=== PATIENT | female | born 1990 | race Caucasian/White ===

== ENCOUNTER 2020-01-29 18:36 | Emergency (ER) | payer MEDICAID, SELFPAY ==
[2020-01-29 18:37] VITALS: BP 149/101; PULSE 93; RESP 18; TEMP 36.8; O2SAT 96; BMI 40.5
--- NOTE | 2020-01-29 20:08 | ED.RN ---
PT NOW C/O CHEST PAIN
--- NOTE | 2020-01-29 20:09 | EKG12_ITS ---
Test Reason : CP Blood Pressure : / mmHG Vent. Rate : 081 BPM Atrial Rate : 081 BPM P-R Int : 140 ms QRS Dur : 082 ms QT Int : 364 ms P-R-T Axes : 056 069 039 degrees QTc Int : 422 ms Normal sinus rhythm Normal ECG Confirmed by WILI RAZO, CHRISTIE ([id number]), food expeditor GRAYSON THORPE ([id number]) on 01/31/2020 1:01:04 PM Referred By: NAVEED Confirmed By:NICOLE RASHEED MD
--- NOTE | 2020-01-29 20:12 | RAD_ITS ---
STUDY: X-RAY CHEST REASON FOR EXAM: Female, 29 years old. SORE THROAT, EAR PAIN, SOB, COUGH AND FEVER TECHNIQUE: Frontal view of the chest COMPARISON: May 09, 2016 FINDINGS: The lungs are clear and expanded. There is no demonstrated pleural abnormality. Normal size heart. Normal mediastinum and brittany. Normal visualized pulmonary arteries. Normal visualized aortic arch and descending thoracic aorta. Normal visualized thoracic spine. Normal visualized ribs, clavicles, and shoulders. There is no demonstrated abnormality of the visualized soft tissue structures of the upper abdomen. RAD/Chest 1 View (Portable) IMPRESSION: Normal x-ray examination of the chest. Electronically Signed: Paola Rucker, at 20:31 EDT Tel , Service support ,
[2020-01-29 20:31] VITALS: PULSE 86; RESP 16; O2SAT 97; O2SAT 99
[2020-01-29] MEDS: Ketorolac 30 MG/ML Syringe IV (20:49)
[2020-01-29] MEDS: 0.9% Normal Saline 1,000 ML 150 ML IV (20:50)
[2020-01-29 21:17] LABS: Absolute Lymphocyte Count 3.59 X10^3/uL (0.83-4.51); Absolute Neutrophil Count 5.8 X10^3/uL (2.0-7.7); Basophil# 0.06 X10^3/uL; Basophil% 0.6 % (0-1); Eosinophil# 0.39 X10^3/uL; Eosinophils% 3.7 % (0-5); Hematocrit 44.2 % (37-47); Hemoglobin 14.3 g/dL (12.0-15.0); Lymphocyte # 3.59 X10^3/ul (4.0); Lymphocyte % 34.4 % (19-41); Mean Corp Hgb Conc 32.4 g/dL (32-36); Mean Corpuscular Hgb 29.3 pg (27.0-32.0); Mean Corpuscular Volume 90.6 fL (81-99); Mean Platelet Vol. 10.2 fl (6.2-12.0); Monocyte# 0.54 X10^3/uL; Monocyte% 5.2 % (0-10); NRBC Flagged by Analyzer 0 % (0-5); Neutrophil # 5.83 X10^3/uL (2.7-7.7); Neutrophil % 55.8 % (47-70); Platelet Count 256 K/mm3 (150-450); RBC Distribution Width CV 12.1 % (11.6-14.6); RBC Distribution Width SD 39.9 fl (35.1-43.9); Red Blood Count 4.88 M/mm3 (4.2-5.4); White Blood Count 10.4 K/mm3 (4.4-11.0)
[2020-01-29 21:26] LABS: Prothrombin Time (Protime)PT. 13.5 SECONDS (11.7-14.9)
[2020-01-29 21:29] LABS: D-Dimer Quantitative (DVT/PE) 0.38 FEU/ug/m (0.27-0.49)
[2020-01-29 21:53] LABS: Anion Gap 6 (5-15); BUN 13 mg/dL (7-18); BUN/Creat Ratio 17.3 RATIO (10-20); Calcium,Total 8.8 mg/dL (8.5-10.1); Chloride 106 mmol/L (98-107); Creatinine, Serum 0.75 mg/dL (0.55-1.02); EST Glomerular Filtration Rate 96 mL/min (>60); Est Glom Filt Rate - Afr Amer 116 mL/min (>60); Estimated Creatinine Clearance 82.76 ml/min; Glucose 90 mg/dL (74-106); Potassium 3.8 mmol/L (3.5-5.1); Sodium Level 138 mmol/L (136-145)
--- NOTE | 2020-01-29 22:31 | ED.VIS.GEN ---
History of Present Illness Chief Complaint: Cold Sx Informant: Patient Narrative: Patient presents with a two-week history of intermittent chest heaviness. The past 6 or 7 days she is also had sore throat and fever. She denies having fever today. She has not had significant cough. She denies ill contacts. - Past Medical History (1) GERD (gastroesophageal reflux disease) Status: Chronic (2) Back pain Status: Chronic Past Medical History - Allergies and Home Meds Allergies/Adverse Reactions: Allergies Penicillins Allergy (Verified 01/29/20 18:38) Unknown tramadol HCl [From Ultram] Allergy (Verified 01/29/20 18:38) Rash Primary Care Physician: Care Physician,No Primary [Primary Care Provider] - Prior records reviewed: Yes Surgical History: - - Laparoscopic surgery for endometriosis Lives: With Family Smoking Status: Current some day smoker Review of Systems General: Reports: Fever Eyes: Denies: Visual changes - bilaterally ENT: Reports: Sore throat Cardiovascular: Reports: Chest pain. Denies: Palpitations Respiratory: Reports: Dyspnea, Cough. Denies: Sputum Gastrointestinal: Denies: Abdominal pain, Nausea, Vomiting, Diarrhea Genitourinary: Denies: Dysuria Skin: Denies: Rash Neurological: Denies: Headache Allergy: Denies: Uticaria Physical Exam Vital Signs/Narrative: Vital Signs Temp Pulse Resp BP Pulse Ox 01/29/20 20:31 86 16 99 01/29/20 18:37 98.3 F 93 18 149/101 H 96 Inital Vital Signs reviewed: Yes General: Well nourished, Well developed Head: Normocephalic Eyes: Perrl, EOMI ENT: Moist mucous membranes, TM's clear, - - Mild posterior pharyngeal erythema. Uvula midline. Neck: Supple, - - Mild bilateral cervical lymphadenopathy. Cardiovascular: Regular rate, Regular rhythm Respiratory: No distress, CTA bilaterally Abdomen: Soft, Nontender Extremities: Nontender Skin: Normal color Neurological: Alert, Oriented x3 Psychological: Normal affect Diagnostic/Tx/Re-eval Impressions Chest X-Ray 01/29/20 20:12 IMPRESSION: Normal x-ray examination of the chest. Electronically Signed: Paola Rucker, at 20:31 EDT Tel , Service support , 01/29/20 20:12 Chest 1 View (Portable) [RAD] Stat 01/29/20 20:52 Mucosa - Throat Group A Streptococcus Rapid Screen - Preliminary Laboratory Results 01/29/20 01/29/20 01/29/20 21:01 21:01 21:01 WBC 10.4 RBC 4.88 Hgb 14.3 Hct 44.2 MCV 90.6 MCH 29.3 MCHC 32.4 RDW Std Deviation 39.9 RDW Coeff of Tiarra 12.1 Plt Count 256 MPV 10.2 Immature Gran % (Auto) 0.300 Neut % (Auto) 55.8 Lymph % (Auto) 34.4 [place] % (Auto) 5.2 Eos % (Auto) 3.7 Baso % (Auto) 0.6 Absolute Neuts (auto) 5.8 Absolute Lymphs (auto) 3.59 Nucleated RBC % 0 PT 13.5 INR 1.0 D-Dimer Quant (PE/DVT) 0.38 Sodium 138 Potassium 3.8 Chloride 106 Carbon Dioxide 26.0 Anion Gap 6 BUN 13 Creatinine 0.75 Estim Creat Clear Calc 82.76 Est GFR (MDRD) Af Amer 116 Est GFR (MDRD) Non-Af 96 BUN/Creatinine Ratio 17.3 Glucose 90 Calcium 8.8 Troponin I < 0.015 - EKG Initial EKG Interpretation: Sinus Rhythm - Sinus at 81 with no acute ischemia. - Medical Decision Making Test results are discussed with the patient. Blood work including troponin and d-dimer are negative. Rapid strep is negative. She is reassured with these findings. ED Disposition - Plan for ED Patient: Disposition: Home or Assisted Living Diagnosis: Atypical chest pain, Viral URI Instructions: URI, Viral, No Abx (Adult), CHEST PAIN, NonCardiac Referrals: Jaye Foreman MD [STAFF PHYSICIAN] - As Needed
[2020-01-29 22:51] VITALS: BP 138/101; PULSE 85; RESP 16; O2SAT 99
== END 2020-01-29 22:52 | disposition home or self-care (01) ==
PROVIDERS: Emergency Provider Emergency Medicine
DX: R07.89 Other chest pain (principal); J06.9 Acute upper respiratory infection, unspecified; K21.9 Gastro-esophageal reflux disease without esophagitis; F17.200 Nicotine dependence, unspecified, uncomplicated
CPT/HCPCS: 71045; 80048; 84484; 85025; 85379; 85610; 87880; 93005; 96361; 96374; 99284; J7030; A4216

== ENCOUNTER 2020-03-26 22:14 | Observation (INO) | payer MEDICAID, SELFPAY ==
--- NOTE | 2020-03-26 11:58 | CT_ITS ---
STUDY: CT BRAIN WITHOUT CONTRAST REASON FOR EXAM: Female, 29 years old. Unresponsive episode, chest pain, shortness of breath, seizures, increased BP RADIATION DOSAGE (If Supplied By Facility): CTDIvol = ( 44.99 ) mGy, DLP = ( 745.49 ) mGycm TECHNIQUE: Transaxial CT imaging of the brain was performed without administration of intravenous contrast material. Individualized dose optimization techniques were used for this CT. COMPARISON: No relevant priors. FINDINGS: Normal soft tissue structures. Normal calvarium. Normal size ventricles and extra-axial spaces for the patient''s age. Normal white matter tracts of the cerebral hemispheres. Normal basal ganglia and thalami. Normal brainstem. Normal cerebellum. There is no intracranial hemorrhage. There are no findings of an acute ischemic infarction. Normal visualized paranasal sinuses. CT/Brain/Head without Contrast IMPRESSION: Normal unenhanced CT scan of the brain. Electronically Signed: Vincent Gotti, at 0:40 EDT Tel , Service support ,
--- NOTE | 2020-03-26 11:58 | CT_ITS ---
STUDY: CTA CHEST REASON FOR EXAM: Female, 29 years old. Unresponsive episode, chest pain, shortness of breath, seizures, increased BP RADIATION DOSAGE (If Supplied By Facility): CTDIvol = ( 15.03 ) mGy, DLP = ( 505.51 ) mGycm TECHNIQUE: The examination was performed with the intravenous administration of IV 100mL Isovue-370. Post-processing of the angiographic images was performed, with multiplanar reformation and 3D reconstruction. Individualized dose optimization techniques were used for this CT. COMPARISON: None. FINDINGS: Normal enhancement of the main pulmonary artery and right and left pulmonary arteries. Normal enhancement of the bilateral peripheral pulmonary arteries. There is no demonstrated pulmonary embolism. No aortic aneurysm identified. Evaluation of the aortic root and ascending thoracic aorta is limited by motion artifact. Otherwise no aortic dissection identified. Normal heart and pericardium. Nonspecific mediastinal and hilar lymph nodes measuring up to 1.1 cm in short axis. Normal visualized trachea and bronchi. The lungs are well expanded. Atelectasis/scarring within the lungs. Motion within the lung rodriguez. No focal consolidation. Normal pleura. Normal chest wall structures. There are mild degenerative changes of thoracic spine. Status post cholecystectomy. Small hiatal hernia. CT/CTA Chest W/WO Contrast IMPRESSION: No pulmonary embolus identified. Nonspecific mediastinal and hilar lymph nodes measuring up to 1.1 cm in short axis. Other findings as discussed above. Electronically Signed: Vincent Gotti, at 0:49 EDT Tel , Service support ,
[2020-03-26 22:15] VITALS: BP 150/99; PULSE 104; RESP 18; TEMP 36.8; O2SAT 99; BMI 36.9
[2020-03-26 22:18] VITALS: BP 150/99; PULSE 104; RESP 18; TEMP 36.8; O2SAT 99
--- NOTE | 2020-03-26 22:25 | NURSING ---
ATTEMPT TO CALL RT FOR EKG FOR INTERMITTENT CP, NO ANSWER.
--- NOTE | 2020-03-26 22:53 | EKG12_ITS ---
Test Reason : SOB Blood Pressure : / mmHG Vent. Rate : 084 BPM Atrial Rate : 084 BPM P-R Int : 128 ms QRS Dur : 080 ms QT Int : 358 ms P-R-T Axes : 071 080 046 degrees QTc Int : 423 ms Normal sinus rhythm Normal ECG Confirmed by MALIHA RAOZ, CHRISSY ([id number]), acquisition editor SHALOM ZABALA ([id number]) on 03/30/2020 2:59:19 PM Referred By: Ahmet Galdamez Confirmed By:CHRISSY JETT MD
[2020-03-26 23:18] VITALS: BP 175/85; PULSE 89; RESP 17; TEMP 36.9; O2SAT 98
[2020-03-26] MEDS: 0.9% Normal Saline 1,000 ML 1000 ML IV (23:18)
[2020-03-26 23:20] LABS: Absolute Lymphocyte Count 3.73 X10^3/uL (0.83-4.51); Basophil# 0.11 X10^3/uL; Eosinophil# 0.44 X10^3/uL; Hematocrit 44.5 % (37-47); Hemoglobin 14.8 g/dL (12.0-15.0); Lymphocyte # 3.73 X10^3/ul (4.0); Lymphocyte % 34.2 % (19-41); Mean Corp Hgb Conc 33.3 g/dL (32-36); Mean Corpuscular Hgb 30.6 pg (27.0-32.0); Mean Corpuscular Volume 92.1 fL (81-99); Mean Platelet Vol. 10.3 fl (6.2-12.0); Monocyte# 0.62 X10^3/uL; Monocyte% 5.7 % (0-10); NRBC Flagged by Analyzer 0 % (0-5); Neutrophil # 5.97 X10^3/uL (2.7-7.7); Neutrophil % 54.6 % (47-70); Platelet Count 275 K/mm3 (150-450); RBC Distribution Width CV 11.9 % (11.6-14.6); Red Blood Count 4.83 M/mm3 (4.2-5.4); White Blood Count 10.9 K/mm3 (4.4-11.0)
[2020-03-26 23:22] VITALS: O2SAT 99
[2020-03-26] MEDS: Ondansetron 4 MG/2 ML Vial IV (23:39)
[2020-03-26] MEDS: Morphine 4 MG/ML Syringe IV (23:40)
[2020-03-26 23:42] LABS: Lactic Acid 0.6 mmol/L (0.4-1.9)
[2020-03-27] VITALS (11 sets, daily range): BP systolic 129–180; BP diastolic 56–99; PULSE 78–93; RESP 16–20; TEMP 36.4–36.9; O2SAT 93–98; BMI 40.8
[2020-03-27 00:03] LABS: ALB/GLOB Ratio 1.1 RATIO (0.9-2.4); AST(SGOT) 5 U/L (15-37); Alanine Aminotransfer ALT/SGPT 25 U/L (13-56); Albumin, Serum 3.6 g/dL (3.2-5.0); Alkaline Phosphatase 117 U/L (45-117); Anion Gap 7 (5-15); BUN 13 mg/dL (7-18); BUN/Creat Ratio 15.5 RATIO (10-20); Chloride 105 mmol/L (98-107); Creatinine, Serum 0.84 mg/dL (0.55-1.02); EST Glomerular Filtration Rate 85 mL/min (>60); Est Glom Filt Rate - Afr Amer 102 mL/min (>60); Estimated Creatinine Clearance 77.45 ml/min; Globulin 3.4 g/dL (2.2-4.2); Glucose 102 mg/dL (74-106); Magnesium 1.9 mg/dL (1.6-2.6); Sodium Level 140 mmol/L (136-145); Thyroid Stim Hormone (TSH) 2.39 uIU/mL (0.358-3.74); Total Bilirubin < 0.10 mg/dL (0.20-1.00)
--- NOTE | 2020-03-27 00:23 | ED.DCSUM_ITS ---
History of Present Illness Chief Complaint: Shortness of Breath Informant: Patient Onset: Today Narrative: Patient presents the emergency room following a syncopal episode. Patient states that last week while caring for her children while her is at work she had a couple of episodes where she found herself passed out. She states that each episode started very similar where she would start to feel her heart racing and then she would get clammy and sweaty and passed out. She did not hurt herself in any those incidents. Today she went for a walk with her family and while in the car almost at home her symptoms began again. When she went to get out of the car she had a syncopal episode. She states that her told her she was out for about 45 seconds. States she was a little confused when she came to. She is not had these types of problems before. What was different about tonight was that she had a pain in between her shoulder blades. She denies any symptoms below the diaphragm. Arms and legs feel fine. She states that in between each episode she generally is fine. No new medications. No muscle cramps. Past Medical History - Allergies and Home Meds Allergies/Adverse Reactions: Allergies Penicillins Allergy (Verified 03/26/20 22:19) Unknown tramadol HCl [From Ultram] Allergy (Verified 03/26/20 22:19) Rash Primary Care Physician: Care Physician,No Primary [Primary Care Provider] - Surgical History: - - Laparoscopic surgery for endometriosis Smoking Status: Current every day smoker Review of Systems General: Denies: Chills, Fever, Sweats Eyes: Denies: Visual changes - bilaterally, Diplopia ENT: Denies: Rhinorrhea, Sore throat Cardiovascular: Reports: Palpitations, Heart racing - syncope, -. Denies: Chest pain Respiratory: Denies: Dyspnea, Cough, Dyspnea on exertion Gastrointestinal: Reports: Nausea. Denies: Abdominal pain, Vomiting, Diarrhea, Melena, Hematochezia Genitourinary: Denies: Dysuria, Hematuria, Frequency Musculoskeletal: Reports: Back pain. Denies: Extremity Pain Skin: Denies: Rash, Wounds Neurological: Denies: Headache, Weakness, Numbness Physical Exam Vital Signs/Narrative: Vital Signs Temp Pulse Resp BP Pulse Ox 03/26/20 23:18 98.5 F 89 17 180/97 H 98 03/26/20 22:18 98.3 F 104 H 18 150/99 H 99 03/26/20 22:15 98.3 F 104 H 18 150/99 H 99 Inital Vital Signs reviewed: Yes General: Well nourished, Well developed, No Acute Distress Head: Normocephalic, Atraumatic Eyes: Perrl, EOMI ENT: Moist mucous membranes, No rhinorrhea Neck: Supple, Nontender Cardiovascular: Regular rate, Regular rhythm, No murmurs Respiratory: No distress, CTA bilaterally, Chest nontender Abdomen: Soft, Nontender, Nondistended, Normal bowel sounds Back: Nontender, Normal Inspection Extremities: Nontender, No edema Skin: Normal color, No rash Neurological: Alert, Oriented x3, Cranial nerves II-XII grossly intact, Normal Strength, Normal Sensation Psychological: Normal affect, Normal Mood Diagnostic/Tx/Re-eval - EKG Initial EKG Interpretation: Sinus Rhythm - Initial EKG shows a normal sinus rhythm at a rate of 84. No concerning features of ACS, prolonged QT. This is compared to 29 January 2020. Grossly unchanged. - Medical Decision Making Basic labs are normal. CTA of the chest demonstrates no pulmonary embolism or dissection. She is been observed on the monitor is been a normal sinus rhythm. She has not felt her symptoms again. I think the patient would benefit from an echocardiogram and a Holter monitor. I believe the patient has a high l ikelihood that she is going into SVT or other dysrhythmia resulting in syncope. Unfortunately she has no primary care physician. I cannot ensure early follow- up especially in light of the pandemic. Patient would prefer to have an observational stay and see if we can get these set up for her. Hospitalist will be contacted. ED Disposition - Plan for ED Patient: Disposition: Acute Care Hospital [facility] Diagnosis: Syncope and collapse, Heart palpitations Referrals: Care Physician,No Primary [Primary Care Provider] -
[2020-03-27] MEDS: 0.9% Normal Saline 1,000 ML 150 ML IV (00:27)
[2020-03-27] MEDS: Acetaminophen 500 MG Tablet 1000 MG PO (02:45)
--- NOTE | 2020-03-27 02:59 | ECHOD_ITS ---
Reason For Study: SYNCOPE/NEAR SYNCOPE Procedure This was a 2D Doppler, Color Flow transthoracic echocardiogram. Exam performed portable in patient room. Left Ventricle Normal LV size. Left ventricular systolic function is normal. The estimated ejection fraction is 60 %. Normal diastology for age. No regional wall motion abnormalities noted. Right Ventricle Normal RV size. Normal systolic function. Atria Normal left atrium. Normal right atrium. Mitral Valve Normal mitral valve. Tricuspid Valve Normal tricuspid valve. Aortic Valve Normal aortic valve. Trisinus/trileaflet aortic valve. Pulmonic Valve Normal pulmonic valve. Great Vessels Normal aortic root. The pulmonary artery is normal size. Normal inferior vena cava. Pericardium/Pleural No pericardial effusion. MMode/2D Measurements & Calculations LVIDd: 4.1 cm IVSd: 0.86 cm Ao root diam: 2.6 cm LVIDs: 2.5 cm LVPWd: 0.98 cm RVDd: 2.9 cm FS: 37.6 % LAV(MOD-bp): 64.1 ml LA A4 area: 20.8 cm2 LA dimension(2D): 3.2 cm LAV(MOD-bp) Indexed: 33.4 ml/m2 LAV(MOD-sp2): 60.3 ml LAV(MOD-sp4): 65.5 ml RA A4 area: 11.3 cm2 Time Measurements MV dec time: 0.22 sec Doppler Measurements & Calculations MV E max esteban: 98.6 cm/sec Lat Peak E' Esteban: 13.3 cm/sec Med Peak E' Esteban: 10.2 cm/sec MV A max esteban: 69.0 cm/sec E/E' lat: 7.4 E/E' med: 9.7 MV E/A: 1.4 Ao V2 max: 141.9 cm/sec LV V1 max: 106.8 cm/sec PA V2 max: 99.9 cm/sec Ao max P.1 mmHg LV V1 max P.6 mmHg Interpretation Summary Normal LV size. Left ventricular systolic function is normal. The estimated ejection fraction is 60 %. Structurally normal valves. Ordering Physician: Ahmet Galdamez Referring Physician: NICHOLE PCP Performed By: Meri Simmons RDCS, RVT
--- NOTE | 2020-03-27 03:57 | PCM.HP.STD ---
Problem List (1) Syncope and collapse Status: Acute History of Present Illness Date of Admission: 03/27/20 Chief Complaint: Syncope and collapse The patient is a 29 year old F seen in the emergency room at [facility] with complaints of several syncopal episodes-patient states she passed out twice last week, once when she was standing in her home, her daughter saw the event happened but she states her daughter does not know how long the patient was unconscious. Patient did not suffer any injuries when she passed out. The second episode last week was when she was getting out of bed and going into her bathroom, she states that she slumped on the edge of her sink and passed out in front of her for about 30 seconds. Patient states that today she was returning from walking and she was getting out of her car when she became cold, sweaty, and passed out for which she states was 1-1/2 minutes. Patient states her was present during the time that she passed out. Patient states that she has complaints of some vague chest discomfort and pain in her mid back area, she states that she also feels as though she is smothering when these episodes happen. She also experiences what she describes as her heart racing before she passes out. Patient does not have a family physician. Patient's labs obtained in the emergency room are unremarkable, chest CTA was performed which showed no evidence of pulmonary embolus, CT scan of the brain was obtained which was unremarkable. Patient will be admitted for syncope-etiology unclear, she will undergo an echocardiogram, she may need to undergo a cardiac stress test. Past Medical History Past Medical History (Chronic Problems): Chronic Problems GERD (gastroesophageal reflux disease) (Chronic) Back pain (Chronic) Endometriosis determined by laparoscopy (Chronic) Allergies Penicillins Allergy (Verified 03/27/20 03:04) Shortness of breath tramadol HCl [From Ultram] Allergy (Verified 03/26/20 22:19) Rash Home Medications: Ambulatory Orders Medication Instructions Recorded Multivitamin [Daily Multiple 1 each PO DAILY 02/11/16 Vitamin] Surgical History: - - Laparoscopic surgery for endometriosis Psychiatric History: No pertinent psych hx ADMINISTRATIVE INTERN History: No pertinent ADMINISTRATIVE INTERN history Lives: Spouse/ Significant Other Smoking Status: Current every day smoker Tobacco Use: Cigarettes Alcohol: None Drugs: None - *Family History Maternal History Items: Asthma, Stroke, - - MS Paternal History Items: Asthma Review of Systems Constitutional: Denies: Anorexia, Chills, Fever, Night Sweats, Malaise, Weakness, Weight Change, Fatigue Eyes: Denies: Cataracts, Conjunctivae Inflammation, Double vision, Drainage HEENT: Denies: Dysphasia, Ear Pain, Eye Pain, Hearing Changes, Nasal bleeding, Nasal Congestion, Post Nasal Drip Cardiovascular: Reports: Chest Pain, Palpitations. Denies: Claudication, Chest Pressure, Chest Tightness, Edema, Heaviness Respiratory: Denies: Cough, Hemoptysis, Pleuritic Pain, Shortness of Breath, Shortness of breath at rest, Shortness of breath upon exertion Gastrointestinal: Denies: Abdominal Pain, Constipation, Diarrhea, Hematemesis, Hematochezia, Nausea, Melena, Vomiting Genitourinary: Denies: Dysuria, Frequency, Hematuria, Hesitancy, Nocturia, Retention, Urgency Musculoskeletal: Reports: Back Pain - Patient complains of pain in the mid thoracic spine area between her shoulder blades since she passed out today. Denies: Joint Pain, Joint stiffness, Joint swelling, Joint Tenderness Skin: Denies: Dryness, Pruritis, Rash Neurological: Reports: - - Syncope as described in chief complaint. Denies: Balance problems, Blurred vision, Double vision, Slurred speech, Confusion, Difficulty swallowing, Focal weakness, Headaches, Numbness, Tingling, Tremor, Seizures Psychiatric: Denies: Anxiety, Depression, Homicidal Ideations, Suicidal Ideations Endocrine: Denies: Change in Body Habitus, Heat/ Cold Intolerance, Polydipsia, Polyuria Hematologic/ Lymphatic: Denies: Adenopathy, Anemia, Easy Bruising, Easy Bleeding, Petechiae, Purpura VTE Information - Inpt Only VTE Present on Admission: No VTE Mechan Device Prophylaxis: None VTE Pharm Prophylaxis ordered?: No Reason prophylaxis not ordered:: Treatment Not Indicated Patient Problems: Active and Suspected Problems Syncope and collapse (Acute) Heart palpitations (Acute) - Physical Exam Vitals/I&O's: Vital Signs Temp Pulse Resp BP Pulse Ox 97.9 F 80 18 142/96 H 96 03/27/20 02:46 03/27/20 03:17 03/27/20 02:46 03/27/20 02:46 03/27/20 02:46 Oxygen Delivery Method Room Air Weight: 101.3 kg Body Mass Index (BMI) 40.8 Intake and Output for Last 24 Hours 05/06/20 05/07/20 05/08/20 23:59 23:59 23:59 Intake Total 1427.5 / 1427.5 Balance 1427.5 / 1427.5 General: Alert, Oriented x3, Cooperative, No apparent distress, Well developed, Well nourished HEENT: Atraumatic, PERRLA, EOMI, Normocephalic Oral: Moist Mucosa Neck: Supple, No JVD, Negative Carotid Bruits, No Nuchal Rigidity, Trachea Midline, Thyroid Normal Size and Texture Lungs: Clear to auscultation, Normal air movement, No rhonchi, No wheeze, No rales Cardiovascular: Regular rate, Regular Rhythm, Normal S1, Normal S2, No murmurs, PMI Normal, No rub noted, No Gallop Abdomen: Bowel Sounds Present, Soft, Non Tender, Non-Distended, Obese Extremities: No clubbing, No cyanosis, No edema, Capillary Refill Less than 3 Seconds Skin: No rashes, No breakdown Musculoskeletal: No Tenderness to Palpation of Joints or Extremities, No Muscle Wasting Neurological: Cranial nerves II-XII grossly intact, Neuro grossly intact, Sensory exam intact to light touch and pain Psych/Mental Status: Normal Affect, Appropriate, Alert and oriented to time, place, person, mood and affect Laboratory Results 03/26/20 23:15: WBC 10.9, RBC 4.83, Hgb 14.8, Hct 44.5, MCV 92.1, MCH 30.6, MCHC 33.3, RDW Std Deviation 40.0, RDW Coeff of Tiarra 11.9, Plt Count 275, MPV 10.3, Immature Gran % (Auto) 0.500, Neut % (Auto) 54.6, Lymph % (Auto) 34.2, [place] % (Auto) 5.7, Eos % (Auto) 4.0, Baso % (Auto) 1.0, Absolute Neuts (auto) 6.0, Absolute Lymphs (auto) 3.73, Nucleated RBC % 0 03/26/20 23:15: Sodium 140, Potassium 4.0, Chloride 105, Carbon Dioxide 28.0, Anion Gap 7, BUN 13, Creatinine 0.84, Estim Creat Clear Calc 77.45, Est GFR (MDRD) Af Amer 102, Est GFR (MDRD) Non-Af 85, BUN/Creatinine Ratio 15.5, Glucose 102, Calcium 9.0, Magnesium 1.9, Total Bilirubin < 0.10 L, AST 5 L, ALT 25, Alkaline Phosphatase 117, Troponin I < 0.015, Total Protein 7.0, Albumin 3.6, Globulin 3.4, Albumin/Globulin Ratio 1.1, TSH 2.39 03/26/20 23:15: Lactic Acid 0.6 Current Medications Sodium Chloride () 250 mls @ 15 mls/hr IV .[id number] PRN PRN Reason: Saline Flush Sodium Chloride () 250 mls @ 15 mls/hr IV .[id number] PRN PRN Reason: Additional IVPB Infusion Ondansetron HCl (Zofran) 4 mg IV Q8H PRN PRN PRN Reason: NAUSEA/VOMITING Sodium Chloride () 10 - 40 ml IV UD PRN PRN Reason: SALINE FLUSH Assessment/Plan All Active Problems Syncope and collapse (Acute) Heart palpitations (Acute) #1 syncope and collapse-etiology unclear, patient will be placed in observation status on PCU, she will be monitored, she will have an echocardiogram performed today, she may need a cardiac stress test performed. #2 class III obesity #3 midthoracic back pain-possibly secondary to back strain from passing out OBSV E&M: [id number] Initial observation care L3
[2020-03-27 07:40] LABS: Cholesterol 192 mg/dL (200); High Density Lipoprotein 26 mg/dL; Triglycerides 498 mg/dL
[2020-03-27] MEDS: Ibuprofen 400 MG Tablet 800 MG PO (08:52)
--- NOTE | 2020-03-27 13:57 | PN_ITS ---
<Heather Wing - Last Filed: 03/27/20 14:02> Patient Problems: Active and Suspected Problems Syncope and collapse (Acute) Heart palpitations (Acute) Subjective: Patient seen and examined. Denies further syncope. Denies dizziness, lightheadedness. - Physical Exam Vitals/I&O's: Vital Signs Temp Pulse Resp BP Pulse Ox 97.5 F L 79 16 132/76 H 95 03/27/20 09:06 03/27/20 09:06 03/27/20 09:06 03/27/20 09:06 03/27/20 09:06 Oxygen Delivery Method Room Air Weight: 223 lb 5.252 oz Body Mass Index (BMI) 40.8 Orthostatic Vital Signs Start: 03/27/20 09:05 Freq: q24h Status: Active Protocol: Activity Type Activity Date Activity User E-Sign Co-Sign Detail Recorded Client Recorded Date Recorded By Document 03/27/20 09:05 EY [id number] 03/27/20 09:06 EY 03/27/20 09:05 Orthostatic Vitals Standing -Blood Pressure (90/60-120/80) 136/91 H -Extremity Use Left Arm -Pulse Rate (60-100) 79 Sitting -Blood Pressure (90/60-120/80) 135/80 H -Extremity Use Left Arm -Pulse Rate (60-100) 83 Lying -Blood Pressure (90/60-120/80) 132/76 H -Extremity Use Left Arm -Pulse Rate (60-100) 82 Intake and Output for Last 24 Hours 03/25/20 03/26/20 03/27/20 23:59 23:59 23:59 Intake Total 1427.5 / 1427.5 Balance 1427.5 / 1427.5 General: Alert, Oriented x3, Cooperative HEENT: Atraumatic, PERRLA, EOMI, Normocephalic Neck: Supple, No JVD, Negative Carotid Bruits Lungs: Clear to auscultation, Normal air movement Cardiovascular: Regular rate, Regular Rhythm, Normal S1, Normal S2, No murmurs Abdomen: Bowel Sounds Present, Soft, Non Tender, Non-Distended, Obese Extremities: No clubbing, No cyanosis, No edema, Capillary Refill Less than 3 Seconds Skin: No rashes, No breakdown Musculoskeletal: No Tenderness to Palpation of Joints or Extremities Neurological: Cranial nerves II-XII grossly intact, Neuro grossly intact Psych/Mental Status: Normal Affect, Appropriate Laboratory Results 03/26/20 23:15: WBC 10.9, RBC 4.83, Hgb 14.8, Hct 44.5, MCV 92.1, MCH 30.6, MCHC 33.3, RDW Std Deviation 40.0, RDW Coeff of Tiarra 11.9, Plt Count 275, MPV 10.3, Immature Gran % (Auto) 0.500, Neut % (Auto) 54.6, Lymph % (Auto) 34.2, Erie % (Auto) 5.7, Eos % (Auto) 4.0, Baso % (Auto) 1.0, Absolute Neuts (auto) 6.0, Absolute Lymphs (auto) 3.73, Nucleated RBC % 0 03/26/20 23:15: Sodium 140, Potassium 4.0, Chloride 105, Carbon Dioxide 28.0, Anion Gap 7, BUN 13, Creatinine 0.84, Estim Creat Clear Calc 77.45, Est GFR (MDRD) Af Amer 102, Est GFR (MDRD) Non-Af 85, BUN/Creatinine Ratio 15.5, Glucose 102, Calcium 9.0, Magnesium 1.9, Total Bilirubin < 0.10 L, AST 5 L, ALT 25, Alkaline Phosphatase 117, Troponin I < 0.015, Total Protein 7.0, Albumin 3.6, Globulin 3.4, Albumin/Globulin Ratio 1.1, TSH 2.39 03/26/20 23:15: Lactic Acid 0.6 03/27/20 07:00: Troponin I < 0.015, Triglycerides 498 H, Cholesterol 192, LDL Cholesterol TNP, VLDL Cholesterol TNP, HDL Cholesterol 26 L Current Medications Fenofibrate (Tricor) 48 mg PO DAILY VIRGIL Sodium Chloride () 250 mls @ 15 mls/hr IV .[id number] PRN PRN Reason: Saline Flush Sodium Chloride () 250 mls @ 15 mls/hr IV .[id number] PRN PRN Reason: Additional IVPB Infusion Ibuprofen (Motrin) 800 mg PO Q8H PRN PRN PRN Reason: Pain Score 1-10/10 Last Admin: 03/27/20 08:52 Dose: 800 mg Documented by: Ondansetron HCl (Zofran) 4 mg IV Q8H PRN PRN PRN Reason: NAUSEA/VOMITING Sodium Chloride () 10 - 40 ml IV UD PRN PRN Reason: SALINE FLUSH Medical Necessity - Tobacco Use Smoking Status: Current every day smoker Tobacco Use: Cigarettes Assessment/Plan All Active Problems Syncope and collapse (Acute) Heart palpitations (Acute) 1. Recurrent syncope-unclear etiology. Troponin negative. Echocardiogram demonstrates an EF of 60%, structurally normal valves. Orthostatic vitals negative. No arrhythmias on telemetry. CT of chest unremarkable. Brain CT normal. EEG pending. Further disposition pending EEG. Repeat orthostatic vitals in a.m. 2. Obesity-encouraged diet and lifestyle modifications. 3. Hypertriglyceridemia-initiated on fenofibrate. Outpatient follow-up. DVT prophylaxis-low risk, not indicated This patient was seen by KELSIE Gunter under the supervision of Dr. Pearson. <Tricia Pearson - Last Filed: 03/27/20 14:15> - Physical Exam Vitals/I&O's: Vital Signs Temp Pulse Resp BP Pulse Ox 97.5 F L 79 16 132/76 H 95 03/27/20 09:06 03/27/20 09:06 03/27/20 09:06 03/27/20 09:06 03/27/20 09:06 Oxygen Delivery Method Room Air Weight: 223 lb 5.252 oz Body Mass Index (BMI) 40.8 Orthostatic Vital Signs Start: 03/27/20 09:05 Freq: q24h Status: Active Protocol: Activity Type Activity Date Activity User E-Sign Co-Sign Detail Recorded Client Recorded Date Recorded By Document 03/27/20 09:05 GAEL [id number] 03/27/20 09:06 GAEL 03/27/20 09:05 Orthostatic Vitals Standing -Blood Pressure (90/60-120/80) 136/91 H -Extremity Use Left Arm -Pulse Rate (60-100) 79 Sitting -Blood Pressure (90/60-120/80) 135/80 H -Extremity Use Left Arm -Pulse Rate (60-100) 83 Lying -Blood Pressure (90/60-120/80) 132/76 H -Extremity Use Left Arm -Pulse Rate (60-100) 82 Intake and Output for Last 24 Hours 03/25/20 03/26/2020 23:59 23:59 23:59 Intake Total 1427.5 / 1427.5 Balance 1427.5 / 1427.5 Laboratory Results 03/26/20 23:15: WBC 10.9, RBC 4.83, Hgb 14.8, Hct 44.5, MCV 92.1, MCH 30.6, MCHC 33.3, RDW Std Deviation 40.0, RDW Coeff of Tiarra 11.9, Plt Count 275, MPV 10.3, Immature Gran % (Auto) 0.500, Neut % (Auto) 54.6, Lymph % (Auto) 34.2, Erie % (Auto) 5.7, Eos % (Auto) 4.0, Baso % (Auto) 1.0, Absolute Neuts (auto) 6.0, Absolute Lymphs (auto) 3.73, Nucleated RBC % 0 03/26/20 23:15: Sodium 140, Potassium 4.0, Chloride 105, Carbon Dioxide 28.0, Anion Gap 7, BUN 13, Creatinine 0.84, Estim Creat Clear Calc 77.45, Est GFR (MDRD) Af Amer 102, Est GFR (MDRD) Non-Af 85, BUN/Creatinine Ratio 15.5, Glucose 102, Calcium 9.0, Magnesium 1.9, Total Bilirubin < 0.10 L, AST 5 L, ALT 25, Alkaline Phosphatase 117, Troponin I < 0.015, Total Protein 7.0, Albumin 3.6, Globulin 3.4, Albumin/Globulin Ratio 1.1, TSH 2.39 03/26/20 23:15: Lactic Acid 0.6 03/27/20 07:00: Troponin I < 0.015, Triglycerides 498 H, Cholesterol 192, LDL Cholesterol TNP, VLDL Cholesterol TNP, HDL Cholesterol 26 L 03/27/20 07:00: Hemoglobin A1c Pending Current Medications Fenofibrate (Tricor) 48 mg PO DAILY VIRGIL Sodium Chloride () 250 mls @ 15 mls/hr IV .[id number] PRN PRN Reason: Saline Flush Sodium Chloride () 250 mls @ 15 mls/hr IV .[id number] PRN PRN Reason: Additional IVPB Infusion Ibuprofen (Motrin) 800 mg PO Q8H PRN PRN PRN Reason: Pain Score 1-10/10 Last Admin: 03/27/20 08:52 Dose: 800 mg Documented by: Ondansetron HCl (Zofran) 4 mg IV Q8H PRN PRN PRN Reason: NAUSEA/VOMITING Sodium Chloride () 10 - 40 ml IV UD PRN PRN Reason: SALINE FLUSH Assessment/Plan Patient seen by Sam Lott PA-C under my supervision Patient seen and examined. She was admitted with a complaint of syncope. Patient has had 3 episodes of syncope over the past week. Patient states that the first 2 occasions happen when she was standing on her feet for bed. The last episode which happened on the day of admission. When she was sitting in a car for about 3 minutes and states she is got up and felt dizzy and passed out. Of note, she states her told her that she had jerky motions of her lower extremities and possibly her upper extremities during the syncopal episodes. She denied any urinary or fecal incontinence and any post syncope drowsiness. Patient states she has not had much of an appetite lately though she has been keeping well hydrated. Prior to last week she had not had such symptoms before. She denies any history of seizures or family history of seizures. Review of systems otherwise negative. She has no complaints this morning. She denies any dizziness, nausea vomiting. Of note she does state that before the symptoms started, she feels like she is having palpitations. O/e: Vital Signs Temp Pulse Resp BP Pulse Ox 97.5 F L 79 16 132/76 H 95 03/27/20 09:06 03/27/20 09:06 03/27/20 09:06 03/27/20 09:06 03/27/20 09:06 General: Alert, Oriented x3, Cooperative HEENT: Atraumatic, PERRLA, EOMI, Normocephalic Neck: Supple, No JVD, Negative Carotid Bruits Lungs: Clear to auscultation, Normal air movement Cardiovascular: Regular rate, Regular Rhythm, Normal S1, Normal S2, No murmurs Abdomen: Bowel Sounds Present, Soft, Non Tender, Non-Distended, Obese Extremities: No clubbing, No cyanosis, No edema, Capillary Refill Less than 3 Seconds Skin: No rashes, No breakdown Musculoskeletal: No Tenderness to Palpation of Joints or Extremities Neurological: Cranial nerves II-XII grossly intact, Neuro grossly intact Psych/Mental Status: Normal Affect, Appropriate She had 2D echo today which showed normal EF with EF of 60% and normal diastolic for age and no regional wall motion abnormalities noted. Orthostatics were negative. I do think this may be a vasovagal syncope. However in light of her persistent jerking movements I cannot rule out a seizure. We will therefore order EEG and get neurology consult. Fall precautions. Rest as per Heather Wing [employer]-C's note, which I have reviewed and endorsed. OBSV E&M: [id number] Subsequent observation care L2
[2020-03-27 14:31] LABS: Hemoglobin A1c 5.6 % (4.2-6.3)
[2020-03-27] MEDS: Fenofibrate 48 MG Tablet PO (14:54)
[2020-03-27] MEDS: levETIRAcetam IV 1,000 MG/100 ML BAG 400 MG IV (16:47)
--- NOTE | 2020-03-27 17:02 | PCM.DC ---
- Discharge Diagnoses Current Active Problems: Current Active and Chronic Problems Syncope and collapse (Acute) Heart palpitations (Acute) You will use the following diet at home:: Calorie/Carbohydrate Controlled (specify 1200, 1400, etc) Discharge Activity: Return to Normal Activity Call your doctor if you observe: Shortness of breath, Dizziness, Fainting spells, Chest pain Instructions: Triglycerides Allergies/Adverse Reactions: Allergies Penicillins Allergy (Verified 03/27/20 03:04) Shortness of breath tramadol HCl [From Ultram] Allergy (Verified 03/26/20 22:19) Rash Medications to take at Discharge Multivitamin [Daily Multiple Vitamin] 1 each PO DAILY 02/11/16 Fenofibrate [Tricor] 48 mg PO DAILY #30 tab 03/27/20 levETIRAcetam tablet [Keppra tablet] 500 mg PO BID #60 tab 03/27/20 The following prescriptions were given: levETIRAcetam tablet [Keppra tablet] 500 mg PO BID #60 tab Transmission Status: P[facility] to [id number] Fenofibrate [Tricor] 48 mg PO DAILY #30 tab [facility]: [id number] Orders to be completed after discharge: Cardiac Holter Monitor, Set-Up [[facility]] Location: None Selected Primary Care Physician: Care Physician,No Primary [Primary Care Provider] - Please follow up with your Primary Care Physician in: 1 Week Test Results: Test results from this visit will be discussed in further detail at your follow-up appointment, if applicable. Please Follow Up With: Winston Kee MD - Neurology When: Call for appt in 1-2 Weeks Please Follow Up With: [facility] When: Call to establish for follow-up following completion of Holter monitor Proposed Discharge Date: 03/27/20
--- NOTE | 2020-03-27 17:08 | DS.PCM_ITS ---
<Heather Wing - Last Filed: 03/27/20 17:14> Discharge Date and Diagnosis Date of Admission: 03/27/20 Date of Discharge: 03/27/20 - Primary Discharge Diagnosis Active and Suspected Problems 1. Recurrent syncope, possible new onset seizure 2. Obesity 3. Hypertriglyceridemia 4. Palpitations - Secondary Discharge Diagnosis Chronic Problems GERD (gastroesophageal reflux disease) (Chronic) Back pain (Chronic) Endometriosis determined by laparoscopy (Chronic) Hospital Course and Treatment Imaging Results: Diagnostic Data Brain CT 03/26/20 11:58 IMPRESSION: Normal unenhanced CT scan of the brain. Electronically Signed: Vincent Gotti, at 0:40 EDT Tel , Service support , Chest CTA 03/26/20 11:58 IMPRESSION: No pulmonary embolus identified. Nonspecific mediastinal and hilar lymph nodes measuring up to 1.1 cm in short axis. Other findings as discussed above. Electronically Signed: Vincent Gotti, at 0:49 EDT Tel , Service support , tele-neurology Operations: None Procedures: 2-D Echocardiogram Summary of Care Provided: The patient is a 29 year old F who presents emergency room due to recurrent syncopal events. 1. Recurrent syncope, possible new onset seizure activity- troponin negative. Echocardiogram demonstrates an EF of 60%, structurally normal valves. Orthostatic vitals negative. No arrhythmias on telemetry. CT of chest unremarkable. Brain CT normal. Tele-neurology consult obtained. EEG completed which suggested focal cortical dysfunction in the left temporal region. Conc erning for for epilepsy. Initiated on IV Keppra x1. Then Keppra 500 mg p.o. twice daily. Follow-up with Dr. Kee, neurology as outpatient. 48-hour Holter monitor at discharge. Follow-up with cardiology in 1 to 2 weeks given recurrent syncope and palpitations per neurology recommendations. 2. Obesity-encouraged diet and lifestyle modifications. 3. Hypertriglyceridemia-initiated on fenofibrate. Outpatient follow-up. 4. [id number] Holter monitor at discharge, follow-up with cardiology. General: Alert, Oriented x3, Cooperative HEENT: Atraumatic, PERRLA, EOMI, Normocephalic Neck: Supple, No JVD, Negative Carotid Bruits Lungs: Clear to auscultation, Normal air movement Cardiovascular: Regular rate, Regular Rhythm, Normal S1, Normal S2, No murmurs Abdomen: Bowel Sounds Present, Soft, Non Tender, Non-Distended, Obese Extremities: No clubbing, No cyanosis, No edema, Capillary Refill Less than 3 Seconds Skin: No rashes, No breakdown Musculoskeletal: No Tenderness to Palpation of Joints or Extremities Neurological: Cranial nerves II-XII grossly intact, Neuro grossly intact Psych/Mental Status: Normal Affect, Appropriate Patient seen and examined prior to discharge. Physical assessment as noted above. Patient is stable for discharge with follow up recommendations as noted above. This patient was seen by KELSIE Gunter under the supervision of Dr. Pearson. - Physical Exam Vitals/I&O's: Vital Signs Temp Pulse Resp BP Pulse Ox 98.2 F 83 18 129/99 H 94 03/27/20 16:36 03/27/20 16:36 03/27/20 16:36 03/27/20 16:36 03/27/20 16:36 Oxygen Delivery Method Room Air Weight: 223 lb 5.252 oz Body Mass Index (BMI) 40.8 Orthostatic Vital Signs Start: 03/27/20 09:05 Freq: q24h Status: Active Protocol: Activity Type Activity Date Activity User E-Sign Co-Sign Detail Recorded Client Recorded Date Recorded By Document 03/27/20 09:05 EY [id number] 03/27/20 09:06 EY 03/27/20 09:05 Orthostatic Vitals Standing -Blood Pressure (90/60-120/80) 136/91 H -Extremity Use Left Arm -Pulse Rate (60-100) 79 Sitting -Blood Pressure (90/60-120/80) 135/80 H -Extremity Use Left Arm -Pulse Rate (60-100) 83 Lying -Blood Pressure (90/60-120/80) 132/76 H -Extremity Use Left Arm -Pulse Rate (60-100) 82 Intake and Output for Last 24 Hours 03/25/20 03/26/20 03/27/20 23:59 23:59 23:59 Intake Total 1907.5 / 1907.5 Balance 1907.5 / 1907.5 Laboratory Results 03/26/20 23:15: WBC 10.9, RBC 4.83, Hgb 14.8, Hct 44.5, MCV 92.1, MCH 30.6, MCHC 33.3, RDW Std Deviation 40.0, RDW Coeff of Tiarra 11.9, Plt Count 275, MPV 10.3, Immature Gran % (Auto) 0.500, Neut % (Auto) 54.6, Lymph % (Auto) 34.2, [place] % (Auto) 5.7, Eos % (Auto) 4.0, Baso % (Auto) 1.0, Absolute Neuts (auto) 6.0, Absolute Lymphs (auto) 3.73, Nucleated RBC % 0 03/26/20 23:15: Sodium 140, Potassium 4.0, Chloride 105, Carbon Dioxide 28.0, Anion Gap 7, BUN 13, Creatinine 0.84, Estim Creat Clear Calc 77.45, Est GFR (MDRD) Af Amer 102, Est GFR (MDRD) Non-Af 85, BUN/Creatinine Ratio 15.5, Glucose 102, Calcium 9.0, Magnesium 1.9, Total Bilirubin < 0.10 L, AST 5 L, ALT 25, Alkaline Phosphatase 117, Troponin I < 0.015, Total Protein 7.0, Albumin 3.6, Globulin 3.4, Albumin/Globulin Ratio 1.1, TSH 2.39 03/26/20 23:15: Lactic Acid 0.6 03/27/20 07:00: Troponin I < 0.015, Triglycerides 498 H, Cholesterol 192, LDL Cholesterol TNP, VLDL Cholesterol TNP, HDL Cholesterol 26 L 03/27/20 07:00: Hemoglobin A1c 5.6 Current Medications Fenofibrate (Tricor) 48 mg PO DAILY [facility] Last Admin: 03/27/20 14:54 Dose: 48 mg Documented by: Sodium Chloride () 250 mls @ 15 mls/hr IV .[id number] PRN PRN Reason: Saline Flush Sodium Chloride () 250 mls @ 15 mls/hr IV .[id number] PRN PRN Reason: Additional IVPB Infusion Ibuprofen (Motrin) 800 mg PO Q8H PRN PRN PRN Reason: Pain Score 1-10/10 Last Admin: 03/27/20 08:52 Dose: 800 mg Documented by: Levetiracetam (Keppra Tablet) 500 mg PO BID VIRGIL Ondansetron HCl (Zofran) 4 mg IV Q8H PRN PRN PRN Reason: NAUSEA/VOMITING Sodium Chloride () 10 - 40 ml IV UD PRN PRN Reason: SALINE FLUSH Discharge Diet: Low fat/ Low Cholesterol Discharge Activity: Return to Normal Activity Call your doctor if you observe: Shortness of breath, Dizziness, Fainting spells, Chest pain Home Medications: Medications to take at Discharge Multivitamin [Daily Multiple Vitamin] 1 each PO DAILY 02/11/16 Fenofibrate [Tricor] 48 mg PO DAILY #30 tab 03/27/20 levETIRAcetam tablet [Keppra tablet] 500 mg PO BID #60 tab 03/27/20 Following Prescrptions Were Given to Patient: levETIRAcetam tablet [Keppra tablet] 500 mg PO BID #60 tab Transmission Status: Received by [facility] [id number] Fenofibrate [Tricor] 48 mg PO DAILY #30 tab Transmission Status: Received by [facility] [id number] Other Amb Orders: Cardiac Holter Monitor, Set-Up [[facility]] Location: None Selected Primary Care Physician: Care Physician,No Primary [Primary Care Provider] - Please follow up with your Primary Care Physician in: 1 Week Please Follow Up With: Winston Kee MD - Neurology When: Call for appt in 1-2 Weeks Please Follow Up With: [facility] When: Call to establish for follow-up following completion of Holter monitor Patient Instructions: Triglycerides Disposition: Home Minutes spent on discharge:: 35 Patient Condition:: Stable Medical Necessity - Tobacco Use Smoking Status: Current every day smoker Tobacco Use: Cigarettes Meaningful Use Info Meaningful Use Diagnoses (Choose all that apply): None applicable <Tricia Pearson - Last Filed: 03/27/20 18:12> Discharge Date and Diagnosis - Secondary Discharge Diagnosis Chronic Problems GERD (gastroesophageal reflux disease) (Chronic) Back pain (Chronic) Endometriosis determined by laparoscopy (Chronic) Hospital Course and Treatment Summary of Care Provided: Patient seen by Heather IGLESIAS under my supervision The patient is a 29 year old F who was admitted with a complaint of syncope. Patient has had 3 episodes of syncope over the past week. Patient states that the first 2 occasions happen when she was standing on her feet for bed. The last episode which happened on the day of admission. When she was sitting in a car for about 3 minutes and states she is got up and felt dizzy and passed out. Of note, she stated her told her that she had jerky motions of her lower extremities and possibly her upper extremities during the syncopal episodes. She denied any urinary or fecal incontinence and any post syncope drowsiness. Patient states she has not had much of an appetite lately though she has been keeping well hydrated. Prior to last week she had not had such symptoms before. She denies any history of seizures or family history of seizures. Review of systems otherwise negative. She had no complaints on morning of admission. She denied any dizziness, nausea or vomiting. Of note she does stated that prior to the syncope, she felt like she was having palpitations. She was admitted and managed for syncope. Orthostatics were negative. 2D echo done showed EF of 60% and normal diastolic for age and no regional wall motion abnormalities noted. EEG was done and showed focal cortical dysfunction in the left temporal lobe. Neurology was consulted and reviewed her in. Per review, his symptoms were concerning for epileptic disorder. Patient was started on IV Keppra with a you ding dose of thousand milligrams and put on p.o. Keppra 500 mg twice daily. Neurologist counseled patient that she is not allowed to drive until she is cleared by a neurologist. Neurology also recommended follow-up with cardiology on outpatient basis to rule out arrhythmias that could be the cause of her loss of consciousness and recommended attaching a Holter for monitoring for any arrhythmia. She was also started on folic acid 1 mg daily and is to be referred to a neurologist on outpatient basis. Neurology also recommended placing a Holter monitor for 14-30 days, and to follow up with cardiology to check for any arrhythmia. Since the 30 day Holter couldn't be placed before discharge, she was fitted with a 48 hour one, to come for the 30 day Holter fitting on Monday03/30/2020. Patient seen and examined prior to discharge. She had no complaints. REview of systems was otherwise negative. Labs and vitals reviewed, home meds reviewed and reconciled. o/e: Vital Signs Temp Pulse Resp BP Pulse Ox 98.2 F 83 18 129/99 H 94 03/27/20 16:36 03/27/20 16:36 03/27/20 16:36 03/27/20 16:36 03/27/20 16:36 [] General: Alert, Oriented x3, Cooperative HEENT: Atraumatic, PERRLA, EOMI, Normocephalic Neck: Supple, No JVD, Negative Carotid Bruits Lungs: Clear to auscultation, Normal air movement Cardiovascular: Regular rate, Regular Rhythm, Normal S1, Normal S2, No murmurs Abdomen: Bowel Sounds Present, Soft, Non Tender, Non-Distended, Obese Extremities: No clubbing, No cyanosis, No edema, Capillary Refill Less than 3 Seconds Skin: No rashes, No breakdown Musculoskeletal: No Tenderness to Palpation of Joints or Extremities Neurological: Cranial nerves II-XII grossly intact, Neuro grossly intact Psych/Mental Status: Normal Affect, Appropriate Plan as above. Rest as per Heather Wing REFRIGERATION ENGINE OPERATOR-C's note, which I have reviewed and endorsed. - Physical Exam Vitals/I&O's: Vital Signs Temp Pulse Resp BP Pulse Ox 98.2 F 83 18 129/99 H 94 03/27/20 16:36 03/27/20 16:36 03/27/20 16:36 03/27/20 16:36 03/27/20 16:36 Oxygen Delivery Method Room Air Weight: 223 lb 5.252 oz Body Mass Index (BMI) 40.8 Orthostatic Vital Signs Start: 03/27/20 09:05 Freq: q24h Status: Active Protocol: Activity Type Activity Date Activity User E-Sign Co-Sign Detail Recorded Client Recorded Date Recorded By Document 03/27/20 09:05 GAEL [id number] 03/27/20 09:06 EY 03/27/20 09:05 Orthostatic Vitals Standing -Blood Pressure (90/60-120/80) 136/91 H -Extremity Use Left Arm -Pulse Rate (60-100) 79 Sitting -Blood Pressure (90/60-120/80) 135/80 H -Extremity Use Left Arm -Pulse Rate (60-100) 83 Lying -Blood Pressure (90/60-120/80) 132/76 H -Extremity Use Left Arm -Pulse Rate (60-100) 82 Intake and Output for Last 24 Hours 03/25/20 03/26/20 03/27/20 23:59 23:59 23:59 Intake Total Balance Laboratory Results 03/26/20 23:15: WBC 10.9, RBC 4.83, Hgb 14.8, Hct 44.5, MCV 92.1, MCH 30.6, MCHC 33.3, RDW Std Deviation 40.0, RDW Coeff of Tiarra 11.9, Plt Count 275, MPV 10.3, Immature Gran % (Auto) 0.500, Neut % (Auto) 54.6, Lymph % (Auto) 34.2, [place] % (Auto) 5.7, Eos % (Auto) 4.0, Baso % (Auto) 1.0, Absolute Neuts (auto) 6.0, Absolute Lymphs (auto) 3.73, Nucleated RBC % 0 03/26/20 23:15: Sodium 140, Potassium 4.0, Chloride 105, Carbon Dioxide 28.0, Anion Gap 7, BUN 13, Creatinine 0.84, Estim Creat Clear Calc 77.45, Est GFR (MDRD) Af Amer 102, Est GFR (MDRD) Non-Af 85, BUN/Creatinine Ratio 15.5, Glucose 102, Calcium 9.0, Magnesium 1.9, Total Bilirubin < 0.10 L, AST 5 L, ALT 25, Alkaline Phosphatase 117, Troponin I < 0.015, Total Protein 7.0, Albumin 3.6, Globulin 3.4, Albumin/Globulin Ratio 1.1, TSH 2.39 03/26/20 23:15: Lactic Acid 0.6 03/27/20 07:00: Troponin I < 0.015, Triglycerides 498 H, Cholesterol 192, LDL Cholesterol TNP, VLDL Cholesterol TNP, HDL Cholesterol 26 L 03/27/20 07:00: Hemoglobin A1c 5.6 Current Medications Fenofibrate (Tricor) 48 mg PO DAILY VIRGIL Last Admin: 03/27/20 14:54 Dose: 48 mg Documented by: Sodium Chloride () 250 mls @ 15 mls/hr IV .[id number] PRN PRN Reason: Saline Flush Sodium Chloride () 250 mls @ 15 mls/hr IV .[id number] PRN PRN Reason: Additional IVPB Infusion Ibuprofen (Motrin) 800 mg PO Q8H PRN PRN PRN Reason: Pain Score 1-10/10 Last Admin: 03/27/20 08:52 Dose: 800 mg Documented by: Levetiracetam (Keppra Tablet) 500 mg PO BID VIRGIL Ondansetron HCl (Zofran) 4 mg IV Q8H PRN PRN PRN Reason: NAUSEA/VOMITING Sodium Chloride () 10 - 40 ml IV UD PRN PRN Reason: SALINE FLUSH OBSV E&M: 41610 Subsequent observation care L2
== END 2020-03-27 17:03 | disposition home or self-care (01) ==
LOC: ED 03-27 01:45 → PCU 03-27 04:41
PROVIDERS: Nurse Practitioner Family; Admitting Provider Internal Medicine; Emergency Provider Emergency Medicine; Referring Provider Internal Medicine; Visit Provider Student in an Organized Health Care Education/Training Program
DX: R55 Syncope and collapse (principal); E78.1 Pure hyperglyceridemia; R00.2 Palpitations; K21.9 Gastro-esophageal reflux disease without esophagitis; E66.9 Obesity, unspecified; Z68.41 Body mass index [BMI] 40.0-44.9, adult; Z71.3 Dietary counseling and surveillance; R06.02 Shortness of breath; F17.210 Nicotine dependence, cigarettes, uncomplicated; M54.9 Dorsalgia, unspecified
CPT/HCPCS: 36415; 70450; 71275; 80053; 80061; 83036; 83605; 83735; 84443; 84484; 85025; 93005; 93225; 93226; 93306; 95819; 96361; 96365; 96375; 97802; 99218; 99285; J7030; Q9957; A4216; G0378; J2405

== ENCOUNTER → 2020-03-27 17:39 | Outpatient (CLI) | payer MEDICAID, SELFPAY ==
[2020-03-27 03:00] VITALS: BMI 40.8
== END ==
PROVIDERS: Referring Provider Nurse Practitioner Family; Visit Provider Nurse Practitioner Family
DX: R55 Syncope and collapse (principal)
CPT/HCPCS: 93225; 93226

== ENCOUNTER 2020-07-06 22:13 | Emergency (ER) | payer MEDICAID, SELFPAY ==
[2020-03-27 03:00] VITALS: BMI 40.8
[2020-07-06 22:14] VITALS: BP 156/97; PULSE 105; RESP 17; TEMP 37.1; O2SAT 98; BMI 41.4
--- NOTE | 2020-07-06 22:41 | EKG12_ITS ---
Test Reason : CP Blood Pressure : / mmHG Vent. Rate : 105 BPM Atrial Rate : 105 BPM P-R Int : 124 ms QRS Dur : 078 ms QT Int : 318 ms P-R-T Axes : 067 086 040 degrees QTc Int : 420 ms Sinus tachycardia Otherwise normal ECG Confirmed by MALIHA RAZO, CHRISSY ([id number]), writer editor GRAYSON THORPE ([id number]) on 07/07/2020 9:29:37 AM Referred By: PC Confirmed By:CHRISSY JETT MD
--- NOTE | 2020-07-06 22:41 | RAD_ITS ---
STUDY: X-RAY CHEST REASON FOR EXAM: Female, 29 years old. Syncope, chest pain, palpitations, diaphoresis, nausea x1 day. TECHNIQUE: Frontal and lateral views of the chest. COMPARISON: 01/29/2020. FINDINGS: Low lung volumes. Minimal basilar atelectasis. No focal consolidation. EKG leads artifacts. There is no demonstrated pleural abnormality. Similar appearance to the small calcified nodularity within the right lung base. Normal size heart. Normal mediastinum and brittany. Normal visualized pulmonary arteries. Normal visualized aortic arch and descending thoracic aorta. Normal visualized thoracic spine. Normal visualized ribs, clavicles, and shoulders. There is no demonstrated abnormality of the visualized soft tissue structures of the upper abdomen. RAD/Chest PA and Lateral IMPRESSION: Minimal bilateral basilar atelectasis. No focal consolidation. Electronically Signed: Vincent Gotti, at 23:06 EDT Tel , Service support ,
--- NOTE | 2020-07-06 22:42 | ED.VIS.GEN ---
History of Present Illness Chief Complaint: Chest Pain Informant: Patient Narrative: Presents with syncope. She stated she has had 3 episodes of syncope today. She has not had any for several months until yesterday when she had one episode yesterday. She recently started having syncope in March. She had a full admission with negative work-up. She saw neurology and they thought that she might be having epilepsy. She is on Topamax. She is scheduled to have some outpatient studies as well for possible seizures. She stated she was working in the garden today outside and felt palpitations. She then felt lightheaded and had a syncopal episode. There was no postictal state. She had a and third episode this evening as well. After the third episode she developed some chest discomfort. She describes a substernal chest tightness. It is been continuous. No home treatment. Current severity is mild. She has not followed up with cardiology. She had a negative CT Norma of her chest for similar symptoms per patient back in March. She also had a normal echocardiogram. She denies any cardiac or pulmonary embolism risk factors. No History of dissection risk factors - Past Medical History (1) Heart palpitations Status: Acute (2) Syncope and collapse Status: Acute (3) Back pain Status: Chronic (4) Endometriosis determined by laparoscopy Status: Chronic (5) GERD (gastroesophageal reflux disease) Status: Chronic Past Medical History - Allergies and Home Meds Allergies/Adverse Reactions: Allergies Penicillins Allergy (Verified 07/06/20 22:21) Shortness of breath tramadol HCl [From Ultram] Allergy (Verified 07/06/20 22:21) Rash Primary Care Physician: Doctor,Your [STAFF PHYSICIAN] - Prior records reviewed: Yes Past Medical History: - - See problem list Surgical History: - - Laparoscopic surgery for endometriosis Lives: With Family Smoking Status: Current some day smoker Alcohol: None Drugs: None - Family History Maternal Family History: Reports: Asthma, Stroke, - - MS Paternal Family History: Reports: Asthma Review of Systems General: Denies: Chills, Fever, Sweats Eyes: Denies: Visual changes - bilaterally, Diplopia ENT: Denies: Rhinorrhea, Sore throat Cardiovascular: Reports: Chest pain. Denies: Palpitations Respiratory: Denies: Dyspnea, Cough, Dyspnea on exertion Gastrointestinal: Denies: Abdominal pain, Nausea, Vomiting, Diarrhea, Melena, Hematochezia Genitourinary: Denies: Dysuria, Hematuria, Frequency Musculoskeletal: Denies: Back pain, Extremity Pain Skin: Denies: Rash, Wounds Neurological: Denies: Headache, Weakness, Numbness Physical Exam Vital Signs/Narrative: Vital Signs Temp Pulse Resp BP Pulse Ox 07/06/20 22:14 98.8 F 105 H 17 156/97 H 98 General: Well nourished, Well developed, No Acute Distress Head: Normocephalic, Atraumatic Eyes: Perrl, EOMI ENT: Moist mucous membranes, No rhinorrhea Neck: Supple, Nontender Cardiovascular: Regular rate, Regular rhythm, No murmurs Respiratory: No distress, CTA bilaterally, Chest nontender Abdomen: Soft, Nontender, Nondistended, Normal bowel sounds Back: Nontender, Normal Inspection Extremities: Nontender, No edema Skin: Normal color, No rash Neurological: Alert, Oriented x3, Cranial nerves II-XII grossly intact, Normal Strength, Normal Sensation Psychological: Normal affect, Normal Mood Diagnostic/Tx/Re-eval - Medical Decision Making EKG shows sinus tachycardia at a rate of 105. No acute ischemic findings. Patient given IV fluids. Lab work and chest x-ray obtained. Patient given Toradol. Patient with persistent discomfort and given morphine. Repeat x-ray shows sinus rhythm at a rate of 95 with no acute ischemia or arrhythmia. CT Angio of the chest shows nothing acute. 4 mm left upper lobe lung nodule noted. This was discussed with the patient. She will follow-up as an outpatient with her family doctor for continued monitoring of this. This time the patient may have had recurrent syncope. I feel she can be discharged home. 2 troponin levels are both negative. I suspect her chest discomfort is noncardiac. She has no risk factors for acute coronary syndrome. Heart score is low. We will follow-up as an outpatient ED Disposition - Plan for ED Patient: Disposition: Home or Assisted Living Diagnosis: Chest pain, Syncope Instructions: ED Chest Pain NonCardiac, ED Fainting Uncertain Cause Referrals: Doctor,Your [STAFF PHYSICIAN] -
[2020-07-06] MEDS: Ketorolac 15 MG/ML Vial IV (22:49)
[2020-07-06] MEDS: 0.9% Normal Saline 1,000 ML 1000 ML IV (22:50)
[2020-07-06 22:52] LABS: Absolute Lymphocyte Count 3.79 X10^3/uL (0.83-4.51); Absolute Neutrophil Count 7.7 X10^3/uL (2.0-7.7); Basophil# 0.08 X10^3/uL; Basophil% 0.6 % (0-1); Eosinophil# 0.48 X10^3/uL; Eosinophils% 3.7 % (0-5); Hematocrit 44.1 % (37-47); Hemoglobin 14.7 g/dL (12.0-15.0); Lymphocyte # 3.79 X10^3/ul (4.0); Lymphocyte % 29.6 % (19-41); Mean Corp Hgb Conc 33.3 g/dL (32-36); Mean Corpuscular Hgb 30.2 pg (27.0-32.0); Mean Corpuscular Volume 90.7 fL (81-99); Mean Platelet Vol. 10.7 fl (6.2-12.0); Monocyte# 0.75 X10^3/uL; Monocyte% 5.9 % (0-10); NRBC Flagged by Analyzer 0 % (0-5); Neutrophil # 7.65 X10^3/uL (2.7-7.7); Neutrophil % 59.7 % (47-70); Platelet Count 246 K/mm3 (150-450); RBC Distribution Width SD 39.4 fl (35.1-43.9); Red Blood Count 4.86 M/mm3 (4.2-5.4); White Blood Count 12.8 K/mm3 (4.4-11.0)
[2020-07-06 23:06] LABS: Anion Gap 5 (5-15); BUN 14 mg/dL (7-18); Calcium,Total 8.4 mg/dL (8.5-10.1); Chloride 109 mmol/L (98-107); Creatinine, Serum 0.88 mg/dL (0.55-1.02); EST Glomerular Filtration Rate 80 mL/min (>60); Est Glom Filt Rate - Afr Amer 97 mL/min (>60); Estimated Creatinine Clearance 73.93 ml/min; Glucose 116 mg/dL (74-106); Potassium 3.6 mmol/L (3.5-5.1); Sodium Level 140 mmol/L (136-145)
--- NOTE | 2020-07-06 23:35 | EKG12_ITS ---
Test Reason : REPEAT Blood Pressure : / mmHG Vent. Rate : 095 BPM Atrial Rate : 095 BPM P-R Int : 130 ms QRS Dur : 076 ms QT Int : 346 ms P-R-T Axes : 054 073 033 degrees QTc Int : 434 ms Normal sinus rhythm Normal ECG Confirmed by CHRISSY JETT MD ([id number]), editorial writer GRAYSON THORPE ([id number]) on 07/07/2020 9:29:48 AM Referred By: TANGELA Confirmed By:CHRISSY JETT MD
[2020-07-06] MEDS: Morphine 4 MG/ML Syringe IV (23:37)
[2020-07-06 23:51] VITALS: BP 123/82; PULSE 89; RESP 16; O2SAT 98
[2020-07-07] MEDS: 0.9% Normal Saline 1,000 ML 1000 ML IV (00:35)
[2020-07-07 01:05] VITALS: BP 107/83; PULSE 88; RESP 17; O2SAT 98
[2020-07-07 01:53] VITALS: BP 126/71; PULSE 89; RESP 16; O2SAT 98
--- NOTE | 2020-07-07 23:50 | CT_ITS ---
STUDY: CTA CHEST REASON FOR EXAM: Female, 29 years old. SYNCOPE X 3 TODAY RADIATION DOSAGE (If Supplied By Facility): CTDIvol = ( 17.26 ) mGy, DLP = ( 479.30 ) mGycm TECHNIQUE: The examination was performed with the intravenous administration of IV 100mL Isovue-370. Post-processing of the angiographic images was performed, with multiplanar reformation and 3D reconstruction. Individualized dose optimization techniques were used for this CT. COMPARISON: 03/27/2020. FINDINGS: Normal enhancement of the main pulmonary artery and right and left pulmonary arteries. Normal enhancement of the bilateral peripheral pulmonary arteries. There is no demonstrated pulmonary embolism. Normal thoracic aorta and visualized great vessels. There is no demonstrated aortic dissection. Normal heart and pericardium. Nonspecific subcentimeter short axis mediastinal and hilar lymph nodes. Normal visualized trachea and bronchi. The lungs are well expanded. 4 mm pulmonary nodule superior aspect of the left lower lobe more conspicuous on this exam. Mild emphysematous changes. Atelectasis/scarring within the lungs. Normal pleura. Normal chest wall structures. There are degenerative changes of thoracic spine. Small hiatal hernia. Status post cholecystectomy. CT/CTA Chest W/WO Contrast IMPRESSION: Similar appearance to the nonspecific mediastinal and hilar lymph nodes. No pulmonary embolism identified. Slightly more conspicuous left upper lobe pulmonary nodule. There is some atelectasis within this region on prior study. Recommend follow-up [address] scan for stability. Other findings as discussed above. Electronically Signed: Vincent Gotti, at 0:39 EDT Tel , Service support ,
== END 2020-07-07 01:54 | disposition home or self-care (01) ==
PROVIDERS: Emergency Provider Emergency Medicine
DX: R07.89 Other chest pain (principal); R55 Syncope and collapse; R91.1 Solitary pulmonary nodule; R00.2 Palpitations; N80.9 Endometriosis, unspecified; Z79.899 Other long term (current) drug therapy; F17.200 Nicotine dependence, unspecified, uncomplicated
CPT/HCPCS: 71046; 71275; 80048; 84484; 85025; 93005; 96361; 96374; 96375; 99284; J7030; Q9967; A4216

== ENCOUNTER 2021-05-14 17:05 | Observation (INO) | payer MEDICAID, SELFPAY ==
[2021-05-14 17:07] VITALS: BP 150/99; PULSE 101; RESP 16; TEMP 35.8; O2SAT 96; BMI 38.0
--- NOTE | 2021-05-14 17:13 | RAD_ITS ---
STUDY: X-RAY CHEST REASON FOR EXAM: Female, 30 years old. Chest pain. TECHNIQUE: PA and lateral views of the chest. COMPARISON: None. FINDINGS: The lungs are clear and expanded. There is no demonstrated pleural abnormality. Normal size heart. Normal mediastinum and brittany. Normal visualized pulmonary arteries. Normal visualized aortic arch and descending thoracic aorta. Normal visualized thoracic spine. Normal visualized ribs, clavicles, and shoulders. There is no demonstrated abnormality of the visualized soft tissue structures of the upper abdomen. RAD/Chest PA and Lateral IMPRESSION: Normal x-ray examination of the chest. Electronically Signed: Dakota Suh DO at 17:33 EDT Tel [phone], Service support ,
--- NOTE | 2021-05-14 17:45 | EKG12_ITS ---
Test Reason : DIZZINESS Blood Pressure : / mmHG Vent. Rate : 089 BPM Atrial Rate : 089 BPM P-R Int : 130 ms QRS Dur : 082 ms QT Int : 364 ms P-R-T Axes : 060 091 055 degrees QTc Int : 442 ms Normal sinus rhythm Rightward axis Borderline ECG Confirmed by JOHN RAZO, ADELA ([id number]), staff editor ENRIQUE HUNTER ([id number]) on 05/18/2021 8:37:47 AM Referred By: BIANCA Confirmed By:ADELA LOPEZ MD
--- NOTE | 2021-05-14 17:46 | EDS_ITS ---
HPI History of Present Illness Chief Complaint: Syncope Detail of Chief Complaint: Patient with syncopal episode yesterday and today Informant: patient Narrative Narrative: Patient states that she had a syncopal episode yesterday while in her backyard and her states that he noticed some twitching for about 10 to 12 seconds. Patient has no recollection of the events and just remembers waking up on a couch. Patient states today while in the kitchen she felt her heart was racing and then passed out and fell backwards onto her back. Patient denies any significant injury although she does complain of chest pain now as well as right shoulder pain. Patient states that she has a history of syncope about a year and a half ago and was admitted to the hospital and was seen by a neurologist. Initially they thought maybe she had seizure disorder but then the neurologist has been telling her that they do not believe that she has a seizure disorder. Patient's neurologist told her that she may need to have a cardiac work-up. P atient denies recent travel or surgery. No history of PE or DVT. Prior similar symptoms: Yes PFSH PFSH Home Medications topiramate 100 mg PO BID 07/06/20 [History Last Taken Unknown] Allergy/AdvReac Type Severity Reaction Status Date / Time Penicillins Allergy Shortness Verified 05/14/21 17:06 of breath tramadol HCl [From [facility]] Allergy Rash Verified 05/14/21 17:06 Surgical History (Updated 05/14/21 @ 17:46 by Jeana Casey) History of cholecystectomy History of hysterectomy Social History Smoking Status: Current some day smoker tobacco type: cigarettes ROS ROS ED Constitutional Constitutional ED: Reports systems reviewed and no addt'l complaints, except as documented; Denies body ache(s), change in weight or chills Eyes Eyes: Denies acute decrease in peripheral vision, change in vision, double vision or loss of vision ENT ENT ED: Reports none; Denies ear pain, lip swelling, loss taste/smell, neck pain, otalgia or sore throat Cardiovascular Cardiovascular: Reports none, chest pain and racing heartbeat; Denies abdominal pain, chest pain with activity, leg edema, lightheadedness, palpitations, rapid heart rate or syncope Respiratory/Chest Respiratory/Chest: Reports none; Denies change in mental status, dry cough, dyspnea, hemoptysis, shortness of breath at rest or shortness of breath with exertion Gastrointestinal Gastrointestinal: Reports none; Denies abdominal pain, change in stool character, diarrhea, hematemesis, hematochezia, melena, rectal bleeding or vomiting Genitourinary Genitourinary ED: Reports none; Denies abdominal discomfort, anuria, dysuria, genital pain or polyuria Musculoskeletal Musculoskeletal: Reports none; Denies arthralgias, back pain, difficulty walking, extremity pain, muscle weakness or myalgias Integumentary Reports none; Denies abscess or rash Neurologic Neurologic: Reports none; Denies abnormal gait, confusion, focal weakness, frequent falls, headache(s), loss of vision, numbness, paresthesias, radicular pain, vertigo or weakness Psychiatric Psychiatric: Reports systems reviewed and no addt'l complaints, except as documented and none; Denies behavioral changes, confusion, difficulty concentrating, hallucinations, suicidal ideation, tactile hallucinations or visual hallucinations Endocrine Endocrinology: Denies none, cold intolerance, excessive sweating, fatigue or heat intolerance Hematologic/Lymphatic Hematologic/Lymphatic: Reports none; Denies anemia, easy bleeding or easy bruising Allergic/Immunologic Allergic/Immunologic ED: Denies as per HPI, none, lip swelling, mouth swelling, throat swelling, tongue swelling or hives EXAM Physical Exam Const Vital Signs: 05/14/21 17:07 05/14/21 17:45 05/14/21 19:07 Temperature 96.5 F L Temperature Source Temporal Pulse Rate 101 H 73 Pulse Rate [Lying] 73 Pulse Rate [Sitting] 69 Pulse Rate [Standing] 79 Respiratory Rate 16 15 Respiratory Effort Normal Non-Labored Respiratory Pattern Normal Blood Pressure 150/99 H 138/88 H Blood Pressure [Lying] 138/88 H Blood Pressure [Sitting] 138/90 H Blood Pressure [Standing] 135/93 H Blood Pressure Mean 116 104 Blood Pressure Mean [Lying] 104 Blood Pressure Mean [Sitting] 106 Blood Pressure Mean [Standing] 107 Pulse Ox 96 97 Oxygen Delivery Method Room Air Room Air 05/14/21 20:51 Temperature 97.7 F L Temperature Source Temporal Pulse Rate 86 Pulse Rate [Lying] Pulse Rate [Sitting] Pulse Rate [Standing] Respiratory Rate 15 Respiratory Effort Respiratory Pattern Blood Pressure 156/107 H Blood Pressure [Lying] Blood Pressure [Sitting] Blood Pressure [Standing] Blood Pressure Mean 123 Blood Pressure Mean [Lying] Blood Pressure Mean [Sitting] Blood Pressure Mean [Standing] Pulse Ox 98 Oxygen Delivery Method Room Air Positive well nourished and well developed General Appearance ED: well developed and NAD HEENT Reports TM's clear and moist mucous membranes normocephalic and atraumatic; Negative for trauma or tenderness Tympanic Membrane ED: Yes TM's clear Eyes PERRL and EOMs intact bilaterally General Eye ED: Negative for pale conjunctiva or scleral icterus Neck no lymphadenopathy, supple and no JVD General: Negative for tenderness Chest Wall inspection of chest normal and palpation of chest normal Chest: Negative for tenderness Resp normal respiratory effort and clear to auscultation bilaterally Effort and Inspection: Negative for respiratory distress or pain with movement Auscultation: Negative for rhonchi, wheezes or diminished lung sounds Cardio regular rate, regular rhythm, S1 normal heart sound, S2 normal heart sound and no murmurs Peripheral Pulses: pulses 2+ throughout GI normal to inspection, nondistended, normoactive bowel sounds, soft to palpation, non-tender, non-distended and no masses Back/Spine no CVA tenderness and no thoracic nor lumbar tenderness Extremity normal to inspection General Extremety ED: Negative for edema General Extremity: Negative for edema Neuro oriented x3, CN's II-XII intact bilaterally, no sensory deficits noted and gait normal Sensorium / Orientation: awake, alert, oriented to person, oriented to place and oriented to time Motor Exam: strength 5/5 throughout and strength abnormal Psych mental status grossly normal Skin no rashes or lesions noted and no wounds MDM MDM MDM Narrative Medical decision making narrative: Etiology of patient's syncope unclear. Case will be discussed with hospitalist to evaluate for admission. At this point it is unclear if her syncope is related to seizure versus cardiac etiology. Lab Data Attestation: I reviewed the patient's lab results. Labs: Laboratory Results - last 24 hr 05/14/21 05/14/21 05/14/21 18:01 18:01 18:01 WBC 9.0 RBC 5.00 Hgb 15.0 Hct 45.1 MCV 90.2 MCH 30.0 MCHC 33.3 RDW Std Deviation 38.9 RDW Coeff of Tiarra 11.9 Plt Count 265 MPV 11.0 Immature Gran % (Auto) 0.300 Neut % (Auto) 59.1 Lymph % (Auto) 29.6 [place] % (Auto) 6.2 Eos % (Auto) 3.8 Baso % (Auto) 1.0 Absolute Neuts (auto) 5.3 Absolute Lymphs (auto) 2.66 Nucleated RBC % 0 D-Dimer Quant (PE/DVT) 0.58 H* Sodium 138 Potassium 4.0 Chloride 105 Carbon Dioxide 24.0 Anion Gap 9 BUN 13 Creatinine 0.95 Estim Creat Clear Calc 67.86 Est GFR (MDRD) Af Amer 88 Est GFR (MDRD) Non-Af 73 BUN/Creatinine Ratio 13.7 Glucose 104 Calcium 8.7 Troponin I High Sens < 3.0 L Urine Color Urine Clarity Urine pH Ur Specific [place] Urine Protein Urine Glucose (UA) Urine Ketones Urine Occult Blood Urine Nitrite Urine Bilirubin Urine Urobilinogen Ur Leukocyte Esterase Urine RBC Urine WBC Ur Squamous Epith Cells Amorphous Sediment Urine Bacteria Urine Mucus 05/14/21 18:01 WBC RBC Hgb Hct MCV MCH MCHC RDW Std Deviation RDW Coeff of Tiarra Plt Count MPV Immature Gran % (Auto) Neut % (Auto) Lymph % (Auto) [place] % (Auto) Eos % (Auto) Baso % (Auto) Absolute Neuts (auto) Absolute Lymphs (auto) Nucleated RBC % D-Dimer Quant (PE/DVT) Sodium Potassium Chloride Carbon Dioxide Anion Gap BUN Creatinine Estim Creat Clear Calc Est GFR (MDRD) Af Amer Est GFR (MDRD) Non-Af BUN/Creatinine Ratio Glucose Calcium Troponin I High Sens Urine Color Yellow Urine Clarity Sl. Cloudy Urine pH 8.0 Ur Specific [place] 1.015 Urine Protein 15 H Urine Glucose (UA) Normal Urine Ketones Negative Urine Occult Blood Negative Urine Nitrite Negative Urine Bilirubin Negative Urine Urobilinogen Normal Ur Leukocyte Esterase Negative Urine RBC 0 SEEN Urine WBC 0 SEEN Ur Squamous Epith Cells 10-25 SEEN Amorphous Sediment 1+ PHOS Urine Bacteria 0 SEEN Urine Mucus 0 SEEN Radiography Diagnostic Testing: Radiology Impression Chest X-Ray 05/14/21 17:13 IMPRESSION: Normal x-ray examination of the chest. Electronically Signed: Dakota Suh DO at 17:33 EDT Tel [phone], Service support , Brain CT 05/14/21 18:10 IMPRESSION: Normal unenhanced CT scan of the brain. No interval change. Electronically Signed: Dakota Suh DO at 18:53 EDT Tel [phone], Service support , Chest CTA 05/14/21 19:24 IMPRESSION: Normal CTA chest examination, without a demonstrated pulmonary embolism or arterial dissection. Electronically Signed: Dakota SuhDO at 20:27 EDT Tel [phone], Service support , EKG Initial EKG: Attestation: I personally reviewed and interpreted this EKG as follows: Comments: Sinus rhythm with a ventricular rate of 89 bpm with no acute ST segment changes noted Prior EKG tracings: not available for review Discharge Plan Triage Chief Complaint: Syncope ED Provider: Tammie Flores Dx/Rx/DC Orders Clinical Impression: Syncope, Chest pain Prescriptions: No Action topiramate 100 MG tablet 100 mg PO BID RF: 0 Primary Care Provider: Care Physician,No Primary Referrals: Care Physician,No Primary [Primary Care Provider] - Disposition Disposition: Acute Care Hospital [facility]
[2021-05-14] MEDS: 0.9% Normal Saline 1,000 ML 150 ML IV (18:03)
--- NOTE | 2021-05-14 18:10 | CT_ITS ---
STUDY: CT BRAIN WITHOUT CONTRAST REASON FOR EXAM: Female, 30 years old. Syncope. RADIATION DOSAGE (If Supplied By Facility): CTDIvol = ( 44.99 ) mGy, DLP = ( 745.49 ) mGycm TECHNIQUE: Transaxial CT imaging of the brain was performed without administration of intravenous contrast material. Individualized dose optimization techniques were used for this CT. COMPARISON: 03/26/2020. FINDINGS: Normal soft tissue structures. Normal calvarium. Normal size ventricles and extra-axial spaces for the patient''s age. Normal white matter tracts of the cerebral hemispheres. Normal basal ganglia and thalami. Normal brainstem. Normal cerebellum. There is no intracranial hemorrhage. There are no findings of an acute ischemic infarction. Normal visualized paranasal sinuses. CT/Brain/Head without Contrast IMPRESSION: Normal unenhanced CT scan of the brain. No interval change. Electronically Signed: Dakota Suh DO at 18:53 EDT Tel [phone], Service support ,
[2021-05-14 18:15] LABS: Bacteria 0 SEEN /hpf (None Seen); Mucous, Urine 0 SEEN /hpf (<or=2+); Red Blood Cells-Urine 0 SEEN /hpf (0-5); White Blood Cells 0 SEEN /hpf (0-5)
[2021-05-14 18:26] LABS: Color, Urine Yellow (Yellow); Glucose, Dipstick Normal (Normal); Ketone-Dipstick Negative (Negative); Leukocyte Esterase-Dipstick Negative /ul (Negative); Nitrite-Dipstick Negative (Negative); Occult Blood-Urine Negative /ul (Negative); Protein-Dipstick 15 mg/dl (Negative); Specific Gravity, Urine 1.015 (1.002-1.030); Urine Bilirubin Dipstick Negative (Negative); Urine Clarity Sl. Cloudy (Clear); Urine Urobilinogen Normal (Normal)
[2021-05-14 18:32] LABS: Amorphous Sediment 1+ PHOS; Squamous Epithelial Cells - UA 10-25 SEEN /hpf (5-10)
[2021-05-14 18:37] LABS: Anion Gap 9 (5-15); BUN 13 mg/dL (7-18); BUN/Creat Ratio 13.7 RATIO (10-20); Calcium,Total 8.7 mg/dL (8.5-10.1); Chloride 105 mmol/L (98-107); Creatinine, Serum 0.95 mg/dL (0.55-1.02); EST Glomerular Filtration Rate 73 mL/min (>60); Est Glom Filt Rate - Afr Amer 88 mL/min (>60); Estimated Creatinine Clearance 67.86 ml/min; Glucose 104 mg/dL (74-106); Sodium Level 138 mmol/L (136-145); Troponin-I HS < 3.0 pg/mL (3.0-53.7)
[2021-05-14 18:44] LABS: Absolute Lymphocyte Count 2.66 X10^3/uL (0.83-4.51); Absolute Neutrophil Count 5.3 X10^3/uL (2.0-7.7); Basophil# 0.09 X10^3/uL; Eosinophil# 0.34 X10^3/uL; Eosinophils% 3.8 % (0-5); Hematocrit 45.1 % (37-47); Lymphocyte # 2.66 X10^3/ul (0.83-4.51); Lymphocyte % 29.6 % (19-41); Mean Corp Hgb Conc 33.3 g/dL (32-36); Mean Corpuscular Volume 90.2 fL (81-99); Monocyte# 0.56 X10^3/uL; Monocyte% 6.2 % (0-10); NRBC Flagged by Analyzer 0 % (0-5); Neutrophil # 5.31 X10^3/uL (2.7-7.7); Neutrophil % 59.1 % (47-70); Platelet Count 265 K/mm3 (150-450); RBC Distribution Width CV 11.9 % (11.6-14.6); RBC Distribution Width SD 38.9 fl (35.1-43.9)
[2021-05-14] MEDS: Ibuprofen 600 MG Tablet PO (19:01)
[2021-05-14 19:07] VITALS: BP 135/93; BP 138/88; BP 138/90; PULSE 69; PULSE 73; PULSE 79; RESP 15; O2SAT 97
[2021-05-14 19:22] LABS: D-Dimer Quantitative (DVT/PE) 0.58 FEU/ug/m (0.27-0.49)
--- NOTE | 2021-05-14 19:24 | CT_ITS ---
STUDY: CTA CHEST REASON FOR EXAM: Female, 30 years old. Chest pain. Syncope. RADIATION DOSAGE (If Supplied By Facility): CTDIvol = ( 11.46 ) mGy, DLP = ( 517.04 ) mGycm TECHNIQUE: The examination was performed with the intravenous administration of IV 100mL Isovue-370. Post-processing of the angiographic images was performed, with multiplanar reformation and 3D reconstruction. Individualized dose optimization techniques were used for this CT. COMPARISON: Chest, 05/14/2021. CTA of the chest, 07/07/2020. FINDINGS: Normal enhancement of the main pulmonary artery and right and left pulmonary arteries. Normal enhancement of the bilateral peripheral pulmonary arteries. There is no demonstrated pulmonary embolism. Normal thoracic aorta and visualized great vessels. There is no demonstrated aortic dissection. Normal heart and pericardium. Normal mediastinum. Normal hilar regions. Normal visualized trachea and bronchi. The lungs are well expanded. Normal pulmonary parenchyma. Normal pleura. Normal chest wall structures. Normal osseous structures. Normal visualized upper abdomen. CT/CTA Chest W/WO Contrast IMPRESSION: Normal CTA chest examination, without a demonstrated pulmonary embolism or arterial dissection. Electronically Signed: Dakota Suh DO at 20:27 EDT Tel [phone], Service support ,
[2021-05-14 20:51] VITALS: BP 156/107; PULSE 86; RESP 15; TEMP 36.5; O2SAT 98
--- NOTE | 2021-05-14 21:29 | PCM.HP.STD ---
HPI - General General Date of Admission: 05/14/21 Date of Service: 05/14/21 Chief Complaint: unresponsiveness HPI Narrative SAMMIE MOON, is a 30 F who presents with 2 episodes of unresponsiveness. First episode was yesterday or patient went out and was noted to be shaking. And then again today patient was in her kitchen was not feeling well, was having chest pain and feeling her heart racing in her chest and then went. Patient has no recollection of either these events. She denies any urinary incontinence. No family who was there is available to tell me what they saw. Patient did land on her right shoulder which she has some pain there. Patient is unsure if she went completely out and limp. This is similar to the episodes that she had back in March. Patient has been without any of these episodes since then. She has been seeing a neurologist, Dr. Brown, who is concerned that this is more cardiac in nature but continues to have the patient on topiramate. Patient had been on levetiracetam but had developed a rash with that. Patient does state that she normally sleeps roughly 8 hours per night. However, patient has slept very little to none over the past 2 nights. She denies any drugs or alcohol. Denies any new medications. She denies any contact with anyone COVID-19. Patient's daughter was ill about a week ago but was negative for COVID-19. Patient has not felt sick during this time. In the emergency room, patient underwent a head CT that was unremarkable as well as CTA of her chest that was also unremarkable. [facility] Medical History Endometriosis determined by laparoscopy GERD (gastroesophageal reflux disease) Seizure Home Medications topiramate 100 mg PO BID 07/06/20 [History Last Taken Unknown] Allergy/AdvReac Type Severity Reaction Status Date / Time Penicillins Allergy Shortness Verified 05/14/21 17:06 of breath tramadol HCl [From [facility]] Allergy Rash Verified 05/14/21 17:06 Family History (Updated 05/14/21 @ 21:[address] Antonio Segovia DO) Other CAD (coronary artery disease) CVA (cerebral vascular accident) Surgical History History of cholecystectomy History of hysterectomy Social History Smoking Status: Current some day smoker tobacco type: cigarettes ROS ROS Narrative Patient did have palpitations earlier and still with chest pain. All review of systems were negative except as mentioned above in the history of present illness and the other review of systems. Vital Signs Vital Signs Vital Signs: 05/14/21 17:07 05/14/21 17:45 05/14/21 19:07 Temperature 35.8 C L Temperature Source Temporal Pulse Rate 101 H 73 Pulse Rate [Lying] 73 Pulse Rate [Sitting] 69 Pulse Rate [Standing] 79 Respiratory Rate 16 15 Respiratory Effort Normal Non-Labored Respiratory Pattern Normal Blood Pressure 150/99 H 138/88 H Blood Pressure [Lying] 138/88 H Blood Pressure [Sitting] 138/90 H Blood Pressure [Standing] 135/93 H Blood Pressure Mean 116 104 Blood Pressure Mean [Lying] 104 Blood Pressure Mean [Sitting] 106 Blood Pressure Mean [Standing] 107 Pulse Ox 96 97 Oxygen Delivery Method Room Air Room Air 05/14/21 20:51 Temperature 36.5 C L Temperature Source Temporal Pulse Rate 86 Pulse Rate [Lying] Pulse Rate [Sitting] Pulse Rate [Standing] Respiratory Rate 15 Respiratory Effort Respiratory Pattern Blood Pressure 156/107 H Blood Pressure [Lying] Blood Pressure [Sitting] Blood Pressure [Standing] Blood Pressure Mean 123 Blood Pressure Mean [Lying] Blood Pressure Mean [Sitting] Blood Pressure Mean [Standing] Pulse Ox 98 Oxygen Delivery Method Room Air Weight Weight: 94.347 kg Body Mass Index (BMI) 38.0 Physical Exam Const alert, oriented x3, no apparent distress and healthy appearing General Appearance: cooperative HEENT normocephalic, head/scalp atraumatic, hearing grossly normal bilaterally, moist oral mucous membranes and oropharynx normal Eyes PERRL and EOMs intact bilaterally Neck no lymphadenopathy Resp normal respiratory effort, no retractions, no use of accessory muscles and clear to auscultation bilaterally Cardio regular rate, regular rhythm, S1 normal heart sound and S2 normal heart sound GI normal to inspection, nondistended, normoactive bowel sounds, soft to palpation, non-tender and non-distended Extremity normal to inspection Skin no rashes or lesions noted and no wounds Neuro oriented x3, CN's II-XII intact bilaterally and moves all extremities Sensorium / Orientation: awake and alert Speech: speech normal Results Lab / Micro Data Attestation: I reviewed the patient's lab results. Lab results narrative: Chest CT and head CT were negative Result Diagrams: 05/14/21 18:01 05/14/21 18:01 Labs: Laboratory Results - last 24 hr 05/14/21 05/14/21 05/14/21 18:01 18:01 18:01 WBC 9.0 RBC 5.00 Hgb 15.0 Hct 45.1 MCV 90.2 MCH 30.0 MCHC 33.3 RDW Std Deviation 38.9 RDW Coeff of Tiarra 11.9 Plt Count 265 MPV 11.0 Immature Gran % (Auto) 0.300 Neut % (Auto) 59.1 Lymph % (Auto) 29.6 [place] % (Auto) 6.2 Eos % (Auto) 3.8 Baso % (Auto) 1.0 Absolute Neuts (auto) 5.3 Absolute Lymphs (auto) 2.66 Nucleated RBC % 0 D-Dimer Quant (PE/DVT) 0.58 H* Sodium 138 Potassium 4.0 Chloride 105 Carbon Dioxide 24.0 Anion Gap 9 BUN 13 Creatinine 0.95 Estim Creat Clear Calc 67.86 Est GFR (MDRD) Af Amer 88 Est GFR (MDRD) Non-Af 73 BUN/Creatinine Ratio 13.7 Glucose 104 Calcium 8.7 Troponin I High Sens < 3.0 L Urine Color Urine Clarity Urine pH Ur Specific [place] Urine Protein Urine Glucose (UA) Urine Ketones Urine Occult Blood Urine Nitrite Urine Bilirubin Urine Urobilinogen Ur Leukocyte Esterase Urine RBC Urine WBC Ur Squamous Epith Cells Amorphous Sediment Urine Bacteria Urine Mucus 05/14/21 18:01 WBC RBC Hgb Hct MCV MCH MCHC RDW Std Deviation RDW Coeff of Tiarra Plt Count MPV Immature Gran % (Auto) Neut % (Auto) Lymph % (Auto) [place] % (Auto) Eos % (Auto) Baso % (Auto) Absolute Neuts (auto) Absolute Lymphs (auto) Nucleated RBC % D-Dimer Quant (PE/DVT) Sodium Potassium Chloride Carbon Dioxide Anion Gap BUN Creatinine Estim Creat Clear Calc Est GFR (MDRD) Af Amer Est GFR (MDRD) Non-Af BUN/Creatinine Ratio Glucose Calcium Troponin I High Sens Urine Color Yellow Urine Clarity Sl. Cloudy Urine pH 8.0 Ur Specific [place] 1.015 Urine Protein 15 H Urine Glucose (UA) Normal Urine Ketones Negative Urine Occult Blood Negative Urine Nitrite Negative Urine Bilirubin Negative Urine Urobilinogen Normal Ur Leukocyte Esterase Negative Urine RBC 0 SEEN Urine WBC 0 SEEN Ur Squamous Epith Cells 10-25 SEEN Amorphous Sediment 1+ PHOS Urine Bacteria 0 SEEN Urine Mucus 0 SEEN EKG Initial EKG: Attestation: I personally reviewed and interpreted this EKG as follows: Prior EKG tracings: available for review EKG Rhythm Intrepretation: Sinus Rhythm Radiology Impression Chest X-Ray 05/14/21 17:13 IMPRESSION: Normal x-ray examination of the chest. Electronically Signed: Dakota Suh DO at 17:33 EDT Tel [phone], Service support , Brain CT 05/14/21 18:10 IMPRESSION: Normal unenhanced CT scan of the brain. No interval change. Electronically Signed: Dakota Suh DO at 18:53 EDT Tel [phone], Service support , Chest CTA 05/14/21 19:24 IMPRESSION: Normal CTA chest examination, without a demonstrated pulmonary embolism or arterial dissection. Electronically Signed: Dakota Suh DO at 20:27 EDT Tel [phone], Service support , Assessment & Plan Assessment/Plan (1) Syncope and collapse: PLAN: 1. Syncope Etiology is unclear. Patient was diagnosed with a seizure last time back in March but has since seen a neurologist who is concern for this actually being cardiac in nature. I am still concerned that this could be a seizure and I have ordered an MRI of her brain without contrast and EEG. After those tests are completed then I recommend consulting teleneurology for further recommendations. If that work-up is negative for inconclusive then I would recommend an event monitor for her. Patient previously did have a Holter monitor that did not reveal any arrhythmia. Of note, patient did have some palpitations before the second episode happened. But the concerning part of these episodes is patient lost complete consciousness though she did not have any bladder incontinence. So we will continue with topiramate. Continue to monitor on telemetry. 2. Chest pain Atypical TORRI score of 1 We will cycle enzymes and if become abnormal then consider consulting cardiology or perform a stress test 3. VTE prophylaxis: Low risk given observation status. Charges/Coding Visit Charges OBSV E&M: 52926 Initial observation care L3
[2021-05-14 21:35] VITALS: BP 156/107; PULSE 81; RESP 20; TEMP 36.6; O2SAT 98
[2021-05-14] MEDS: Morphine 4 MG/ML Syringe IV (21:38)
[2021-05-14] MEDS: Ondansetron 4 MG/2 ML Vial IV (21:38)
[2021-05-14 21:50] VITALS: BP 147/90; PULSE 75; PULSE 81; RESP 16; TEMP 36.1; O2SAT 97; BMI 40.6
[2021-05-14] MEDS: Topiramate 100 MG Tablet PO (22:56)
[2021-05-14 22:59] LABS: Troponin-I HS < 3.0 pg/mL (3.0-53.7)
[2021-05-14] MEDS: Acetaminophen 325 MG Tablet 650 MG PO (23:39)
[2021-05-15] VITALS (9 sets, daily range): BP systolic 109–131; BP diastolic 59–81; PULSE 64–90; RESP 14–18; TEMP 36.4–36.9; O2SAT 95–100
[2021-05-15 00:33] LABS: Troponin-I HS 3.2 pg/mL (3.0-53.7)
[2021-05-15] MEDS: Ketorolac 15 MG/ML Vial IV ×3 (00:57→14:17)
[2021-05-15 04:13] LABS: Thyroid Stim Hormone (TSH) 2.45 uIU/mL (0.358-3.74); Troponin-I HS 4.1 pg/mL (3.0-53.7)
[2021-05-15] MEDS: 0.9% Saline Lock 10 ML Syringe IV ×2 (07:53→14:20)
[2021-05-15] MEDS: Topiramate 100 MG Tablet PO (08:50)
--- NOTE | 2021-05-15 09:00 | MRI_ITS ---
STUDY: MRI BRAIN WITHOUT CONTRAST REASON FOR EXAM: Female, 30 years old. seizure TECHNIQUE: Standardized multiplanar fat and water weighted pulse sequences were obtained. COMPARISON: 05/14/2021 CT of the head FINDINGS: Normal size of the ventricles and extra-axial spaces for the patient''s age. Normal white matter tracts of the supratentorial brain. Normal bilateral basal ganglia. Normal thalami. There is no extra-axial fluid accumulation. Comparison Normal sella turcica, pituitary gland, infundibular stalk, optic chiasm and hypothalamus. Normal tectal plate and pineal gland. Normal midbrain, niru and medulla. Normal cerebellum. Normal basal cisterns. MRI/Brain without Contrast IMPRESSION: Unremarkable unenhanced MRI of the brain. Electronically Signed: Yogi Nunn MD at 16:07 EDT Tel , Service support ,
--- NOTE | 2021-05-15 11:49 | PCM.PN.HOSP ---
Subjective Subjective No issues overnight, no lightheadedness or dizziness. She does continue to have the chest pain however it is extremely reproducible on palpation. Objective Data Objective Data Vital Signs: Vital Signs Temp Pulse Resp BP Pulse Ox 97.7 F L 78 14 109/59 L 96 05/15/21 08:39 05/15/21 10:55 05/15/21 08:39 05/15/21 08:39 05/15/21 08:39 Oxygen Delivery Method Room Air Weight: 222 lb 7.143 oz Body Mass Index (BMI) 40.6 Intake & Output: Intake and Output for Last 24 Hours 05/14/21 05/15/21 05/16/21 03:59 03:59 03:59 Intake Total 807.5 / 807.5 120 / 120 Balance 807.5 / 807.5 120 / 120 Lab / Micro Data Result Diagrams: 05/14/21 18:01 05/14/21 18:01 Labs: Laboratory Results - last 24 hr 05/14/21 05/14/21 05/14/21 18:01 18:01 18:01 WBC 9.0 RBC 5.00 Hgb 15.0 Hct 45.1 MCV 90.2 MCH 30.0 MCHC 33.3 RDW Std Deviation 38.9 RDW Coeff of Tiarra 11.9 Plt Count 265 MPV 11.0 Immature Gran % (Auto) 0.300 Neut % (Auto) 59.1 Lymph % (Auto) 29.6 [place] % (Auto) 6.2 Eos % (Auto) 3.8 Baso % (Auto) 1.0 Absolute Neuts (auto) 5.3 Absolute Lymphs (auto) 2.66 Nucleated RBC % 0 D-Dimer Quant (PE/DVT) 0.58 H* Sodium 138 Potassium 4.0 Chloride 105 Carbon Dioxide 24.0 Anion Gap 9 BUN 13 Creatinine 0.95 Estim Creat Clear Calc 67.86 Est GFR (MDRD) Af Amer 88 Est GFR (MDRD) Non-Af 73 BUN/Creatinine Ratio 13.7 Glucose 104 Calcium 8.7 Troponin I High Sens < 3.0 L TSH Urine Color Urine Clarity Urine pH Ur Specific [place] Urine Protein Urine Glucose (UA) Urine Ketones Urine Occult Blood Urine Nitrite Urine Bilirubin Urine Urobilinogen Ur Leukocyte Esterase Urine RBC Urine WBC Ur Squamous Epith Cells Amorphous Sediment Urine Bacteria Urine Mucus 06/05/14/21 05/14/21 18:01 22:21 23:59 WBC RBC Hgb Hct MCV MCH MCHC RDW Std Deviation RDW Coeff of Tiarra Plt Count MPV Immature Gran % (Auto) Neut % (Auto) Lymph % (Auto) [place] % (Auto) Eos % (Auto) Baso % (Auto) Absolute Neuts (auto) Absolute Lymphs (auto) Nucleated RBC % D-Dimer Quant (PE/DVT) Sodium Potassium Chloride Carbon Dioxide Anion Gap BUN Creatinine Estim Creat Clear Calc Est GFR (MDRD) Af Amer Est GFR (MDRD) Non-Af BUN/Creatinine Ratio Glucose Calcium Troponin I High Sens < 3.0 L 3.2 TSH Urine Color Yellow Urine Clarity Sl. Cloudy Urine pH 8.0 Ur Specific [place] 1.015 Urine Protein 15 H Urine Glucose (UA) Normal Urine Ketones Negative Urine Occult Blood Negative Urine Nitrite Negative Urine Bilirubin Negative Urine Urobilinogen Normal Ur Leukocyte Esterase Negative Urine RBC 0 SEEN Urine WBC 0 SEEN Ur Squamous Epith Cells 10-25 SEEN Amorphous Sediment 1+ PHOS Urine Bacteria 0 SEEN Urine Mucus 0 SEEN 05/15/21 03:40 WBC RBC Hgb Hct MCV MCH MCHC RDW Std Deviation RDW Coeff of Tiarra Plt Count MPV Immature Gran % (Auto) Neut % (Auto) Lymph % (Auto) [place] % (Auto) Eos % (Auto) Baso % (Auto) Absolute Neuts (auto) Absolute Lymphs (auto) Nucleated RBC % D-Dimer Quant (PE/DVT) Sodium Potassium Chloride Carbon Dioxide Anion Gap BUN Creatinine Estim Creat Clear Calc Est GFR (MDRD) Af Amer Est GFR (MDRD) Non-Af BUN/Creatinine Ratio Glucose Calcium Troponin I High Sens 4.1 TSH 2.45 Urine Color Urine Clarity Urine pH Ur Specific [place] Urine Protein Urine Glucose (UA) Urine Ketones Urine Occult Blood Urine Nitrite Urine Bilirubin Urine Urobilinogen Ur Leukocyte Esterase Urine RBC Urine WBC Ur Squamous Epith Cells Amorphous Sediment Urine Bacteria Urine Mucus Radiography Diagnostic Testing: Radiology Impression Chest X-Ray 05/14/21 17:13 IMPRESSION: Normal x-ray examination of the chest. Electronically Signed: Dakota Suh DO at 17:33 EDT Tel [phone], Service support , Brain CT 05/14/21 18:10 IMPRESSION: Normal unenhanced CT scan of the brain. No interval change. Electronically Signed: Dakota Suh DO at 18:53 EDT Tel [phone], Service support , Chest CTA 05/14/21 19:24 IMPRESSION: Normal CTA chest examination, without a demonstrated pulmonary embolism or arterial dissection. Electronically Signed: Dakota Suh DO at 20:27 EDT Tel [phone], Service support , Physical Exam Const alert, oriented x3 and no apparent distress General Appearance: cooperative HEENT moist oral mucous membranes Head and Scalp: normocephalic Eyes PERRL, EOMs intact bilaterally and conjunctivae normal Neck supple and no JVD Chest Chest: tenderness pectoral muscle right diffusely Resp normal respiratory effort, no retractions, no use of accessory muscles and clear to auscultation bilaterally Auscultation: Negative for crackles, rales, rhonchi or wheezes Cardio regular rate, regular rhythm, S1 normal heart sound, S2 normal heart sound and no murmurs GI soft to palpation, non-tender and non-distended; Negative for hepatosplenomegaly Extremity no clubbing, cyanosis or edema Skin no rashes or lesions noted Neuro no focal motor deficits and no sensory deficits noted Psych Appearance: appropriate Mood & Affect: flat affect Assessment & Plan Assessment/Plan (1) Syncope and collapse: PLAN: 1. Syncope/chest pain -It does appear that this may have been preceded by palpitations and she states that she had remembered having some chest pain prior to this -High-sensitivity troponins are negative x2 with a negative predictive value of about 100% -She had a similar episode last March and was found to have seizures at that time and was started on Keppra however developed a rash and was therefore transition to Topamax -MRI and EEG are pending, will consult teleneurology when those studies are back -Her chest pain currently is reproducible 100% on palpation -May need a 30-day event monitor on discharge however telemetry so far is negative for arrhythmia DVT: ambulation Charges/Coding Visit Charges OBSV E&M: 61538 Subsequent observation care L2
[2021-05-15] MEDS: Acetaminophen 325 MG Tablet 650 MG PO (12:39)
--- NOTE | 2021-05-15 15:18 | TELEMED_ITS ---
[facility] has confirmed receipt of a request for visit. This document confirms receipt of the order initiating the consult. To find the results of the consultation, please view the patient's reports for the scanned Telemed Consult.
--- NOTE | 2021-05-15 16:04 | EKG12_ITS ---
Test Reason : CP Blood Pressure : / mmHG Vent. Rate : 064 BPM Atrial Rate : 064 BPM P-R Int : 140 ms QRS Dur : 084 ms QT Int : 398 ms P-R-T Axes : 066 083 067 degrees QTc Int : 410 ms Normal sinus rhythm with sinus arrhythmia Normal ECG When compared with ECG of 14-MAY-2021 18:02, MANUAL COMPARISON REQUIRED, DATA IS UNCONFIRMED Confirmed by MALIHA RAZO, CHRISSY ([id number]), newspaper photo editor ENRIQUE HUNTER ([id number]) on 05/18/2021 9:16:01 AM Referred By: NICOLLE Confirmed By:CHRISSY JETT MD
--- NOTE | 2021-05-15 20:20 | NURSING ---
Pt leaving hospital AMA d/t family and personal reasons. DIRECTOR FOOD AND BEVERAGE at bedside, AMA form signed. This RN took pt vitals, took off heart monitor and IV out. Pt denies further needs. COMB MACHINE OPERATOR assisted pt downstairs to ride. CLAUDIO Whelan.
== END 2021-05-15 20:20 | disposition left against medical advice (07) ==
LOC: ED 21:10 → PCU 05-15 03:21
PROVIDERS: Emergency Provider Emergency Medicine; Visit Provider Family Medicine
DX: R55 Syncope and collapse (principal); G40.909 Epilepsy, unspecified, not intractable, without status epilepticus; F17.210 Nicotine dependence, cigarettes, uncomplicated; K21.9 Gastro-esophageal reflux disease without esophagitis; Z79.899 Other long term (current) drug therapy; R07.89 Other chest pain
CPT/HCPCS: 36415; 70450; 70551; 71046; 71275; 80048; 81001; 84443; 84484; 85025; 85379; 93005; 95819; 96361; 96374; 96375; 96376; 97802; 99218; 99285; J7030; Q9967; A4216; G0378; J2405

== ENCOUNTER → 2022-02-01 17:45 | Outpatient (CLI) | payer MEDICAID, SELFPAY ==
--- NOTE | 2022-02-01 18:10 | MRI_ITS ---
EXAM: MR HEAD WITHOUT AND WITH INTRAVENOUS CONTRAST CLINICAL INDICATION: SZ TECHNIQUE: Multiplanar and multisequence MR images of the brain were obtained without and with intravenous contrast. This report was created using [employer] report generation technology. CONTRAST: IV 18Ml Dotarem COMPARISON: None. FINDINGS: BRAIN AND EXTRA-AXIAL SPACES: Unremarkable. No intra- or extra-axial hemorrhage. No evidence of acute infarct. No intracranial mass or mass effect. There is preservation of the meza/white matter interface. Posterior fossa structures are unremarkable. Ventricles are appropriate for age. No hydrocephalus. Basal cisterns are patent. SELLA: Unremarkable. Normal sella turcica, pituitary gland, infundibular stalk, optic chiasm and hypothalamus. AUDITORY SYSTEM: Unremarkable. The internal auditory canals are patent. BONES/JOINTS: Unremarkable. No discrete lytic or blastic abnormalities. SINUSES: Unremarkable as visualized. Clear. MASTOID AIR CELLS: Unremarkable as visualized. Clear. ORBITS: Unremarkable as visualized. Both globes, extraocular muscles, optic nerves and retrobulbar fat appear unremarkable. VASCULATURE: Unremarkable as visualized. Normal flow voids in the major intracranial circulation. MRI/Brain W/WO Contrast IMPRESSION: Negative MRI brain without and with intravenous contrast. Electronically Signed: Christiano Rogers MD at 21:56 EDT ,
== END ==
DX: R56.9 Unspecified convulsions (principal)
CPT/HCPCS: 70553; A9575

== ENCOUNTER 2022-09-29 10:39 | Emergency (ER) | payer MEDICAID, SELFPAY ==
[2022-09-29 10:39] VITALS: BP 140/105; PULSE 111; RESP 18; TEMP 36.6; O2SAT 100; BMI 34.9
--- NOTE | 2022-09-29 10:49 | ED.VIS.GI ---
HPI HPI - GI History of Present Illness Chief Complaint: Abd Pain Informant: patient Abdominal Pain/Flank Pain Onset: Today and Hours Context: Sudden Onset Timing: Continuous Quality: Stabbing Location: Epigastric Worsened by: Food Relieved by: Nothing Nausea/Vomiting/Emesis GI Symptom: Positive for Nausea; Negative for Vomiting Diarrhea/Melena/Hematochezia GI Symptom: Negative for Diarrhea, Melena or Hematochezia Associated Symptoms Associated Symptoms: Negative for Dysuria, Frequency or Hematuria Narrative Narrative: Patient presents with epigastric pain that began today. Patient states it began suddenly. Patient states it has been constant. Patient describes her pain as stabbing. Patient states the pain is over the epigastric area and radiates into her back. Patient states she did eat something which made her pain worse. Patient states nothing makes it better. Patient admits to nausea but denies any vomiting. Patient denies any diarrhea, melena, or hematochezia. Patient denies any dysuria, hematuria, or frequency. Patient had a hysterectomy. PFSH PFSH Medical History Endometriosis determined by laparoscopy GERD (gastroesophageal reflux disease) Seizure Smoker Home Medications topiramate 100 mg tablet 100 mg PO BID 07/06/20 [History Last Taken Unknown] omeprazole 20 mg capsule,delayed release 20 mg PO DAILY #30 CAPSULES 09/29/22 [Rx Last Taken Unknown] Allergy/AdvReac Type Severity Reaction Status Date / Time levetiracetam Allergy Rash Verified 05/14/21 21:38 Penicillins Allergy Shortness Verified 05/14/21 17:06 of breath tramadol HCl [From Ultram] Allergy Rash Verified 05/14/21 17:06 Family History (Updated 05/14/21 @ 21:[address] Antonio Segovia DO) Other CAD (coronary artery disease) CVA (cerebral vascular accident) Surgical History History of cholecystectomy History of hysterectomy Social History Smoking Status: Current some day smoker tobacco type: cigarettes ROS ROS ED Constitutional Constitutional ED: Denies chills or fever(s) Eyes Eyes: Denies blurry vision or change in vision ENT ENT ED: Denies rhinorrhea or sore throat Cardiovascular Cardiovascular: Denies chest pain or palpitations Respiratory/Chest Respiratory/Chest: Denies cough or dyspnea Gastrointestinal Gastrointestinal: Reports abdominal pain and nausea; Denies vomiting Genitourinary Genitourinary ED: Denies dysuria or hematuria Musculoskeletal Musculoskeletal: Reports back pain; Denies neck pain Integumentary Denies abscess or rash Neurologic Neurologic: Denies headache(s) or weakness Allergic/Immunologic Allergic/Immunologic ED: Denies mouth swelling or urticaria EXAM Physical Exam Const Vital Signs: 09/29/22 10:39 Temperature 97.8 F Temperature Source Temporal Pulse Rate 111 H Respiratory Rate 18 Blood Pressure 140/105 H Blood Pressure Mean 116 Pulse Ox 100 Oxygen Delivery Method Room Air Positive well nourished and well developed General Appearance ED: well developed HEENT Reports moist mucous membranes Neck supple and no JVD Resp normal respiratory effort and clear to auscultation bilaterally Cardio regular rate, regular rhythm and no murmurs GI normal to inspection, nondistended, normoactive bowel sounds Palpation: soft and tender epigastric Extremity normal to inspection General Extremety ED: Negative for edema or tenderness General Extremity: Negative for edema Neuro oriented x3, CN's II-XII intact bilaterally and no sensory deficits noted Sensorium / Orientation: alert Motor Exam: strength 5/5 throughout Psych mental status grossly normal Skin no rashes or lesions noted MDM MDM MDM Narrative Medical decision making narrative: Patient was given IV fluids, morphine, and Zofran. EKG was obtained. On my interpretation, it showed a normal sinus rhythm with a rate of 99. [place] interval, QRS interval, and QTc intervals were all normal. [place] was normal. There are no acute ST or T wave changes. CBC was within normal limits. Comprehensive metabolic profile was within normal limits. Lipase was normal. Urinalysis does not show any evidence of urinary tract infection or hematuria. CT scan of the abdomen and pelvis was obtained. There is a small umbilical hernia containing fat. There is no acute abnormality. This was interpreted by the radiologist and reviewed by myself. Patient was advised of her findings. Patient was feeling better on reevaluation. Patient was given a prescription for Prilosec. Patient was instructed to follow-up with her primary care physician in 5 to 7 days. Patient understood and was agreeable with the plan. All questions were answered. Lab Data Attestation: I reviewed the patient's lab results. Labs: Laboratory Results - last 24 hr 09/29/22 09/29/22 09/29/22 11:00 11:00 11:30 WBC 8.8 RBC 5.17 Hgb 15.3 H Hct 46.2 MCV 89.4 MCH 29.6 MCHC 33.1 RDW Std Deviation 39.3 RDW Coeff of Tiarra 12.0 Plt Count 208 MPV 10.9 Immature Gran % (Auto) 0.300 Neut % (Auto) 51.9 Lymph % (Auto) 38.0 [place] % (Auto) 5.1 Eos % (Auto) 3.8 Baso % (Auto) 0.9 Absolute Neuts (auto) 4.6 Absolute Lymphs (auto) 3.36 Nucleated RBC % 0 Sodium 141 Potassium 3.7 Chloride 109 H Carbon Dioxide 26.0 Anion Gap 6 BUN 13 Creatinine 0.78 Estim Creat Clear Calc 81.89 Est GFR (MDRD) Af Amer 109 Est GFR (MDRD) Non-Af 90 BUN/Creatinine Ratio 16.6 Glucose 112 H Calcium 8.6 Total Bilirubin 0.20 AST 8 L ALT 26 Alkaline Phosphatase 106 Total Protein 6.6 Albumin 3.4 Globulin 3.2 Albumin/Globulin Ratio 1.1 Lipase 192 Urine Color Yellow Urine Clarity Clear Urine pH 7.0 Ur Specific [place] 1.010 Urine Protein Negative Urine Glucose (UA) Normal Urine Ketones Negative Urine Occult Blood Negative Urine Nitrite Negative Urine Bilirubin Negative Urine Urobilinogen Normal Ur Leukocyte Esterase Negative Urine RBC 0 SEEN Urine WBC 0 SEEN Ur Squamous Epith Cells 0-5 SEEN Urine Bacteria RARE Urine Mucus 0 SEEN Radiography Diagnostic Testing: Clinical Impression(s) from Imaging Studies Abdomen/Pelvis CT 09/29/22 11:53 IMPRESSION: Small fat-containing umbilical hernia. Status post cholecystectomy. Electronically Signed: Lawrence Hercules MD at 14:13 EST , EKG Initial EKG: Attestation: I personally reviewed and interpreted this EKG as follows: Interpretation: Sinus Rhythm (99) and No Acute Injury Pattern Prior EKG tracings: available for review Prior: Unchanged (05/15/2021) Discharge Plan Triage Chief Complaint: Abd Pain ED Provider: Antonio Prabhakar Dx/Rx/DC Orders Clinical Impression: Epigastric abdominal pain, Obesity (BMI 30-39.9) Instructions: ED Abdominal Pain Unkn Cause Fem Prescriptions: New omeprazole [omeprazole] 20 MG capsule 20 mg PO DAILY Qty: 30 0RF No Action topiramate 100 MG tablet 100 mg PO BID Primary Care Provider: Care Physician,No Primary Referrals: Warren Gonzalez MD [Non-Staff] - 5-7 Days Care Physician,No Primary [Primary Care Provider] - Disposition Disposition: Home, Self Care
--- NOTE | 2022-09-29 10:52 | EKG12_ITS ---
Test Reason : ABD PAIN Blood Pressure : / mmHG Vent. Rate : 099 BPM Atrial Rate : 099 BPM P-R Int : 130 ms QRS Dur : 078 ms QT Int : 344 ms P-R-T Axes : 071 077 060 degrees QTc Int : 441 ms Normal sinus rhythm Possible Left atrial enlargement Borderline ECG Confirmed by WILI RAZO, CHRISTIE ([id number]), deputy editor in chief ENRIQUE HUNTER ([id number]) on 10/04/2022 9:13:10 A M Referred By: Confirmed By:NICOLE RASHEED MD
[2022-09-29] MEDS: Ondansetron 4 MG/2 ML Vial IV (11:02)
[2022-09-29] MEDS: Morphine 4 MG/ML Syringe IV ×2 (11:02→11:57)
[2022-09-29] MEDS: 0.9% Normal Saline 1,000 ML 1000 ML IV (11:02)
[2022-09-29 11:07] LABS: Absolute Lymphocyte Count 3.36 X10^3/uL (0.83-4.51); Absolute Neutrophil Count 4.6 X10^3/uL (2.0-7.7); Basophil# 0.08 X10^3/uL; Basophil% 0.9 % (0-1); Eosinophil# 0.34 X10^3/uL; Eosinophils% 3.8 % (0-5); Hematocrit 46.2 % (37-47); Hemoglobin 15.3 g/dL (12.0-15.0); Lymphocyte # 3.36 X10^3/ul (0.83-4.51); Mean Corp Hgb Conc 33.1 g/dL (32-36); Mean Corpuscular Hgb 29.6 pg (27.0-32.0); Mean Corpuscular Volume 89.4 fL (81-99); Mean Platelet Vol. 10.9 fl (6.2-12.0); Monocyte# 0.45 X10^3/uL; Monocyte% 5.1 % (0-10); NRBC Flagged by Analyzer 0 % (0-5); Neutrophil # 4.58 X10^3/uL (2.7-7.7); Neutrophil % 51.9 % (47-70); Platelet Count 208 K/mm3 (150-450); RBC Distribution Width SD 39.3 fl (35.1-43.9); Red Blood Count 5.17 M/mm3 (4.2-5.4); White Blood Count 8.8 K/mm3 (4.4-11.0)
[2022-09-29 11:24] LABS: ALB/GLOB Ratio 1.1 RATIO (0.9-2.4); AST(SGOT) 8 U/L (15-37); Alanine Aminotransfer ALT/SGPT 26 U/L (13-56); Albumin, Serum 3.4 g/dL (3.2-5.0); Alkaline Phosphatase 106 U/L (45-117); Anion Gap 6 (5-15); BUN 13 mg/dL (7-18); BUN/Creat Ratio 16.6 RATIO (10-20); Calcium,Total 8.6 mg/dL (8.5-10.1); Chloride 109 mmol/L (98-107); Creatinine, Serum 0.78 mg/dL (0.55-1.02); EST Glomerular Filtration Rate 90 mL/min (>60); Est Glom Filt Rate - Afr Amer 109 mL/min (>60); Estimated Creatinine Clearance 81.89 ml/min; Globulin 3.2 g/dL (2.2-4.2); Glucose 112 mg/dL (74-106); Lipase 192 U/L (73-393); Potassium 3.7 mmol/L (3.5-5.1); Protein, Total 6.6 g/dL (6.4-8.2); Sodium Level 141 mmol/L (136-145)
--- NOTE | 2022-09-29 11:25 | CM.ED ---
SW Note Referral Source: Case Find Referral Reason: No Primary Care Physician (PCP) SW reviewed chart and noted that patient has no PCP. SW provided patient with list of [facility] and [facility] Physician List for reference. SW also provided patient with handout ?Where to go When?. No other issues or concerns voiced at this time. SW remains available for any additional needs. Plan: Provided patient with PCP information Sapna SEAMAN
[2022-09-29 11:35] LABS: Mucous, Urine 0 SEEN /hpf (<or=2+); Red Blood Cells-Urine 0 SEEN /hpf (0-5); White Blood Cells 0 SEEN /hpf (0-5)
[2022-09-29 11:37] LABS: Color, Urine Yellow (Yellow); Glucose, Dipstick Normal (Normal); Ketone-Dipstick Negative (Negative); Leukocyte Esterase-Dipstick Negative /ul (Negative); Nitrite-Dipstick Negative (Negative); Occult Blood-Urine Negative /ul (Negative); Protein-Dipstick Negative (Negative); Urine Bilirubin Dipstick Negative (Negative); Urine Clarity Clear (Clear); Urine Urobilinogen Normal (Normal)
[2022-09-29 11:49] LABS: Bacteria RARE /hpf (None Seen); Squamous Epithelial Cells - UA 0-5 SEEN /hpf (5-10)
--- NOTE | 2022-09-29 11:53 | CT_ITS ---
STUDY: CT ABDOMEN AND PELVIS WITH CONTRAST REASON FOR EXAM: Female, 31 years old. Upper abdominal and epigastric pain -- IV PO Contrast RADIATION DOSAGE (If Supplied By Facility): CTDIvol = ( 17.96 ) mGy, DLP = ( 1241.63 ) mGycm TECHNIQUE: Transaxial images were obtained from the dome of the diaphragm to the symphysis pubis with oral contrast. Oral and amp; IV Gastrografin and amp; 100mL Isovue-370 was administered. Sagittal and coronal images were reconstructed. Individualized dose optimization techniques were used for this CT. COMPARISON: Comparison is made with prior study dated 12/09/2017. FINDINGS: The visualized lung bases are unremarkable. The visualized portions of the heart are within normal limits. A subcentimeters cyst is seen along the medial aspect of the right lobe of the liver inferiorly. There are surgical clips in the gallbladder fossa consistent with a prior cholecystectomy. Normal spleen. Normal pancreas. Normal bilateral adrenal glands. Normal right kidney. Normal left kidney. Normal visualized stomach. Normal small intestine. Normal colon. There is non-visualization of the appendix. Normal abdominal aorta. Normal inferior vena cava. Normal retroperitoneum. Normal urinary bladder. There is a small umbilical hernia containing fat. Normal osseous structures. CT/Abdomen/Pelvis WITH Contrast IMPRESSION: Small fat-containing umbilical hernia. Status post cholecystectomy. Electronically Signed: Lawrence Hercules MD at 14:[address] [facility] ,
[2022-09-29 14:58] VITALS: BP 127/92; PULSE 76; RESP 16; O2SAT 94
== END 2022-09-29 15:06 | disposition home or self-care (01) ==
PROVIDERS: Emergency Provider Emergency Medicine; Visit Provider Emergency Medicine
DX: R10.13 Epigastric pain (principal); G40.909 Epilepsy, unspecified, not intractable, without status epilepticus; R11.0 Nausea; K42.9 Umbilical hernia without obstruction or gangrene; F17.210 Nicotine dependence, cigarettes, uncomplicated; E66.9 Obesity, unspecified; K21.9 Gastro-esophageal reflux disease without esophagitis; Z79.899 Other long term (current) drug therapy
CPT/HCPCS: 74177; 80053; 81001; 83690; 85025; 93005; 96361; 96374; 96375; 96376; 99283; J7030; Q9967; A4216; J2405

== ENCOUNTER 2023-09-20 20:55 | Emergency (ER) | payer MEDICAID, SELFPAY ==
[2023-09-20 20:55] VITALS: BP 144/94; PULSE 99; RESP 18; TEMP 36.8; O2SAT 98; BMI 37.5
--- NOTE | 2023-09-20 21:00 | EKG12_ITS ---
Test Reason : CP Blood Pressure : / mmHG Vent. Rate : 094 BPM Atrial Rate : 094 BPM P-R Int : 130 ms QRS Dur : 076 ms QT Int : 352 ms P-R-T Axes : 057 080 047 degrees QTc Int : 440 ms Normal sinus rhythm Normal ECG Confirmed by WILI RAZO, CHRISTIE ([id number]), fan mail editor RENEA MARTINEZ ([id number]) on 10/02/2023 8:01:19 AM Referred By: ELEONORA Confirmed By:NICOLE RASHEED MD
--- NOTE | 2023-09-20 21:09 | RAD_ITS ---
INDICATION: chest pain EXAMINATION/TECHNIQUE: X-RAY - XR Chest 1 View COMPARISON: 05/14/2021. FINDINGS: LINES/DEVICES: None. LUNGS: No consolidation, edema or effusion. No pneumothorax. MEDIASTINUM AND CARDIOVASCULAR STRUCTURES: Cardiac silhouette not enlarged. Central airways and mediastinal contour are unremarkable. BONES AND SOFT TISSUES: Unremarkable. RAD/Chest 1 View (Portable) IMPRESSION: No radiographic evidence of acute cardiopulmonary disease. Electronically Signed: Felicity Rodriguez MD at 21:54 EDT Reading Location ID and State: [id number] / Tel , Service support ,
[2023-09-20 21:38] LABS: Absolute Lymphocyte Count 3.11 X10^3/uL (0.83-4.51); Absolute Neutrophil Count 5.2 X10^3/uL (2.0-7.7); Basophil# 0.08 X10^3/uL; Basophil% 0.8 % (0-1); Eosinophil# 0.51 X10^3/uL; Eosinophils% 5.3 % (0-5); Hematocrit 44.5 % (37-47); Lymphocyte # 3.11 X10^3/ul (0.83-4.51); Lymphocyte % 32.6 % (19-41); Mean Corp Hgb Conc 33.7 g/dL (32-36); Mean Corpuscular Hgb 30.3 pg (27.0-32.0); Mean Corpuscular Volume 89.9 fL (81-99); Mean Platelet Vol. 10.3 fl (6.2-12.0); Monocyte# 0.58 X10^3/uL; Monocyte% 6.1 % (0-10); NRBC Flagged by Analyzer 0 % (0-5); Neutrophil # 5.23 X10^3/uL (2.7-7.7); Neutrophil % 54.8 % (47-70); Platelet Count 256 K/mm3 (150-450); RBC Distribution Width SD 39.5 fl (35.1-43.9); Red Blood Count 4.95 M/mm3 (4.2-5.4); White Blood Count 9.6 K/mm3 (4.4-11.0)
--- NOTE | 2023-09-20 21:42 | EDS_ITS ---
HPI History of Present Illness Chief Complaint: Chest Pain Narrative Narrative: 32-year-old female presenting for chest pain. Apparently started having chest pain earlier this morning. She describes a sternal/retrosternal and radiates to the back. Patient states she has a history of syncope. Her last admission was [address] [place] [address] where they were going to send her to a different facility for further work-up but patient decided to leave because her daughter had a transplant the next day. Patient states she was feeling unwell yesterday but attributed it to her mother being on hospice recently and she is felt rundown. 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 She had chest pain all day. She states she has a long driveway and walked down to the bus to get her daughter and her daughter states that she fainted in the driveway. There was apparently no loss of bladder or bowel control. There is no seizure activity. She does not have a headache. He does not recall this event. [facility] Medical History Endometriosis determined by laparoscopy GERD (gastroesophageal reflux disease) Seizure Smoker Home Medications topiramate 100 mg tablet 100 mg PO BID 07/06/20 [History Last Taken Unknown] omeprazole 20 mg capsule,delayed release 20 mg PO DAILY #30 CAPSULES 09/29/22 [Rx Last Taken Unknown] Allergy/AdvReac Type Severity Reaction Status Date / Time levetiracetam Allergy Rash Verified 09/20/23 20:57 Penicillins Allergy Shortness Verified 09/20/23 20:57 of breath tramadol HCl [From Ultram] Allergy Rash Verified 09/20/23 20:57 Family History (Updated 05/14/21 @ 21:[address] Antonio Segovia DO) Other CAD (coronary artery disease) CVA (cerebral vascular accident) Surgical History History of cholecystectomy History of hysterectomy Social History Smoking Status: Current some day smoker tobacco type: cigarettes ROS ROS ED Constitutional Constitutional ED: Denies chills, fever(s) or sweats Eyes Eyes: Denies blurry vision or change in vision ENT ENT ED: Denies ear pain, rhinorrhea or sore throat Cardiovascular Cardiovascular: Reports chest pain; Denies palpitations or racing heartbeat Respiratory/Chest Respiratory/Chest: Reports dyspnea; Denies cough or sputum Gastrointestinal Gastrointestinal: Denies abdominal pain, constipation, diarrhea or vomiting Genitourinary Genitourinary ED: Denies dysuria, hematuria or urinary frequency Musculoskeletal Musculoskeletal: Denies arthralgias, myalgias or neck pain Integumentary Denies abscess, Abrasions or rash Neurologic Neurologic: Denies paresthesias or weakness Psychiatric Psychiatric: Reports depression; Denies anxiety, suicidal ideation or suicidal thoughts Endocrine Endocrinology: Denies polydipsia or polyuria EXAM Physical Exam Const Vital Signs: 09/20/23 20:55 09/20/23 20:55 09/20/23 21:26 Temperature 98.3 F Temperature Source Temporal Pulse Rate 99 Pulse Rate [Lying] Pulse Rate [Sitting (for 1 minute prior to obtaining)] Pulse Rate [Standing (for 1 minute prior to obtaining)] Respiratory Rate 18 Respiratory Effort Normal Non-Labored Blood Pressure 144/94 H Blood Pressure [Lying] Blood Pressure [Sitting (for 1 minute prior to obtaining)] Blood Pressure [Standing (for 1 minute prior to obtaining)] Blood Pressure Mean 110 Blood Pressure Mean [Lying] Blood Pressure Mean [Sitting (for 1 minute prior to obtaining)] Blood Pressure Mean [Standing (for 1 minute prior to obtaining)] Pulse Ox 98 Oxygen Delivery Method Room Air Room Air 09/20/23 22:01 09/20/23 22:47 Temperature Temperature Source Pulse Rate 91 Pulse Rate [Lying] 72 Pulse Rate [Sitting (for 1 minute prior to obtaining)] 89 Pulse Rate [Standing (for 1 minute prior to obtaining)] 80 Respiratory Rate 16 Respiratory Effort Blood Pressure Blood Pressure [Lying] 129/80 H Blood Pressure [Sitting (for 1 minute prior to obtaining)] 131/90 H Blood Pressure [Standing (for 1 minute prior to obtaining)] 129/91 H Blood Pressure Mean Blood Pressure Mean [Lying] 96 Blood Pressure Mean [Sitting (for 1 minute prior to obtaining)] 103 Blood Pressure Mean [Standing (for 1 minute prior to obtaining)] 103 Pulse Ox Oxygen Delivery Method Positive well nourished General Appearance ED: NAD HEENT Reports TM's clear and moist mucous membranes normocephalic and atraumatic Tympanic Membrane ED: Yes TM's clear Eyes PERRL Chest Wall inspection of chest normal Resp normal respiratory effort and clear to auscultation bilaterally Auscultation: Negative for rales, rhonchi or wheezes Cardio regular rate and regular rhythm GI normal to inspection, nondistended, normoactive bowel sounds Neuro oriented x3 and CN's II-XII intact bilaterally Sensorium / Orientation: awake and alert Psych mental status grossly normal Skin no rashes or lesions noted Heart Score History: Slightly/Non-Suspicious ECG: Normal Age: </= 45 years Risk Factors: No Risk Factors Troponin: </= Normal Limit Score: 0 MDM MDM MDM Narrative Medical decision making narrative: Patient presented with syncopal episode which happened today. She denies chest pain all day. Differential includes acute coronary syndrome, CHF, pneumonia, pneumothorax, dehydration, electrolyte abnormalities, depression, anemia. HEART score of 0. EKG shows a normal sinus rhythm with a ventricular rate of 94 bpm without sign of ischemic change or ectopy. Chest x-ray my interpretation shows no acute process. CBC, BMP, high-sensitivity troponin are all normal. Troponin is 3 after pain all day and only she is a delta. Orthostatic vital signs were negative. CT brain was negative. At this point I feel the patient is stable. Counseled patient on all findings. All questions were answered. She discharged home in stable condition. Impression: 1. Chest pain 2. Syncope Lab Data Attestation: I reviewed the patient's lab results. Labs: Laboratory Results - last 24 hr 09/20/23 21:30 WBC 9.6 RBC 4.95 Hgb 15.0 Hct 44.5 MCV 89.9 MCH 30.3 MCHC 33.7 RDW Std Deviation 39.5 RDW Coeff of Tiarra 12.0 Plt Count 256 MPV 10.3 Immature Gran % (Auto) 0.400 Neut % (Auto) 54.8 Lymph % (Auto) 32.6 [place] % (Auto) 6.1 Eos % (Auto) 5.3 H Baso % (Auto) 0.8 Absolute Neuts (auto) 5.2 Absolute Lymphs (auto) 3.11 Nucleated RBC % 0 Sodium 143 Potassium 4.0 Chloride 109 H Carbon Dioxide 28.0 Anion Gap 6 BUN 12 Creatinine 1.00 Estim Creat Clear Calc 66.19 Est GFR (MDRD) Af Amer 82 Est GFR (MDRD) Non-Af 68 BUN/Creatinine Ratio 12.0 Glucose 104 Calcium 8.4 L Troponin I High Sens 3 Radiography Diagnostic Testing: Clinical Impression(s) from Imaging Studies Chest X-Ray 09/20/23 21:09 IMPRESSION: No radiographic evidence of acute cardiopulmonary disease. Electronically Signed: Felicity Rodriguez MD at 21:54 EDT Reading Location ID and State: [id number] / Tel , Service support , Brain CT 09/20/23 21:43 IMPRESSION: No acute findings. Chronic sinusitis. Electronically Signed: Felicity Rodriguez MD at 23:03 EDT Reading Location ID and State: [id number] / Tel , Service support , Discharge Plan Triage Chief Complaint: Chest Pain ED Provider: Troy Banda Dx/Rx/DC Orders Clinical Impression: Syncope, Chest pain Instructions: ED Chest Pain, Noncardiac, ED Dizziness or Syncope ... Prescriptions: No Action topiramate 100 MG tablet 100 mg PO BID omeprazole [omeprazole] 20 MG capsule 20 mg PO DAILY Qty: 30 0RF Primary Care Provider: Heather Adames Referrals: Heather Adames, [employer] [Primary Care Provider] - Disposition Disposition: Home, Self Care Discharge Date/Time: 09/20/23 23:10
--- NOTE | 2023-09-20 21:43 | CT_ITS ---
STUDY: CT BRAIN WITHOUT CONTRAST REASON FOR EXAM: Female, 32 years old. head injury RADIATION DOSAGE (If Supplied By Facility): CTDIvol = ( 44.99 ) mGy, DLP = ( 798.92 ) mGycm TECHNIQUE: Transaxial CT imaging of the brain was performed without administration of intravenous contrast material. Individualized dose optimization techniques were used for this CT. COMPARISON: MRI brain 02/01/2022. FINDINGS: Normal soft tissue structures. Normal calvarium. Normal size ventricles and extra-axial spaces for the patient''s age. Normal white matter tracts of the cerebral hemispheres. Normal basal ganglia and thalami. Normal brainstem. Normal cerebellum. There is no intracranial hemorrhage. There are no findings of an acute ischemic infarction. Moderate mucosal thickening in the ethmoid sinuses bilaterally. Mild mucosal thickening in the right maxillary sinus. CT/Brain/Head without Contrast IMPRESSION: No acute findings. Chronic sinusitis. Electronically Signed: Felicity Rodriguez MD at 23:03 EDT Reading Location ID and State: [id number] / Tel , Service support ,
[2023-09-20] MEDS: Ketorolac 15 MG/ML Vial IV (21:58)
[2023-09-20 22:01] VITALS: PULSE 91; RESP 16
[2023-09-20 22:04] LABS: Anion Gap 6 (5-15); BUN 12 mg/dL (7-18); Calcium,Total 8.4 mg/dL (8.5-10.1); Chloride 109 mmol/L (98-107); EST Glomerular Filtration Rate 68 mL/min (>60); Est Glom Filt Rate - Afr Amer 82 mL/min (>60); Estimated Creatinine Clearance 66.19 ml/min; Glucose 104 mg/dL (74-106); Sodium Level 143 mmol/L (136-145); Troponin-I HS (w/2H Reflex) 3 pg/mL (3.0-54.0)
[2023-09-20 22:47] VITALS: BP 129/80; BP 129/91; BP 131/90; PULSE 72; PULSE 80; PULSE 89
[2023-09-20 23:34] LABS: Reflex Troponin-HS? (from REC) Y
== END 2023-09-20 23:10 | disposition home or self-care (01) ==
PROVIDERS: Emergency Provider Student in an Organized Health Care Education/Training Program; PCP Nurse Practitioner Family; Visit Provider Student in an Organized Health Care Education/Training Program
DX: R07.9 Chest pain, unspecified (principal); G40.909 Epilepsy, unspecified, not intractable, without status epilepticus; R55 Syncope and collapse; F17.210 Nicotine dependence, cigarettes, uncomplicated; K21.9 Gastro-esophageal reflux disease without esophagitis; Z79.899 Other long term (current) drug therapy; Z90.49 Acquired absence of other specified parts of digestive tract; Z90.710 Acquired absence of both cervix and uterus
CPT/HCPCS: 70450; 71045; 80048; 84484; 85025; 93005; 96374; 99285; A4216

== ENCOUNTER 2024-11-16 19:58 | Emergency (ER) | payer MEDICAID, SELFPAY ==
[2024-11-16 19:59] VITALS: BP 147/100; PULSE 99; RESP 18; TEMP 35.5; O2SAT 100; BMI 29.2
[2024-11-16 21:26] LABS: Absolute Neutrophil Count 4.5 X10^3/uL (2.0-7.7); Basophil# 0.09 X10^3/uL; Eosinophil# 0.43 X10^3/uL; Eosinophils% 4.9 % (0-5); Hematocrit 48.6 % (37-47); Hemoglobin 16.2 g/dL (12.0-15.0); Lymphocyte % 38.5 % (19-41); Mean Corp Hgb Conc 33.3 g/dL (32-36); Mean Corpuscular Hgb 30.7 pg (27.0-32.0); Mean Corpuscular Volume 92.2 fL (81-99); Mean Platelet Vol. 11.2 fl (6.2-12.0); Monocyte# 0.44 X10^3/uL; NRBC Flagged by Analyzer 0 % (0-5); Neutrophil # 4.45 X10^3/uL (2.7-7.7); Neutrophil % 50.4 % (47-70); Platelet Count 272 K/mm3 (150-450); RBC Distribution Width CV 12.3 % (11.6-14.6); RBC Distribution Width SD 41.4 fl (35.1-43.9); Red Blood Count 5.27 M/mm3 (4.2-5.4); White Blood Count 8.8 K/mm3 (4.4-11.0)
[2024-11-16 21:40] LABS: Alcohol, Blood (Medical)-Serum < 3.0 mg/dL
[2024-11-16 21:41] LABS: Anion Gap 7 (5-15); BUN 15 mg/dL (7-18); BUN/Creat Ratio 16.8 RATIO (10-20); Calcium,Total 9.1 mg/dL (8.5-10.1); Chloride 108 mmol/L (98-107); Creatinine, Serum 0.89 mg/dL (0.55-1.02); EST Glomerular Filtration Rate 77 mL/min (>60); Est Glom Filt Rate - Afr Amer 93 mL/min (>60); Estimated Creatinine Clearance 83.08 ml/min; Glucose 69 mg/dL (74-106); Potassium 3.1 mmol/L (3.5-5.1); Sodium Level 142 mmol/L (136-145)
[2024-11-16 21:48] LABS: Internal QC Validated? YES +Cl - CLEAR BKGD; Pregnancy, Serum, hCG Quali. NEGATIVE Negative
[2024-11-16 23:51] VITALS: BP 153/100; PULSE 97; RESP 16; TEMP 36.7; O2SAT 100
[2024-11-16 23:57] VITALS: BP 151/99; PULSE 98; RESP 16; TEMP 36.6; O2SAT 100
[2024-11-17 00:26] LABS: Amphetamine Urine VISTA NEGATIVE (<1000 ng/mL); Barbiturate Urine VISTA NEGATIVE (< 200 ng/mL); Benzodiazepine Urine VISTA POSITIVE (< 200 ng/mL); Cocaine Urine VISTA NEGATIVE (< 300 ng/mL); Ecstacy Urine VISTA NEGATIVE (< 500 ng/mL); Methadone Urine VISTA NEGATIVE (< 300 ng/mL); PCP Urine VISTA NEGATIVE (< 25 ng/mL); THC Urine VISTA POSITIVE (< 50 ng/mL); Vista UDS pH Range 5
[2024-11-17 01:00] VITALS: RESP 16
[2024-11-17 02:00] VITALS: PULSE 16
--- NOTE | 2024-11-17 04:15 | NURSING ---
PT WALKING OUT OF ED WITH MOM. STATING SHE NEEDED TO SMOKE. PT INFORMED SHE CAN NOT LEAVE UNIT. SHE IS PINK SLIPPED. PT BECAME VERBALLY ABUSIVE YELLING AT STAFF. I DONT' UNDERSTAND HOW YOU CAN KEEP ME HERE! FXXX YOU ALL! SECURITY CALLED. PT WALKED BACK TO ROOM EDUCATED ON PLAN OF CARE AND PINK SLIP. PT AGREED TO TAKE MEDS. MEDS GIVEN.
[2024-11-17] MEDS: Ziprasidone IM 20 MG/ML VIAL IM (04:29)
[2024-11-17] MEDS: Pregabalin 50 MG Capsule 200 MG PO (04:54)
[2024-11-17] MEDS: Topiramate 100 MG Tablet PO (04:55)
--- NOTE | 2024-11-17 04:57 | NURSING ---
Pt requested that her step mom takes her phone and purse and personal belongs home. All sent with step mom.
--- NOTE | 2024-11-17 05:02 | NURSING ---
pt ate 100% of snack given
--- NOTE | 2024-11-17 07:24 | EDS_ITS ---
HPI History of Present Illness Chief Complaint: Mental Health Informant: patient and family Narrative Narrative: Patient is a 43-year-old female with past medical history of epilepsy. She has been having worsening auditory hallucinations where she states she hears noises or voices that no one else can hear. Reportedly she has been causing damage around the house looking for the source of the noises or voices. She reported that it got to the point where the hallucinations were causing her such stress and also the fact that no one else could hear them that she got a piece of rope and a chair and went to the garage. She reports she was drinking a rope up thing on the chair and contemplating hanging herself when she saw a card from her daughter and decided not to proceed with the suicide attempt. This happened roughly 1 week ago but she informed her family of it this evening and with them now learning of the auditory elucidation's and potential suicidal gesture/attempt she was brought in for evaluation [facility] Medical History Smoker Seizure GERD (gastroesophageal reflux disease) Endometriosis determined by laparoscopy Home Medications ?Medication ?Instructions ?Recorded ?Last Taken ?Type topiramate 100 mg tablet 100 mg PO BID 07/06/20 Unknown History omeprazole 20 mg capsule,delayed 20 mg PO DAILY #30 CAPSULES 09/29/22 Unknown Rx release alprazolam 0.5 mg tablet 0.5 mg PO DAILY PRN anxiety 11/16/24 Unknown History buspirone 15 mg tablet 15 mg PO BID 11/16/24 Unknown History phentermine 30 mg capsule 30 mg PO 11/16/24 Unknown History pregabalin 200 mg capsule 200 mg PO TID 11/16/24 Unknown History Allergy/AdvReac Type Severity Reaction Status Date / Time levetiracetam Allergy Rash Verified 11/16/24 19:58 Penicillins Allergy Shortness Verified 11/16/24 19:58 of breath tramadol HCl (From Ultram) Allergy Rash Verified 11/16/24 19:58 Family History (Updated 05/14/21 @ 21:[address] Antonio Segovia DO) Other CAD (coronary artery disease) CVA (cerebral vascular accident) Surgical History History of cholecystectomy History of hysterectomy Social History Smoking Status: Current some day smoker tobacco type: cigarettes ROS ROS ED Constitutional Constitutional ED: Denies chills or fever(s) Eyes Eyes: Denies blurry vision or change in vision ENT ENT ED: Denies sore throat Cardiovascular Cardiovascular: Denies chest pain Respiratory/Chest Respiratory/Chest: Denies cough or dyspnea Gastrointestinal Gastrointestinal: Denies abdominal pain, diarrhea, nausea or vomiting Genitourinary Genitourinary ED: Denies dysuria Musculoskeletal Musculoskeletal: Denies myalgias Integumentary Denies rash Neurologic Neurologic: Denies headache(s) Psychiatric Psychiatric: Reports depression, suicidal thoughts and other Details: Positive auditory hallucination Hematologic/Lymphatic Hematologic/Lymphatic: Denies easy bleeding or easy bruising EXAM Physical Exam Const Vital Signs: 11/16/24 19:59 11/16/24 23:51 11/16/24 23:57 Temperature 96 F L 98.1 F 98 F Temperature Source Temporal Oral Oral Pulse Rate 99 97 98 Respiratory Rate 18 16 16 Blood Pressure 147/100 H 153/100 H 151/99 H Blood Pressure Mean 115 117 116 Pulse Ox 100 100 100 Oxygen Delivery Method Room Air Room Air Room Air Fraction of Inspired Oxygen (FIO2) 98 11/17/24 01:00 11/17/24 02:00 Temperature Temperature Source Pulse Rate 16 L Respiratory Rate 16 Blood Pressure Blood Pressure Mean Pulse Ox Oxygen Delivery Method Fraction of Inspired Oxygen (FIO2) Positive well nourished and well developed General Appearance ED: well developed HEENT HEENT Narrative: Normocephalic atraumatic Eyes PERRL and EOMs intact bilaterally General Eye ED: Negative for scleral icterus Neck supple Neck Narrative: No nuchal rigidity or meningeal sign Resp normal respiratory effort and clear to auscultation bilaterally Cardio regular rate and regular rhythm Extremity normal to inspection Extremity Narrative: No asymmetric edema no pitting edema negative Homans' sign bilaterally Neuro oriented x3, CN's II-XII intact bilaterally and no sensory deficits noted Sensorium / Orientation: alert Motor Exam: strength 5/5 throughout Psych mental status grossly normal Skin Skin Narrative: Patient has a depressed yet agitated affect MDM MDM MDM Narrative Medical decision making narrative: Patient arrived to the ER hypertensive otherwise with stable vitals. She reported auditory hallucinations and a near suicide attempt. With the other [place] I did consider ordering a head CT but the patient has a past medical history of epilepsy and has had previous MRIs and CTs have not revealed any type of tumor or mass and therefore I felt it was not necessary. A medical screening exam was performed and revealed no clinically significant finding. Crisis center evaluated the patient and they agree that with her persistent auditory hallucinations and suicidal gesture that her safest option is admission at this time. The patient is hemodynamically stable and medically cleared from an emergency room standpoint and is safe for transfer/placement to a psychiatric center History & Record Review Discussion w/independent historian: Patient and Family Lab Data Attestation: I reviewed the patient's lab results. Labs: Laboratory Results - last 24 hr 11/16/24 11/16/24 21:03 23:20 WBC 8.8 RBC 5.27 Hgb 16.2 H Hct 48.6 H MCV 92.2 MCH 30.7 MCHC 33.3 RDW Std Deviation 41.4 RDW Coeff of Tiarra 12.3 Plt Count 272 MPV 11.2 Immature Gran % (Auto) 0.200 Neut % (Auto) 50.4 Lymph % (Auto) 38.5 [place] % (Auto) 5.0 Eos % (Auto) 4.9 Baso % (Auto) 1.0 Absolute Neuts (auto) 4.5 Absolute Lymphs (auto) 3.40 Nucleated RBC % 0 Sodium 142 Potassium 3.1 L Chloride 108 H Carbon Dioxide 28.0 Anion Gap 7 BUN 15 Creatinine 0.89 Estim Creat Clear Calc 83.08 Est GFR (MDRD) Af Amer 93 Est GFR (MDRD) Non-Af 77 BUN/Creatinine Ratio 16.8 Glucose 69 L Calcium 9.1 Serum , Qual NEGATIVE Urine Opiates Screen NEGATIVE Urine Methadone Screen NEGATIVE Ur Barbiturates Screen NEGATIVE Ur Phencyclidine Scrn NEGATIVE Ur Amphetamines Screen NEGATIVE MDMA (Ecstasy) Screen NEGATIVE U Benzodiazepines Scrn POSITIVE H Urine Cocaine Screen NEGATIVE U Cannabinoids Screen POSITIVE H Ur Drug Screen Comment Ethyl Alcohol < 3.0 Management Discussion w/another healthcare provider: Behavioral health Discharge Plan Triage Chief Complaint: Mental Health ED Provider: Christiano Ponce Dx/Rx/DC Orders Clinical Impression: Auditory hallucination, Suicidal ideation, Epilepsy Prescriptions: No Action topiramate 100 MG tablet 100 mg PO BID omeprazole [omeprazole] 20 MG capsule 20 mg PO DAILY Qty: 30 0RF phentermine 30 mg capsule 30 mg PO alprazolam 0.5 mg tablet 0.5 mg PO DAILY PRN (Reason: anxiety) buspirone 15 mg tablet 15 mg PO BID pregabalin 200 mg capsule 200 mg PO TID Primary Care Provider: Heather Adames Referrals: Haether Adames, COSMETIC CHEMIST-C [Primary Care Provider] - Print Language: Slovak Disposition Disposition: Psychiatric Hospital or Unit Discharge Location: [facility]
[2024-11-17 08:27] VITALS: BP 105/60; PULSE 78; RESP 16; O2SAT 98
[2024-11-17 12:19] VITALS: BP 105/60; PULSE 78; RESP 16; TEMP 36.6; O2SAT 99
== END 2024-11-17 12:33 ==
PROVIDERS: Emergency Provider Emergency Medicine; PCP Nurse Practitioner Family; Visit Provider Emergency Medicine
DX: R44.3 Hallucinations, unspecified (principal); G40.909 Epilepsy, unspecified, not intractable, without status epilepticus; R45.851 Suicidal ideations; K21.9 Gastro-esophageal reflux disease without esophagitis; Z79.899 Other long term (current) drug therapy; Z90.49 Acquired absence of other specified parts of digestive tract; Z90.710 Acquired absence of both cervix and uterus; F17.210 Nicotine dependence, cigarettes, uncomplicated
CPT/HCPCS: 80048; 80307; 82077; 84703; 85025; 96372; 99285; J3486

== ENCOUNTER 2024-12-23 01:57 | Emergency (ER) | payer MEDICAID, SELFPAY ==
[2024-12-23 01:59] VITALS: BP 145/82; PULSE 99; RESP 16; TEMP 36.9; O2SAT 100; BMI 26.6
--- NOTE | 2024-12-23 02:20 | RAD_ITS ---
PROCEDURE: CHEST PA AND LATERAL REASON FOR EXAM: Chest pain and shortness of breath. TECHNIQUE: PA and lateral views of the chest. COMPARISON: 09/20/2023 FINDINGS: The lungs are well aerated. No focal airspace consolidation, pneumothorax or pleural effusion is seen. Remaining lung markings otherwise appears clear. Heart size and great vessels are within normal limits. The visualized osseous thorax appears intact. Evidence of prior cholecystectomy. RAD/Chest PA and Lateral IMPRESSION: No acute cardiopulmonary process identified. Reading Location: [facility]
[2024-12-23 03:00] VITALS: BP 140/80; PULSE 82; RESP 16; O2SAT 99
[2024-12-23 03:02] LABS: Amphetamine Urine NEGATIVE (<1000 ng/mL); Barbiturate Urine VISTA NEGATIVE (< 200 ng/mL); Benzodiazepine Urine VISTA POSITIVE (< 200 ng/mL); Cocaine Urine VISTA NEGATIVE (< 300 ng/mL); Ecstacy Urine VISTA NEGATIVE (< 500 ng/mL); Methadone Urine VISTA NEGATIVE (< 300 ng/mL); PCP Urine VISTA NEGATIVE (< 25 ng/mL); THC Urine VISTA POSITIVE (< 50 ng/mL); Vista UDS pH Range 6
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
[2024-12-23 03:17] VITALS: BP 140/80; PULSE 82; RESP 18; TEMP 36.7; O2SAT 99
== END 2024-12-23 03:26 | disposition home or self-care (01) ==
PROVIDERS: Emergency Provider Emergency Medicine; PCP Nurse Practitioner Family; Visit Provider Emergency Medicine
DX: F22 Delusional disorders (principal); G40.909 Epilepsy, unspecified, not intractable, without status epilepticus; Z90.710 Acquired absence of both cervix and uterus; K21.9 Gastro-esophageal reflux disease without esophagitis; Z79.899 Other long term (current) drug therapy; Z90.49 Acquired absence of other specified parts of digestive tract; F17.210 Nicotine dependence, cigarettes, uncomplicated; R05.9 Cough, unspecified; R06.02 Shortness of breath
CPT/HCPCS: 71046; 80307; 99282

== ENCOUNTER 2024-12-26 09:49 | Emergency (ER) | payer MEDICAID, SELFPAY ==
[2024-12-26 09:50] VITALS: BP 148/94; PULSE 114; RESP 16; TEMP 36.8; O2SAT 99; BMI 26.5
--- NOTE | 2024-12-26 10:14 | EDS_ITS ---
HPI HPI - Psych History of Present Illness Chief Complaint: Mental Health Informant: patient, family (Daughter ) and EMS Narrative Narrative: Patient is a 34-year-old female with history of seizure disorder and anxiety presenting with paranoia. Patient states she has had increased anxiety and paranoia for the past few months and did have a recent hospitalization at [facility]. She states that the past 2 to 3 weeks she stopped taking her medications. She states is because someone told her that the medicines have something else in them. She is worried that someone is trying to poison her. She states that she was trying to sleep last night and she felt a sharp pain and burning sensation in her arm and thought someone was trying to inject medication into her. She initially told EMS that she feels that she is and that everyone is . She denies any alcohol or drug use. Her daughter who is at the bedside states her symptoms been getting worse. Patient is given someone is trying to poison her and would like to be checked for poisons. No sick contacts at home reported. Patient states that she always hears a music but denies any acute change in auditory hallucinations. She denies any history of schizophreni a and she tells me she does not have a history of bipolar disorder but she recently told her daughter that she did have a history of that. Patient states she does remember saying that. Patient also states that she was seen in the ER recently for the same concern but they did not check her blood and she wants her blood checked today. [facility] Medical History Smoker Seizure GERD (gastroesophageal reflux disease) Endometriosis determined by laparoscopy Home Medications ?Medication ?Instructions ?Recorded ?Last Taken ?Type topiramate 100 mg tablet 100 mg PO DAILY 07/06/20 Unk nown History alprazolam 0.5 mg tablet 0.5 mg PO DAILY PRN anxiety 11/16/24 Unknown History pregabalin 200 mg capsule 200 mg PO Q12H 11/16/24 Unkn own History buspirone 10 mg tablet 15 mg PO TID 12/26/24 Unknow n History cyclobenzaprine 5 mg tablet 10 mg PO Q8H PRN PRN low b ack pain 12/26/24 Unknown History fluoxetine 20 mg capsule 20 mg PO DAILY 12/26/24 Unkn own History phentermine 30 mg capsule 30 mg PO DAILY 12/26/24 Unkn own History propranolol 20 mg tablet 20 mg PO TID 12/26/24 Unknow n History Allergy/AdvReac Type Severity Reaction Status Date / Time levetiracetam Allergy Rash Verified 12/26/24 09:57 Penicillins Allergy Shortness Verified 12/26/24 09:57 of breath tramadol HCl (From Ultram) Allergy Rash Verified 12/26/24 09:57 Family History Other CAD (coronary artery disease) CVA (cerebral vascular accident) Surgical History History of hysterectomy History of cholecystectomy Social History Smoking Status: Current every day smoker tobacco type: cigarettes ROS ROS ED Constitutional Constitutional ED: Denies chills or fever(s) Respiratory/Chest Respiratory/Chest: Denies cough or dyspnea Gastrointestinal Gastrointestinal: Denies abdominal pain Neurologic Neurologic: Reports headache(s) and other Details: Has history of migraines Psychiatric Psychiatric: Reports anxiety and other Details: Paranoia ; Denies suicidal ideation or suicidal thoughts EXAM Physical Exam Const Vital Signs: 12/26/24 09:50 12/26/24 11:50 12/26/24 12:00 Temperature 98.2 F Temperature Source Oral Pulse Rate 114 H 101 H 102 H Respiratory Rate 16 18 18 Blood Pressure 148/94 H 146/100 H 151/99 H Blood Pressure Mean 112 115 116 Pulse Ox 99 97 97 Oxygen Delivery Method Room Air Room Air Room Air 12/26/24 13:13 Temperature Temperature Source Pulse Rate 90 Respiratory Rate 16 Blood Pressure 137/84 H Blood Pressure Mean 101 Pulse Ox 99 Oxygen Delivery Method Room Air Positive well nourished and well developed General Appearance ED: well developed and NAD HEENT Reports moist mucous membranes Neck supple Resp normal respiratory effort and clear to auscultation bilaterally Cardio no murmurs Rate: tachycardic Rhythm: regular rhythm GI non-tender and non-distended Neuro oriented x3 Sensorium / Orientation: alert Motor Exam: muscle tone normal throughout; Negative for general weakness Psych cooperative Appearance: grossly normal Attitude: paranoid Activity / Motor Behavior: appropriate eye contact and restless Speech: rapid Thought Process: racing thoughts Thought Content: rumination(s) and other Patient continues to give various examples of why she thinks someone is out to get her, trying to frame her or harm her Attention / Concentration: attention grossly intact Memory / Cognition: memory grossly intact and cognition grossly impaired Insight: poor Judgement: limited Skin Rashes: no rashes MDM MDM MDM Narrative Medical decision making narrative: Patient evaluated for increased paranoia. Patient is given someone is trying to harm her or frame her. Her story continuously changes about what she thinks is going on however she tells me she thinks someone tried to inject poison into her arm or some type of medication. Of note patient stopped taking her psychiatric medicines about 2 weeks ago. Patient was seen for paranoia 3 days ago and it seems that it is worsened. At this time will obtain medical clearance and I do think patient would benefit from psychiatric evaluation and likely placement. Patient is given a dose of Zyprexa the emergency room. Lab work shows a mild leukocytosis which is nonspecific, mild elevation of her hemoglobin and urine tox is positive for cannabis. Patient is medically cleared. Patient accepted at [facility] by Dr. Brady. Patient does start to come out of her room stating that she has chest pain and needs a chest x-ray because she think she has multiple hearts. Will obtain EKG explained the patient that she only has 1 heart and I do not think she requires a chest x-ray at this time. She is 99% on room air. Lab Data Attestation: I reviewed the patient's lab results. Labs: Laboratory Results - last 24 hr 12/26/24 10:30 WBC 13.6 H RBC 5.27 Hgb 16.0 H Hct 48.7 H MCV 92.4 MCH 30.4 MCHC 32.9 RDW Std Deviation 43.3 RDW Coeff of Tiarra 12.6 Plt Count 263 MPV 11.1 Immature Gran % (Auto) 0.300 Neut % (Auto) 78.8 H Lymph % (Auto) 15.3 L [place] % (Auto) 4.3 Eos % (Auto) 0.7 Baso % (Auto) 0.6 Absolute Neuts (auto) 10.8 H Absolute Lymphs (auto) 2.08 Nucleated RBC % 0 Sodium 138 Potassium 3.4 L Chloride 104 Carbon Dioxide 28.0 Anion Gap 6 BUN 7 Creatinine 0.72 Estim Creat Clear Calc 97.07 Est GFR (MDRD) Af Amer 118 Est GFR (MDRD) Non-Af 97 BUN/Creatinine Ratio 9.7 L Glucose 100 Calcium 9.4 Total Bilirubin 0.40 Direct Bilirubin 0.09 AST < 3 L ALT 21 Alkaline Phosphatase 93 Total Protein 7.3 Albumin 3.8 Globulin 3.5 Serum , Qual NEGATIVE Urine Color Yellow Urine Clarity Clear Urine pH 6.5 Ur Specific [place] 1.010 Urine Protein 15 H Urine Glucose (UA) Normal Urine Ketones Negative Urine Occult Blood Negative Urine Nitrite Negative Urine Bilirubin Negative Urine Urobilinogen Normal Ur Leukocyte Esterase 25 H Urine RBC 0-5 SEEN Urine WBC 0-5 SEEN Ur Squamous Epith Cells 5-10 SEEN Urine Bacteria 1+ Urine Mucus 1+ Urine Opiates Screen NEGATIVE Urine Methadone Screen NEGATIVE Ur Barbiturates Screen NEGATIVE Ur Phencyclidine Scrn NEGATIVE Ur Amphetamines Screen NEGATIVE MDMA (Ecstasy) Screen NEGATIVE U Benzodiazepines Scrn NEGATIVE Urine Cocaine Screen NEGATIVE U Cannabinoids Screen POSITIVE H Ur Drug Screen Comment Ethyl Alcohol < 3.0 Rhythm Strip Rhythm Strip: Sinus Tach Rate: 105 Ectopy: None EKG Initial EKG: Attestation: I personally reviewed and interpreted this EKG as follows: Interpretation: Sinus Tachycardia Comments: Sinus tachycardia rate of 105 bpm Normal axis Normal intervals Normal ST segments Discharge Plan Triage Chief Complaint: Mental Health ED Provider: Nanette Melvin Dx/Rx/DC Orders Clinical Impression: Paranoia Prescriptions: No Action topiramate 100 MG tablet 100 mg PO DAILY alprazolam 0.5 mg tablet 0.5 mg PO DAILY PRN (Reason: anxiety) pregabalin 200 mg capsule 200 mg PO Q12H phentermine 30 mg capsule 30 mg PO DAILY buspirone 10 mg tablet 15 mg PO TID propranolol 20 mg tablet 20 mg PO TID fluoxetine 20 mg capsule 20 mg PO DAILY cyclobenzaprine 5 mg tablet 10 mg PO Q8H PRN PRN (Reason: low back pain) Primary Care Provider: Heather Adames Referrals: Heather Adames [employer]-[facility] [Primary Care Provider] - Print Language: [place] Island[place] Disposition Disposition: Psychiatric Hospital or Unit Discharge Location: [place]
[2024-12-26 10:53] LABS: Absolute Lymphocyte Count 2.08 X10^3/uL (0.83-4.51); Absolute Neutrophil Count 10.8 X10^3/uL (2.0-7.7); Basophil# 0.08 X10^3/uL; Basophil% 0.6 % (0-1); Eosinophils% 0.7 % (0-5); Hematocrit 48.7 % (37-47); Lymphocyte # 2.08 X10^3/ul (0.83-4.51); Lymphocyte % 15.3 % (19-41); Mean Corp Hgb Conc 32.9 g/dL (32-36); Mean Corpuscular Hgb 30.4 pg (27.0-32.0); Mean Corpuscular Volume 92.4 fL (81-99); Mean Platelet Vol. 11.1 fl (6.2-12.0); Monocyte# 0.58 X10^3/uL; Monocyte% 4.3 % (0-10); NRBC Flagged by Analyzer 0 % (0-5); Neutrophil # 10.75 X10^3/uL (2.7-7.7); Neutrophil % 78.8 % (47-70); Platelet Count 263 K/mm3 (150-450); RBC Distribution Width CV 12.6 % (11.6-14.6); RBC Distribution Width SD 43.3 fl (35.1-43.9); Red Blood Count 5.27 M/mm3 (4.2-5.4); White Blood Count 13.6 K/mm3 (4.4-11.0)
[2024-12-26 11:05] LABS: Internal QC Validated? YES +Cl - CLEAR BKGD; Pregnancy, Serum, hCG Quali. NEGATIVE Negative
[2024-12-26 11:07] LABS: Color, Urine Yellow (Yellow); Glucose, Dipstick Normal (Normal); Ketone-Dipstick Negative (Negative); Leukocyte Esterase-Dipstick 25 /ul (Negative); Nitrite-Dipstick Negative (Negative); Occult Blood-Urine Negative /ul (Negative); Protein-Dipstick 15 mg/dl (Negative); Urine Bilirubin Dipstick Negative (Negative); Urine Clarity Clear (Clear); Urine Urobilinogen Normal (Normal); Urine pH 6.5 (5.0 - 8.0)
[2024-12-26 11:10] LABS: Bacteria 1+ /hpf (None Seen); Squamous Epithelial Cells - UA 5-10 SEEN /hpf (5-10)
[2024-12-26 11:11] LABS: Mucous, Urine 1+ /hpf (<or=2+); Red Blood Cells-Urine 0-5 SEEN /hpf (0-5); White Blood Cells 0-5 SEEN /hpf (0-5)
[2024-12-26 11:18] LABS: AST(SGOT) < 3 U/L (15-37); Alanine Aminotransfer ALT/SGPT 21 U/L (13-56); Albumin, Serum 3.8 g/dL (3.2-5.0); Alkaline Phosphatase 93 U/L (45-117); Anion Gap 6 (5-15); BUN 7 mg/dL (7-18); BUN/Creat Ratio 9.7 RATIO (10-20); Bilirubin, Direct 0.09 mg/dL (0.00-0.30); Calcium,Total 9.4 mg/dL (8.5-10.1); Chloride 104 mmol/L (98-107); Creatinine, Serum 0.72 mg/dL (0.55-1.02); EST Glomerular Filtration Rate 97 mL/min (>60); Est Glom Filt Rate - Afr Amer 118 mL/min (>60); Estimated Creatinine Clearance 97.07 ml/min; Globulin 3.5 g/dL (2.2-4.2); Glucose 100 mg/dL (74-106); Potassium 3.4 mmol/L (3.5-5.1); Protein, Total 7.3 g/dL (6.4-8.2); Sodium Level 138 mmol/L (136-145)
[2024-12-26 11:29] LABS: Alcohol, Blood (Medical)-Serum < 3.0 mg/dL
[2024-12-26 11:50] VITALS: BP 146/100; PULSE 101; RESP 18; O2SAT 97
[2024-12-26 12:00] VITALS: BP 151/99; PULSE 102; RESP 18; O2SAT 97
--- NOTE | 2024-12-26 12:01 | ED.RN ---
Patient was going to leave AMA. SW had seen the patient and was waiting to talk to Dr Melvin. Dr Melvin decided to pink slip the patient. Patient is not happy and stated that she doesn't have to stay and she can't be pink slipped. Pt stated that she needed to go with her daughter to her appt. DAughter in the room stated that we can't just let her leave. Pt kept trying to run out of the department. PD and security at bedside. Patient is now aware that she is pink slipped and is not able to leave the department. PD and security still in department. Rosemarie is her oldest daughter and would like to know when she is transported. Pt is ok with us talking to Rosemarie. [phone]
--- NOTE | 2024-12-26 12:06 | ED.RN ---
pt belongings - shoes, socks, hat, sweats, t-shirt, bra, NO underwear. daughter taking ring, purse, and coat.
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
[2024-12-26 12:08] LABS: Amphetamine Urine NEGATIVE (<1000 ng/mL); Barbiturate Urine VISTA NEGATIVE (< 200 ng/mL); Benzodiazepine Urine VISTA NEGATIVE (< 200 ng/mL); Cocaine Urine VISTA NEGATIVE (< 300 ng/mL); Ecstacy Urine VISTA NEGATIVE (< 500 ng/mL); Methadone Urine VISTA NEGATIVE (< 300 ng/mL); PCP Urine VISTA NEGATIVE (< 25 ng/mL); THC Urine VISTA POSITIVE (< 50 ng/mL); Vista UDS pH Range 6
[2024-12-26] MEDS: OLANZapine 10 MG Tablet PO (12:16)
--- NOTE | 2024-12-26 13:01 | ED.RN ---
Patient asked for water for her and her daughter. She also asked for chapstick. Pt was given both requests.
--- NOTE | 2024-12-26 13:06 | CM.ED ---
Social work While waiting to speak with Dr. Melvin about patient and possible need for placement, patient presented to the nurses' station dressed and stating patient was leaving. Patient stated needing to take care of animals and speak with patient's other daughter, Rosemarie. Patient's daughter, Danelle, was attempting to encourage patient to stay until lab work came back as that was patient's whole reason for coming. Patient agreed to go back to patient's room while waiting for this SW to speak with Dr. Melvin. Dr. Melvin agreed with this SW about need for placement due to patient's increased paranoia and delusions, as well as patient's lack of caring for self through lack of sleep and eating. Patient pink slipped and moved to Room 4. This SW provided support to patient's daughter, Danelle, who stated feeling embarrassed by patient. Danelle stated a desire to remain with patient if possible until Danelle's father could come pick Danelle up. Called [facility] (ph: ) and spoke with Roman. Beds available, so faxed referral packet around 1300 (f: ). Accepted at [facility]: Dr. Brady N2N: [phone] Faxed pink slip to [facility]. [facility] also requested updated vitals, as well as confirmation of patient not being currently. credit interviewer Pepper updated. Additional information faxed to [facility]. Ramona Maravilla, ADVERTISING WRITER, [employer] MECH[employer]IC
[2024-12-26 13:13] VITALS: BP 137/84; PULSE 90; RESP 16; O2SAT 99
--- NOTE | 2024-12-26 13:45 | ED.RN ---
Pt aware accepted at [facility]. Physicians being called for transport.
--- NOTE | 2024-12-26 14:49 | ED.RN ---
ACCEPTED AT [facility]. PHYSICIANS ORIGINALLY SAID [id number]. THEY OUTSOURCED THE RIDE TO [facility]. THEY WILL BE PICKING HER UP AT [phone].
--- NOTE | 2024-12-26 15:11 | EKG12_ITS ---
Test Reason : Blood Pressure : */* mmHG Vent. Rate : 105 BPM Atrial Rate : 105 BPM P-R Int : 122 ms QRS Dur : 76 ms QT Int : 332 ms P-R-T Axes : 76 87 56 degrees QTcB Int : 438 ms Sinus tachycardia Right atrial enlargement Borderline ECG Confirmed by MALIHA RAZO, CHRISSY ([id number]), mapping editor ENRIQUE HUNTER ([id number]) on 12/28/2024 7:27:03 AM Referred By: Confirmed By: CHRISSY JETT MD
--- NOTE | 2024-12-26 15:23 | ED.RN ---
Dght took patient's coat and purse home with her.
--- NOTE | 2024-12-26 15:24 | ED.RN ---
Patient is adamant that she gets a chest xray. C/O chest pain and states, I have two hearts I need a chest xray. Per Dr. Melvin an EKG was ordered. Dr. Melvin explained to her that she does not have 2 hearts. This nurse reiterated what Dr. Melvin said. Patient states that she is going to talk to her workers compensation attorney.
[2024-12-26] MEDS: busPIRone 5 MG Tablet 10 MG PO (15:34)
[2024-12-26] MEDS: Propranolol 10 MG Tablet 20 MG PO (15:34)
[2024-12-26] MEDS: FLUoxetine 20 MG Capsule PO (15:34)
[2024-12-26] MEDS: Topiramate 100 MG Tablet PO (15:35)
[2024-12-26] MEDS: LORazepam 1 MG Tablet PO (17:33)
== END 2024-12-26 18:35 ==
PROVIDERS: Emergency Provider Emergency Medicine; PCP Nurse Practitioner Family; Visit Provider Emergency Medicine
DX: F22 Delusional disorders (principal); G40.909 Epilepsy, unspecified, not intractable, without status epilepticus; Z90.710 Acquired absence of both cervix and uterus; F41.9 Anxiety disorder, unspecified; Z90.49 Acquired absence of other specified parts of digestive tract; F17.210 Nicotine dependence, cigarettes, uncomplicated; R07.9 Chest pain, unspecified
CPT/HCPCS: 36415; 80048; 80076; 80307; 81001; 82077; 84703; 85025; 93005; 99285

== ENCOUNTER 2025-01-03 14:40 | Emergency (ER) | payer MEDICAID, SELFPAY ==
[2025-01-03 14:42] VITALS: BP 159/92; PULSE 120; RESP 18; TEMP 37.6; O2SAT 97; BMI 28.6
--- NOTE | 2025-01-03 14:51 | EDS_ITS ---
HPI HPI - Psych History of Present Illness Chief Complaint: Mental Health Informant: patient and family (Accompanied by her daughter who helps with the history.) Onset/Context/Timing Onset: Today Timing: Continuous Current Severity: Moderate Maximum Severity: Moderate Associated Symptoms Specific plan (suicidal thought): Denies being suicidal. Narrative Narrative: 34-year-old female history of bipolar and anxiety depression. Has recently had mental health issues she just got out of the [facility], [place] on Monday according to her daughter who is here with her. Today she was at another local emergency department get evaluated for chest pain and was discharged home. When she got home she made a call to 911 and the police saying she did not feel safe and that there were people out to get her and police and paramedics brought her into the emergency department. Patient denies any recent illness. Her daughter is present room is helping with the history. States she has not been recently ill. Prior similar symptoms: Yes Recent Illness/Hospitalization: Yes PFSH PFSH Medical History Smoker Seizure GERD (gastroesophageal reflux disease) Endometriosis determined by laparoscopy Home Medications ?Medication ?Instructions ?Recorded ?Last Taken ?Type topiramate 100 mg tablet 100 mg PO DAILY 07/06/20 Unk nown History alprazolam 0.5 mg tablet 0.5 mg PO DAILY PRN anxiety 11/16/24 Unknown History pregabalin 200 mg capsule 200 mg PO Q12H 11/16/24 Unkn own History buspirone 10 mg tablet 15 mg PO TID 12/26/24 Unknow n History cyclobenzaprine 5 mg tablet 10 mg PO Q8H PRN PRN low b ack pain 12/26/24 Unknown History fluoxetine 20 mg capsule 20 mg PO DAILY 12/26/24 Unkn own History phentermine 30 mg capsule 30 mg PO DAILY 12/26/24 Unkn own History propranolol 20 mg tablet 20 mg PO TID 12/26/24 Unknow n History Allergy/AdvReac Type Severity Reaction Status Date / Time levetiracetam Allergy Rash Verified 01/03/25 14:46 Penicillins Allergy Shortness Verified 01/03/25 14:46 of breath tramadol HCl (From Ultram) Allergy Rash Verified 01/03/25 14:46 Family History Other CAD (coronary artery disease) CVA (cerebral vascular accident) Surgical History History of hysterectomy History of cholecystectomy Social History household members: family housing: house Smoking Status: Current every day smoker tobacco type: cigarettes ROS ROS ED ROS Narrative Denies recent illness. Paranoid thinking people are out to get her. Constitutional Constitutional ED: Denies chills or fever(s) Eyes Eyes: Denies blurry vision ENT ENT ED: Denies ear pain Cardiovascular Cardiovascular: Reports chest pain and other Details: Reportedly negative cardiac workup done earlier today. Another facility. Respiratory/Chest Respiratory/Chest: Reports dyspnea on exertion; Denies cough or dyspnea Gastrointestinal Gastrointestinal: Denies abdominal pain or constipation Genitourinary Genitourinary ED: Denies dysuria or hematuria Musculoskeletal Musculoskeletal: Denies arthralgias Integumentary Denies abscess Neurologic Neurologic: Denies headache(s), paresthesias or weakness Psychiatric Psychiatric: Reports anxiety Endocrine Endocrinology: Denies polydipsia Hematologic/Lymphatic Hematologic/Lymphatic: Denies easy bleeding Allergic/Immunologic Allergic/Immunologic ED: Denies mouth swelling EXAM Physical Exam Narrative Exam Narrative: 34-year-old female vital signs are stable she is afebrile she does not look septic or toxic. Temperature 99.6. Pulse ox 97% on room air no signs hypoxia. Patient sitting upright in bed no medical distress. Daughter in the room helping with the history. H EENT exam pupils round react light. Moist mucous membranes. No trauma. Neck nontender no meningismus. No lymphadenopathy. Lungs clear to auscultation bilaterally. Heart tachycardic rate about 110 no murmur. Chest wall and ribs nontender. Abdomen soft nontender. Back nontend er. No signs of trauma. Moving all 4 extremities. 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 Dorsi plantarflexion intact. Calves nontender without edema or cords. Neurologically is patient's awake alert no focal motor deficits. Const Vital Signs: 01/03/25 14:42 Temperature 99.6 F H Temperature Source Oral Pulse Rate 120 H Respiratory Rate 18 Blood Pressure 159/92 H Blood Pressure Mean 114 Pulse Ox 97 Oxygen Delivery Method Room Air Positive well nourished and well developed; Negative for cachectic, contractures or unkempt General Appearance ED: well developed and NAD; Negative for unkempt, cachectic, contractures or pallor Nutritional Appearance: Negative for cachectic HEENT Reports moist mucous membranes normocephalic and atraumatic; Negative for trauma or tenderness Eyes PERRL and EOMs intact bilaterally Neck no lymphadenopathy, supple and no JVD General: Negative for tenderness Resp normal respiratory effort and clear to auscultation bilaterally Effort and Inspection: Negative for retractions Auscultation: Negative for rales, rhonchi, wheezes or diminished lung sounds Cardio S1 normal heart sound, S2 normal heart sound and no murmurs Rate: tachycardic Rhythm: regular rhythm GI non-tender, non-distended and no masses Auscultation: normoactive bowel sounds Palpation: soft; Negative for tender, guarding or mass Back/Spine no CVA tenderness General Back: Negative for CVA tenderness Cervical Spine: Negative for cervical spine tenderness Thoracic Spine / Upper Back: Negative for thoracic spinal tenderness Lumbar Spine / Lower Back: Negative for lumbar spinal tenderness Extremity normal to inspection General Extremety ED: Negative for edema or tenderness General Extremity: Negative for edema Neuro oriented x3 and CN's II-XII intact bilaterally Sensorium / Orientation: alert, oriented to person, oriented to place and oriented to time; Negative for orientation impaired or confused Motor Exam: strength 5/5 throughout Psych cooperative and speech normal; Negative for denies hallucinations Appearance: grossly normal; Negative for unkempt Attitude: calm and engaged Activity / Motor Behavior: appropriate eye contact Speech: rapid Mood & Affect: elevated mood Thought Process: normal thought process Thought Content: hallucination(s) Attention / Concentration: attention grossly intact Memory / Cognition: memory grossly intact Insight: limited Judgement: limited Skin General Skin Exam: Negative for jaundice or pallor Lesions: no lesions Rashes: no rashes Trauma: Negative for abrasion Wounds: Negative for amputation MDM MDM MDM Narrative Medical decision making narrative: 34-year-old female history of underlying psychiatric illness including bipolar disorder. Reportedly currently on no medications nor is she seeing a psychiatrist or counselor consistently. Called police today who brought her in.I think this is all secondary underlying psychiatric illness. She had a recent admission this past week and was just discharged on Monday. Repeat exam at 3:45 PM unchanged. Patient being evaluated by crisis for transfer to a psychiatric facility. They are also getting children services involved due to the 15-year-old daughter who is basically in charge of home. History & Record Review Discussion w/independent historian: Patient and Family Additional record(s) reviewed:: Prior inpatient record, Prior outpatient record, Prior ED visit and Prior labs Lab Data Attestation: I reviewed the patient's lab results. Lab results narrative: CBC shows a white count 7. H&H 15 and 44. Platelets 209. Electrolytes show a potassium of 3.4. Gap 6. Normal BUN of 8 and creatinine 0.7. Glucose 103. Serum test negative. Tox screen positive for opiates and cannabis. Alcohol negative. Labs: Laboratory Results - last 24 hr 01/03/25 01/03/25 14:50 15:01 WBC 7.4 RBC 5.02 Hgb 15.5 H Hct 44.8 MCV 89.2 MCH 30.9 MCHC 34.6 RDW Std Deviation 42.4 RDW Coeff of Tiarra 12.9 Plt Count 209 MPV 10.5 Immature Gran % (Auto) 0.700 Neut % (Auto) 78.8 H Lymph % (Auto) 10.6 L [place] % (Auto) 9.1 Eos % (Auto) 0.1 Baso % (Auto) 0.7 Absolute Neuts (auto) 5.8 Absolute Lymphs (auto) 0.78 L Nucleated RBC % 0 Sodium 138 Potassium 3.4 L Chloride 104 Carbon Dioxide 27.0 Anion Gap 6 BUN 8 Creatinine 0.70 Estim Creat Clear Calc 103.52 Est GFR (MDRD) Af Amer 122 Est GFR (MDRD) Non-Af 101 BUN/Creatinine Ratio 11.4 Glucose 103 Calcium 9.5 Serum , Qual NEGATIVE Urine Opiates Screen POSITIVE H Urine Methadone Screen NEGATIVE Ur Barbiturates Screen NEGATIVE Ur Phencyclidine Scrn NEGATIVE Ur Amphetamines Screen NEGATIVE MDMA (Ecstasy) Screen NEGATIVE U Benzodiazepines Scrn NEGATIVE Urine Cocaine Screen NEGATIVE U Cannabinoids Screen POSITIVE H Ur Drug Screen Comment Ethyl Alcohol < 3.0 Discharge Plan Triage Chief Complaint: Mental Health ED Provider: Cole Carlos Dx/Rx/DC Orders Clinical Impression: Bipolar 1 disorder, Unable to care for self, Auditory hallucination Prescriptions: No Action topiramate 100 MG tablet 100 mg PO DAILY alprazolam 0.5 mg tablet 0.5 mg PO DAILY PRN (Reason: anxiety) pregabalin 200 mg capsule 200 mg PO Q12H phentermine 30 mg capsule 30 mg PO DAILY buspirone 10 mg tablet 15 mg PO TID propranolol 20 mg tablet 20 mg PO TID fluoxetine 20 mg capsule 20 mg PO DAILY cyclobenzaprine 5 mg tablet 10 mg PO Q8H PRN PRN (Reason: low back pain) Primary Care Provider: Heather Adames Referrals: Heather Adames, CARE TRAINER-[facility] [Primary Care Provider] - Print Language: Lao Disposition Disposition: Psychiatric Hospital or Unit
[2025-01-03 15:02] LABS: Absolute Lymphocyte Count 0.78 X10^3/uL (0.83-4.51); Absolute Neutrophil Count 5.8 X10^3/uL (2.0-7.7); Basophil# 0.05 X10^3/uL; Basophil% 0.7 % (0-1); Eosinophil# 0.01 X10^3/uL; Eosinophils% 0.1 % (0-5); Hematocrit 44.8 % (37-47); Hemoglobin 15.5 g/dL (12.0-15.0); Lymphocyte # 0.78 X10^3/ul (0.83-4.51); Lymphocyte % 10.6 % (19-41); Mean Corp Hgb Conc 34.6 g/dL (32-36); Mean Corpuscular Hgb 30.9 pg (27.0-32.0); Mean Corpuscular Volume 89.2 fL (81-99); Mean Platelet Vol. 10.5 fl (6.2-12.0); Monocyte# 0.67 X10^3/uL; Monocyte% 9.1 % (0-10); NRBC Flagged by Analyzer 0 % (0-5); Neutrophil # 5.83 X10^3/uL (2.7-7.7); Neutrophil % 78.8 % (47-70); Platelet Count 209 K/mm3 (150-450); RBC Distribution Width CV 12.9 % (11.6-14.6); RBC Distribution Width SD 42.4 fl (35.1-43.9); Red Blood Count 5.02 M/mm3 (4.2-5.4); White Blood Count 7.4 K/mm3 (4.4-11.0)
[2025-01-03 15:24] LABS: Internal QC Validated? YES +Cl - CLEAR BKGD; Pregnancy, Serum, hCG Quali. NEGATIVE Negative
[2025-01-03 15:25] LABS: Alcohol, Blood (Medical)-Serum < 3.0 mg/dL
[2025-01-03 15:26] LABS: Amphetamine Urine NEGATIVE (<1000 ng/mL); Barbiturate Urine VISTA NEGATIVE (< 200 ng/mL); Benzodiazepine Urine VISTA NEGATIVE (< 200 ng/mL); Cocaine Urine VISTA NEGATIVE (< 300 ng/mL); Ecstacy Urine VISTA NEGATIVE (< 500 ng/mL); Methadone Urine VISTA NEGATIVE (< 300 ng/mL); Opiates Urine POSITIVE (< 300 ng/mL); PCP Urine NEGATIVE (< 25 ng/mL); THC Urine VISTA POSITIVE (< 50 ng/mL); Vista UDS pH Range 5
[2025-01-03 15:27] LABS: Anion Gap 6 (5-15); BUN 8 mg/dL (7-18); BUN/Creat Ratio 11.4 RATIO (10-20); Calcium,Total 9.5 mg/dL (8.5-10.1); Chloride 104 mmol/L (98-107); EST Glomerular Filtration Rate 101 mL/min (>60); Est Glom Filt Rate - Afr Amer 122 mL/min (>60); Estimated Creatinine Clearance 103.52 ml/min; Glucose 103 mg/dL (74-106); Potassium 3.4 mmol/L (3.5-5.1); Sodium Level 138 mmol/L (136-145)
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
--- NOTE | 2025-01-03 18:03 | CM.ED ---
Social work Called [facility] (ph: [phone]) and spoke with Anne; no beds available. Called [facility] (ph: ) and spoke with Heavenly. Beds available, so referral faxed (f: ). Ramona Maravilla, [employer], POKER PROP PLAYER
--- NOTE | 2025-01-03 18:06 | CM.ED ---
Social work Due to this SW's concerns and patient's pink slip stating concern with patient's ability to care for patient's 15 year old daughter, Danelle, this SW involved [facility]. Patient's home address is in [place], but patient and patient's daughter have reportedly been staying with patient's father and stepmother in [place]. This SW called [facility] (ph: [phone]). Spoke with Alaina who stated that due to patient's home address being in [place], this would be a [facility] call. This SW called [facility] (ph: [phone]) and spoke with Rachael. Rachael received report of SW concerns for patient's child, including patient's recent struggles with mental health, paranoia, delusions, and the inability to care for patient's daughter appropriately. Rachael received the necessary information, including patient's father's name and phone number (Vincent Calderón, ). Rachael's direct number is: [phone]. Rachael stated thinking this referral over and not knowing if [facility] would open this case or not due to patient's daughter currently being safe and having needs met to this point. This SW clarified that patient's daughter was observed to be exhausted and stated running on an hour and a half of sleep and 3 Monsters due to patient's mother continually waking patient up during the night, as well as patient's mother reportedly driving patient around while experiencing paranoia and lacking sleep as well. Rachael expressed understanding. This SW confirmed with Danelle that the plan was for Danelle to be picked up by Zoltan Rodriguez, patient's ex-boyfriend ([phone]). Danelle confirmed. Ramona Maravilla, [employer] ARCHITECT, CHILD CARE COOK
[2025-01-03] MEDS: Potassium Chloride Oral Soln 20 MEQ/15 ML UDC 40 MEQ PO (18:51)
--- NOTE | 2025-01-03 18:52 | CM.ED ---
Social work Patient accepted by [facility]. [facility] [address] Brady N2N: [phone] [facility] requested patient receive a potassium supplement as well as updated vitals. induction coordination engineer Pepper and Dr Mcdonald updated. Faxed updated vitals and updated pink slip to [facility] (f: ). Patient updated. Patient stated being grateful to return to [facility] due to the staff there knowing patient. Patient confirmed that patient's daughter, Danelle, went home with patient's ex-boyfriend Zoltan. Plan: [facility], pending transport. Ramona Maravilla, HOROLOGIST, GREENS CUTTER
[2025-01-03 18:56] VITALS: BP 148/89; PULSE 92; O2SAT 98
[2025-01-03 19:00] VITALS: BP 148/89; PULSE 92; RESP 16; TEMP 36.4; O2SAT 98
--- NOTE | 2025-01-03 19:41 | ED.RN ---
I CALLED [facility] AT 1900 TO REQUEST OUTSOURCE FOR THE PTS RIDE, SHE CALLED ME BACK AT 1930 INFORMING THAT HER BOSS SAID THAT EVERYWHERE THEY'VE TRIED DENIED, BECAUSE OF HIGH CALL VOLUME, I REQUESTED WHAT PLACES THEY TRIED AND SHE SAID [facility] AND [facility] WHO STILL DENIED
[2025-01-03] MEDS: Acetaminophen 500 MG Tablet 1000 MG PO (20:05)
[2025-01-03] MEDS: traZODone 50 MG Tablet PO (20:59)
[2025-01-03] MEDS: Pregabalin 50 MG Capsule 200 MG PO (20:59)
[2025-01-04 02:00] VITALS: BP 141/79; PULSE 98; RESP 18; O2SAT 98
--- NOTE | 2025-01-04 09:15 | ED.RN ---
[facility] CALLED @ 0619 AND CHANGED THE ETA FROM 11 AM TO 9 AM. AT 913 THEY WERE NOT HERE YET. i CALLED [facility] AND ASKED FOR AND UPDATED ETA. THEY SAID THEY HAD A SITUATION WITH A HOSPICE PATIENT AND HAD TO PUSH IT BACK TO 11AM.
[2025-01-04 10:00] VITALS: BP 128/92; PULSE 85; RESP 15; TEMP 36.9; O2SAT 99
[2025-01-04] MEDS: Pregabalin 50 MG Capsule 200 MG PO (10:55)
[2025-01-04] MEDS: ARIPiprazole 5 MG Tablet PO (10:55)
[2025-01-04] MEDS: Topiramate 100 MG Tablet PO (10:55)
--- NOTE | 2025-01-04 10:56 | ED.RN ---
[facility]YS[facility]ANS CALLED AGAIN 5 MINS BEFORE THEY WERE SUPPOSED TO ARRIVE. PUSHED BACK THE MARKING DEVICES ASSEMBLER TIME TO 12 PM.
[2025-01-04 11:25] VITALS: BP 135/76; PULSE 90; RESP 16; TEMP 36.1; O2SAT 99
--- NOTE | 2025-01-04 11:56 | ED.RN ---
Yaritza Zeng taking pt to locker to shower.
[2025-01-04 12:37] LABS: Bedside Glucose 123 mg/dL (74-106)
--- NOTE | 2025-01-04 14:13 | ED.RN ---
PHYSICIANS OUTSOURCED THE RIDE TO [facility]. THEY ARRIVED AT 0200 FOR THE PATIENT.
--- NOTE | 2025-01-17 10:26 | CM.ED ---
Social work Received note today from [facility] (dated 01/07/25) stating the referral made did not meet criteria for JFS involvement and was declined. Ramona Maravilla, RADIO STATION MANAGER, SOFA COVER INSPECTOR
== END 2025-01-04 14:17 ==
LOC: ED 15:19
PROVIDERS: Emergency Provider Emergency Medicine; PCP Nurse Practitioner Family; Visit Provider Emergency Medicine
DX: F31.9 Bipolar disorder, unspecified (principal); F17.210 Nicotine dependence, cigarettes, uncomplicated; Z90.710 Acquired absence of both cervix and uterus; R44.0 Auditory hallucinations; Z79.899 Other long term (current) drug therapy; F41.9 Anxiety disorder, unspecified; Z90.49 Acquired absence of other specified parts of digestive tract
CPT/HCPCS: 80048; 80307; 82077; 82962; 84703; 85025; 99285

== ENCOUNTER 2025-05-05 22:17 | Emergency (ER) | payer MEDICAID, SELFPAY ==
[2025-05-05 22:19] VITALS: BP 133/94; PULSE 78; RESP 18; TEMP 36.6; O2SAT 96; BMI 27.7
[2025-05-05 22:57] LABS: Absolute Lymphocyte Count 3.58 X10^3/uL (0.83-4.51); Absolute Neutrophil Count 6.5 X10^3/uL (2.0-7.7); Basophil% 0.9 % (0-1); Eosinophil# 0.31 X10^3/uL; Eosinophils% 2.8 % (0-5); Hematocrit 44.4 % (37-47); Hemoglobin 15.2 g/dL (12.0-15.0); Lymphocyte # 3.58 X10^3/ul (0.83-4.51); Lymphocyte % 32.6 % (19-41); Mean Corp Hgb Conc 34.2 g/dL (32-36); Mean Corpuscular Volume 90.6 fL (81-99); Mean Platelet Vol. 11.1 fl (6.2-12.0); Monocyte# 0.44 X10^3/uL; NRBC Flagged by Analyzer 0 % (0-5); Neutrophil # 6.51 X10^3/uL (2.7-7.7); Neutrophil % 59.4 % (47-70); Platelet Count 231 K/mm3 (150-450); RBC Distribution Width CV 11.7 % (11.6-14.6); RBC Distribution Width SD 38.7 fl (35.1-43.9)
[2025-05-05 23:03] LABS: Internal QC Validated? YES +Cl - CLEAR BKGD; Pregnancy, Serum, hCG Quali. NEGATIVE Negative; Record Kit Lot#, Serum Preg. 947241
[2025-05-05 23:13] LABS: Alcohol, Blood (Medical)-Serum < 10.1 mg/dL (<=10.0)
[2025-05-05 23:14] LABS: Anion Gap 11 (5-15); BUN 11 mg/dL (4-19); BUN/Creat Ratio 13.1 RATIO (10-20); Calcium,Total 9.3 mg/dL (7.6-11.0); Carbon Dioxide 26.1 mmol/L (21.0-32.0); Chloride 103 mmol/L (98-108); Creatinine, Serum 0.85 mg/dL (0.70-1.20); EST Glomerular Filtration Rate 92 (>60); Estimated Creatinine Clearance 83.95 ml/min (50-250); Glucose 133 mg/dL (70-99); Potassium 3.4 mmol/L (3.3-5.1); Sodium Level 140 mmol/L (133-145)
--- NOTE | 2025-05-06 00:04 | PCA ---
[facility] CALLED, CHART FAXED
--- OUTSIDE RECORDS SUMMARY | 2025-05-06 00:06 | XMS RPT_ITS | CCD ---
Author Organization [facility] Care Team Providers Care Salesperson Burial Plots Name Role Phone KATYA OSEI Unavailable Unavailable PHYSICIAN, NONE Unavailable Unavailable PHYSICIAN, NONE Primary Care Physician Unavailab CASA Mcdermott MD Attending Unavailable Ungerer HUMAN RESOURCES CONSULTANT, Heather Dawn Primary Care Provider [phone] ANGELA DIAZ Attending Unavailable UNGERER, HEATHER D Primary Care Unavailable UNGERER, HEATHER D Primary Care Unavailable JESSICA ALEXANDER Attending Unavailable MAGGIE RUGGIERO DO Attending Unavailable AndChristiano charlton Attending Unavailable Ungerer, Heather Primary Care Unavailable Ungerer, Heather Primary Care Unavailable Nanette Melvin Attending Unavailable AndChristiano charlton Attending Unavailable Ungerer, Heather Primary Care Unavailable Ungerer, Heather Primary Care Unavailable Cole Carlos Attending Unavailable UNGERER, HEATHER SUPERVISOR ERECTION SHOP Consulting Unavailable UNGERER, HEATHER SUPERVISOR ERECTION SHOP Referring Unavailable CASEY JADE DO Attending Unavailable CASEY JADE DO Primary Care Unavailable CASEY JADE DO Admitting Unavailable PROVIDER, UNKNOWN Consulting Unavailable UNGERER, HEATHER SUPERVISOR ERECTION SHOP Consulting Unavailable UNGERER, HEATHER SUPERVISOR ERECTION SHOP Primary Care Unavailable UNGERER, HEATHER SUPERVISOR ERECTION SHOP Admitting Unavailable UNGERER, HEATHER SUPERVISOR ERECTION SHOP Attending Unavailable PROVIDER, UNKNOWN Consulting Unavailable UNGERER, HEATHER SUPERVISOR ERECTION SHOP Consulting Unavailable BALTAZAR LEBRON CNP Primary Care Unavailable BALTAZAR LEBRON CNP Admitting Unavailable BALTAZAR LEBRON CNP Attending Unavailable PROVIDER, UNKNOWN Consulting Unavailable UNGERER, HEATHER SUPERVISOR ERECTION SHOP Consulting Unavailable UNGERER, HEATHER SUPERVISOR ERECTION SHOP Primary Care Unavailable UNGERER, HEATHER SUPERVISOR ERECTION SHOP Admitting Unavailable UNGERER, HEATHER SUPERVISOR ERECTION SHOP Attending Unavailable PROVIDER, UNKNOWN Consulting Unavailable Allergies Allergy Classification Reported Allergen(s) Allergy Type Date of Onset Reaction(s) Facility (3 sources) Penicillin; Translations: [penicillins] Drug Allergy Unknown [facility] (6 sources) levETIRAcetam; Translations: [LEVETIRACETAM] Drug Allergy 1 [facility] (4 sources) Penicillins; Translations: [PENICILLINS] Allergy to substance 7 Shortness of breath [facility] (3 sources) traMADol; Translations: [tramadol HCl] Drug Allergy 1 [facility] (4 sources) Penicillin G; Translations: [PENICILLIN G] Drug Allergy 5 [facility] (2 sources) Penicillins Drug Allergy 7 Shortness of Breath [facility] Work Phone: (4 sources) traMADol; Translations: [TRAMADOL] Drug Allergy 0 [facility] (1 source) levETIRAcetam Drug Allergy 5 [facility] (1 source) Penicillins Drug allergy (disorder) 5 [facility] (1 source) Penicillins Drug allergy (disorder) [facility] Rep[facility] (1 source) traMADol Drug Allergy [facility] Repository Medications Current Medications Medication Drug Class(es) Dates Sig (Normalized) Sig (Original) ALPRAZolam 0.5 mg oral tablet (2 sources) Benzodiazepine Start: 04-03-2024 take 1 tablet by mouth once daily as needed for anxiety ALPRAZolam (XANAX) 0.5 mg tablet Take 0.5 mg by mouth once daily as needed for anxiety. 0 04/03/2024 Active busPIRone hydrochloride 15 mg oral tablet (2 sources) Start: 04-05-2024 take 1 tablet by mouth every twelve hours busPIRone (BUSPAR) 15 mg tablet Take 1 tablet by mouth every 12 hours. 0 04/05/2024 Active Clindamycin (3 sources) Lincosamide Antibacterial Start: 03-06-2017 clindamycin 0 Refill(s) Start Date: 03/06/17 Status: Ordered Start: 02-06-2017 End: 04-10-2024 take 1 capsule by mouth every eight hours clindamycin (CLEOCIN) 300 mg capsule Take 1 capsule by mouth every 8 hours. 0 02/06/2017 04/10/2024 Discontinued cyclobenzaprine hydrochloride 5 mg oral tablet (1 source) Muscle Relaxant Start: 06-27-2023 End: 06-30-2023 cyclobenzaprine 5 mg oral tablet Dose : 5 mg = 1 tab(s), Oral, TID, PRN Muscle spasm, X 3 day(s), # 9 tab(s), 0 Refill(s), 06/30/23 2:24:00 PM EDT Start Date: 06/27/23 Stop Date: 06/30/23 Status: Ordered ibuprofen 800 mg oral tablet (4 sources) Nonsteroidal Anti-inflammatory Drug Start: 03-09-2017 take 1 tablet by mouth every eight hours as needed ibuprofen (MOTRIN) 800 mg tablet Take 1 tablet by mouth every 8 hours as needed for Pain. 0 03/09/2017 Active Start: 11-10-2016 End: 11-24-2016 take 200 mg by mouth every four hours as needed Ibuprofen Discontinued 200 MG PO EVERY 4 HOURS NEEDED November 10, 2016 1:00am November 24, 2016 9:36am omeprazole 20 mg delayed release oral capsule (2 sources) Proton Pump Inhibitor Start: 09-29-2022 take 20 mg by mouth once daily Omeprazole Active 20 MG PO DAILY September 29, 2022 1:00am PEDIATRIC MULTIVIT COMB. NO.49 (FLINTSTONES GUMMIES ORAL) (2 sources) PEDIATRIC MULTIVIT COMB. NO.49 (FLINTSTONES GUMMIES ORAL) Take by mouth. 0 Active phentermine hydrochloride 15 mg oral capsule (2 sources) Sympathomimetic Amine Anorectic Start: 04-05-2024 take 1 capsule by mouth once Phentermine HCl 15 mg capsule Take 1 capsule by mouth every afternoon. 0 04/05/2024 Active predniSONE 10 mg oral tablet (1 source) Start: 06-27-2023 End: 07-02-2023 predniSONE 10 mg oral tablet Dose : 30 mg = 3 tab(s), Oral, BID, # 30 tab(s), 0 Refill(s) Start Date: 06/27/23 Stop Date: 07/02/23 Status: Ordered pregabalin 200 mg oral capsule (2 sources) Start: 04-03-2024 take 1 capsule by mouth three times daily Pregabalin (LYRICA) 200 mg capsule Take 200 mg by mouth three times a day. 0 04/03/2024 Active topiramate 200 mg oral tablet (6 sources) Start: 01-30-2024 take 1 tablet by mouth every twelve hours topiramate (TOPAMAX) 200 mg tablet Take 1 tablet by mouth every 12 hours. 0 01/30/2024 Active Start: 07-06-2020 take 100 mg by mouth twice daily Topiramate Active 100 MG PO TWICE A DAY July 06, 2020 12:00am Completed/Discontinued Medications Medication Drug Class(es) Dates Sig (Normalized) Sig (Original) acetaminophen 325 mg / oxyCODONE hydrochloride 5 mg oral tablet (1 source) Opioid Agonist Start: 03-17-2017 End: 04-10-2024 take 1 tablet by mouth every four hours as needed oxyCODONE-acetamin ophen (PERCOCET) 5-325 mg tablet Take 1 tablet by mouth every 4 hours as needed for Pain. 25 tablet 0 03/17/2017 04/10/2024 Discontinued albuterol MDI (90 mcg/inh) CFC free inhalation aerosol (2 sources) Start: 08-04-2021 End: 09-03-2021 take 2 puff(s) by inhalation every four hours as needed for wheezing albuterol MDI (90 mcg/inh) CFC free inhalation aerosol 2 puff(s), Inhalation, q4h, PRN Shortness of breath or wheezing, # 1 EA, 0 Refill(s), Viral syndrome Bronchitis Start Date: 08/04/21 Stop Date: 09/03/21 Status: Ordered baclofen 20 mg oral tablet (2 sources) gamma-Aminobutyric Acid-ergic Agonist Start: 12-14-2020 End: 12-19-2020 baclofen 20 mg oral tablet Dose : 20 mg = 1 tab(s), Oral, TID, # 15 tab(s), 0 Refill(s) Start Date: 12/14/20 Stop Date: 12/19/20 Status: Ordered etodolac 400 mg oral tablet (2 sources) Nonsteroidal Anti-inflammatory Drug Start: 05-20-2018 End: 05-27-2018 etodolac 400 mg oral tablet Dose : 400 mg = 1 tab(s), Oral, TID, # 21 tab(s), 0 Refill(s) Start Date: 05/20/18 Stop Date: 05/27/18 Status: Ordered Problems Active Problems Problem Classification Problem Date Documented Date Episodic/Chronic Abdominal pain (4 sources) Acute abdominal pain; Translations: [Right upper quadrant pain] 10-21-2015 Episodic Anxiety disorders (1 source) Anxiety disorder, unspecified; Translations: [Anxiety disorder, unspecified] Onset: 02-11-2025 Chronic Cardiac dysrhythmias (2 sources) Palpitations; Translations: [Palpitations] 03-27-2020 Episodic Diseases of mouth; excluding dental (5 sources) Sialodocholithiasis; Translations: [Sialoadenitis] Onset: 03-15-2017 06-27-2018 Episodic Diseases of white blood cells (2 sources) Leukocytosis; Translations: [Elevated white blood cell count, unspecified] 10-21-2015 Chronic Disorders of lipid metabolism (6 sources) Hypertriglyceridemia; Translations: [Pure hyperglyceridemia] Onset: 04-10-2024 04-10-2024 Chronic Endometriosis (2 sources) Endometriosis (clinical); Translations: [Endometriosis, unspecified] 05-14-2021 Chronic Epilepsy; convulsions (1 source) Epilepsy, unspecified, not intractable, without status epilepticus; Translations: [Epilepsy, unspecified, not intractable, without status epilepticus] Onset: 02-11-2025 Chronic Epilepsy; convulsions (4 sources) Seizure; Translations: [Unspecified convulsions] Onset: 04-10-2024 04-10-2024 Episodic Esophageal disorders (6 sources) Gastroesophageal reflux disease; Translations: [Gastro-esophageal reflux disease without esophagitis] Onset: 04-10-2024 05-14-2021 Chronic Essential hypertension (4 sources) Essential hypertension; Translations: [Essential (primary) hypertension] Onset: 04-10-2024 04-10-2024 Chronic Fluid and electrolyte disorders (1 source) Hypokalemia; Translations: [Hypokalemia] Onset: 01-03-2025 Episodic Mood disorders (1 source) Bipolar disorder, unspecified; Translations: [Bipolar disorder, unspecified] Onset: 01-17-2025 Chronic Nonspecific chest pain (7 sources) Atypical chest pain; Translations: [Other chest pain] Onset: 01-03-2025 01-30-2020 Episodic Other female genital disorders (2 sources) History of gynecological disorder; Translations: [Personal history of other diseases of the female genital tract] 10-21-2015 Episodic Other female genital disorders (2 sources) History of endometriosis; Translations: [Personal history of other diseases of the female genital tract] Onset: 04-10-2024 04-10-2024 Episodic Other nutritional; endocrine; and metabolic disorders (2 sources) Body mass index 30+ - obesity; Translations: [Obesity, unspecified] 10-07-2022 Chronic Other nutritional; endocrine; and metabolic disorders (3 sources) Obese class II; Translations: [Obesity, unspecified] Onset: 04-10-2024 04-10-2024 Chronic Other nutritional; endocrine; and metabolic disorders (1 source) Obesity, unspecified; Translations: [Obesity, Class II, BMI 35-39.9] Onset: 04-10-2024 Chronic Other screening for suspected conditions (not mental disorders or infectious disease) (1 source) Encounter for screening for diabetes mellitus; Translations: [Encounter for screening for diabetes mellitus] Onset: 02-11-2025 Episodic Other upper respiratory infections (3 sources) Acute upper respiratory infection; Translations: [Acute upper respiratory infection, unspecified] Onset: 11-19-2021 Episodic Residual codes; unclassified (1 source) Hallucinations, unspecified; Translations: [Hallucinations, unspecified] Onset: 12-11-2024 Episodic Schizophrenia and other psychotic disorders (1 source) Delusional disorders; Translations: [Delusional disorders] Onset: 01-10-2025 Chronic Spondylosis; intervertebral disc disorders; other back problems (5 sources) Backache; Translations: [Dorsalgia, unspecified] Onset: 04-10-2024 03-27-2020 Episodic Syncope (8 sources) Syncope; Translations: [Syncope and collapse] Onset: 04-10-2024 09-20-2023 Episodic Syncope (3 sources) Syncope Onset: 11-20-2007 05-20-2008 Past or Other Problems Problem Classification Problem Date Documented Da te Episodic/Chronic Residual codes; unclassified (2 sources) Tobacco use and exposure - finding; Translations: [Tobacco use] Onset: 03-15-2017 03-15-2017 Episodic Results Test Name Value Interpretation Reference Range Facility Bedside Glucoseon 01-04-2025 FINGERSTICK GLU 123 mg/dL High 74-106 [facility] Comment on above: Result Comment: CALI GALVIN OF PATIENT CARE PER NURSING PROTOCOL Performed By: #### L 501.080 ####[facility] [id number] [place], [address] .Auto Diffon 01-03-2025 Basophil, Absolute 0.1 10 3/mcL Normal 0.0-0.2 [facility] Comment on above: Performed By: #### G FR, DIMER, ADIFF, BMP, ANEU, CBC, TROPHSNICHOLAS #### [address] [address] Basophils/100 WBC (Bld) 0.5 % Normal 0.0-2.5 [facility] Comment on above: Performed By: #### G FR, DIMER, ADIFF, BMP, ANEU, CBC, NICHOLAS GARLAND #### [address] [address] Eosinophil, Absolute 0.1 10 3/mcL Normal 0.0-0.7 [facility] Comment on above: Performed By: #### G FR, DIMER, ADIFF, BMP, ANEU, CBC, NICHOLAS GARLAND #### [address] [address] Eosinophils/100 WBC (Bld) 1.3 % Normal 0.0-7.0 [facility] Comment on above: Performed By: #### G FR, DIMER, ADIFF, BMP, ANEU, CBC, NICHOLAS GARLAND #### [address] [address] Lymphocyte, Absolute 0.6 10 3/mcL Low 0.9-4.3 [facility] Comment on above: Performed By: #### G FR, DIMER, ADIFF, BMP, ANEU, CBC, TROPHNICHOLAS Pineda #### [address] [address] Lymphocytes/100 WBC (Bld) 5.5 % Low 20.0-40.0 [facility] Comment on above: Performed By: #### G FR, DIMER, ADIFF, BMP, ANEU, CBC, GILL, NICHOLAS #### [address] [address] Monocyte, Absolute 0.8 10 3/mcL Normal 0.1-1.4 [facility] Comment on above: Performed By: #### G FR, DIMER, ADIFF, BMP, ANEU, CBC, MARYSNICHOLAS #### [address] [address] Monocytes/100 WBC (Bld) 8.2 % Normal 2.0-13.0 [facility] Comment on above: Performed By: #### G FR, DIMER, ADIFF, BMP, ANEU, CBC, NICHOLAS GARLAND #### [address] [address] Neutrophils/100 WBC (Bld) 84.5 % High 50.0-75.0 [facility] Comment on above: Performed By: #### G FR, DIMER, ADIFF, BMP, ANEU, CBC, NICHOLAS GARLAND #### [address] [address] .GFRon 01-03-2025 Estimated Glomerular Filtration Rate 116 ml/min/1.73sqm Normal [facility] Comment on above: Result Comment: Stages of Chronic Kidney Disease (CKD) Stage Description eGFR(ml/min/1.73 sq.m.) CKD 1 Normal kidney function or >=90 normal kindney function with possible kidney damage (ex. Proteinuria) CKD 2 Kidney damage with mild loss 60-89 of kidney function CKD 3a Mild to moderate loss of kidney 45-59 function CKD 3b Moderate to severe loss of 30-44 of kindey function CKD 4 Severe loss of kidney function 15-29 CKD 5 Kidney failure <15 Note: (go live 2024) the eGFR calculation was updated to the 2020 CKD-EPI creatinine equation without a race factor to calculate the eGFR results. Performed By: #### P REGU #### [address] [address] .MDWon 01-03-2025 Monocyte Distribution Width 24.11 High 0.00-20.00 [facility] Comment on above: Result Comment: For adults in ED, MDW>20.0 may be associated with a higher risk of sepsis during the first 12hrs of hospital admission Performed By: #### G FR, DIMER, ADIFF, BMP, ANEU, CBC, GILL, NICHOLAS #### [place] [address] .NEUABSon 01-03-2025 Neutrophil, Absolute 8.5 10 3/mcL High 2.3-8.1 [facility] Comment on above: Performed By: #### G FR, DIMER, ADIFF, BMP, ANEU, CBC, NICHOLAS GARLAND #### [place] [address] .Urinalysis Microscopic (AO) on 01-03-2025 UA Bacteria 1+ /hpf Abnormal [facility] Comment on above: Performed By: #### U A, UAMICAO #### [place] [address] UA RBC None Seen Normal None Seen [facility] Comment on above: Performed By: #### U A, UAMICAO #### [place] [address] UA Squam Epithelial 5-10 Abnormal None Seen [facility] Comment on above: Performed By: #### U A, UAMICAO #### [place] [address] UA WBC None Seen Normal None Seen [facility] Comment on above: Performed By: #### U A, UAMICAO #### [place] [address] Alcohol, Blood (Medical)-Ser umon 01-03-2025 SERUM ETOH < 3.0 Normal [facility] Comment on above: Result Comment: The serum:whole blood ethanol ratio is approximately 1.14 and varies slightly with hematocrit. Medical Alcohol reference interval and critical value in non-tolerant individuals; 50 - 100 Impairment 100 Intoxication 100 - 250 Severe Poisoning 250 - 400 Deep/possible fatal coma Performed By: #### L 501.9100, L505.5000, L700.6800, L500.2500, L100.0100 ####[facility] [id number] [place], [address] BMPon 01-03-2025 BUN/Creatinine Ratio 9 ratio Normal 7-27 [facility] Comment on above: Performed By: #### G FR, DIMER, ADIFF, BMP, ANEU, CBCGILL MDW #### [address] [address] Calcium [Mass/Vol] 9.0 mg/dL Normal 8.4-10.2 [facility] Comment on above: Performed By: #### G FR, DIMER, ADIFF, BMP, ANEU, CBCGILL MDW #### [address] [address] Chloride [Moles/Vol] 102 mmol/L Normal 98-107 [facility] Comment on above: Performed By: #### G FR, DIMER, ADIFF, BMP, ANEU, GILL ECHOLS MDW #### [address] [address] CO2 [Moles/Vol] 25 mmol/L Normal 22-29 [facility] Comment on above: Performed By: #### G FR, DIMER, ADIFF, BMP, ANEU, GILL ECHOLS MDW #### [address] [address] Creatinine [Mass/Vol] 0.68 mg/dL Normal 0.55-1.02 [facility] Comment on above: Result Comment: Test ing performed on Siemens Dimension EXL analyzer using a modified kinetic Augustus technique. Performed By: #### G FR, DIMER, ADIFF, BMP, ANEU, GILL ECHOLS MDW #### [address] [address] Electrolyte Balance 11.0 mEq/L Normal 4.0-15.0 [facility] Comment on above: Performed By: #### G FR, DIMER, ADIFF, BMP, ANEU, GILL ECHOLS MDW #### [address] [address] Glucose [Mass/Vol] 109 mg/dL High 70-105 [facility] Comment on above: Performed By: #### G FR, DIMER, ADIFF, BMP, ANEU, ONESIMO, NICHOLAS GARLAND #### [address] [address] Potassium [Moles/Vol] 3.2 mmol/L Low 3.5-5.1 [facility] Comment on above: Performed By: #### G FR, DIMER, ADIFF, BMP, ANEU, ONESIMO, NICHOLAS GARLAND #### [address] [address] Sodium [Moles/Vol] 138 mmol/L Normal 136-145 [facility] Comment on above: Performed By: #### G FR, DIMER, ADIFF, BMP, ANEU, GILL ECHOLS MDW #### [address] [address] Urea nitrogen [Mass/Vol] 6 mg/dL Low 7-18 [facility] Comment on above: Performed By: #### G FR, DIMER, ADIFF, BMP, ANEU, GILL ECHOLS MDW #### [address] [address] Basic Metabolic Profile (BMP )on 01-03-2025 BUN/CRE 11.4 RATIO Normal 10-20 [facility] Comment on above: Performed By: #### L 501.9100, L505.5000, L700.6800, L500.2500, L100.0100 ####[facility] [address] [place], [address] CA,Total 9.5 mg/dL Normal 8.5-10.1 [facility] Comment on above: Performed By: #### L 501.9100, L505.5000, L700.6800, L500.2500, L100.0100 ####[facility] [address] [place], [address] Chloride [Moles/Vol] 104 mmol/L Normal 98-107 [facility] Comment on above: Performed By: #### L 501.9100, L505.5000, L700.6800, L500.2500, L100.0100 ####[facility] [id number] [place], [address] CO2 [Moles/Vol] 27.0 mmol/L Normal 21.0-32.0 [facility] Comment on above: Performed By: #### L 501.9100, L505.5000, L700.6800, L500.2500, L100.0100 ####[facility] [address] [place], [address] Creatinine [Mass/Vol] 0.70 mg/dL Normal 0.55-1.02 [facility] Comment on above: Result Comment: The validity of the calculated GFR GFRAA in patients over 70 years has not been determined. Clinical correlation is essential. Performed By: #### L 501.9100, L505.5000, L700.6800, L500.2500, L100.0100 ####[facility] [address] [place], [address] ECRCL 103.52 ml/min Normal [facility] Comment on above: Performed By: #### L 501.9100, L505.5000, L700.6800, L500.2500, L100.0100 ####[facility] [address] [place], [address] EST GFR - AA 122 mL/min Normal >60 [facility] Comment on above: Result Comment: Afri can Liberian GFR Calc Performed By: #### L 501.9100, L505.5000, L700.6800, L500.2500, L100.0100 ####[facility] [address] [place], [address] GAP 6 Normal 5-15 [facility] Comment on above: Performed By: #### L 501.9100, L505.5000, L700.6800, L500.2500, L100.0100 ####[facility] [address] [place], [address] GFR/1.73 sq M.predicted among non-blacks MDRD (S/P/Bld) [Vol rate/Area] 101 mL/min/{1.73_m2} Normal >60 [facility] Comment on above: Result Comment: Non- GFR Calc Performed By: #### L 501.9100, L505.5000, L700.6800, L500.2500, L100.0100 ####[facility] [address] [place], [address] Glucose [Mass/Vol] 103 mg/dL Normal 74-106 [facility] Comment on above: Result Comment: Fast ing Glucose result from 100 to 125 mg/dL suggests IMPAIRED HOMEOSTASIS per A.D.A. criteria. Performed By: #### L 501.9100, L505.5000, L700.6800, L500.2500, L100.0100 ####[facility] [address] [place], [address] Potassium [Moles/Vol] 3.4 mmol/L Low 3.5-5.1 [facility] Comment on above: Performed By: #### L 501.9100, L505.5000, L700.6800, L500.2500, L100.0100 ####[facility] [address] [place], [address] Sodium [Moles/Vol] 138 mmol/L Normal 136-145 [facility] Comment on above: Performed By: #### L 501.9100, L505.5000, L700.6800, L500.2500, L100.0100 ####[facility] [address] [place], [address] Urea nitrogen [Mass/Vol] 8 mg/dL Normal 7-18 [facility] Comment on above: Performed By: #### L 501.9100, L505.5000, L700.6800, L500.2500, L100.0100 ####[facility] [address] [place], [address] CBCon 01-03-2025 Erythrocyte distribution width (RBC) [Ratio] 13.4 % Normal 11.5-15.5 [facility] Comment on above: Performed By: #### G FR, DIMER, ADIFF, BMP, ANEU, CBC, NICHOLAS GARLAND #### [address] [address] Hematocrit (Bld) [Volume fraction] 44.8 % Normal 34.0-46.0 [facility] Comment on above: Performed By: #### G FR, DIMER, ADIFF, BMP, ANEU, CBCGILL MDW #### [address] [address] Hgb 15.4 G/dL Normal 12.0-16.0 [facility] Comment on above: Performed By: #### G FR, DIMER, ADIFF, BMP, ANEU, CBCGILL MDW #### [address] [address] MCH (RBC) [Entitic mass] 31.3 pg Normal 27.0-33.0 [facility] Comment on above: Performed By: #### G FR, DIMER, ADIFF, BMP, ANEU, CBCGILL MDW #### [address] [address] MCHC 34.3 G/dL Normal 32.0-36.0 [facility] Comment on above: Performed By: #### G FR, DIMER, ADIFF, BMP, ANEU, CBC, NICHOLAS GARLAND #### [address] [address] MCV (RBC) [Entitic vol] 91.2 fL Normal 80.0-99.0 [facility] Comment on above: Performed By: #### G FR, DIMER, ADIFF, BMP, ANEU, CBC, NICHOLAS GARLAND #### [address] [address] Platelet 192 10 3/mcL Normal 150-450 [facility] Comment on above: Performed By: #### G FR, DIMER, ADIFF, BMP, ANEU, CBC, NICHOLAS GARLAND #### [address] [address] Platelet mean volume (Bld) [Entitic vol] 8.8 fL Normal 6.6-10.5 [facility] Comment on above: Performed By: #### G FR, DIMER, ADIFF, BMP, ANEU, CBC, NICHOLAS GARLAND #### [address] [address] RBC 4.91 10 6/mcL Normal 4.10-5.30 [facility] Comment on above: Performed By: #### G FR, DIMER, ADIFF, BMP, ANEU, CBC, NICHOLAS GARLAND #### [address] [address] WBC 10.1 10 3/mcL Normal 4.5-10.8 [facility] Comment on above: Performed By: #### G FR, DIMER, ADIFF, BMP, ANEU, ONESIMO, NICHOLAS GARLAND #### [address] [address] CBC W/Diff, Automatedon 12-21 Absolute Lymph 0.78 X10 3/uL Low 0.83-4.51 [facility] Comment on above: Performed By: #### L 501.9100, L505.5000, L700.6800, L500.2500, L100.0100 ####[facility] [address] [place], [place], [address] Absolute Neut 5.8 X10 3/uL Normal 2.0-7.7 [facility] Comment on above: Performed By: #### L 501.9100, L505.5000, L700.6800, L500.2500, L100.0100 ####[facility] [address] [place], [address] Basophils/100 WBC (Bld) 0.7 % Normal 0-1 [facility] Comment on above: Performed By: #### L 501.9100, L505.5000, L700.6800, L500.2500, L100.0100 ####[facility] [address] [place], [address] Eosinophils/100 WBC (Bld) 0.1 % Normal 0-5 [facility] Comment on above: Performed By: #### L 501.9100, L505.5000, L700.6800, L500.2500, L100.0100 ####[facility] [address] [place], [address] Erythrocyte distribution width (RBC) [Ratio] 12.9 % Normal 11.6-14.6 [facility] Comment on above: Performed By: #### L 501.9100, L505.5000, L700.6800, L500.2500, L100.0100 ####[facility] [address] [place], [address] Hematocrit (Bld) [Volume fraction] 44.8 % Normal 37-47 [facility] Comment on above: Performed By: #### L 501.9100, L505.5000, L700.6800, L500.2500, L100.0100 ####[facility] [address] [place], [address] Hemoglobin (Bld) [Mass/Vol] 15.5 g/dL High 12.0-15.0 [facility] Comment on above: Performed By: #### L 501.9100, L505.5000, L700.6800, L500.2500, L100.0100 ####[facility] [address] [place], [address] IG% 0.700 Normal 0.0-0.9 [facility] Comment on above: Result Comment: IG% - Immature Granulocytes (promyelocytes, myelocytes and metamyelocytes) > 1% indicates that a LEFT SHIFT is Present. Performed By: #### L 501.9100, L505.5000, L700.6800, L500.2500, L100.0100 ####[facility] [address] [place], [address] Lymphocytes/100 WBC (Bld) 10.6 % Low 19-41 [facility] Comment on above: Performed By: #### L 501.9100, L505.5000, L700.6800, L500.2500, L100.0100 ####[facility] [address] [place], [address] MCH (RBC) [Entitic mass] 30.9 pg Normal 27.0-32.0 [facility] Comment on above: Performed By: #### L 501.9100, L505.5000, L700.6800, L500.2500, L100.0100 ####[facility] [address] [place], [address] MCHC (RBC) [Mass/Vol] 34.6 g/dL Normal 32-36 [facility] Comment on above: Performed By: #### L 501.9100, L505.5000, L700.6800, L500.2500, L100.0100 ####[facility] [address] [place], [address] MCV (RBC) [Entitic vol] 89.2 fL Normal 81-99 [facility] Comment on above: Performed By: #### L 501.9100, L505.5000, L700.6800, L500.2500, L100.0100 ####[facility] [address] [place], [address] Monocytes/100 WBC (Bld) 9.1 % Normal 0-10 [facility] Comment on above: Performed By: #### L 501.9100, L505.5000, L700.6800, L500.2500, L100.0100 ####[facility] [address] [place], [address] Neutrophils/100 WBC (Bld) 78.8 % High 47-70 [facility] Comment on above: Performed By: #### L 501.9100, L505.5000, L700.6800, L500.2500, L100.0100 ####[facility] [address] [place], [address] Nucleated RBC (Bld) [#/Vol] 0 10*3/uL Normal 0-5 [facility] Comment on above: Performed By: #### L 501.9100, L505.5000, L700.6800, L500.2500, L100.0100 ####[facility] [address] [place], [address] Platelet mean volume (Bld) [Entitic vol] 10.5 fL Normal 6.2-12.0 [facility] Comment on above: Performed By: #### L 501.9100, L505.5000, L700.6800, L500.2500, L100.0100 ####[facility] [address] [place], [address] Platelets (Bld) [#/Vol] 209 10*3/uL Normal 150-450 [facility] Comment on above: Performed By: #### L 501.9100, L505.5000, L700.6800, L500.2500, L100.0100 ####[facility] [address] [place], [address] RBC (Bld) [#/Vol] 5.02 10*6/uL Normal 4.2-5.4 [facility] Comment on above: Performed By: #### L 501.9100, L505.5000, L700.6800, L500.2500, L100.0100 ####[facility] [address] [place], [address] RDW SD 42.4 fl Normal 35.1-43.9 [facility] Comment on above: Performed By: #### L 501.9100, L505.5000, L700.6800, L500.2500, L100.0100 ####[facility] [address] [place], [address] WBC (Bld) [#/Vol] 7.4 10*3/uL Normal 4.4-11.0 [facility] Comment on above: Performed By: #### L 501.9100, L505.5000, L700.6800, L500.2500, L100.0100 ####[facility] [address] [place], [address] DIMERon 01-03-2025 D-Dimer 202 ng/mL D-DU Normal 0-230 [facility] Comment on above: Result Comment: DDN: Results reported in D-DU ng/mL. Negative for D-dimer. DVT/PE is highly unlikely. Note: False negative results may be seen in patients on anticoagulant therapy. The result of the D-Dimer test should be evaluated in the context of all the clinical and laboratory data available. In those instances where the laboratory result does not agree with the clinical evaluation, additional tests should be performed accordingly. If the D-Dimer result is used to exclude DVT or PE, the recommended cutoff value is less than 230 ng/mL. The D-Dimer result should not be used alone to rule in DVT/PE, but should be used in conjunction with a clinical pretest probability (PTP)assessment model to exclude venous thromboembolism (VTE) in outpatients suspected of deep venous thrombosis (DVT) and pulmonary embolism (PE). Performed By: #### P REGU #### [facility] [address] [place], [place] [address] Emergency Department Summary on 01-03-2025 Emergency Department Summary [facility] Medical Records Department [address] [place] [address] Emergency Department Summary 01/03/25 MR#: [id number] Acct: [id number] Name: SADE CALDERÓN Rep #: [id number] : 1990 34 From: Cole Carlos MD PCP: SHANITA. Heather Adames NP-Andrew Status:REG ER Location: ED HPI HPI - Psych History of Present Illness Chief Complaint: Mental Health Informant: patient and family (Accompanied by her daughter who helps with the history.) Onset/Context/Timing Onset: Today Timing: Continuous Current Severity: Moderate Maximum Severity: Moderate Associated Symptoms Specific plan (suicidal thought): Denies being suicidal. Narrative Narrative: 34-year-old female history of bipolar and anxiety depression. Has recently had mental health issues she just got out of the [facility] on Monday according to her daughter who is here with her. Today she was at another local emergency department get evaluated for chest pain and was discharged home. When she got home she made a call to 911 and the police saying she did not feel safe and that there were people out to get her and police and paramedics brought her into the emergency department. Patient denies any recent illness. Her daughter is present room is helping with the history. States she has not been recently ill. Prior similar symptoms: Yes Recent Illness/Hospitalizati on: Yes [facility] Medical History Smoker Seizure GERD (gastroesophageal reflux disease) Endometriosis determined by laparoscopy Home Medications ???Medication ???Instructions ???Recorded ???Last Taken ???Type topiramate 100 mg tablet 100 mg PO DAILY 07/06/20 Unknown H istory alprazolam 0.5 mg tablet 0.5 mg PO DAILY PRN anxiety Unknown History pregabalin 200 mg capsule 200 mg PO Q12H 11/16/24 Unknown Hi story buspirone 10 mg tablet 15 mg PO TID 12/26/24 Unknown Hist ory cyclobenzaprine 5 mg tablet 10 mg PO Q8H PRN PRN low back pain 12/26/24 Unknown History fluoxetine 20 mg capsule 20 mg PO DAILY 12/26/24 Unknown Hi story phentermine 30 mg capsule 30 mg PO DAILY 12/26/24 Unknown Hi story propranolol 20 mg tablet 20 mg PO TID 12/26/24 Unknown Hist ory Allergy/AdvReac Type Severity Reaction Status Date / Time levetiracetam Allergy Rash Verified 01/03/25 14:46 Penicillins Allergy Shortness Verified 01/03/25 14:46 of breath tramadol HCl (From Ultram) Allergy Rash Verified 01/03/25 14:46 Family History Other CAD (coronary artery disease) CVA (cerebral vascular accident) Surgical History History of hysterectomy History of cholecystectomy Social History household members: family housing: house Smoking Status: Current every day smoker tobacco type: cigarettes ROS ROS ED ROS Narrative Denies recent illness. Paranoid thinking people are out to get her. Constitutional Constitutional ED: Denies chills or fever(s) Eyes Eyes: Denies blurry vision ENT ENT ED: Denies ear pain Cardiovascular Cardiovascular: Reports chest pain and other Details: Reportedly negative cardiac workup done earlier today. Another facility. Respiratory/Chest Respiratory/Chest: Reports dyspnea on exertion; Denies cough or dyspnea Gastrointestinal Gastrointestinal: Denies abdominal pain or constipation Genitourinary Genitourinary ED: Denies dysuria or hematuria Musculoskeletal Musculoskeletal: Denies arthralgias Integumentary Denies abscess Neurologic Neurologic: Denies headache(s), paresthesias or weakness Psychiatric Psychiatric: Reports anxiety Endocrine Endocrinology: Denies polydipsia Hematologic/Lymphatic Hematologic/Lymphatic : Denies easy bleeding Allergic/Immunologic Allergic/Immunologic ED: Denies mouth swelling EXAM Physical Exam Narrative Exam Narrative: 34-year-old female vital signs are stable she is afebrile she does not look septic or toxic. Temperature 99.6. Pulse ox 97% on room air no signs hypoxia. Patient sitting upright in bed no medical distress. Daughter in the room helping with the history. H EENT exam pupils round react light. Moist mucous membranes. No trauma. Neck nontender no meningismus. No lymphadenopathy. Lungs clear to auscultation bilaterally. Heart tachycardic rate about 110 no murmur. Chest wall and ribs nontender. Abdomen soft nontender. Back nontender. No signs of trauma. Moving all 4 extremities. 5 out of 5 energy auditor strength. Dorsi plantarflexion intact. Calves nontender without edema or cords. Neurologically is patient's awake alert no focal motor deficits. Const Vital Signs: 01/03/25 14:42 Temperature 99.6 (more content not included)... Normal [facility] LABORATORYOrdered By: SYSTEM SYSTEM on 01-03-2025 Troponin I.cardiac DL <= 0.01 ng/mL [Mass/Vol] 4 ng/L Normal 0 - 51 ng/L AO ADM SS Comment on above: Interpretive Data: H igh Sensitive Troponin I Reference Ranges: Female: 0-51 ng/L Male: 0-76 ng/L Testing performed on Cadent using a homogeneous sandwich chemiluminescent immunoassay based on DNAtriX technology. Basophils (Bld) [#/Vol] 0.1 103/mcL Normal 0.0 - 0.2 10^3/mcL AO Workflow SS Basophils/100 WBC (Bld) 0.5 % Normal 0.0 - 2.5 % AO Workflow SS Calcium [Mass/Vol] 9.0 mg/dL Normal 8.4 - 10. 2 mg/dL AO ADM SS Chloride [Moles/Vol] 102 mmol/L Normal 98 - 10 7 mmol/L AO ADM SS CO2 [Moles/Vol] 25 mmol/L Normal 22 - 29 mmol/L AO ADM SS Creatinine [Mass/Vol] 0.68 mg/dL Normal 0.55 - 1.02 mg/dL AO ADM SS Comment on above: Interpretive Data: T esting performed on TASS Dimension EXL analyzer using a modified kinetic Augustus technique. Electrolyte Balance 11.0 mEq/L Normal 4.0 - 15 .0 mEq/L AO ADM SS Eosinophil, Absolute 0.1 103/mcL Normal 0.0 - 0 .7 10^3/mcL AO Workflow SS Eosinophils/100 WBC (Bld) 1.3 % Normal 0.0 - 7.0 % AO Workflow SS Erythrocyte distribution width (RBC) [Ratio] 13.4 % Normal 11.5 - 15.5 % AO Workflow SS Estimated Glomerular Filtration Rate 116 ml/min/1.73sqm Invalid Interpretation Code AO Chemistry S Comment on above: Interpretive Data: Stages of Chronic Kidney Disease (CKD) Stage Description eGFR(ml/min/1.73 sq.m.) CKD 1 Normal kidney function or >=90 normal kindney function with possible kidney damage (ex. Proteinuria) CKD 2 Kidney damage with mild loss 60-89 of kidney function CKD 3a Mild to moderate loss of kidney 45-59 function CKD 3b Moderate to severe loss of 30-44 of kindey function CKD 4 Severe loss of kidney function 15-29 CKD 5 Kidney failure <15 Note: (go live 2024) the eGFR calculation was updated to the 2020 CKD-EPI creatinine equation without a race factor to calculate the eGFR results. Fibrin D-dimer DDU (PPP) [Mass/Vol] 202 ng/mL D-DU Normal 0 - 230 ng/mL D-DU AO [facility] SS Comment on above: Result Comment: DDN: Results reported in D-DU ng/mL. Negative for D-dimer. DVT/PE is highly unlikely. Note: False negative results may be seen in patients on anticoagulant therapy. Interpretive Data: T he result of the D-Dimer test should be evaluated in the context of all the clinical and laboratory data available. In those instances where the laboratory result does not agree with the clinical evaluation, additional tests should be performed accordingly. If the D-Dimer result is used to exclude DVT or PE, the recommended cutoff value is less than 230 ng/mL. The D-Dimer result should not be used alone to rule in DVT/PE, but should be used in conjunction with a clinical pretest probability (PTP)assessment model to exclude venous thromboembolism (VTE) in outpatients suspected of deep venous thrombosis (DVT) and pulmonary embolism (PE). Glucose [Mass/Vol] 109 mg/dL High 70 - 105 mg/dL AO ADM SS Hematocrit (Bld) [Volume fraction] 44.8 % Normal 34.0 - 46.0 % AO Workflow SS Hemoglobin (Bld) [Mass/Vol] 15.4 G/dL Normal 12.0 - 16.0 G/dL AO Workflow SS Lymphocytes (Bld) [#/Vol] 0.6 103/mcL Low 0.9 - 4.3 10^3/mcL AO Workflow SS Lymphocytes/100 WBC (Bld) 5.5 % Low 20.0 - 40.0 % AO Workflow SS MCH (RBC) [Entitic mass] 31.3 pg Normal 27.0 - 33.0 pg AO Workflow SS MCHC 34.3 G/dL Normal 32.0 - 36.0 G/dL AO Workflow SS MCV (RBC) [Entitic vol] 91.2 fL Normal 80.0 - 99.0 fL AO Workflow SS Monocyte distribution width Auto (Bld) [Entitic vol] 24.11 1 High 0.00 - 20.00 AO Workflow SS Comment on above: Result Comment: For adults in ED, MDW>20.0 may be associated with a higher risk of sepsis during the first 12hrs of hospital admission Monocytes (Bld) [#/Vol] 0.8 103/mcL Normal 0.1 - 1.4 10^3/mcL AO Workflow SS Monocytes/100 WBC (Bld) 8.2 % Normal 2.0 - 13.0 % AO Workflow SS Neutrophils (Bld) [#/Vol] 8.5 103/mcL High 2.3 - 8.1 10^3/mcL AO Workflow SS Neutrophils/100 WBC (Bld) 84.5 % High 50.0 - 75.0 % AO Workflow SS Platelet mean volume (Bld) [Entitic vol] 8.8 fL Normal 6.6 - 10.5 fL AO Workflow SS Platelets (Bld) [#/Vol] 192 103/mcL Normal 150 - 450 10^3/mcL AO Workflow SS Potassium [Moles/Vol] 3.2 mmol/L Low 3.5 - 5.1 mmol/L AO ADM SS RBC (Bld) [#/Vol] 4.91 106/mcL Normal 4.10 - 5.3 0 10^6/mcL AO Workflow SS Sodium [Moles/Vol] 138 mmol/L Normal 136 - 145 mmol/L AO ADM SS Troponin I.cardiac DL <= 0.01 ng/mL [Mass/Vol] ng/L Normal 0 - 51 ng/L AO ADM SS Comment on above: Interpretive Data: H igh Sensitive Troponin I Reference Ranges: Female: 0-51 ng/L Male: 0-76 ng/L Testing performed on Cadent using a homogeneous sandwich chemiluminescent immunoassay based on DNAtriX technology. Urea nitrogen [Mass/Vol] 6 mg/dL Low 7 - 18 mg/dL AO ADM SS Urea nitrogen/Creatinine [Mass ratio] 9 ratio Normal 7 - 27 ratio AO ADM SS WBC (Bld) [#/Vol] 10.1 103/mcL Normal 4.5 - 10.8 10^3/mcL AO Workflow SS LABORATORYOrdered By: Sangeetha Tamez on 01-03-2025 Appearance (U) Slightly Cloudy *ABN* (01/03/25 7:34 AM) Invalid Interpretation Code Clear AO Auto Urine SS Bacteria LM.HPF (Urine sed) [#/Area] 1 /[HPF] Invalid Interpretation Code AO Auto Urine SS Bilirubin Ql (U) Negative (01/03/25 7:34 AM) Normal Negative AO Auto Urine SS Color (U) Yellow (01/03/25 7:34 AM) Normal AO Auto Urine SS Glucose Test strip (U) [Mass/Vol] Negative Normal Negative AO Auto Urine SS HCG ( test) Ql Negative (01/03/25 7:34 AM) Normal AO Manual Urine SS Hemoglobin Auto test strip (U) [Mass/Vol] Negative (01/03/25 7:34 AM) Normal Negative AO Auto Urine SS Ketones Ql (U) Negative Normal Negative AO Auto Ur ine SS test (u) int Not detected Invalid Interpretation Code AO Manual Urine SS UA Leuk Est Negative (01/03/25 7:34 AM) Normal Negative AO Auto Urine SS UA Nitrite Negative (01/03/25 7:34 AM) Normal Negative AO Auto Urine SS UA pH 7.0 (01/03/25 7:34 AM) Normal 5.0 - 8.0 AO Auto Urine SS UA Protein Negative Normal Negative AO Auto Urine SS UA RBC None Seen /HPF Normal None Seen AO Auto Ur ine SS UA Spec Grav 1.020 (01/03/25 7:34 AM) Normal 1.015-1.025 AO Auto Urine SS UA Specimen Type Clean Catch (01/03/25 7:34 AM) Normal AO Auto Urine SS UA Squam Epithelial 5-10 /HPF Invalid Interpretation Code None Seen AO Auto Urine SS UA Urobilinogen 1.0 E.U./dL Normal 0.2-1.0 AO Auto Urine SS WBC LM.HPF (Urine sed) [#/Area] None Seen /HPF Normal None Seen AO Auto Urine SS PREGUon 01-03-2025 HCG ( test) Ql (U) Negative Normal [facility] Comment on above: Performed By: #### P REGU #### [place] [address] test (u) int Not detected Invalid Interpretation Code [facility] Comment on above: Performed By: #### P REGU #### [place] [id number] [place], [place] [address] ,Serum,hCG Quali.on 01-03-2025 HCG, SERUM QUAL Negative Normal [facility] Comment on above: Performed By: #### L 501.9100, L505.5000, L700.6800, L500.2500, L100.0100 ####[facility] [address] [place], [address] [facility] High Sensitivity Troponin I 4 ng/L Normal 0-51 [facility] Comment on above: Result Comment: High Sensitive Troponin I Reference Ranges: Female: 0-51 ng/L Male: 0-76 ng/L Testing performed on Cadent using a homogeneous sandwich chemiluminescent immunoassay based on DNAtriX technology. Performed By: #### T ROPHS #### [address] [address] High Sensitivity Troponin I <4 Normal [address] [place] [address] Comment on above: Result Comment: High Sensitive Troponin I Reference Ranges: Female: 0-51 ng/L Male: 0-76 ng/L Testing performed on Cadent using a homogeneous sandwich chemiluminescent immunoassay based on DNAtriX technology. Performed By: #### P REGU #### [address] [address] UAon 01-03-2025 Color (U) Yellow Normal [facility] Comment on above: Performed By: #### U A UAMICAO #### [address] [address] Glucose (U) [Mass/Vol] Negative Normal Negative [facility] Comment on above: Performed By: #### U A UAMICAO #### [address] [address] Ketones Ql (U) Negative Normal Negative [facility] Comment on above: Performed By: #### U A, UAMICAO #### [address] [address] UA Appear Slightly Cloudy Abnormal Clear [facility] Comment on above: Performed By: #### U A, UAMICAO #### [address] [address] UA Blood Negative Normal Negative [facility] Comment on above: Performed By: #### U A, UAMICAO #### [address] [address] UA Leuk Est Negative Normal Negative [facility] Comment on above: Performed By: #### U A, UAMICAO #### [place] [address] UA Nitrite Negative Normal Negative [facility] Comment on above: Performed By: #### U A, UAMICAO #### [place] [address] UA pH 7.0 Normal 5.0 - 8.0 [facility] Comment on above: Performed By: #### U A, UAMICAO #### [place] [address] UA Protein Negative Normal Negative [facility] Comment on above: Performed By: #### U A, UAMICAO #### [place] [address] UA Spec Grav 1.020 Normal 1.015-1.025 [facility] Comment on above: Performed By: #### U A, UAMICAO #### [place] [address] UA Specimen Type Clean Catch Normal [facility] Comment on above: Performed By: #### U A, UAMICAO #### [place] [address] UA Urobilinogen 1.0 E.U./dL Normal 0.2-1.0 [facility] Comment on above: Performed By: #### U A, UAMICAO #### [place] [address] Urobilinogen (U) [Mass/Vol] Negative Normal Negative [facility] Comment on above: Performed By: #### ANAYELI Izaguirre #### [facility] [address] [place], [place] [address] Urine Drug Screen (VISTA)on 01-03-2025 AMPHETAMINES Negative Normal <1000 ng/mL [facility] Comment on above: Performed By: #### L 501.9100, L505.5000, L700.6800, L500.2500, L100.0100 ####[facility] [address] [place] [address] BARBITIURATES Negative Normal < 200 ng/mL [facility] Comment on above: Performed By: #### L 501.9100, L505.5000, L700.6800, L500.2500, L100.0100 ####[facility] [address] [place] [address] BENZODIAZIPINE Negative Normal < 200 ng/mL [facility] Comment on above: Performed By: #### L 501.9100, L505.5000, L700.6800, L500.2500, L100.0100 ####[facility] [address] [place], [place], [phone] COCAINE Negative Normal < 300 ng/mL [facility] Comment on above: Performed By: #### L 501.9100, L505.5000, L700.6800, L500.2500, L100.0100 ####[facility] [address] [place], [place], [phone] ECSTACY Negative Normal < 500 ng/mL [facility] Comment on above: Performed By: #### L 501.9100, L505.5000, L700.6800, L500.2500, L100.0100 ####[facility] [address] [place], [address] METHADONE Negative Normal < 300 ng/mL [facility] Comment on above: Performed By: #### L 501.9100, L505.5000, L700.6800, L500.2500, L100.0100 ####[facility] [address] [place], [address] OPIATES Positive Abnormal < 300 ng/mL [facility] Comment on above: Performed By: #### L 501.9100, L505.5000, L700.6800, L500.2500, L100.0100 ####[facility] [address] [place], [address] PCP Negative Normal < 25 ng/mL [facility] Comment on above: Performed By: #### L 501.9100, L505.5000, L700.6800, L500.2500, L100.0100 ####[facility] [address] [place], [address] THC Positive Abnormal < 50 ng/mL [facility] Comment on above: Performed By: #### L 501.9100, L505.5000, L700.6800, L500.2500, L100.0100 ####[facility] [address] [place], [address] VISTA UDS PH 5 Normal [facility] Comment on above: Performed By: #### L 501.9100, L505.5000, L700.6800, L500.2500, L100.0100 ####[facility] [address] [place], [address] XR CHEST 1 VIEWon 01-03-2025 XR CHEST 1 VIEW ORIGINAL EXAMINATION: ONE XRAY VIEW OF THE CHEST 01/03/2025 6:24 am COMPARISON: Chest x-ray on 11/19/2021 HISTORY: ORDERING SYSTEM PROVIDED HISTORY: Reason for Exam: chest pain FINDINGS: The heart size and mediastinal contours are normal. There is no lung infiltrate or edema. No pneumothorax or pleural fluid is present. The skeletal structures are unremarkable. IMPRESSION: No acute cardiopulmonary process. Interpreted by: Angel Russell MD Preliminary Report By: Angel Russell MD Electronically signed By Angel Russell MD Dictated Date: 01/03/2025 6:31:56 AM Prelim Date: 01/03/2025 6:32:37 AM Sign Date: 01/03/2025 6:32:37 AM Ordering Provider: MAGGIE RUGGIERO [facility] 12 Lead EKGon 12-26-2024 12 Lead EKG [facility] Cardi[facility] Services [address] [place] [address] 12 Lead EKG 12/26/24 1519 MR#: [id number] Acct: [id number] Name: SADE CALDERÓN Rep #: [id number] : 1990 34 From: Sp Wahl MD Attending Dr: Status: DEP ER Ordering Dr: Nanette Melvin DO Date: 12/26/24 Location: ED Sex: F C Admitted: Test Reason : Blood Pressure : */* mmHG Vent. Rate : 105 BPM Atrial Rate : 105 BPM P-R Int : 122 ms QRS Dur : 76 ms QT Int : 332 ms P-R-T Axes : 76 87 56 degrees QTcB Int : 438 ms Sinus tachycardia Right atrial enlargement Borderline ECG Confirmed by SP WAHL MD ([id number]), image editor ENRIQUE HUNTER ([id number]) on 12/28/2024 7:27:03 AM Referred By: Confirmed By: SP WAHL MD 12/28/24 0727 Date Sp Wahl MD CC: [employer]-C SUPERVISOR [employer]. Heather Adames; Dr. Nanette Melvin DO Signed Normal [facility] Alcohol, Blood (Medical)-Ser umon 12-26-2024 SERUM ETOH < 3.0 Normal [facility] Comment on above: Result Comment: The serum:whole blood ethanol ratio is approximately 1.14 and varies slightly with hematocrit. Medical Alcohol reference interval and critical value in non-tolerant individuals; 50 - 100 Impairment 100 Intoxication 100 - 250 Severe Poisoning 250 - 400 Deep/possible fatal coma Performed By: #### L 100.0100, L500.2500, L500.3400, L501.9100, L505.5000, L700.6800 ####[facility] [address] [place], [address] Basic Metabolic Profile (BMP )on 12-26-2024 BUN/CRE 9.7 RATIO Low 10-20 [facility] Comment on above: Performed By: #### L 100.0100, L500.2500, L500.3400, L501.9100, L505.5000, L700.6800 #### [facility] [address] [place], [address] CA,Total 9.4 mg/dL Normal 8.5-10.1 [facility] Comment on above: Performed By: #### L 100.0100, L500.2500, L500.3400, L501.9100, L505.5000, L700.6800 #### [facility] [address] [place], [address] Chloride [Moles/Vol] 104 mmol/L Normal 98-107 [facility] Comment on above: Performed By: #### L 100.0100, L500.2500, L500.3400, L501.9100, L505.5000, L700.6800 #### [facility] [address] [place], [address] CO2 [Moles/Vol] 28.0 mmol/L Normal 21.0-32.0 [facility] Comment on above: Performed By: #### L 100.0100, L500.2500, L500.3400, L501.9100, L505.5000, L700.6800 #### [facility] [address] [place], [address] Creatinine [Mass/Vol] 0.72 mg/dL Normal 0.55-1.02 [facility] Comment on above: Result Comment: The validity of the calculated GFR GFRAA in patients over 70 years has not been determined. Clinical correlation is essential. Performed By: #### L 100.0100, L500.2500, L500.3400, L501.9100, L505.5000, L700.6800 #### [facility] [address] [place], [address] ECRCL 97.07 ml/min Normal [facility] Comment on above: Performed By: #### L 100.0100, L500.2500, L500.3400, L501.9100, L505.5000, L700.6800 #### [facility] [address] [place], [address] EST GFR - AA 118 mL/min Normal >60 [facility] Comment on above: Result Comment: Afri can Liberian GFR Calc Performed By: #### L 100.0100, L500.2500, L500.3400, L501.9100, L505.5000, L700.6800 #### [facility] [address] [place], [address] GAP 6 Normal 5-15 [facility] Comment on above: Performed By: #### L 100.0100, L500.2500, L500.3400, L501.9100, L505.5000, L700.6800 #### [facility] [address] [place], [address] GFR/1.73 sq M.predicted among non-blacks MDRD (S/P/Bld) [Vol rate/Area] 97 mL/min/{1.73_m2} Normal >60 [facility] Comment on above: Result Comment: Non- GFR Calc Performed By: #### L 100.0100, L500.2500, L500.3400, L501.9100, L505.5000, L700.6800 #### [facility] [address] [place], [address] Glucose [Mass/Vol] 100 mg/dL Normal 74-106 [facility] Comment on above: Result Comment: Fast ing Glucose result from 100 to 125 mg/dL suggests IMPAIRED HOMEOSTASIS per A.D.A. criteria. Performed By: #### L 100.0100, L500.2500, L500.3400, L501.9100, L505.5000, L700.6800 #### [facility] [address] [place], [address] Potassium [Moles/Vol] 3.4 mmol/L Low 3.5-5.1 [facility] Comment on above: Performed By: #### L 100.0100, L500.2500, L500.3400, L501.9100, L505.5000, L700.6800 #### [facility] [address] [place], [address] Sodium [Moles/Vol] 138 mmol/L Normal 136-145 [facility] Comment on above: Performed By: #### L 100.0100, L500.2500, L500.3400, L501.9100, L505.5000, L700.6800 #### [facility] [address] [place], [address] Urea nitrogen [Mass/Vol] 7 mg/dL Normal 7-18 [facility] Comment on above: Performed By: #### L 100.0100, L500.2500, L500.3400, L501.9100, L505.5000, L700.6800 #### [facility] [address] [place], [address] CBC W/Diff, Automatedon 02-0 -2024 Absolute Lymph 2.08 X10 3/uL Normal 0.83-4.51 [facility] Comment on above: Performed By: #### L 100.0100, L500.2500, L500.3400, L501.9100, L505.5000, L700.6800 #### [facility] [address] [place], [address] Absolute Neut 10.8 X10 3/uL High 2.0-7.7 [facility] Comment on above: Performed By: #### L 100.0100, L500.2500, L500.3400, L501.9100, L505.5000, L700.6800 #### [facility] [address] [place], [address] Basophils/100 WBC (Bld) 0.6 % Normal 0-1 [facility] Comment on above: Performed By: #### L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 rigidity or meningeal sign Resp normal respiratory effort and clear to auscultation bilaterally Cardio regular rate and regular rhythm Extremity normal to inspection Extremity Narrative: No asymmetric edema no pitting edema negative Homans' sign bilaterally Neuro oriented x3, CN's II-XII intact bilaterally and no sensory deficits noted Sensorium / Orientation: alert Motor Exam: strength 5/5 throughout (more content not included)... Normal [facility] Urine Drug Screen (VISTA)on 11-17-2024 AMPHETAMINES Negative Normal <1000 ng/mL [facility] Comment on above: Performed By: #### L 700.6800, L505.5000, L100.0100, L500.2500, L501.9100 ####[facility] [address] [place], [address] BARBITIURATES Negative Normal < 200 ng/mL [facility] Comment on above: Performed By: #### L 700.6800, L505.5000, L100.0100, L500.2500, L501.9100 ####[facility] [address] [place], [address] BENZODIAZIPINE Positive Abnormal < 200 ng/mL [facility] Comment on above: Performed By: #### L 700.6800, L505.5000, L100.0100, L500.2500, L501.9100 ####[facility] [address] [place], [address] COCAINE Negative Normal < 300 ng/mL [facility] Comment on above: Performed By: #### L 700.6800, L505.5000, L100.0100, L500.2500, L501.9100 ####[facility] [address] [place], [place], [phone] ECSTACY Negative Normal < 500 ng/mL [facility] Comment on above: Performed By: #### L 700.6800, L505.5000, L100.0100, L500.2500, L501.9100 ####[facility] [address] [place], [place], [phone] METHADONE Negative Normal < 300 ng/mL [facility] Comment on above: Performed By: #### L 700.6800, L505.5000, L100.0100, L500.2500, L501.9100 ####[facility] [address] [place], [place], [phone] OPIATES Negative Normal < 300 ng/mL [facility] Comment on above: Performed By: #### L 700.6800, L505.5000, L100.0100, L500.2500, L501.9100 ####[facility] [address] [place], [place], [phone] PCP Negative Normal < 25 ng/mL [facility] Comment on above: Performed By: #### L 700.6800, L505.5000, L100.0100, L500.2500, L501.9100 ####[facility] [address] [place], [place], [phone] THC Positive Abnormal < 50 ng/mL [facility] Comment on above: Performed By: #### L 700.6800, L505.5000, L100.0100, L500.2500, L501.9100 ####[facility] [address] [place], [address] VISTA UDS PH 5 Normal [facility] Comment on above: Performed By: #### L 700.6800, L505.5000, L100.0100, L500.2500, L501.9100 ####[facility] [address] [place], [address] Alcohol, Blood (Medical)-Ser umon 11-16-2024 SERUM ETOH < 3.0 Normal [facility] Comment on above: Result Comment: The serum:whole blood ethanol ratio is approximately 1.14 and varies slightly with hematocrit. Medical Alcohol reference interval and critical value in non-tolerant individuals; 50 - 100 Impairment 100 Intoxication 100 - 250 Severe Poisoning 250 - 400 Deep/possible fatal coma Performed By: #### L 700.6800, L505.5000, L100.0100, L500.2500, L501.9100 ####[facility] [address] [place], [address] Basic Metabolic Profile (BMP )on 11-16-2024 BUN/CRE 16.8 RATIO Normal 10-20 [facility] Comment on above: Performed By: #### L 700.6800, L505.5000, L100.0100, L500.2500, L501.9100 ####[facility] [address] [place], [address] CA,Total 9.1 mg/dL Normal 8.5-10.1 [facility] Comment on above: Performed By: #### L 700.6800, L505.5000, L100.0100, L500.2500, L501.9100 ####[facility] [address] [place], [address] Chloride [Moles/Vol] 108 mmol/L High 98-107 [facility] Comment on above: Performed By: #### L 700.6800, L505.5000, L100.0100, L500.2500, L501.9100 ####[facility] [address] [place], [address] CO2 [Moles/Vol] 28.0 mmol/L Normal 21.0-32.0 [facility] Comment on above: Performed By: #### L 700.6800, L505.5000, L100.0100, L500.2500, L501.9100 ####[facility] [address] [place], [address] Creatinine [Mass/Vol] 0.89 mg/dL Normal 0.55-1.02 [facility] Comment on above: Result Comment: The validity of the calculated GFR GFRAA in patients over 70 years has not been determined. Clinical correlation is essential. Performed By: #### L 700.6800, L505.5000, L100.0100, L500.2500, L501.9100 ####[facility] [address] [place], [address] ECRCL 83.08 ml/min Normal [facility] Comment on above: Performed By: #### L 700.6800, L505.5000, L100.0100, L500.2500, L501.9100 ####[facility] [address] [place], [address] EST GFR - AA 93 mL/min Normal >60 [facility] Comment on above: Result Comment: Afri can Liberian GFR Calc Performed By: #### L 700.6800, L505.5000, L100.0100, L500.2500, L501.9100 ####[facility] [address] [place], [address] GAP 7 Normal 5-15 [facility] Comment on above: Performed By: #### L 700.6800, L505.5000, L100.0100, L500.2500, L501.9100 ####[facility] [address] [place], [address] GFR/1.73 sq M.predicted among non-blacks MDRD (S/P/Bld) [Vol rate/Area] 77 mL/min/{1.73_m2} Normal >60 [facility] Comment on above: Result Comment: Non- GFR Calc Performed By: #### L 700.6800, L505.5000, L100.0100, L500.2500, L501.9100 ####[facility] [address] [place], [address] Glucose [Mass/Vol] 69 mg/dL Low 74-106 [facility] Comment on above: Performed By: #### L 700.6800, L505.5000, L100.0100, L500.2500, L501.9100 ####[facility] [address] [place], [address] Potassium [Moles/Vol] 3.1 mmol/L Low 3.5-5.1 [facility] Comment on above: Performed By: #### L 700.6800, L505.5000, L100.0100, L500.2500, L501.9100 ####[facility] [address] [place], [address] Sodium [Moles/Vol] 142 mmol/L Normal 136-145 [facility] Comment on above: Performed By: #### L 700.6800, L505.5000, L100.0100, L500.2500, L501.9100 ####[facility] [address] [place], [address] Urea nitrogen [Mass/Vol] 15 mg/dL Normal 7-18 [facility] Comment on above: Performed By: #### L 700.6800, L505.5000, L100.0100, L500.2500, L501.9100 ####[facility] [address] [place], [address] CBC W/Diff, Automatedon 12-2 Absolute Lymph 3.40 X10 3/uL Normal 0.83-4.51 [facility] Comment on above: Performed By: #### L 700.6800, L505.5000, L100.0100, L500.2500, L501.9100 ####[facility] [address] [place], [address] Absolute Neut 4.5 X10 3/uL Normal 2.0-7.7 [facility] Comment on above: Performed By: #### L 700.6800, L505.5000, L100.0100, L500.2500, L501.9100 ####[facility] [address] [place], [address] Basophils/100 WBC (Bld) 1.0 % Normal 0-1 [facility] Comment on above: Performed By: #### L 700.6800, L505.5000, L100.0100, L500.2500, L501.9100 ####[facility] [address] [place], [address] Eosinophils/100 WBC (Bld) 4.9 % Normal 0-5 [facility] Comment on above: Performed By: #### L 700.6800, L505.5000, L100.0100, L500.2500, L501.9100 ####[facility] [address] [place], [address] Erythrocyte distribution width (RBC) [Ratio] 12.3 % Normal 11.6-14.6 [facility] Comment on above: Performed By: #### L 700.6800, L505.5000, L100.0100, L500.2500, L501.9100 ####[facility] [address] [place], [address] Hematocrit (Bld) [Volume fraction] 48.6 % High 37-47 [facility] Comment on above: Performed By: #### L 700.6800, L505.5000, L100.0100, L500.2500, L501.9100 ####[facility] [address] [place], [address] Hemoglobin (Bld) [Mass/Vol] 16.2 g/dL High 12.0-15.0 [facility] Comment on above: Performed By: #### L 700.6800, L505.5000, L100.0100, L500.2500, L501.9100 ####[facility] [address] [place], [address] IG% 0.200 Normal 0.0-0.9 [facility] Comment on above: Result Comment: IG% - Immature Granulocytes (promyelocytes, myelocytes and metamyelocytes) > 1% indicates that a LEFT SHIFT is Present. Performed By: #### L 700.6800, L505.5000, L100.0100, L500.2500, L501.9100 ####[facility] [address] [place], [address] Lymphocytes/100 WBC (Bld) 38.5 % Normal 19-41 [facility] Comment on above: Performed By: #### L 700.6800, L505.5000, L100.0100, L500.2500, L501.9100 ####[facility] [address] [place], [address] MCH (RBC) [Entitic mass] 30.7 pg Normal 27.0-32.0 [facility] Comment on above: Performed By: #### L 700.6800, L505.5000, L100.0100, L500.2500, L501.9100 ####[facility] [address] [place], [address] MCHC (RBC) [Mass/Vol] 33.3 g/dL Normal 32-36 [facility] Comment on above: Performed By: #### L 700.6800, L505.5000, L100.0100, L500.2500, L501.9100 ####[facility] [address] [place], [address] MCV (RBC) [Entitic vol] 92.2 fL Normal 81-99 [facility] Comment on above: Performed By: #### L 700.6800, L505.5000, L100.0100, L500.2500, L501.9100 ####[facility] [address] [place], [address] Monocytes/100 WBC (Bld) 5.0 % Normal 0-10 [facility] Comment on above: Performed By: #### L 700.6800, L505.5000, L100.0100, L500.2500, L501.9100 ####[facility] [address] [place], [address] Neutrophils/100 WBC (Bld) 50.4 % Normal 47-70 [facility] Comment on above: Performed By: #### L 700.6800, L505.5000, L100.0100, L500.2500, L501.9100 ####[facility] [address] [place], [address] Nucleated RBC (Bld) [#/Vol] 0 10*3/uL Normal 0-5 [facility] Comment on above: Performed By: #### L 700.6800, L505.5000, L100.0100, L500.2500, L501.9100 ####[facility] [address] [place], [address] Platelet mean volume (Bld) [Entitic vol] 11.2 fL Normal 6.2-12.0 [facility] Comment on above: Performed By: #### L 700.6800, L505.5000, L100.0100, L500.2500, L501.9100 ####[facility] [address] [place], [address] Platelets (Bld) [#/Vol] 272 10*3/uL Normal 150-450 [facility] Comment on above: Performed By: #### L 700.6800, L505.5000, L100.0100, L500.2500, L501.9100 ####[facility] [address] [place], [address] RBC (Bld) [#/Vol] 5.27 10*6/uL Normal 4.2-5.4 [facility] Comment on above: Performed By: #### L 700.6800, L505.5000, L100.0100, L500.2500, L501.9100 ####[facility] [address] [place], [address] RDW SD 41.4 fl Normal 35.1-43.9 [facility] Comment on above: Performed By: #### L 700.6800, L505.5000, L100.0100, L500.2500, L501.9100 ####[facility] [address] [place], [address] WBC (Bld) [#/Vol] 8.8 10*3/uL Normal 4.4-11.0 [facility] Comment on above: Performed By: #### L 700.6800, L505.5000, L100.0100, L500.2500, L501.9100 ####[facility] [address] [place], [address] ,Serum,hCG Quali.on 11-16-2024 HCG, SERUM QUAL Negative Normal [facility] Comment on above: Order Comment: if fe male and of childbearing age (8-55 years old) Performed By: #### L 700.6800, L505.5000, L100.0100, L500.2500, L501.9100 ####[facility] [address] [place], [address] ED MED ADMINISTRATION DETAIL on 10-19-2024 ED MED ADMINISTRATION DETAIL Application Systems Architect Medication Administration Record [place] [id number] [facility] [place] [id number] 10/19/2024 Patient: SADE CALDERÓN Sex: Female : 1990 Age: 33y MEASUREMENTS: Wt: 74.4 kg, Ht/Fredis: 62.0 in, BMI: 30.00 ALLERGIES: Penicillins, Ultram Medication Ordered Medication Administration Date/Time OxyCODONE-APAP 03:48 10/19 OxyCODONE-APAP 5-325 (Percocet) PO 1 tab Given 5-325 (Percocet) PO given. - 03:48 Yael Osborne R.N. 03:48 10/19/2024 1 tab (NOW x1) Yael Osborne R.N. Scanned Benadryl PO 50 mg 04:26 10/19 Benadryl PO 50 mg given. Allergies verified and Given (NOW x1) confirmed 5 rights. Information reviewed. Verbalizes 04:26 10/19/2024 understanding. - 04:27 Willam Neal R.N. Scanned KetorOLAC 06:31 10/19 KetorOLAC (Toradol) IM 30 mg given. Given in the Given (Toradol) IM 30 mg right deltoid. Allergies verified and confirmed 5 rights. Information 06:31 10/19/2024 (NOW x1) reviewed. Verbalizes understanding. - 06:31 Willam Neal R.N. Scanned 1 of 1 Normal [facility] ED NURSES CLINICAL NOTEon ED NURSES CLINICAL NOTE Nurse Narrative Nurse Clinical Narrative [place] [id number] [facility] [place] [address] [phone] 10/19/2024 Patient: SADE CALDERÓN Sex: Female : 1990 Age: 33y Disposition: Discharge to Home Disposition Decision Time: 05:08 10/19/2024 Departure Time: 07:13 10/19/2024 TRIAGE Arrived by private vehicle. Historian: patient. Accompanied by family. Triage time: 02:59 10/19/2024. Acuity: LEVEL 3. Chief Complaint: RIGHT UPPER EXTREMITY PAIN and SWELLING. Injury occurred. This is a new problem. (10/17/24). ( Pt was getting on 4 boyer and the handle bar broke, pt fell on right arm, now has pain, swelling . 10 sharp pain, constant). The patient has had swelling. Treatment SCIENTIFIC DIRECTOR: Took Tylenol and ibuprofen. SEPSIS SCREEN: NEGATIVE. SIRS criteria negative. No possible sources of infection. -- 03:12 10/19/24 MITALI Osborne R.N. 03:14 10/19/24. BP: 134/100 MAP: 111. HR: 105. RR: 20. O2 saturation: 95% Temperature: 98.8 F (rectal). Pain level now 08/29. -- 03:15 10/19/24 MITALI Osborne R.N. Measurements: 03:09 10/19/24 Wt: 74.4 kg, Ht/Fredis: 62.0 in, BMI: 30.00 -- 03:09 10/19/24 MITALI Osborne R.N. Medications: 1 of 4 Nurse Narrative sertraline 50 mg tablet -- 03:14 10/19/24 MITALI Osborne R.N. topiramate 100 mg tablet -- 03:14 10/19/24 MITALI Osborne R.N. alprazolam 0.5 mg tablet -- 03:14 10/19/24 MITALI Osborne R.N. phentermine 30 mg capsule: TAKE 1 CAPSULE BY MOUTH ONCE DAILY. MUST ADMINISTER 2 HOURS AFTER BREAKFAST -- 03:14 10/19/24 MITALI Osborne R.N. sertraline 100 mg tablet -- 03:14 10/19/24 MITALI Osborne R.N. buspirone 15 mg tablet -- 03:14 10/19/24 MITALI Osborne R.N. pregabalin 200 mg capsule -- 03:14 10/19/24 MITALI Osborne R.N. Allergies: Ultram -- 03:07 10/19/24 MITALI Osborne R.N. Penicillins -- 03:07 10/19/24 MITALI Osborne R.N. Problems: Epilepsy -- 03:07 10/19/24 MITALI Osborne R.N. ADDITIONAL SURGERIES: Hysterectomy -- 03:07 10/19/24 MITALI Osborne R.N. Colonoscopy -- 03:08 10/19/24 MITALI Osborne R.N. Tonsillectomy -- 03:08 10/19/24 MITALI Osborne R.N. History 02:59 10/19/24. SOCIAL HX: Current some days light tobacco smoker (cigarette)- less than 1/2 a pack per day. No alcohol use or drug use. The patient has not traveled outside the [place] Infectious disease exposure: No infectious disease exposure. ABUSE ASSESSMENT: The patient answered yes to the question(s) Do you feel safe in your home? and no to the question(s) Are you afraid to go home?. SELF HARM ASSESSMENT: Self harm assessment was performed. The patient answered no to the question(s) Have you recently felt down, depressed, or hopeless? and Do you have thoughts of harming or killing yourself?. 2 of 4 Nurse Narrative FALL RISK ASSESSMENT: Fall risk assessment completed. Risk factors identified include dizziness. -- 03:12 10/19/24 MITALI Osborne R.N. Interventions 02:59 10/19/24. Identification band on patient. Advanced care plan discussed with patient. Patient has advanced directive. -- 03:12 10/19/24 MITALI Osborne R.N. PHYSICAL ASSESSMENT 03:34 10/19/24. Ambulatory to room. GENERAL / NEURO / PSYCH: Oriented X 4. Alert. Appears in no acute distress. Appears in pain. ( 10/10 sharp, constant). EXTREMITIES: Neuro-vascular status intact to the extremity. Right forearm: tenderness and swelling. Right wrist: tenderness and swelling. SKIN: Skin intact. Skin is warm and dry. -- 03:34 10/19/24 MITALI Osborne R.N. NURSING PROGRESS NOTES 03:16 10/19/24. Rounding: Pain: assessed pain level. Proximity of possessions / care items: call light within easy reach. Set expectations: advised patient of rounding protocol timing. (pt given pillow for comfort. ). Two patient identifiers checked. Call light placed in reach. Side rails up x 1. Bed placed in lowest position. Brakes of bed on. -- 03:16 10/19/24 MITALI Osborne R.N. 03:28 10/19/24. ( Pt medicated per MD order for pain, 10/10, sharp, constant). -- 03:54 10/19/24 MITALI Osborne R.N.Correction -- 03:54 10/19/24 MITALI Osborne R.N. 03:48 10/19/24. ( Pt medicated per order for pain 10/10 right arm, constant, sharp). -- 03:55 10/19/24 MITALI Obsorne R.N. 03:48 10/19/24. OxyCODONE-APAP 5-325 (Percocet) PO 1 tab given. -- 03:48 10/19/24 MITALI Osborne R.N. 04:26 10/19/24. Benadryl PO 50 mg given. Allergies verified and confirmed 5 rights. Information reviewed. Verbalizes understanding. -- 04:27 10/19/24 MITALI Osborne R.N. 04:56 10/19/24. Patient transported to radiology by stretcher with studio technician video operator. -- 05:06 10/19/24 MITALI Osborne R.N. 05:06 10/19/24. Patient returned from radiology by stretcher with studio technician video operator. -- 05:06 10/19/24 MITALI Osborne R.N. 06:04 10/19/24. Reassessment after medication administered. Pain still present. ( made aware.). GENERAL / N (more content not included)... Normal [facility] ED ORDER SHEET ([facility]OE ONLY)on 10-19-2024 ED ORDER SHEET (CPOE ONLY) Order Sheet Order Sheet [address] [place] [address] [id number] 10/19/2024 Patient: SADE CALDERÓN Sex: Female : 1990 Age: 33y MEASUREMENTS: Wt: 74.4 kg, Ht/Fredis: 62.0 in, BMI: 30.00 ALLERGIES: Penicillins, Ultram MEDICATION/IV/DRIP/FL UID ORDERS Order Description Priority Entered Acknowledged Completed OxyCODONE-APAP 5-325 03:45 10/19/2024 03:46 03:48 (Percocet) PO1 tab (NOW x1) Casey Jade D.O. 10/19/2024 10/19/2024 Willam Neal R.N. Reason for ordering with alerts: Clinical consideration given --03:45 10/19/2024 Casey Jade D.O. Benadryl PO50 mg (NOW x1) 04:24 10/19/2024 04:26 04:27 Casey Jade D.O. 10/19/2024 10/19/2024 Willam Neal, Willam Reason for ordering with alerts: Clinical consideration given --04:24 10/19/2024 Casey Jade D.O. KetorOLAC (Toradol) IVP30 mg 06:23 10/19/2024 Cancelled: Wrong Order (NOW x1) Casey Jade D.O. 06:26 EST Casey Jade D.O. Reason for ordering with alerts: Clinical consideration given --06:23 10/19/2024 Casey Jade D.O. KetorOLAC (Toradol) IM30 mg 06:26 10/19/2024 06:28 06:31 (NOW x1) Casey Jade D.O. 10/19/2024 10/19/2024 1 of 2 Order Sheet Willam Neal, R.NArelis Reason for ordering with alerts: Clinical consideration given --06:26 10/19/2024 Casey Jdae D.O. LAB ORDERS Order Description Priority Entered Acknowledged Collected Completed DIAGNOSTIC STUDY ORDERS Order Description Priority Entered Acknowledged Completed Wrist Rt Complete Stat Stat 03:44 10/19/2024 03:46 06:03 Casey Jade D.O. 10/19/2024 10/19/2024 Willam Neal RArelisNArelis Order Comments: 03:44 10/19/2024: Status: Not . Casey Jade D.O. Reason for Study: Trauma/Injury Lumbosacral Complete Stat Stat 03:44 10/19/2024 03:46 06:03 Casey Jade D.O. 10/19/2024 10/19/2024 Willam Neal R.N. Order Comments: 03:44 10/19/2024: Status: Not . Casey Jade D.O. Reason for Study: Trauma/Injury STAFF ORDERS Order Description Priority Entered Acknowledged Collected Completed [Electronically signed by Casey Jade D.O. (10/19/2024 07:28 EST)] 2 of 2 Normal [facility] ED PHYSICIAN CLINICAL REPORT on 10-19-2024 ED PHYSICIAN CLINICAL REPORT Narrative Physician Clinical Narrative [address] [address] [phone] 10/19/2024 Patient: SADE CALDERÓN Sex: Female : 1990 Age: 33y Disposition: Discharge to Home Disposition Decision Time: 05:08 10/19/2024 Departure Time: 07:13 10/19/2024 Measurements Wt: 74.4 kg, Ht/Fredis: 62.0 in, BMI: 30.00 Initial Vital Sign Measured Time BP MAP HR RR O2Sat ETCO2 Temp Pain GCS RTS 03:12 10/19/2024 134/100 111 105 16 99% 98.8 F 10 Time Seen: 03:13 10/19/2024. Arrived- By private vehicle. Historian- patient. HISTORY OF PRESENT ILLNESS Chief Complaint: Injury to right wrist. The injury happened yesterday. Fell; fell onto hard surface while riding. Landed on arms: hands extended. (Fell from 4 boyer after the handle bar broke). Occurred at home. Patient is experiencing moderate pain. No injury to the head or neck. Patient also notes injury to the lower back. REVIEW OF SYSTEMS SKIN: No suspected foreign body or skin laceration. NEUROLOGICAL: No tingling, numbness or weakness. MUSCULOSKELETAL: The patient has had swelling. Status: Not . 1 of 4 Narrative PAST HISTORY See nurses notes. Epilepsy Surgeries: Colonoscopy Hysterectomy Tonsillectomy Medications: alprazolam 0.5 mg tablet buspirone 15 mg tablet phentermine 30 mg capsule: TAKE 1 CAPSULE BY MOUTH ONCE DAILY. MUST ADMINISTER 2 HOURS AFTER BREAKFAST pregabalin 200 mg capsule sertraline 100 mg tablet sertraline 50 mg tablet topiramate 100 mg tablet Allergies: Penicillins Ultram SOCIAL HISTORY Heavy tobacco smoker (cigarette)- less than 1 pack per day. No alcohol use or drug use. ADDITIONAL NOTES The nursing notes have been reviewed. PHYSICAL EXAM Appearance: Alert. Oriented X3. Appears to be in pain. Head: Head atraumatic. Eyes: Pupils equal, round and reactive to light. 2 of 4 Narrative ENT: Nose normal. Pharynx normal. Neck: Normal inspection. Neck supple. C-spine non-tender. CVS: Normal heart rate and rhythm. Heart sounds normal. Pulses normal. Respiratory: No respiratory distress. Breath sounds normal. Chest nontender. Abdomen: No visible injury. Soft and nontender. Bowel sounds normal. No organomegaly. No mass. Back: Vertebral point tenderness over the upper and mid lumbar spine. Soft tissue tenderness in the right mid and left mid lumbar paraspinous region. Skin: Skin intact. Skin warm and dry. Extremities: Right wrist: moderate tenderness and swelling. Limited ROM (diminished flexion and extension). Neurovascular intact distally. No laceration, abrasion, ecchymosis, foreign body or deformity. Extremities otherwise negative. Neuro, Vascular and Tendons: Vascular status intact. Sensation intact. Motor intact. Tendon function intact. Neuro: Oriented X 3. No motor deficit. No sensory deficit. LABS, X-RAYS, AND EKG X-Rays: Right wrist negative. LS spine series negative. The X-rays were interpreted contemporaneously by me. PROGRESS AND PROCEDURES Course of Care: Patient is stable. Physical exam findings are improved. Symptoms much better. MEDICAL DECISION MAKING: Ordered tests include x-rays of the LS-spine and extremities. The patient has been stable. Narcotics were given. The pain has resolved. The exam got better. (the Percocet we gave her here made her itch so I did give her some Benadryl. She never did break out in a rash. But I decided to prescribe her Toradol instead.). Disposition: Condition: good. Disposition Decision Time: 05:08 10/19/2024. Patient discharged to Home. Discharged in good condition. Discharge decision based on the following: patient's condition is stable; patient's condition is improved; patient is ambulatory; patient drinking fluids; patient's pain is controlled; patient's exam is stable; patient's exam is improved; no seriously abnormal test results; stable condition on multiple repeat evaluations; social support is adequate; transportation is available; follow-up is available; clinical impression is consistent with outpatient treatment. CLINICAL IMPRESSION Sprain of the right radiocarpal joint. Muscle strain of the low back. 3 of 4 Narrative DISCHARGE INSTRUCTIONS Apply ice. Elevate affected areas above chest level. Wear cock-up splint until better. Limit use of your hand. Warnings: GENERAL WARNINGS: Return or contact your physician immediately if your condition worsens or changes unexpectedly, if not improving as expected, or if other problems arise. Prescription Medications: ketorolac 10 mg tablet: Take 1 tablet by mouth every eight hours as needed for pain for 5 days, dispense 15 tablet. Refills 0. Pharmacy: [facility] [phone] [place] [address]. Understanding of the (more content not included)... Normal [facility] ED [facility] 10-19-[address] [place] [address] [phone] 10/19/2024 Patient: SADE CALDERÓN Sex: Female : 1990 Age: 33y Item Facility Professional Category Description Code Code Quantity Fee Total Nurse/E/M EMERGENCY 052652 1 $0.00 $0.00 DEPARTMENT VISIT HIGH/URGENT SEVERITY (03560-09) Nurse/IV/IM/Infusions IM/SQ (02604) 517552 1 $0.00 $0.00 Nurse/Supplies [employer] [id number] 1 $0.00 $0.00 Adult ([id number]) Grand Total $0.00 Providers Casey Jade D.O. Chief Complaint Injury to right wrist. 1 of 2 [facility] Principal Diagnosis Sprain of the right radiocarpal joint. Muscle strain of the low back. ICD-10 Codes S63.521A: Sprain of radiocarpal joint of right wrist, initial encounter S39.012A: Strain of muscle, fascia and tendon of lower back, initial encounter 2 of 2 Normal [facility] ED VISIT SUMMARYon ED VISIT SUMMARY Visit Overview Visit Overview [place] [address] [place] [address] [phone] 10/19/2024 Patient: SADE CALDERÓN Sex: Female : 1990 Age: 33y 10/19/2024 07:28 AM EST ED Arrival:02:59 10/19/2024 EST Status:not Recent Travel:no Language:eng Adv Directive:Yes Isolation Status: Ethnicity:N Fall Risk:risk Infectious Disease Exposure:no Measurements:5'2 / 157.5 Self-Harm Status:risk Sepsis Screen:negative cm 164.0 lb / 74.4 kg Chief Complaint:RIGHT UPPER EXTREMITY PAIN, RIGHT UPPER EXTREMITY SWELLING, (Pt was getting on 4 boyer and the handle bar broke, pt fell on right arm, now has pain, swelling . 10/10 sharp pain, constant), and (10/17/24) ALLERGIES Penicillins Ultram HOME MEDICATIONS 1 of 3 Visit Overview alprazolam 0.5 mg tablet buspirone 15 mg tablet phentermine 30 mg capsule: TAKE 1 CAPSULE BY MOUTH ONCE DAILY. MUST ADMINISTER 2 HOURS AFTER BREAKFAST pregabalin 200 mg capsule sertraline 100 mg tablet sertraline 50 mg tablet topiramate 100 mg tablet PAST MEDICAL HISTORY / PROBLEMS Epilepsy See nurses notes PAST SURGICAL HISTORY Colonoscopy Hysterectomy Tonsillectomy SOCIAL HISTORY Smoking status: Yes Alcohol use: No Drug use: No ED COURSE MEDICATIONS GIVEN IN EMERGENCY DEPARTMENT 03:48 10/19/24 OxyCODONE-APAP 5-325 (Percocet) PO 1 tab 04:26 10/19/24 Benadryl PO 50 mg 06:31 10/19/24 KetorOLAC (Toradol) IM 30 mg IV SITE INFORMATION INTAKE OUTPUT 2 of 3 Visit Overview REASSESMENT (most recent) 06:04 10/19/24. Reassessment after medication administered. Pain still present. ( made aware.). GENERAL / NEURO / PSYCH: The patient reports pain that is located in the lower back and right forearm, wrist and hand is still present. VITAL SIGNS First Vitals Last Vitals Temp 03:12 10/19/24 98.8 F Temp 06:36 10/19/24 BP 03:12 10/19/24 134/100 BP 06:36 10/19/24 144/90 HR 03:12 10/19/24 105 HR 06:36 10/19/24 100 RR 03:12 10/19/24 16 RR 06:36 10/19/24 16 O2 Sat 03:12 10/19/24 99% O2 Sat 06:36 10/19/24 95% Pain 03:12 10/19/24 10 Pain 06:36 10/19/24 6 ETCO2 03:12 10/19/24 ETCO2 06:36 10/19/24 GCS 03:12 10/19/24 GCS 06:36 10/19/24 RTS 03:12 10/19/24 RTS 06:36 10/19/24 PROCEDURES NURSING INTERVENTIONS Splint LABS / STUDIES LABS / STUDIES ORDERED Lumbosacral Complete Wrist Rt Complete CLINICAL IMPRESSION MUSCLE STRAIN OF THE LOW BACK SPRAIN OF THE RIGHT RADIOCARPAL JOINT 3 of 3 Normal [facility] ED VITALS FLOW SHEETon 10-19 ED VITALS FLOW SHEET Vitals Vital Sign Flow Sheet [address] [address] [phone] 10/19/2024 Patient: SADE CALDERÓN Sex: Female : 1990 Age: 33y Measurements Wt: 74.4 kg, Ht/Fredis: 62.0 in, BMI: 30.00 Measured Time BP MAP HR RR O2Sat ETCO2 Temp Pain GCS RTS 06:36 10/19/2024 144/90 108 100 16 95% 6 03:14 10/19/2024 134/100 111 105 20 95% 98.8 F 10 03:12 10/19/2024 134/100 111 105 16 99% 98.8 F 10 1 of 1 Normal [facility] LUMBO SACRAL COMPLETE MIN 4 VIEWSon 10-19-2024 LUMBO SACRAL COMPLETE MIN [address] [address] Patient: SADE CALDERÓN Phone#: : 1990 Age: 33 Gender: F Pt. Type: ER Account: [id number] Location: 052 Ordering: CASEY JADE Exam Date: 10/19/2024/4:50 Family Phys: HEATHER RODRIGUEZR Charge Code: 842520 Physician: [place] Order #: [id number] Dose#: PROCEDURE: X-RAY LUMBAR SPINE COMPLETE MIN 4 VIEWS COMPARISON: [facility], XR, LUMBAR SPINE COMPLETE, 12/12/2023, 15:12. INDICATIONS: Trauma/injury. FINDINGS: BONES: Normal. No significant spondylosis, scoliosis, fracture, or visible bony lesion. DISC SPACES: Normal. No significant disc height narrowing, subluxation, or endplate abnormality. PARASPINOUS: Negative. No paraspinous abnormality is seen. OTHER: Negative. CONCLUSION: No acute disease. Dictated by: Ashly Live MD on 10/21/2024 at 0:47 Approved by: Ashly Live MD on 10/21/2024 at 0:49 Normal [facility] WRIST COMPLETE RTon 10-19-20 24 WRIST COMPLETE RT [place] [address] Patient: SADE CALDERÓN Phone#: : 1990 Age: 33 Gender: F Pt. Type: ER Account: [id number] Location: 2 Ordering: CASEY JADE Exam Date: 10/19/2024/4:42 Family Phys: HEATHER RODRIGUEZR Charge Code: 705070 Physician: [place] Order #: [id number] Dose#: PROCEDURE: X-RAY WRIST RT COMPLETE MIN 3 VIEWS COMPARISON: None. INDICATIONS: Trauma/injury. FINDINGS: BONES: Normal. No significant arthropathy or acute abnormality. SOFT TISSUES: Negative. No visible soft tissue swelling. EFFUSION: None visible. OTHER: Negative. CONCLUSION: No acute disease. Dictated by: Ashly Live MD on 10/20/2024 at 9:46 Approved by: Ashly Live MD on 10/20/2024 at 9:47 Normal [facility] Absolute lymphocyte countOrd ered By: Troy Banda on 09-20-2023 Lymphocytes Auto (Unsp spec) [#/Vol] 3.11 10*3/uL 0.83-4.51 [facility] Basophil percentageOrdered B y: Troy Banda on 09-20-2023 Basophils/100 WBC (Bld) 0.8 % 0-1 [facility] Chloride [Moles/Vol] 109 mmol/L 98-107 [facility] Eosinophils/100 WBC (Bld) 5.3 % 0-5 [facility] Glucose [Mass/Vol] 104 mg/dL 74-106 [facility] Comment on above: Fasting Glucose resu lt from 100 to 125 mg/dL suggests IMPAIRED HOMEOSTASIS per A.D.A. criteria. Neutrophils (Bld) [#/Vol] 5.2 10*3/uL 2.0-7.7 [facility] Neutrophils/100 WBC (Bld) 54.8 % 47-70 [facility] Potassium [Moles/Vol] 4.0 mmol/L 3.5-5.1 [facility] Comment on above: Slight Hemolysis, Re sult may be falsely increased. Sodium [Moles/Vol] 143 mmol/L 136-145 [facility] WBC (Bld) [#/Vol] 9.6 10*3/uL 4.4-11.0 [facility] Blood erythrocytes count (nu mber/volume)Ordered By: Troy Banda on 09-20-2023 RBC (Bld) [#/Vol] 4.95 10*6/uL 4.2-5.4 [facility] Blood hemoglobin measurement (mass/volume)Ordered By: Troy Banda on 09-20-2023 Hemoglobin (Bld) [Mass/Vol] 15.0 g/dL 12.0-15.0 [facility] Blood lymphocytes/100 leukoc ytesOrdered By: Troy Banda on 09-20-2023 Lymphocytes/100 WBC (Bld) 32.6 % 19-41 [facility] Blood monocytes/100 leukocyt esOrdered By: Troy Banda on 09-20-2023 Monocytes/100 WBC (Bld) 6.1 % 0-10 [facility] Blood platelet mean volumeOr dered By: Troy Banda on 09-20-2023 Platelet mean volume (Bld) [Entitic vol] 10.3 fL 6.2-12.0 [facility] Determination of erythrocyte mean corpuscular volume (MCV)Ordered By: Troy Banda on 09-20-2023 MCV (RBC) [Entitic vol] 89.9 fL 81-99 [facility] Hematocrit Auto (Bld) [Volum e fraction]Ordered By: Troy Banda on 09-20-2023 Hematocrit (Bld) [Volume fraction] 44.5 % 37-47 [facility] Laboratory - Chemistry and C hemistry - challengeOrdered By: Troy Banda on 09-20-2023 CO2 [Moles/Vol] 28.0 mmol/L 21.0-32.0 [facility] Urea nitrogen/Creatinine [Mass ratio] 12.0 mg/mg 10-20 [facility] Laboratory - Hematology and Cell countsOrdered By: Troy Banda on 09-20-2023 Erythrocyte distribution width (RBC) [Entitic vol] 39.5 fL 35.1-43.9 [facility] Erythrocyte distribution width (RBC) [Ratio] 12.0 % 11.6-14.6 [facility] Immature granulocytes/100 WBC (Bld) 0.400 % 0.0-0.9 [facility] Comment on above: IG% - Immature Granu locytes (promyelocytes, myelocytes and metamyelocytes) > 1% indicates that a LEFT SHIFT is Present. MCH (RBC) [Entitic mass] 30.3 pg 27.0-32.0 [facility] Nucleated RBC/100 WBC (Bld) [Ratio] 0 % 0-5 [facility] MCHC Auto (RBC) [Mass/Vol]Or dered By: Troy Banda on 09-20-2023 MCHC (RBC) [Mass/Vol] 33.7 g/dL 32-36 [facility] No Panel InformationOrdered By: Troy Banda on 09-20-2023 Estimated Creatinine Clearance Calc 66.19 ml/min [facility] Estimated GFR (MDRD) Amer 82 mL/min >60 [facility] Comment on above: GFR Calc Estimated GFR (MDRD) Non-Af Amer 68 mL/min >60 [facility] Comment on above: Non- GFR Calc Troponin I High Sensitivity 3 pg/mL 3.0-54.0 [facility] Comment on above: Please Note: New Ibis t Units and Gender Specific Reference Ranges. For more information see Policy Stat Procedure [place] High Sensitivity Troponin (TNIH) and attachments. Platelets bldOrdered By: Bear Banda on 09-20-2023 Platelets (Bld) [#/Vol] 256 10*3/uL 150-450 [facility] Serum or plasma calcium renetta urement (mass/volume)Ordered By: Troy Banda on 09-20-2023 Calcium [Mass/Vol] 8.4 mg/dL 8.5-10.1 [facility] Serum or plasma creatinine m easurement (mass/volume)Ordered By: Troy Banda on 09-20-2023 Creatinine [Mass/Vol] 1.00 mg/dL 0.55-1.02 [facility] Comment on above: The validity of the calculated GFR & GFRAA in patients over 70 years has not been determined. Clinical correlation is essential. Serum or plasma urea nitroge n measurement (mass/volume)Ordered By: Troy Banda on 09-20-2023 Urea nitrogen [Mass/Vol] 12 mg/dL 7-18 [facility] Thin prep Papanicolaou smear with manual screeningOrdered By: Troy Banda on 09-20-2023 Thin prep Papanicolaou smear with manual screening 6 5-[address] [facility] [address] HEAD OR BRAIN W/O CONTRAS Ton 06-27-2023 CT HEAD OR BRAIN W/O CONTRAST ORIGINAL EXAMINATION: CT HEAD TECHNIQUE: Axial CT images from skull base to vertex without IV contrast. This exam was performed according to our departmental dose optimization program, and includes the following measures where applicable: automated exposure control, adjustment of the mAs and/or kVp according to patient size and/or exam, and an iterative reconstruction algorithm. COMPARISON: None HISTORY: ORDERING SYSTEM PROVIDED HISTORY: Reason for Exam: Intermittent confusion FINDINGS: Parenchyma: No acute intracranial hemorrhage, midline shift, mass effect or acute ischemic infarct is demonstrated. The meza-white matter junctions are preserved. No space occupying intra-axial masses or extra-axial fluid collections are seen. Ventricles: No evidence of hydrocephalus or ventricular effacement. Vessels: No atherosclerotic calcifications. Orbits: Unremarkable. Calvarium: Unremarkable. Paranasal sinuses: Clear. Mastoid sinuses: Clear. IMPRESSION: Unremarkable examination. Interpreted by: Dimitry Michelle MD Preliminary Report By: Dimitry Michelle MD Electronically signed By Dimitry Michelle MD Dictated Date: 06/27/2023 2:04:56 PM Prelim Date: 06/27/2023 2:05:40 PM Sign Date: 06/27/2023 2:05:40 PM Ordering Provider: CAYDEN RODRIGUES [facility] Absolute lymphocyte counton 09-29-2022 Lymphocytes Auto (Unsp spec) [#/Vol] 3.36 10*3/uL 0.83-4.51 [facility] Work Phone: Basophil percentageon 2021 Basophil percentage 0 SEEN /hpf 0-5 [facility] Work Phone: [phone] Basophils/100 WBC (Bld) 0.9 % 0-1 [facility] Work Phone: Bilirubin [Mass/Vol] 0.20 mg/dL 0.20-1.00 [facility] Work Phone: [phone] Comment on above: For patients on eltr ombopag therapy, use of Dimension [place] TBIL is not recommended. Chloride [Moles/Vol] 109 mmol/L 98-107 [facility] Work Phone: Eosinophils/100 WBC (Bld) 3.8 % 0-5 [facility] Work Phone: Glucose [Mass/Vol] 112 mg/dL 74-106 [facility] Work Phone: [phone] Comment on above: Fasting Glucose resu lt from 100 to 125 mg/dL suggests IMPAIRED HOMEOSTASIS per A.D.A. criteria. Neutrophils (Bld) [#/Vol] 4.6 10*3/uL 2.0-7.7 [facility] Work Phone: [phone] Neutrophils/100 WBC (Bld) 51.9 % 47-70 [facility] Work Phone: [phone] Potassium [Moles/Vol] 3.7 mmol/L 3.5-5.1 [facility] Work Phone: Protein [Mass/Vol] 6.6 g/dL 6.4-8.2 [facility]: Sodium [Moles/Vol] 141 mmol/L 136-145 [facility] Work Phone: WBC (Bld) [#/Vol] 8.8 10*3/uL 4.4-11.0 [facility] Work Phone: Bilirubin Test strip Ql (U)o n 09-29-2022 Bilirubin Ql (U) Negative Negative [facility] Work Phone: Blood erythrocytes count (nu mber/volume)on 09-29-2022 RBC (Bld) [#/Vol] 5.17 10*6/uL 4.2-5.4 [facility] Work Phone: Blood hemoglobin measurement (mass/volume)on 09-29-2022 Hemoglobin (Bld) [Mass/Vol] 15.3 g/dL 12.0-15.0 [facility] Work Phone: Blood lymphocytes/100 leukoc yteson 09-29-2022 Lymphocytes/100 WBC (Bld) 38.0 % 19-41 [facility] Work Phone: Blood monocytes/100 leukocyt eson 09-29-2022 Monocytes/100 WBC (Bld) 5.1 % 0-10 [facility] Work Phone: Blood platelet mean volumeon 09-29-2022 Platelet mean volume (Bld) [Entitic vol] 10.9 fL 6.2-12.0 [facility] Work Phone: [phone] Determination of erythrocyte mean corpuscular volume (MCV)on 09-29-2022 MCV (RBC) [Entitic vol] 89.4 fL 81-99 [facility] Work Phone: [phone] Hematocrit Auto (Bld) [Volum e fraction]on 09-29-2022 Hematocrit (Bld) [Volume fraction] 46.2 % 37-47 [facility] Work Phone: Ketones Test strip Ql (U)on 09-29-2022 Ketones Ql (U) Negative Negative [facility] Work Phone: Laboratory - Chemistry and C hemistry - challengeon 09-29-2022 ALP [Catalytic activity/Vol] 106 U/L 45-117 [facility] Work Phone: [phone] ALT [Catalytic activity/Vol] 26 U/L 13-56 [facility] Work Phone: CO2 [Moles/Vol] 26.0 mmol/L 21.0-32.0 [facility] Work Phone: [phone] Globulin (S) [Mass/Vol] 3.2 g/dL 2.2-4.2 [facility] Work Phone: [phone] Lipase [Catalytic activity/Vol] 192 U/L 73-393 [facility] Work Phone: Urea nitrogen/Creatinine [Mass ratio] 16.6 mg/mg 10-20 [facility] Work Phone: [phone] Laboratory - Hematology and Cell countson 09-29-2022 Erythrocyte distribution width (RBC) [Entitic vol] 39.3 fL 35.1-43.9 [facility] Work Phone: [phone] Erythrocyte distribution width (RBC) [Ratio] 12.0 % 11.6-14.6 [facility] Work Phone: Immature granulocytes/100 WBC (Bld) 0.300 % 0.0-0.9 [facility] Work Phone: [phone] Comment on above: IG% - Immature Granu locytes (promyelocytes, myelocytes and metamyelocytes) > 1% indicates that a LEFT SHIFT is Present. MCH (RBC) [Entitic mass] 29.6 pg 27.0-32.0 [facility] Work Phone: [phone] Nucleated RBC/100 WBC (Bld) [Ratio] 0 % 0-5 [facility] Work Phone: [phone] MCHC Auto (RBC) [Mass/Vol]on 09-29-2022 MCHC (RBC) [Mass/Vol] 33.1 g/dL 32-36 [facility] Work Phone: Mucus LM Ql (Urine sed)on Mucus Ql (Urine sed) 0 SEEN /hpf [facility] Work Phone: Nitrite Test strip Ql (U)on 09-29-2022 Nitrite Ql (U) Negative Negative [facility] Work Phone: No Panel Informationon 09-29 Estimated Creatinine Clearance Calc 81.89 ml/min [facility] Work Phone: Estimated GFR (MDRD) Amer 109 mL/min >60 [facility] Work Phone: Comment on above: GFR Calc Estimated GFR (MDRD) Non-Af Amer 90 mL/min >60 [facility] Work Phone: Comment on above: Non- GFR Calc Platelets bldon 09-29-2022 Platelets (Bld) [#/Vol] 208 10*3/uL 150-450 [facility] Work Phone: Protein Test strip Ql (U)on 09-29-2022 Protein Ql (U) Negative Negative [facility] Work Phone: Serum or plasma albumin renetta urement (mass/volume)on 09-29-2022 Albumin [Mass/Vol] 3.4 g/dL 3.2-5.0 [facility] Work Phone: Serum or plasma albumin/glob ulin mass ratioon 09-29-2022 Albumin/Globulin [Mass ratio] 1.1 {ratio} 0.9-2.4 [facility] Work Phone: Serum or plasma calcium renetta urement (mass/volume)on 09-29-2022 Calcium [Mass/Vol] 8.6 mg/dL 8.5-10.1 [facility] Work Phone: Serum or plasma creatinine m easurement (mass/volume)on 09-29-2022 Creatinine [Mass/Vol] 0.78 mg/dL 0.55-1.02 [facility] Work Phone: Comment on above: The validity of the calculated GFR & GFRAA in patients over 70 years has not been determined. Clinical correlation is essential. Serum or plasma urea nitroge n measurement (mass/volume)on 09-29-2022 Urea nitrogen [Mass/Vol] 13 mg/dL 7-18 [facility] Work Phone: Squamous epithelial cells de tection in urine sediment by light microscopyon 09-29-2022 Epithelial cells.squamous LM Ql (Urine sed) 0-5 SEEN /hpf 5-10 [facility] Work Phone: Thin prep Papanicolaou smear with manual screeningon 09-29-2022 Thin prep Papanicolaou smear with manual screening 8 U/L 15-37 [facility] Work Phone: Thin prep Papanicolaou smear with manual screening 6 5-15 [facility] Work Phone: Urine blood detectionon 09-20-2021 RBC Ql (U) Negative Negative [facility] Work Phone: RBC Ql (U) 0 SEEN /hpf 0-5 [facility] Work Phone: Urine clarityon 09-29-2022 Clarity (U) Clear Clear [facility] Work Phone: Urine color determinationon 09-29-2022 Color (U) Yellow Yellow [facility] Work Phone: Urine glucose detectionon Glucose Ql (U) Normal mg/dl Normal [facility] Work Phone: Urine leukocyte esterase det ection by dipstickon 09-29-2022 Leukocyte esterase Test strip Ql (U) Negative Negative [facility] Work Phone: Urine pHon 09-29-2022 pH (U) 7.0 [pH] 5.0 - 8.0 [facility] Work Phone: Urine sediment bacteria coun t by microscopy (number/high power field)on 09-29-2022 Bacteria LM.HPF (Urine sed) [#/Area] RARE /hpf None Seen [facility] Work Phone: Urine specific gravity measu rementon 09-29-2022 Specific gravity (U) [Rel density] 1.010 1.002-1.030 [facility] Work Phone: Urobilinogen Auto test strip Ql (U)on 09-29-2022 Urobilinogen Ql (U) Normal mg/dl Normal [facility] Work Phone: LABORATORYOrdered By: Desirae Engle on 11-19-2021 ADMITTED TO INTENSIVE CARE UNIT FOR CONDITION OF INTEREST:FIND:PT:^MIGUEL ENT:ORD: No (11/19/21 12:33 AM) Invalid Interpretation Code AO Auto Urine SS Basophil, Absolute 0.10 103/mcL Invalid Interpretation Code 0.00 - 0.19 10^3/mcL AO Auto Heme SS Basophils/100 WBC (Bld) 0.9 % Invalid Interpretation Code 0.0 - 2.5 % AO Auto Heme SS Calcium [Mass/Vol] 8.6 mg/dL Invalid Interpretation Code 8.4 - 10.2 mg/dL AO ADM SS Chloride [Moles/Vol] 104 mmol/L Invalid Interpretation Code 98 - 107 mmol/L AO ADM SS CO2 [Moles/Vol] 29 mmol/L Invalid Interpretation Code 22 - 29 mmol/L AO ADM SS Creatinine [Mass/Vol] 0.96 mg/dL Invalid Interpretation Code 0.55 - 1.02 mg/dL AO ADM SS Electrolyte Balance 5.0 mEq/L Invalid Interpretation Code AO ADM SS EMPLOYED IN A HEALTHCARE SETTING:FIND:PT:^PATIE NT:ORD: No (11/19/21 12:33 AM) Invalid Interpretation Code AO Auto Urine SS Eosinophil, Absolute 0.40 103/mcL Invalid Interpretation Code 0.00 - 0.40 10^3/mcL AO Auto Heme SS Eosinophils/100 WBC (Bld) 5.0 % Invalid Interpretation Code 0.0 - 7.0 % AO Auto Heme SS Erythrocyte distribution width (RBC) [Ratio] 12.8 % Invalid Interpretation Code 11.5 - 14.5 % AO Auto Heme SS FIRST TEST FOR CONDITION OF INTEREST:FIND:PT:^MIGUEL ENT:ORD: No (11/19/21 12:33 AM) Invalid Interpretation Code AO Auto Urine SS Glucose [Mass/Vol] 120 mg/dL Invalid Interpretation Code 70 - 105 mg/dL AO ADM SS HAS SYMPTOMS RELATED TO CONDITION OF INTEREST:FIND:PT:^MIGUEL ENT:ORD: Yes (11/19/21 12:33 AM) Invalid Interpretation Code AO Auto Urine SS Hematocrit (Bld) [Volume fraction] 41.5 % Invalid Interpretation Code 37.0 - 47.0 % AO Auto Heme SS Hemoglobin (Bld) [Mass/Vol] 13.9 G/dL Invalid Interpretation Code 12.0 - 16.0 G/dL AO Auto Heme SS Illness or injury onset date and time [id number] Invalid Interpretation Code AO Auto Urine SS Lymphocyte, Absolute 2.70 103/mcL Invalid Interpretation Code 0.77 - 3.85 10^3/mcL AO Auto Heme SS Lymphocytes/100 WBC (Bld) 30.5 % Invalid Interpretation Code 10.0 - 50.0 % AO Auto Heme SS MCH (RBC) [Entitic mass] 29.8 pg Invalid Interpretation Code 27.0 - 31.2 pg AO Auto Heme SS MCHC (RBC) [Mass/Vol] 33.5 G/dL Invalid Interpretation Code 33.0 - 37.0 G/dL AO Auto Heme SS MCV (RBC) [Entitic vol] 89.1 fL Invalid Interpretation Code 80.0 - 94.0 fL AO Auto Heme SS Monocyte, Absolute 0.60 103/mcL Invalid Interpretation Code 0.15 - 1.00 10^3/mcL AO Auto Heme SS Monocytes/100 WBC (Bld) 7.4 % Invalid Interpretation Code 1.7 - 13.0 % AO Auto Heme SS Neutrophil, Absolute 4.90 103/mcL Invalid Interpretation Code 2.85 - 6.16 10^3/mcL AO Auto Heme SS Neutrophils/100 WBC (Bld) 56.2 % Invalid Interpretation Code 37.0 - 80.0 % AO Auto Heme SS Patient was hospitalized because of this condition No (11/19/21 12:33 AM) Invalid Interpretation Code AO Auto Urine SS Platelet mean volume (Bld) [Entitic vol] 9.8 fL Invalid Interpretation Code 7.4 - 10.4 fL AO Auto Heme SS Platelets (Bld) [#/Vol] 225 103/mcL Invalid Interpretation Code 130 - 400 10^3/mcL AO Auto Heme SS Potassium [Moles/Vol] 3.5 mmol/L Invalid Interpretation Code 3.5 - 5.1 mmol/L AO ADM SS status Not (11/19/21 12:33 AM) Invalid Interpretation Code AO Auto Urine SS RBC (Bld) [#/Vol] 4.66 106/mcL Invalid Interpretation Code 4.20 - 5.40 10^6/mcL AO Auto Heme SS RESIDES IN A CONGREGATE CARE SETTING:FIND:PT:^PATIE NT:ORD: No (11/19/21 12:33 AM) Invalid Interpretation Code AO Auto Urine SS SARS-CoV-2 (COVID-19) RNA JOHANNY+probe Ql (Resp) Negative (11/19/21 12:33 AM) Invalid Interpretation Code Negative AO Auto Urine SS SARS-CoV-2 (COVID-19) RNA JOHANNY+probe Ql (Unsp spec) Negative results do not preclude SARS-CoV-2 infection and should not be used as the sole basis for patient management decisions. Negative results must be combined with clinical observations, patient history, and epidemiological information.There is a risk of false negative values resulting from improperly collected, transported, or handled specimens.There is a risk of false negative values due to the presence of sequence variants in the pathogen targets of the assay, procedural errors, amplification inhibitors in specimens, or inadequate numbers of organisms for amplification.ROULA SARS-CoV-2 Assay is a Real-Time reverse-transcriptase polymerase chain reaction (RT-PCR) based qualitative in vitro diagnostic test intended for the qualitative detection of nucleic acid from the SARS-CoV-2 in nasopharyngeal swab specimens collected from individuals suspected of COVID-19 by their healthcare provider. Testing is limited to laboratories certified under the Clinical Laboratory Improvement Amendments of 1988 (CLIA), 42 U.S.C. 263a, to perform moderate and high complexity tests. Invalid Interpretation Code AO Auto Urine SS Sodium [Moles/Vol] 138 mmol/L Invalid Interpretation Code 136 - 145 mmol/L AO ADM SS Troponin I.cardiac DL <= 0.01 ng/mL [Mass/Vol] 6.6 ng/L Invalid Interpretation Code 0.0 - 51.4 ng/L AO ADM SS Urea nitrogen [Mass/Vol] 10 mg/dL Invalid Interpretation Code 7 - 18 mg/dL AO ADM SS Urea nitrogen/Creatinine [Mass ratio] 10 ratio Invalid Interpretation Code 7 - 27 ratio AO ADM SS WBC (Bld) [#/Vol] 8.70 103/mcL Invalid Interpretation Code 4.60 - 10.80 10^3/mcL AO Auto Heme SS LABORATORYOrdered By: SYSTEM SYSTEM on 11-19-2021 GFR 82 ml/min/1.73sqm Invalid Interpretation Code AO Chemistry S GFR Non- 68 ml/min/1.73sqm Invalid Interpretation Code AO Chemistry S .Auto Diffon 05-20-2018 Basophils Auto #/vol (Bld) 0.10 10 3/mcL Normal 0.00-0.19 [facility] ([place]) Comment on above: Performed By: #### MANA WALLACE ANEU ####[address] [place], [place] [address] Basophils/100 WBC Auto (Bld) 0.9 % Normal 0.0-2.5 [facility] ([place]) Comment on above: Performed By: #### MANA WALLACE ANEU ####[address] [place], [place] [address] Eosinophils 0.30 10 3/mcL Normal 0.00-0.40 [facility] ([place] Comment on above: Performed By: #### MANA WALLACE ANEU ####[address] [place], [place] [address] Eosinophils/100 leukocytes 2.8 % Normal 0.0-7.0 [facility] ([place] Comment on above: Performed By: #### MANA WALLACE ANEU ####[address] [place], [place] [address] Lymphocytes 3.60 10 3/mcL Normal 0.77-3.85 [facility] ([place] Comment on above: Performed By: #### MANA WALLACE ANEU ####[address] [place], [place] [address] Lymphocytes/100 leukocytes 38.3 % Normal 10.0-50.0 [facility] ([place] Comment on above: Performed By: #### MANA WALLACE ANEU ####[address] [place], [place] [address] Monocytes 0.40 10 3/mcL Normal 0.15-1.00 [facility] ([place] Comment on above: Performed By: #### MANA WALLACE, DAVID ####[address] [place], [place] [address] Monocytes/100 leukocytes 4.8 % Normal 1.7-13.0 [facility] ([place] Comment on above: Performed By: #### MANA WALLACE, ANEU ####[address] [place], [place] [address] Neutrophils/100 WBC Auto (Bld) 53.2 % Normal 37.0-80.0 [facility] ([place]) Comment on above: Performed By: #### MANA WALLACE, DAVID ####[address] [place], [place] [address] .NEUABSon 05-20-2018 Neutrophils 5.00 10 3/mcL Normal 2.85-6.16 [facility] ([place]) Comment on above: Performed By: #### MANA WALLACE, ANEU ####[address] [place], [place] [address] CBCon 05-20-2018 Erythrocyte distribution width Auto Ratio (RBC) 13.1 % Normal 11.5-14.5 [facility] ([place] Comment on above: Performed By: #### MANA WALLACE, ANEU ####[address] [place], [place] [address] Erythrocytes (RBC) 4.74 10 6/mcL Normal 4.20-5.40 [facility] ([place]) Comment on above: Performed By: #### MANA WALLACE, ANEU ####[address] [place], [place] [address] Hematocrit (HCT) 41.6 % Normal 37.0-47.0 [facility] ([place]) Comment on above: Performed By: #### MANA WALLACE, ANEU ####[address] [place], [place] [address] Hemoglobin mass conc (Bld) 14.6 G/dL Normal 12.0-16.0 [facility] ([place]) Comment on above: Performed By: #### C SANDRA, ADIFF, ANEU ####[address] [place], [place] [address] MCH 30.8 pg Normal 27.0-31.2 [facility] ([place] Comment on above: Performed By: #### C SANDRA ADIFF, ANEU ####[address] [place], [place] [address] MCHC mass conc (RBC) 35.2 G/dL Normal 33.0-37.0 [facility] ([place]) Comment on above: Performed By: #### C SANDRA, NAOMIEIFF, ANEU ####[address] [place], [place] [address] MCV 87.7 fL Normal 80.0-94.0 [facility] ([place]) Comment on above: Performed By: #### NAOMIE WALLACEIFF, ANEU ####[address] [place], [place] [address] Platelet mean volume (PMV) 8.9 fL Normal 7.4-10.4 [facility] ([place]) Comment on above: Performed By: #### MANA WALLACE, ANEU ####[address] [place], [place] [address] Platelets 233 10 3/mcL Normal 130-400 [facility] ([place] Comment on above: Performed By: #### NAOMIE WALLACEIFF, ANEU ####[address] [place], [place] [address] WBC (Leukocytes) 9.40 10 3/mcL Normal 4.60-10.80 [facility] ([place]) Comment on above: Performed By: #### C BC, ADIFF, ANEU ####[address] [place], [place] [address] CT SOFT TISSUE NECK W/ CONTR Daniel 05-20-2018 CT SOFT TISSUE NECK W/ CONTRAST ORIGINALCT SOFT TISSUE NECK W/ CONTRAST Clinical Statement: hx sialolithiasis - pain at post op submandibular site on left TECHNIQUE: Multiple-row detector helical CT examination of the neck with IV contrast. Nonionic intravenous contrast material was administered per standard departmental protocol. This exam was performed according to our departmental dose optimization program, including but not limited to: automated exposure control, adjustment of the mAs and/or kVp according to patient size and/or exam, and use of an iterative reconstruction algorithm where applicable. COMPARISON: None. FINDINGS: The aerodigestive structures are within normal limits. Specifically, the nasal cavity, nasopharynx, oral cavity, oropharynx, hypopharynx, larynx, and visualized trachea and esophagus demonstrate no masses or abnormal enhancement. There are no pathologically enlarged, necrotic, or otherwise abnormal lymph nodes. The LEFT submandibular gland is surgically absent. Parapharyngeal spaces are maintained. There is mild overlying fat stranding. No focal abscess collection. The parotid glands and RIGHT submandibular gland appear within normal limits. No sialolithiasis. The thyroid gland is normal in size without focal abnormality. Evaluation of the visualized portions of brain parenchyma and orbits demonstrates no abnormality. The visible paranasal sinuses and tympanomastoid cavities are clear with the exception of a mucosal retention cysts in the RIGHT ethmoid sinus. There is normal intravascular enhancement. Limited evaluation of the lung apices demonstrates no abnormality. The visualized osseous structures are within normal limits. IMPRESSION: Postsurgical changes of LEFT submandibular gland resection. No focal abscess collection. I have personally reviewed the images of this examination and agree with the resident's findings and interpretation. Interpreted By: Marshal Peckreliminary Report By: Sang Painting DOElectronically Signed By: Marshal Peck MD Dictated Date: 05/20/2018 7:55:24 PM Prelim Date: 05/20/2018 7:58:55 PM Sign Date: 05/20/2018 8:37:39 PM Normal [facility]) [facility] Note on 05-20-2018 [facility] Note Normal [facility] ([place]) Pat Eduon 05-20-2018 Pat Edu Normal [facility]) Patient Summary Documentson 05-20-2018 Patient Summary Documents Normal [facility]) Vital Signs Date Time Vital Sign Value Performing Clinician Facility 01-03-2025 09:29-0500 Diastolic Blood Pressure Non-Invasive 79 mm[Hg] KEYONNA BOSE DO [facility] 01-03-2025 09:29-0500 Heart rate 116 /min NIDAL CHOUJAA DO [facility] 01-03-2025 09:29-0500 Respiratory rate 16 /min NIDAL CHOUJAA DO [facility] 01-03-2025 09:29-0500 Systolic Blood Pressure Non-Invasive 157 mm[Hg] NIDAL CHOUJAA DO [facility] 01-03-2025 07:45-0500 Diastolic Blood Pressure Non-Invasive 73 mm[Hg] NIDAL CHOUJAA DO [facility] 01-03-2025 07:45-0500 Heart rate 116 /min NIDAL CHOUJAA DO [facility] 01-03-2025 07:45-0500 Respiratory rate 16 /min NIDAL CHOUJAA DO [facility] 01-03-2025 07:45-0500 Systolic Blood Pressure Non-Invasive 123 mm[Hg] NIDAL CHOUJAA DO [facility] 01-03-2025 05:51-0500 Body temperature 99.32 [degF] NIDAL CHOUJAA DO [facility] 01-03-2025 05:51-0500 Diastolic Blood Pressure Non-Invasive 88 mm[Hg] NIDAL CHOUJAA DO [facility] 01-03-2025 05:51-0500 Heart rate 114 /min NIDAL CHOUJAA DO [facility] 01-03-2025 05:51-0500 Respiratory rate 20 /min NIDAL CHOUJAA DO [facility] 01-03-2025 05:51-0500 Systolic Blood Pressure Non-Invasive 141 mm[Hg] KEYONNA BOSE DO [facility] 04-10-2024 13:07-0400 Body height 157.5 cm Angela Diaz APRN.HUMAN RESOURCES CONSULTANT Work Phone: [facility] 04-10-2024 13:07-0400 Body mass index (BMI) [Ratio] 38.96 kg/m2 Angela Diaz APRN.HUMAN RESOURCES CONSULTANT Work Phone: [facility] 04-10-2024 13:07-0400 Body weight 96.62 kg Angela Diaz APRN.HUMAN RESOURCES CONSULTANT Work Phone: [facility] 09-20-2023 22:47-0400 Diastolic blood pressure 91 mm[Hg] [facility] 09-20-2023 22:47-0400 Heart rate 80 /min [facility] 09-20-2023 22:47-0400 Systolic blood pressure 129 mm[Hg] [facility] 09-20-2023 22:01-0400 Respiratory rate 16 /min [facility] 09-20-2023 20:55-0400 Body height 160.02 cm [facility] 09-20-2023 20:55-0400 Body mass index (BMI) [Ratio] 37.5 kg/m2 [facility] 09-20-2023 20:55-0400 Body temperature 98.3 [degF] [facility] 09-20-2023 20:55-0400 Body weight 96.3 kg [facility] 09-20-2023 20:55-0400 SaO2% (BldA) [Mass fraction] 98 % [facility] 06-27-2023 13:09-0400 Blood Pressure Cuff Size CASA OMALLEY MD [facility] 06-27-2023 13:09-0400 Blood Pressure Location CASA OMALLEY MD [facility] 06-27-2023 13:09-0400 Blood Pressure Method CASA OMALLEY MD [facility] 06-27-2023 13:09-0400 Body temperature 99.14 [degF] CASA OMALLEY MD [facility] 06-27-2023 13:09-0400 Diastolic Blood Pressure Non-Invasive 89 1 CASA OMALLEY MD [facility] 06-27-2023 13:09-0400 Heart rate 101 /min CASA OMALLEY MD [facility] 06-27-2023 13:09-0400 Respiratory rate 18 /min CASA OMALLEY MD [facility] 06-27-2023 13:09-0400 Systolic Blood Pressure Non-Invasive 127 1 CASA OMALLEY MD [facility] 09-29-2022 14:58-0500 Diastolic blood pressure 92 mm[Hg] [facility] Work Phone: 09-29-2022 14:58-0500 Heart rate 76 /min [facility] Work Phone: 09-29-2022 14:58-0500 Respiratory rate 16 /min [facility] Work Phone: 09-29-2022 14:58-0500 SaO2% (BldA) [Mass fraction] 94 % [facility] Work Phone: 09-29-2022 14:58-0500 Systolic blood pressure 127 mm[Hg] [facility] Work Phone: 09-29-2022 10:39-0500 Body height 157.48 cm [facility] Work Phone: 09-29-2022 10:39-0500 Body mass index (BMI) [Ratio] 34.9 kg/m2 [facility] Work Phone: 09-29-2022 10:39-0500 Body temperature 97.8 [degF] [facility] Work Phone: 09-29-2022 10:39-0500 Body weight 86.63 kg [facility] Work Phone: 11-19-2021 01:48-0500 Heart rate 89 /min MELITON REICHFIELD DO [facility] 11-19-2021 01:48-0500 Respiratory rate 18 /min MELITON REICHFIELD DO [facility] 11-18-2021 22:18-0500 Body temperature 98.42 [degF] MELITON REICHFIELD DO [facility] 11-18-2021 22:18-0500 Diastolic blood pressure 96 mm[Hg] MELITON REICHFIELD DO [facility] 11-18-2021 22:18-0500 Heart rate 99 /min MELITON REICHFIELD DO [facility] 11-18-2021 22:18-0500 Respiratory rate 18 /min MELITON REICHFIELD DO [facility] 11-18-2021 22:18-0500 Systolic blood pressure 143 mm[Hg] MELITON REICHFIELD DO [facility] Encounters Encounter Date Encounter Type Care Provider Facility Start: 04-18-2025 ambulatory HEATHER DIEHL [facility] Start: 02-11-2025 ambulatory HEATHER SUPERVISOR 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 SHOP [facility] Start: 01-03-2025 End: 01-04-2025 Emergency department patient visit Heather Adames Facility:[facility] Start: 01-03-2025 End: 01-03-2025 Emergency department patient visit KEYONNA BOSE DO [facility] Start: 12-26-2024 End: 12-26-2024 Emergency department patient visit Heather Jaramillobennett Facility:[facility] Start: 12-23-2024 End: 12-23-2024 Emergency department patient visit [facility] Facility:[facility] Start: 11-16-2024 End: 11-17-2024 Emergency department patient visit [facility] Facility:[facility] Start: 10-19-2024 End: 10-19-2024 Emergency department patient visit HEATHER SHANITA ADAMES [facility] Start: 04-11-2024 End: 04-11-2024 ambulatory HEATHER ADAMES Facility:[facility] Start: 04-10-2024 End: 04-10-2024 ambulatory ANGELA DIAZ Facility:[facility] Start: 04-10-2024 End: 04-10-2024 Admission to same day surgery center Angela Diaz APRN.HUMAN RESOURCES CONSULTANT Work Phone: General Surgery Comment on above: Welcome to Bariatric Surgery Obesity, Class II, B AK 35-39.9 (Primary Dx); Seizures (HCC); Gastroesophageal reflux disease, unspecified whether esophagitis present; Hypertriglyceridemia; Primary hypertension Start: 04-10-2024 E-mail encounter fro m caregiver Angela Diaz APRN.CNP Work Phone: General Surgery Start: 04-10-2024 End: 04-10-2024 Telemedicine consultation with patient Angela Diaz APRN.HUMAN RESOURCES CONSULTANT Work Phone: General Surgery Start: 09-20-2023 End: 09-20-2023 Emergency department patient visit [facility] Work Phone: Start: 06-27-2023 End: 06-27-2023 Emergency department patient visit CASA OMALLEY MD Facility:[facility] Start: 06-27-2023 End: 06-27-2023 Emergency department patient visit CASA OMALLEY MD [facility] Start: 09-29-2022 End: 09-29-2022 [facility] Start: 11-18-2021 End: 11-19-2021 Emergency department patient visit MELITON GIBSON DO [facility] Start: 05-20-2018 End: 05-20-2018 Emergency department patient visit KATYA OSEI Facility:[facility] Procedures Date Procedure Procedure Detail Performing Clinician Start: 09-20-2023 CT of head without contrast Start: 09-20-2023 Plain chest X-ray Start: 09-29-2022 Computed tomography of abdomen and pelvis with contrast Hysterectomy MELITON Seymour DO Plan of Treatment Date Care Activity Detail Author Start: 07-21-2024 Influenza vaccination Influenza Vaccine (Season Ended) [facility] Start: 05-20-2024 End: 05-20-2024 Admission to same day surgery center 05/20/2024 1:20 [place] [address] Mildred Balderrama MD [address] [place] [address] Red/6 mos/[facility] Comment on above: Red/6 mos/[facility] Start: 05-02-2024 End: 05-02-2024 Admission to same day surgery center 05/02/2024 2:00 PM EDT [facility] [address] [place], [place] [id number] Merced Cramer, [place] [address] [address] Red/6 mos/[facility] Comment on above: Red/6 mos/[facility] Start: 04-10-2024 End: 07-10-2024 25-hydroxyvitamin D3 [Mass/volume] in Serum or Plasma VITAMIN D 25 HYDROXY Lab Routine Obesity, Class II, BMI 35-39.9 Expected: 04/10/2024, Expires: 07/10/2024 [facility] Comment on above: Expected: 04/10/2024, Expires: Start: 04-10-2024 End: 07-10-2024 CBC W Auto Differential panel - Blood COMPLETE BLOOD COUNT AND DIFFERENTIAL Lab Routine Obesity, Class II, BMI 35-39.9 Expected: 04/10/2024, Expires: 07/10/2024 [facility] Work Phone: Comment on above: Expected: 04/10/2024, Expires: Start: 04-10-2024 End: 07-10-2024 Choriogonadotropin ( test) [Presence] in Urine HCG, QUALITATIVE, URINE Lab Routine Obesity, Class II, BMI 35-39.9 Expected: 04/10/2024, Expires: 07/10/2024 [facility] Comment on above: Expected: 04/10/2024, Expires: Start: 04-10-2024 End: 07-10-2024 Cobalamin (Vitamin B12) [Mass/volume] in Serum or Plasma VITAMIN B12 Lab Routine Obesity, Class II, BMI 35-39.9 Expected: 04/10/2024, Expires: 07/10/2024 [facility] Comment on above: Expected: 04/10/2024, Expires: 4 Start: 04-10-2024 End: 07-10-2024 Comprehensive metabolic 2000 panel - Serum or Plasma COMPREHENSIVE METABOLIC PANEL Lab Routine Obesity, Class II, BMI 35-39.9 Primary hypertension Expected: 04/10/2024, Expires: 07/10/2024 [facility] Comment on above: Expected: 04/10/2024, Expires: Start: 04-10-2024 End: 07-10-2024 Ferritin [Mass/volume] in Serum or Plasma FERRITIN Lab Routine Obesity, Class II, BMI 35-39.9 Expected: 04/10/2024, Expires: 07/10/2024 [facility] Comment on above: Expected: 04/10/2024, Expires: Start: 04-10-2024 End: 07-10-2024 Folate [Mass/volume] in Serum or Plasma FOLATE, SERUM Lab Routine Obesity, Class II, BMI 35-39.9 Expected: 04/10/2024, Expires: 07/10/2024 [facility] Comment on above: Expected: 04/10/2024, Expires: Start: 04-10-2024 End: 07-10-2024 Hemoglobin A1c in Blood HEMOGLOBIN A1C Lab Routine Obesity, Class II, BMI 35-39.9 Expected: 04/10/2024, Expires: 07/10/2024 [facility] Comment on above: Expected: 04/10/2024, Expires: Start: 04-10-2024 End: 07-10-2024 Iron and Iron binding capacity panel - Serum or Plasma IRON AND TIBC Lab Routine Obesity, Class II, BMI 35-39.9 Expected: 04/10/2024, Expires: 07/10/2024 [facility] Comment on above: Expected: 04/10/2024, Expires: Start: 04-10-2024 End: 07-10-2024 Lipid 1996 panel - Serum or Plasma LIPID PANEL BASIC Lab Routine Obesity, Class II, BMI 35-39.9 Hypertriglyceridemia Expected: 04/10/2024, Expires: 07/10/2024 [facility] Comment on above: Expected: 04/10/2024, Expires: Start: 04-10-2024 End: 07-10-2024 Natriuretic peptide.B prohormone N-Terminal [Mass/volume] in Serum or Plasma NT PRO BNP Lab Routine Obesity, Class II, BMI 35-39.9 Expected: 04/10/2024, Expires: 07/10/2024 [facility] Comment on above: Expected: 04/10/2024, Expires: Start: 04-10-2024 End: 07-10-2024 NICOTINE & METAB, UR NICOTINE & METAB, UR Lab Routine Obesity, Class II, BMI 35-39.9 Expected: 04/10/2024, Expires: 07/10/2024 [facility] Comment on above: Expected: 04/10/2024, Expires: Start: 04-10-2024 End: 07-10-2024 Thyrotropin [Units/volume] in Serum or Plasma THYROID STIMULATING HORMONE Lab Routine Obesity, Class II, BMI 35-39.9 Expected: 04/10/2024, Expires: 07/10/2024 [facility] Comment on above: Expected: 04/10/2024, Expires: Start: 04-10-2024 End: 07-10-2024 TOXICOLOGY SCREEN, ROUTINE URINE TOXICOLOGY SCREEN, ROUTINE URINE Lab Routine Obesity, Class II, BMI 35-39.9 Expected: 04/10/2024, Expires: 07/10/2024 [facility] Comment on above: Expected: 04/10/2024, Expires: Start: 04-10-2024 End: 07-10-2024 VITAMIN B1 (THIAMINE), WHOLE BLOOD VITAMIN B1 (THIAMINE), WHOLE BLOOD Lab Routine Obesity, Class II, BMI 35-39.9 Expected: 04/10/2024, Expires: 07/10/2024 [facility] Comment on above: Expected: 04/10/2024, Expires: Start: 09-21-2023 [facility] Start: 09-20-2023 Blood chemistry [facility] Start: 09-20-2023 End: 09-20-2023 [facility] Start: 07-21-2023 Covid-19 Vaccine ( season) Covid-19 Vaccine () [facility] Start: 2019 Screening for malignant neoplasm of cervix HPV Testing [facility] Start: 2010 Screening for malignant neoplasm of cervix Pap Testing [facility] Start: 2008 Hepatitis B Vaccine (1 of 3 - 19+ 3-dose series) Hepatitis B Vaccine (1 of 3 - 19+ 3-dose series) [facility] Start: 2008 Urine microalbumin profile DTaP,Tdap,Td Vaccine (1 - Tdap) [facility] Start: 2007 Annual PCP Team Chronic Disease Visit Annual PCP Team Chronic Disease Visit [facility] Start: 2007 BP Controlled (<130/80) BP Controlled (<130/80) [facility] Start: 2007 Hepatitis C screening Hepatitis C Screening [facility] Start: 2007 HIV screening HIV Screening [facility] Patient Education [facility] Work Phone: Patient referral [facility] Work Phone: End: 04-10-2025 Polysomnogram POLYSOMNOGRAM (PSG) Procedures Routine Obesity, Class II, BMI 35-39.9 Primary hypertension 1 Occurrences starting 04/10/2024 until 04/10/2025 [facility] Comment on above: 1 Occurrences starting 04/10/2024 until 04/10/2025 Payers Date Payer Category Payer Unknown [id number] 2023 Medicaid [employer] [facility] [id number] 2023-Present [phone] [address] [place] [address] Medicaid [id number] 2023 Unknown [id number] 2018 Self-pay 2016 Unknown [id number] 1989 Unknown [id number] 1989 Unknown [id number] 1989 Unknown [id number] 1989 Unknown [id number] Unknown [id number] Unknown [id number] Unknown [id number] Unknown [id number] Social History Date Type Detail Facility Start: 12-14-2020 Heavy tobacco smoker (finding) [facility] Sex Assigned At [facility] Start: 09-29-2022 End: 09-20-2023 Tobacco smoking status RIIS Unknown if ever smoked [facility] Start: 07-06-2020 None [facility] Start: 07-06-2020 With Family [facility] Start: 03-27-2020 Cigarettes [facility] Start: 1990 Sex Assigned At Female W 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 Functional Status Date Assessment Result Facility 01-03-2025 Functional Status Independent [facility] 01-03-2025 Functional Status ID band on, Allergy Band on, Call device within reach, Bed in low position, Wheels locked, Visitor at bedside [facility] 01-03-2025 Functional Status Awake [facility] 06-27-2023 Functional Status Independent [facility] Mental Status Date Assessment Result Facility 01-03-2025 Mental Status Orientation Oriented x 4 [facility] 01-03-2025 Mental Status [facility] 01-03-2025 Mental Status [facility] 09-20-2023 Cognitive function Voice/Name [facility] Work Phone: 06-27-2023 Mental Status Orientation Oriented x 4 [facility] Clinical Notes 11-19-2021 to 01-03-2025 Note Date & Type Note Facility 01-03-2025 Hospital Discharg e instructions Patient Education 01/03/2025 09:16:23 Chest Pain, Uncertain Cause Uncertain Causes of Chest Pain Chest pain can happen for a number of reasons. Sometimes the cause can't be determined. If your condition does not seem serious, and your pain does not appear to be coming from your heart, your healthcare provider may recommend watching it closely. Sometimes the signs of a serious problem take more time to appear. Many problems not related to your heart can cause chest pain. These include: Musculoskeletal. Costochondritis is an inflammation of the tissues around the ribs that can occur from trauma or overuse injuries, or a strain of the muscles of the chest wall Respiratory. Pneumonia, collapsed lung (pneumothorax), or inflammation of the lining of the chest and lungs (pleurisy) Gastrointestinal. Esophageal reflux, heartburn, ulcers, or gallbladder disease Anxiety and panic disorders Nerve compression and inflammation Rare miscellaneous problems such as aortic aneurysm (a swelling of the large artery coming out of the heart) or pulmonary embolism (a blood clot in the lungs) Home care After your visit, follow these recommendations: Rest today and avoid strenuous activity. Take any prescribed medicine as directed. Be aware of any recurrent chest pain and notice any changes Follow-up care Follow up with your healthcare provider if you do not start to feel better within 24 hours, or as advised. Call 911 Call 911 if any of these occur: A change in the type of pain: if it feels different, becomes more severe, lasts longer, or begins to spread into your shoulder, arm, neck, jaw or back Shortness of breath or increased pain with breathing Weakness, dizziness, or fainting Rapid heart beat Crushing sensation in your chest When to seek medical advice Call your healthcare provider right away if any of the following occur: Cough with dark colored sputum (phlegm) or blood Fever of 100.4 F (38 C) or higher, or as directed by your healthcare provider Swelling, pain or redness in one leg [phone] [employer]. [address] [place] [address]. All rights reserved. This information is not intended as a substitute for professional medical care. Always follow your healthcare professional's instructions. Follow Up Care 01/03/2025 05:50:55 With:Follow up with primary care provider Address:Unknown When:2-4 days With:Call Physician Referral Address:Unknown When:2-4 days [facility] 01-03-2025 Note Discharge Instructions Thank you for allowing [facility] to assist you with your healthcare needs. The following is important discharge information regarding your hospital visit. Diagnosis from Today's Visit Chest pain Hypokalemia What to Do Next Instructions from Your Care Team Discharge Return to Work, School, or Sports (Return to Work, School, or Sports) - Ordered -- 01/04/25, May return to: work, 01/03/25 9:16:00 EST Post Acute Orders No qualifying data available. You Need to Schedule the Following Appointments Follow Up with Follow up with primary care provider When:Within 2-4 days Follow Up with Call Physician Referral When:Within 2-4 days Allergies penicillin Unknown Medications Please ask your primary doctor or pharmacist before taking any other medication not listed, including over the counter drugs, herbal medications, vitamins and or supplements as they may interact with your home medications. What How Much When Why Instructions Last Dose Unchanged albuterol (albuterol MDI (90 mcg/ inh) CFC free inhalation aerosol) 2 puff(s) by inhalation Every 4 hours as needed for Shortness of breath or wheezing Viral syndrome Bronchitis Duration: 30 Days Unchanged baclofen (baclofen 20 mg oral tablet) 1 tab(s) by mouth Three (3) times a day Duration: 5 Days Unchanged clindamycin Unchanged etodolac (etodolac 400 mg oral tablet) 1 tab(s) by mouth Three (3) times a day Duration: 7 Days Unchanged predniSONE (predniSONE 10 mg oral tablet) 3 tab(s) by mouth Two (2) times a day Duration: 5 Days Unchanged topiramate (topiramate 100 mg oral tablet) Please take this list to your next doctor s visit. Bring all medications you take, including over the counter medications, herbals and other supplements with you to your doctor s visit. Patients and families are reminded to discard old lists and to update any records with all medication providers or retail pharmacies. Education Materials Uncertain Causes of Chest Pain Chest pain can happen for a number of reasons. Sometimes the cause can't be determined. If your condition does not seem serious, and your pain does not appear to be coming from your heart, your healthcare provider may recommend watching it closely. Sometimes the signs of a serious problem take more time to appear. Many problems not related to your heart can cause chest pain. These include: Musculoskeletal. Costochondritis is an inflammation of the tissues around the ribs that can occur from trauma or overuse injuries, or a strain of the muscles of the chest wall Respiratory. Pneumonia, collapsed lung (pneumothorax), or inflammation of the lining of the chest and lungs (pleurisy) Gastrointestinal. Esophageal reflux, heartburn, ulcers, or gallbladder disease Anxiety and panic disorders Nerve compression and inflammation Rare miscellaneous problems such as aortic aneurysm (a swelling of the large artery coming out of the heart) or pulmonary embolism (a blood clot in the lungs) Home care After your visit, follow these recommendations: Rest today and avoid strenuous activity. Take any prescribed medicine as directed. Be aware of any recurrent chest pain and notice any changes Follow-up care Follow up with your healthcare provider if you do not start to feel better within 24 hours, or as advised. Call 911 Call 911 if any of these occur: A change in the type of pain: if it feels different, becomes more severe, lasts longer, or begins to spread into your shoulder, arm, neck, jaw or back Shortness of breath or increased pain with breathing Weakness, dizziness, or fainting Rapid heart beat Crushing sensation in your chest When to seek medical advice Call your healthcare provider right away if any of the following occur: Cough with dark colored sputum (phlegm) or blood Fever of 100.4 F (38 C) or higher, or as directed by your healthcare provider Swelling, pain or redness in one leg [phone] [employer]. [address] [place] [address]. All rights reserved. This information is not intended as a substitute for professional medical care. Always follow your healthcare professional's instructions. Additional Information VACCINATE! IT SAVES LIVES! Members of the community who have not yet received the COVID-19 vaccine and would like to receive it can visit one of [facility] vaccine clinics. There are many vaccine clinic locations within the [facility]. For locations and available times, please visit [email or web address] [email or web address] It is important to note that some COVID mobile vaccine clinics are held outdoors and may be canceled in rainy or stormy conditions. To learn more about pediatric vaccinations (ages 5-11), we invite you to visit the [facility] webpage. https://www.[facility].org/p ages/5593-Bgxuc-Ghixtovxewn-Freq gppnta-Kpvhl-Basqqtthj.html To learn more about the COVID-19 vaccine, we invite you to visit the CDC website for a list of frequently asked questions. https://www.cdc.gov/coronavirus/ 2019-ncov/vaccines/faq.html [facility] Patient Portal Access Instructions: Stay connected with your healthcare team and access your personal medical information anytime with the [facility] Patient Portal. If you would like a full copy of your medical records please contact the [facility] Medical Records Department Monday through Monday between 8a.m. and 4:30p.m. Please follow the directions below to access the portal: 1.Access the email account you provided upon registration to the [facility].2.Look for an invitation email from [facility].3.Open the email and access the invitation link: Accept Invitation to [facility].Fill in the required rodriguez to create your account. Sign into [email or web address] with your username and password that you created in the above steps to stay up to date. You can then view a summary of results, a summary of your visits, and the ability to download your summaries to your computer or send the information securely to a physician. Remember that your healthcare information is confidential, so carefully consider who you will allow to register on the [facility] Patient Portal for access to your information. You can also access the [facility] Patient Portal on the [employer] hever. Simply click on Health Records under Health Data and then click on the [employer] logo. HOW TO SAFELY DISPOSE OF PRESCRIPTION MEDICATIONS Please use one of the following methods to safely dispose of your unused medications. 1.Use a drug disposal kit: the drug disposal pouch allows you to safely discard your old and unused drugs. Ask your nurse to give you one when you are discharged.2.Visit a local take-back location: Many local pharmacies and police departments have programs that collect old and unwanted prescription drugs. Call your local pharmacy or go to http://[employer]/4I9Eo9v to find one close to you.3.Make use of household items: Use cat litter or old coffee grounds to dispose medications if other options are not available. Mix your drugs with these household products, seal them in an airtight container and throw it into the garbage. Call [facility]: [phone] to be sure your drugs can be disposed of in this way. Some medicines may require a different approach.4.Never flush your medications down the toilet. IF YOU HAVE BEEN PRESCRIBED AN OPIOIDS FOR PAIN If you have been prescribed an opioid (such as hydrocodone, oxycodone or morphine), it is critical to understand the possible side effects and risks of opioid pain medications. Even when taken as directed, opioids can have several side effects including: Tolerance, meaning you might need to take more of a medication for the same pain relief. Nausea, vomiting and/or constipation. Sleepiness, dizziness, dry mouth, confusion, depression or itching. Physical dependence, meaning you have withdrawal symptoms when a medication is stopped ? this can develop within a few days. KNOW YOUR RESPONSIBILITIES It is important to know exactly how much and how often to take the opioid pain medications you are prescribed. Never take opioids in higher amounts or more often than prescribed. Do not combine opioids with alcohol or other drugs that cause drowsiness, such as benzodiazepines, also known as benzos, including diazepam and alprazolam, muscle relaxants or sleep aids. Never sell or share prescription opioids. This is illegal. Store opioids in a secure place and out of reach of others (including children, family, friends and visitors). The last page(s) of this document has been signed and retained as a CHART COPY Signatures Patient Education Materials Chest Pain, Uncertain Cause Medication Leaflets My discharge plan and instructions have been reviewed and explained to me and I,SADE CALDERÓN understand my current condition and have read and understand these discharge instructions. I have received a written copy of the plan/instructions. If I have questions, I am aware that I should contact my doctor. 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 There is no lung infiltrate or edema. No pneumothorax or pleural fluid is present. The skeletal structures are unremarkable. IMPRESSION: No acute cardiopulmonary process. Interpreted by: Angel Russell MD Preliminary Report By: Angel Russell MD Electronically signed By Angel Russell MD Dictated Date: 01/03/2025 6:31:56 AM Prelim Date: 01/03/2025 6:32:37 AM Sign Date: 01/03/2025 6:32:37 AM Ordering Provider: MAGGIE RUGGIERO [facility]02-14-2025 Note* Exam Date Time Procedure Performing Provider Status 01/03/25 5:57 AM EKG [ED AOH] - CV MAGGIE RUGGIERO DO; A uth (Verified) ECG Final Report Sinus tachycardia Biatrial enlargement Baseline wander in lead(s) V2,V3 Compared to ECG at 11/19/2021 00:34:31 Electronic Signature: MAGGIE RUGGIERO DO 01/03/2025 06:22:39 [facility]11-30-2024 NoteDischarge Instructions Discharge Summary [address] [place] [address] [id number] 10/19/2024 Patient: SADE CALDERÓN Sex: Female : 1990 Age: 33y Thank you for visiting [facility]. You have been evaluated today by Casey Jade D.O. for the following condition(s): Principal Diagnosis Sprain of the right radiocarpal joint. Muscle strain of the low back. INSTRUCTIONS Apply ice. Elevate affected areas above chest level. Wear cock-up splint until better. Limit use ofyour hand. Warnings: GENERAL WARNINGS: Return or contact your physician immediately if your condition worsens or changes unexpectedly, if not improving as expected, or if other problems arise. Prescription Medications: ketorolac 10 mg tablet: Take 1 tablet by mouth every eight hours as needed for pain for 5 days, dispense 15 tablet. Refills 0. Pharmacy: [facility] [id number] [place] [address]. Understanding of the discharge instructions verbalized by patient. Follow-up with: Heather Adames NP, [facility], Phone: [phone], [address] [address]. Follow up in three days even if well. Call for an appointment. Reason for referral: evaluation and treatment. Summary of care provided to patient. 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 [address] [phone] 10/19/2024 Patient: SADE CALDERÓN Sex: Female : 1990 Age: 33y Thank you for visiting [facility]. You have been evaluated today by Casey Jade D.O. for the following condition(s): Principal Diagnosis Sprain of the right radiocarpal joint. Muscle strain of the low back. INSTRUCTIONS Apply ice. Elevate affected areas above chest level. Wear cock-up splint until better. Limit use ofyour hand. Warnings: GENERAL WARNINGS: Return or contact your physician immediately if your condition worsens or changes unexpectedly, if not improving as expected, or if other problems arise. Prescription Medications: 2 of 7 Discharge Instructions ketorolac 10 mg tablet: Take 1 tablet by mouth every eight hours as needed for pain for 5 days, dispense 15 tablet. Refills 0. Pharmacy: [facility] [id number] [place] [address]. Understanding of the discharge instructions verbalized by patient. Follow-up with: Heather Adames NP, [facility], Phone: [phone], [address] [facility] [address], [place] [address]. Follow up in three days even if well. Call for an appointment. Reason for referral: evaluation and treatment. Summary of care provided to patient. ADDITIONAL INFORMATION Wrist Sprain A sprain is an injury to the ligaments or capsule that holds a joint together. There are no broken bones. Most sprains take about 3 to 6 weeks to heal. If it a severe sprain where the ligament is completely torn, it can take months to recover. Most wrist sprains are treated with a splint, wrist brace, or elastic wrap for support. Severe sprains may require surgery. Home care Keep your arm elevated to reduce pain and swelling. This is very important during the first 48 hours. Apply an ice pack over the injured area for 15 to 20 minutes every 3 to 6 hours. You should do thisfor the first 24 to 48 hours. You can make an ice pack by filling a plastic bag that seals at the top with ice cubes and then wrapping it with a thin towel. Continue to use ice packs for relief of pain and swelling as needed. As the ice melts, be careful to avoid getting your wrap, splint, or cast wet. After 48 hours, applyheat (warm shower or warm bath) for 15 to 20 minutes several times a day, or alternate ice and heat. You may use [id number] pain medicine to control pain, unless another pain medicine was prescribed. If you have chronic liver or kidney disease or ever had a stomach ulcer or gastrointestinal bleeding, talk with your doctor before using these medicines. If you were given a splint or brace, wear it for the time advised by your doctor. 3 of 7 Discharge Instructions Follow-up care Follow up with your healthcare provider, or as advised. Any X-rays you had today don't show any broken bones, breaks, or fractures. Sometimes fractures don't show up on the first X-ray. Bruises and sprains cansometimes hurt as much as a fracture. These injuries can take time to heal completely. If your symptoms don'timprove o (more content not included)...[facility]05-23-2024 NoteHNO ID: [id number] Author: JESSICA ALEXANDER, PhD Service: ? Author Type: Psychologist Type: Progress Notes Filed: 04/11/2024 16:58 Note Text: [facility] METABOLIC/BARIATRIC SURGERY (MBS) BEHAVIORAL HEALTH EVALUATION Patient name: Sade Calderón Date of service: April 11, 2024 Time of service: 11:02 AM - 12:06 PM Cost center: [facility] CPT code(s): - 48255 Brief Emotional/Behavioral Assessment with scoring/documentation - [id number] Virtual Psych Diagnostic Eval Session #: 1 Collateral parties present: none The patient e-signed the Informed Consent for Psychological Evaluation AND Care Form in preparation for this visit. The behavioral health care insurance benefits, fees for service, emergency procedures, and limits to confidentiality were discussed with the patient, and she was given a chance to ask questions. The patient was provided with a copy of the consent form via [employer]. I have communicated my name and active licensure. The patient's identity (name, ) and physical location were verified at the time of this visit. Either the patient or their legal malt liquors sales representative has been informed of the risks and benefits of -- and alternatives to -- treatment through a remote evaluation and consents to proceed with the evaluation remotely. Upon completion of risk/benefit analysis, the patient's presenting problem and apparent condition are considered appropriate for virtual format. The patient does appear to have sufficient knowledge and skills in the use of relevant technology to benefit from virtual format. Platform: [employer] Address of patient during visit: home IDENTIFYING INFORMATION Ms. Sade Calderón is a 33 year old, female who was referred by Dr. Ndiaye. She is seeking gastric sleeve for Class II obesity. WEIGHT HISTORY Ms. Calderón described her weight as a child as not terrible, until I became an older teenager. Her self-reported weight at age 17 was 160-170 lbs. The patient reports the following factors as having contributed to her weight: I was in a relationship for 16 years. He became very dependent on drugs. I think that kind of took a toll on me. Was eating to cope with depression and anxiety. The patient reports a family history of overweight/obesity. Estimated body mass index is 38.96 kg/m? as calculated from the following: Height as of 04/10/24: 157.5 cm (5' 2). Weight as of 04/10/24: 96.6 kg (213 lb). The patient has tried the following weight loss strategies in the past: phentermine, topiramate, gym/exercise, self-directed diet, and following meal plan. The most weight patient has lost is ~10 lbs with meal plan, and then I ended up gaining that back. Ms. Calderón reported she has been considering MBS for a few months. I was pretty scared until I had a couple friends who got it. CAPACITY TO CONSENT Ms. Calderón evidences the following concerns regarding capacity to consent: none noted. MEDICAL PROBLEMS ACTIVE PROBLEM LIST Submandibular Gland Infection Tobacco Use Obesity, Class II, Bmi 35-39.9 Syncope History of Endometriosis Gastroesophageal Reflux Disease Back Pain Seizures (Hcc) Hypertriglyceridemia Primary Hypertension Past surgeries? Yes PAST SURGICAL HISTORY Procedure Laterality Date APPENDECTOMY HYSTERECTOMY HX 11/2016 PAST SURGICAL HISTORY OF 03/2015 laparoscopy - endometriosis PAST SURGICAL HISTORY OF excision left submandibular gland REMOVAL GALLBLADDER TONSILLECTOMY AND ADENOIDECTOMY HX History of psychological complications post-surgery? No MEDICATIONS Current Outpatient Medications Medication Sig topiramate (TOPAMAX) 200 mg tablet Take 1 tablet by mouth every 12 hours. Pregabalin (LYRICA) 200 mg capsule Take 200 mg by mouth three times a day. ALPRAZolam (XANAX) 0.5 mg tablet Take 0.5 mg by mouth once daily as needed for anxiety. busPIRone (BUSPAR) 15 mg tablet Take 1 tablet by mouth every 12 hours. Phentermine HCl 15 mg capsule Take 1 capsule by mouth every afternoon. ibuprofen (MOTRIN) 800 mg tablet Take 1 tablet by mouth every 8 hours as needed for Pain. PEDIATRIC MULTIVIT COMB. NO.49 ([employer] GUMMIES ORAL) Take by mouth. No current facility-administered medications for this visit. ALLERGIES ALLERGIES Allergen Reactions Levetiracetam Rash Penicillin G Contraindication-Medical Surgical Parents told her that she has an allergy to Penicillin. Penicillins Shortness of Breath Tramadol Rash PSYCHOSOCIAL HISTORY FAMILY OF ORIGIN Ms. Calderón was born in [place], [place] and raised by her biological parents. She described her childhood as My mom was a really, really bad drug addict. Until the last 2 years of her life, I can hardly remember a time when she was a present mother, so it was kind of all on my dad. The patient had 1 younger brother. He has a weight issue, too. The patient's father and brother are still jennifer (more content not included)... [facility]05-22-2024 NoteHNO ID: [id number] Author: ANGELA DIAZ APRN.[facility] Service: ? Author Type: Nurse Practitioner Type: Progress Notes Filed: 04/10/2024 13:59 Note Text: I have communicated my name and active licensure. The patient's identity and physical location were verified at the time of this visit. Either the patient or their legal malt liquors sales representative has been informed of the risks and benefits of -- and alternatives to -- treatment through a remote evaluation and consents to proceed with the evaluation remotely. BMI MEDICAL CONSULT I have communicated my name and active licensure. The patient's identity and physical location were verified at the time of this visit. Either the patient or their legal malt liquors sales representative has been informed of the risks and benefits of -- and alternatives to -- treatment through a remote evaluation and consents to proceed with the evaluation remotely. History of Present Illness 33 year old year old female presents on April 10, 2024 for medical evaluation prior to anticipated surgical/medical treatment of obesity. The patient is interested in TBD with Dr. Ndiaye. Last 2 Encounter Wt Readings: Date: Wt: 04/10/2024 96.6 kg (213 lb) 03/15/2017 91.4 kg (201 lb 6.4 oz) Body mass index is 38.96 kg/m?. Nutritional History Age of onset: childhood noted but moreso in adulthood Rate of weight gain: gradual Inciting factors: unsure Minimum weight: 172 lbs Maximum weight: 222 lbs How long at current weight: years Eating disorders? (bulimia, anorexia, binge eating?) no Family history of obesity? yes Diet: 24 hour dietary recall: -B: skips or honey bunches of oats cereal -L: skips or sandwich -D: protein, veggie, roll -snacks: strawberries or other fruits, chips -beverages: mountain dew Prior weight loss attempts:Physician supervised weight loss medication, gym membership, and Self diets Maximum weight lost: ? Exercise: active at home - a lot of land and animals Functional Capacity: -Walk 4 blocks on level ground without symptoms? Yes -Climb 2 flights of stairs without symptoms? Yes -Heavy housework without symptoms? Yes Previous stress testing/cardiac testing and why? Yes 2022 admitted Morbid obesity, obesity mortality risk score: none Sleep apnea screen: S-snore? Yes T-feel tired, fatigued, daytime sleepiness? Yes O-observed patient stop breathing during sleep? No P-does patient have, or being treated for high blood pressure? Yes B-is BMI >35? Yes A-Age >50 No N-Neck circumference >15.75 inches? No G-Male gender? No Computed NAFLD Fibrosis Score unavailable. One or more values for this score either were not found within the given timeframe or did not fit some other criterion. PAST MEDICAL HISTORY Diagnosis Date Endometriosis 2014 by peritoneal biopsy topiramate (TOPAMAX) 200 mg tablet Take 1 tablet by mouth every 12 hours. Pregabalin (LYRICA) 200 mg capsule Take 200 mg by mouth three times a day. ALPRAZolam (XANAX) 0.5 mg tablet Take 0.5 mg by mouth once daily as needed for anxiety. busPIRone (BUSPAR) 15 mg tablet Take 1 tablet by mouth every 12 hours. Phentermine HCl 15 mg capsule Take 1 capsule by mouth every afternoon. ibuprofen (MOTRIN) 800 mg tablet Take 1 tablet by mouth every 8 hours as needed for Pain. PEDIATRIC MULTIVIT COMB. NO.49 (FL[employer]ES GUMMIES ORAL) Take by mouth. ALLERGIES Allergen Reactions Levetiracetam Rash Penicillin G Contraindication-Medical Surgical Parents told her that she has an allergy to Penicillin. Penicillins Shortness of Breath Tramadol Rash PAST SURGICAL HISTORY Procedure Laterality Date APPENDECTOMY HYSTERECTOMY HX 11/2016 PAST SURGICAL HISTORY OF 03/2015 laparoscopy - endometriosis PAST SURGICAL HISTORY OF excision left submandibular gland REMOVAL GALLBLADDER TONSILLECTOMY AND ADENOIDECTOMY HX Social History Tobacco Use Smoking status: Former Packs/day: 0.50 Years: 7.00 Additional pack years: 0.00 Total pack years: 3.50 Types: Cigarettes Quit date: 05/20/2023 Years since quittin.8 Smokeless tobacco: Never Tobacco comments: social smoker Substance Use Topics Alcohol use: No Drug use: No FAMILY HISTORY Problem Relation Age of Onset Diabetes Mother Diabetes Father Diabetes Paternal Grandfather Diabetes Maternal Grandmother REVIEW OF SYSTEMS: Skin: negative Respiratory: No history of cough, hemoptysis, asthma, recent chest infection, wheezing Cardiovascular: No history of chest pain,palpitation,orthopnea,cynosis,pedel edema Gastrointestinal: +GERD Genitourinary: No burning with urination, blood in urine or incontinence. No change in vaginal discharge, burning, dryness or itching. Hematology/Lymphology Negative for prolonged bleeding, bruising easily or swollen nodes. Musculoskeletal: negative Psychiatric: negative Endocrine: No history of thyroid disorder,diabetes Neuro: +seizures on topiramate OBJECTIVE: Ht 157.5 c (more content not included)...[facility]05-22-2024 History of Present illness Narrative* Angela Diaz, LINNEA.[facility] - 04/10/2024 12:58 PM EDT Images from the original note were not included. I have communicated my name and active licensure. The patient's identity and physical location wereverified at the time of this visit. Either the patient or their legal malt liquors sales representative has been informed of the risks and benefits of -- and alternatives to -- treatment through a remote evaluation andconsents to proceed with the evaluation remotely. BMI MEDICAL CONSULT I have communicated my name and active licensure. The patient's identity and physical location wereverified at the time of this visit. Either the patient or their legal malt liquors sales representative has been informed of the risks and benefits of -- and alternatives to -- treatment through a remote evaluation andconsents to proceed with the evaluation remotely. History of Present Illness 33 year old year old female presents on April 10, 2024 for medical evaluation prior to anticipated surgical/medical treatment of obesity. The patient is interested in TBD with Dr. Ndiaye. Last 2 Encounter Wt Readings: Date: Wt: 04/10/2024 96.6 kg (213 lb) 03/15/2017 91.4 kg (201 lb 6.4 oz) Body mass index is 38.96 kg/m . Nutritional History Age of onset: childhood noted but moreso in adulthood Rate of weight gain: gradual Inciting factors: unsure Minimum weight: 172 lbs Maximum weight: 222 lbs How long at current weight: years Eating disorders? (bulimia, anorexia, binge eating?) no Family history of obesity? yes Diet: 24 hour dietary recall: -B: skips or honey bunches of oats cereal -L: skips or sandwich -D: protein, veggie, roll -snacks: strawberries or other fruits, chips -beverages: mountain dew Prior weight loss attempts:Physician supervised weight loss medication, gym membership, and Self diets Maximum weight lost: ? Exercise: active at home - a lot of land and animals Functional Capacity: -Walk 4 blocks on level ground without symptoms? Yes -Climb 2 flights of stairs without symptoms? Yes -Heavy housework without symptoms? Yes Previous stress testing/cardiac testing and why? Yes 2022 admitted Morbid obesity, obesity mortality risk score: none Sleep apnea screen: S-snore? Yes T-feel tired, fatigued, daytime sleepiness? Yes O-observed patient stop breathing during sleep? No P-does patient have, or being treated for high blood pressure? Yes B-is BMI >35? Yes A-Age >50 No N-Neck circumference >15.75 inches? No G-Male gender? No Computed NAFLD Fibrosis Score unavailable. One or more values for this score either were not found within the given timeframe or did not fit some other criterion. PAST MEDICAL HISTORY Diagnosis Date Endometriosis 2014 by peritoneal biopsy topiramate (TOPAMAX) 200 mg tablet Take 1 tablet by mouth every 12 hours. Pregabalin (LYRICA) 200 mg capsule Take 200 mg by mouth three times a day. ALPRAZolam (XANAX) 0.5 mg tablet Take 0.5 mg by mouth once daily as needed for anxiety. busPIRone (BUSPAR) 15 mg tablet Take 1 tablet by mouth every 12 hours. Phentermine HCl 15 mg capsule Take 1 capsule by mouth every afternoon. ibuprofen (MOTRIN) 800 mg tablet Take 1 tablet by mouth every 8 hours as needed for Pain. PEDIATRIC MULTIVIT COMB. NO.49 (FL[employer]ES GUMMIES ORAL) Take by mouth. ALLERGIES Allergen Reactions Levetiracetam Rash Penicillin G Contraindication-Medical Surgical Parents told her that she has an allergy to Penicillin. Penicillins Shortness of Breath Tramadol Rash PAST SURGICAL HISTORY Procedure Laterality Date APPENDECTOMY HYSTERECTOMY HX 11/2016 PAST SURGICAL HISTORY OF 03/2015 laparoscopy - endometriosis PAST SURGICAL HISTORY OF excision left submandibular gland REMOVAL GALLBLADDER TONSILLECTOMY AND ADENOIDECTOMY HX Social History Tobacco Use Smoking status: Former Packs/day: 0.50 Years: 7.00 Additional pack years: 0.00 Total pack years: 3.50 Types: Cigarettes Quit date: 05/20/2023 Years since quittin.8 Smokeless tobacco: Never Tobacco comments: social smoker Substance Use Topics Alcohol use: No Drug use: No FAMILY HISTORY Problem Relation Age of Onset Diabetes Mother Diabetes Father Diabetes Paternal Grandfather Diabetes Maternal Grandmother REVIEW OF SYSTEMS: Skin: negative Respiratory: No history of cough, hemoptysis, asthma, recent chest infection, wheezing Cardiovascular: No history of chest pain,palpitation,orthopnea,cynosis,pedel edema Gastrointestinal: +GERD Genitourinary: No burning with urination, blood in urine or incontinence. No change in vaginal discharge, burning, dryness or itching. Hematology/Lymphology Negative for prolonged bleeding, bruising easily or swollen nodes. Musculoskeletal: negative Psychiatric: negative Endocrine: No history of thyroid disorder,diabetes Neuro: +seizures on topiramate OBJECTIVE: Ht 157.5 cm (5' 2) Wt 96.6 kg (213 lb) LMP 04/11/2015 (Approximate) BMI 38.96 kg/m Body mass index is 38.96 kg/m . Video Visit General appearance: STEW Vital review: 09/20/2023 EKG shows NSR 09/20/23 CXR normal 06/26/2023 stress test wnl, EF 63% ASSESSMENT: Reviewed principles of energy metabolism, caloric intake and expenditure, and rationalefor treatment program. Also reinforced need for reduced calorie, low fat diet and increased physical activity. Patient is a good candidate for bariatric surgery. Patient education provided regarding procedures,behavior modification, risk and benefits of surgery, current choice for TBD. ASSESSMENT/PLAN: 1. Obesity, Class II, BMI 35-39.9 - ICD9: 278.00, ICD10: E66.9 (primary diagnosis) Currently rx'd phentermine by pcp - has only taken 2-3 days however, I did discuss with her that this medication is contraindicated in seizures - she will discuss further with her pcp - COMPLETE BLOOD COUNT AND DIFFERENTIAL - COMPREHENSIVE METABOLIC PANEL - FERRITIN - FOLATE, SERUM - HEMOGLOBIN A1C - IRON AND TIBC - LIPID PANEL BASIC - NT PRO BNP - THYROID STIMULATING HORMONE - VITAMIN B1 (THIAMINE), WHOLE BLOOD - VITAMIN B12 - VITAMIN D 25 HYDROXY - CONSULT TO SLEEP MEDICINE - ADULT - POLYSOMNOGRAM (PSG) - HCG, QUALITATIVE, URINE - NICOTINE & METAB, UR - TOXICOLOGY SCREEN, ROUTINE URINE 2. Seizures (HCC) - ICD9: 780.39, ICD10: R56.9 On topiramate, pregabalin 3. Gastroesophageal reflux disease, unspecified whether esophagitis present - ICD9: 530.81, ICD10: K21.9 No meds currently, no EGD 4. Hypertriglyceridemia - ICD9: 272.1, ICD10: E78.1 Noted in [facility] Was previously on meds, she is unsure why she is not taking any now - she will discuss with her pcp - Counseled on healthy diet and regular exercise - LIPID PANEL BASIC 5. Primary hypertension - ICD9: 401.9, ICD10: I10 Unable to see recent bps; no meds currently, was previously - COMPREHENSIVE METABOLIC PANEL - CONSULT TO SLEEP MEDICINE - ADULT - POLYSOMNOGRAM (PSG) She is meeting with her PCP shortly and will discuss the HTN, hypertriglycerides, and sleep apnea for local testing. Advised to send to me. [employer] message sent to her. Angela Diaz APRN.HUMAN RESOURCES CONSULTANT -- Recommend that she should not become for 18-24 months after surgery due to increased risks of micronutrient deficiency. I counseled her on the perioperative use of estrogen therapy, instructing her not to take oral estrogen (eg OCPs) one month before and one month after surgery due to increased VTE risk. We reviewed alternate forms of contraception and encouraged the patient to speak with her physician/provider to formulate a perioperative plan. If she is considering a Robin-en Y gastric bypass, I counseled her that oral methods of control may not be as effective after surgery and that they should consider alternate contraception to reduce the risk of . Had hysterjessica tate. I spent a total of 60 minutes on the date of the service which included preparing to see the patient, completing clinical documentation, obtaining and/or reviewing separately obtained history, performing a medically appropriate examination, counseling and educating the patient/family/caregiver, ordering medications, tests, or procedures, communicating with other HCPs (not separately reported), independently interpreting results (not separately reported), and care coordination (not separately reported). BMI Surgical Pathway Visit type: Obesity Medicine [facility] Patient Education 06/27/2023 14:23:58 Sciatica Sciatica Sciatica is a condition that causes pain in the lower back that spreads down into the buttock, hip,and leg. Sometimes the leg pain can happen without any back pain. Sciatica happens when a spinal nerve is irritated or has pressure put on it as comes out of the spinal canal in the lower back. This most often happens when a bulge or rupture of a nearby spinal disk presses on the nerve. Sciatica can also be caused by a narrowing of the spinal canal (spinal stenosis) or spasm of the muscle in the buttocks that the sciatic nerve passes through (pyriform muscle). Sciatica is also called lumbar radiculopathy. Sciatica may begin after a sudden twisting or bending force, such as in a car accident. Or it can happen after a simple awkward movement. In either case, muscle spasm often also happens. Muscle spasmmakes the pain worse. A healthcare provider makes a diagnosis of sciatica from your symptoms and a physical exam. Unless you had an injury from a car accident or fall, you usually won t have X-rays taken at this time. This is because the nerves and disks in your back can t be seen on an X-ray. If the provider sees signsof a compressed nerve, you will need to schedule an MRI scan as an outpatient. Signs of a compressed nerve include loss of strength in a leg. Most sciatica gets better with medicine, exercise, and physical therapy. If your symptoms continue after at least 3 months of medical treatment, you may need surgery or injections to your lower back. Home care Follow these tips when caring for yourself at home: You may need to stay in bed the first few days. But as soon as possible, begin sitting up or walking. This will help you avoid problems that come from staying in bed for long periods. When in bed, try to find a position that is comfortable. A firm mattress is best. Try lying flat onyour back with pillows under your knees. You can also try lying on your side with your knees bent up toward your chest and a pillow between your knees. Avoid sitting for long periods. This puts more stress on your lower back than standing or walking. Use heat from a hot shower, hot bath, or heating pad to help ease pain. Massage can also help. You can also try using an ice pack. You can make your own ice pack by putting ice cubes in a plastic bag. Wrap the bag in a thin towel. Try both heat and cold to see which works best. Use the method that feels best for 20 minutes several times a day. You may use acetaminophen or ibuprofen to ease pain, unless another pain medicine was prescribed. Note: If you have chronic liver or kidney disease, talk with your healthcare provider before taking these medicines. Also talk with your provider if you ve had a stomach ulcer or gastrointestinal bleeding. Use safe lifting methods. Don t lift anything heavier than 15 pounds until all of the pain is gone. Follow-up care Follow up with your healthcare provider, or as advised. You may need physical therapy or additionaltests. If X-rays were taken, a radiologist will look at them. You will be told of any new findings that may affect your care. When to seek medical advice Call your healthcare provider right away if any of these occur: Pain gets worse even after taking prescribed medicine Weakness or numbness in 1 or both legs or hips Numbness in your groin or genital area You can t control your bowel or bladder Fever Redness or swelling over your back or spine [phone] [employer]. [address] [place] [address]. All rights reserved. This information is not intended as a substitute for professional medical care. Always follow yourhealthcare professional's instructions. 06/27/2023 14:23:24 Back Care Tips Back Care Tips Caring for your back These are things you can do to prevent a recurrence of acute back pain and to reduce symptoms from chronic back pain: Maintain a healthy weight. If you are overweight, losing weight will help most types of back pain. Exercise is an important part of recovery from most types of back pain. The muscles behind and in front of the spine support the back. This means strengthening both the back muscles and the abdominalmuscles will provide better support for your spine. Swimming and brisk walking are good overall exercises to improve your fitness level. Practice safe lifting methods (below). Practice good posture when sitting, standing and walking. Avoid prolonged sitting. This puts more stress on the lower back than standing or walking. Wear quality shoes with sufficient arch support. Foot and ankle alignment can affect back symptoms.Women should avoid wearing high heels. Therapeutic massage can help relax the back muscles without stretching them. During the first 24 to 72 hours after an acute injury or flare-up of chronic back pain, apply an ice pack to the painful area for 20 minutes and then remove it for 20 minutes, over a period of 60 to 90 minutes, or several times a day. As a safety precaution, do not use a heating pad at bedtime. Sleeping on a heating pad can lead to skin rodarte or tissue damage. You can alternate ice and heat therapies. Medicines Talk to your healthcare provider before using medicines, especially if you have other medical problems or are taking other medicines. You may use acetaminophen or ibuprofen to control pain, unless your healthcare provider prescribed other pain medicine. If you have chronic conditions like diabetes, liver or kidney disease, stomach ulcers, or gastrointestinal bleeding, or are taking blood thinners, talk with your healthcare provider before taking any medicines. Be careful if you are given prescription pain medicines, narcotics, or medicine for muscle spasm. They can cause drowsiness, affect your coordination, reflexes, and judgment. Do not drive or operate heavy machinery while taking these types of medicines. Take prescription pain medicine only as prescribed by your healthcare provider. Lumbar stretch Here is a simple stretching exercise that will help relax muscle spasm and keep your back more limber. If exercise makes your back pain worse, don t do it. Lie on your back with your knees bent and both feet on the ground. Slowly raise your left knee to your chest as you flatten your lower back against the floor. Hold for 5 seconds. Relax and repeat the exercise with your right knee. Do 10 of these exercises for each leg. Safe lifting method Don t bend over at the waist to lift an object off the floor. Instead, bend your knees and hips in a squat. Keep your back and head upright Hold the object close to your body, directly in front of you. Straighten your legs to lift the object. Lower the object to the floor in the reverse fashion. If you must slide something across the floor, push it. Posture tips Sitting Sit in chairs with straight backs or low-back support. Keep your knees lower than your hips, with your feet flat on the floor. When driving, sit up straight. Adjust the seat forward so you are not leaning toward the steering wheel. A small pillow or rolled towel behind your lower back may help if you are driving long distances. Standing When standing for long periods, shift most of your weight to one leg at a time. Alternate legs every few minutes. Sleeping The best way to sleep is on your side with your knees bent. Put a low pillow under your head to support your neck in a neutral spine position. Avoid thick pillows that bend your neck to one side. Puta pillow between your legs to further relax your lower back. If you sleep on your back, put pillowsunder your knees to support your legs in a slightly flexed position. Use a firm mattress. If your mattress sags, replace it, or use a 1/2-inch plywood board under the mattress to add support. Follow-up care Follow up with your healthcare provider, or as advised. If X-rays, a CT scan or an MRI scan were taken, they will be reviewed by a radiologist. You will benotified of any new findings that may affect your care. Call 911 Call 911 if any of the following occur: Trouble breathing Confusion Very drowsy Fainting or loss of consciousness Rapid or very slow heart rate Loss of bowel or bladder control When to seek medical advice Call your healthcare provider right away if any of the following occur: Pain becomes worse or spreads to your arms or legs Weakness or numbness in one or both arms or legs Numbness in the groin area [phone] [employer]. [address] [place] [id number]. All rights reserved. This information is not intended as a substitute for professional medical care. Always follow yourhealthcare professional's instructions. 06/27/2023 14:23:18 Back Exercises, Lumbar Exercises to Strengthen Your Lower Back Strong lower back and abdominal muscles work together to support your spine. The exercises below will help strengthen the lower back. It is important that you begin exercising slowly and increase levels gradually. Always begin any exercise program with stretching. If you feel pain while doing any of these exercises, stop and talk to your doctor about a more specific exercise program that better suits your condition. Low back stretch The point of stretching is to make you more flexible and increase your range of motion. Stretch only as much as you are able. Stretch slowly. Do not push your stretch to the limit. If at any point you feel pain while stretching, this is your (temporary) limit. Lie on your back with your knees bent and both feet on the ground. Slowly raise your left knee to your chest as you flatten your lower back against the floor. Hold for 5 seconds. Relax and repeat the exercise with your right knee. Do 10 of these exercises for each leg. Repeat hugging both knees to your chest at the same time. Building lower back strength Start your exercise routine with 10 to 30 minutes a day, 1 to 3 times a day. Initial exercises Lying on your back: 1. Ankle pumps: Move your foot up and down, towards your head, and then away. Repeat 10 times with each foot. 2. Heel slides: Slowly bend your knee, drawing the heel of your foot towards you. Then slide your heel/foot from you, straightening your knee. Do not lift your foot off the floor (this is not a leg lift). 3. Abdominal contraction: Bend your knees and put your hands on your stomach. Tighten your stomach muscles. Hold for 5 seconds, then relax. Repeat 10 times. 4. Straight leg raise: Bend one leg at the knee and keep the other leg straight. Tighten your stomach muscles. Slowly lift your straight leg 6 to 12 inches off the floor and hold for up to 5 seconds.Repeat 10 times on each side. Standin. Wall squats: Stand with your back against the wall. Move your feet about 12 inches away from thewall. Tighten your stomach muscles, and slowly bend your knees until they are at about a 45 degree angle. Do not go down too far. Hold about 5 seconds. Then slowly return to your starting position. Repeat 10 times. 2. Heel raises: Stand facing the wall. Slowly raise the heels of your feet up and down, while keeping your toes on the floor. If you have trouble balancing, you can touch the wall with your hands. Repeat 10 times. More advanced exercises When you feel comfortable enough, try these exercises. 1. Kneeling lumbar extension: Begin on your hands and knees. At the same time, raise and straightenyour right arm and left leg until they are parallel to the ground. Hold for 2 seconds and come backslowly to a starting position. Repeat with left arm and right leg, alternating 10 times. 2. Prone lumbar extension: Lie face down, arms extended overhead, palms on the floor. At the same time, raise your right arm and left leg as high as comfortably possible. Hold for 10 seconds and slowly return to start. Repeat with left arm and right leg, alternating 10 times. Gradually build up to 20 times. (Advanced: Repeat this exercise raising both arms and both legs a few inches off the floorat the same time. Hold for 5 seconds and release.) 3. Pelvic tilt: Lie on the floor on your back with your knees bent at 90 degrees. Your feet should be flat on the floor. Inhale, exhale, then slowly contract your abdominal muscles bringing your navel toward your spine. Let your pelvis rock back until your lower back is flat on the floor. Hold for 10 seconds while breathing smoothly. 4. Abdominal crunch: Perform a pelvic tilt (above) flattening your lower back against the floor. Holding the tension in your abdominal muscles, take another breath and raise your shoulder blades off the ground (this is not a full sit- up). Keep your head in line with your body (don t bend your neck forward). Hold for 2 seconds, then slowly lower. [id number] [employer]. [address] [place] [address]. All rights reserved. This information is not intended as a substitute for professional medical care. Always follow yourhealthcare professional's instructions. Follow Up Care 06/27/2023 12:58:17 With:KALIA CARR MD, Neurosurgery Address: [address] [phone] When:2-4 days Comments:Schedule appointment as soon as possible With:USMAN SAINZ MD, Neurology Service Address: [facility] [place] [address]- When:2-4 days Comments:Schedule appointment as soon as possible With:SARAH BETH BAKER DO Address: [address] [place] [phone] When:2-4 days Comments:Schedule appointment as soon as possible [facility] 08-08-2023 Emergency department Discharge summary Discharge Instructions Thank you for allowing [facility] to assist you with your healthcare needs. The following is importantdischarge information regarding your hospital visit. Diagnosis from Today's Visit Back pain What to Do Next Instructions from Your Care Team No qualifying data available. Post Acute Orders No qualifying data available. You Need to Schedule the Following Appointments Follow Up with KALIA CARR MD, Neurosurgery When Within 2-4 days Why: Schedule appointment as soon as possible Where: [address] [place] [phone] Follow Up with USMAN SAINZ MD, Neurology Service When Within 2-4 days Why: Schedule appointment as soon as possible Where: [place] [address]- Follow Up with SARAH BETH BAKER DO When Within 2-4 days Why: Schedule appointment as soon as possible Where: [address] [place] [phone] Allergies penicillin (Unknown) Medications Please ask your primary doctor or pharmacist before taking any other medication not listed, including over the counter drugs, herbal medications, vitamins and or supplements as they may interact withur home medications. What How Much When Why Instructions Last Dose New cyclobenzaprine (cyclobenzaprine 5 mg oral tablet) 1 tab(s) by mouth Three (3) times a day as needed for Muscle spasm Duration: 3 Days Printed Prescription New predniSONE (predniSONE 10 mg oral tablet) 3 tab(s) by mouth Two (2) times a day Duration: 5 Days Printed Prescription Unchanged albuterol (albuterol MDI (90 mcg/ inh) CFC free inhalation aerosol) 2 puff(s) by inhalation Every 4 hours as needed for Shortness of breath or wheezing Viral syndrome Bronchitis Duration: 30 Days Unchanged baclofen (baclofen 20 mg oral tablet) 1 tab(s) by mouth Three (3) times a day Duration: 5 Days Unchanged clindamycin Unchanged etodolac (etodolac 400 mg oral tablet) 1 tab(s) by mouth Three (3) times a day Duration: 7 Days Unchanged topiramate (topiramate 100 mg oral tablet) Please take this list to your next doctor s visit. Bring all medications you take, including over the counter medications, herbals and other supplements with you to your doctor s visit. Patients and families are reminded to discard old lists and to update any records with all medication providers or retail pharmacies. Education Materials Sciatica Sciatica is a condition that causes pain in the lower back that spreads down into the buttock, hip,and leg. Sometimes the leg pain can happen without any back pain. Sciatica happens when a spinal nerve is irritated or has pressure put on it as comes out of the spinal canal in the lower back. This most often happens when a bulge or rupture of a nearby spinal disk presses on the nerve. Sciatica can also be caused by a narrowing of the spinal canal (spinal stenosis) or spasm of the muscle in the buttocks that the sciatic nerve passes through (pyriform muscle). Sciatica is also called lumbar radiculopathy. Sciatica may begin after a sudden twisting or bending force, such as in a car accident. Or it can happen after a simple awkward movement. In either case, muscle spasm often also happens. Muscle spasmmakes the pain worse. A healthcare provider makes a diagnosis of sciatica from your symptoms and a physical exam. Unless you had an injury from a car accident or fall, you usually won t have X-rays taken at this time. This is because the nerves and disks in your back can t be seen on an X-ray. If the provider sees signsof a compressed nerve, you will need to schedule an MRI scan as an outpatient. Signs of a compressed nerve include loss of strength in a leg. Most sciatica gets better with medicine, exercise, and physical therapy. If your symptoms continue after at least 3 months of medical treatment, you may need surgery or injections to your lower back. Home care Follow these tips when caring for yourself at home: You may need to stay in bed the first few days. But as soon as possible, begin sitting up or walking. This will help you avoid problems that come from staying in bed for long periods. When in bed, try to find a position that is comfortable. A firm mattress is best. Try lying flat onyour back with pillows under your knees. You can also try lying on your side with your knees bent up toward your chest and a pillow between your knees. Avoid sitting for long periods. This puts more stress on your lower back than standing or walking. Use heat from a hot shower, hot bath, or heating pad to help ease pain. Massage can also help. You can also try using an ice pack. You can make your own ice pack by putting ice cubes in a plastic bag. Wrap the bag in a thin towel. Try both heat and cold to see which works best. Use the method that feels best for 20 minutes several times a day. You may use acetaminophen or ibuprofen to ease pain, unless another pain medicine was prescribed. Note: If you have chronic liver or kidney disease, talk with your healthcare provider before taking these medicines. Also talk with your provider if you ve had a stomach ulcer or gastrointestinal bleeding. Use safe lifting methods. Don t lift anything heavier than 15 pounds until all of the pain is gone. Follow-up care Follow up with your healthcare provider, or as advised. You may need physical therapy or additionaltests. If X-rays were taken, a radiologist will look at them. You will be told of any new findings that may affect your care. When to seek medical advice Call your healthcare provider right away if any of these occur: Pain gets worse even after taking prescribed medicine Weakness or numbness in 1 or both legs or hips Numbness in your groin or genital area You can t control your bowel or bladder Fever Redness or swelling over your back or spine [id number] [employer]. [address] [place] [address], [place] [address]. All rights reserved. This information is not intended as a substitute for professional medical care. Always follow yourhealthcare professional's instructions. Back Care Tips Caring for your back These are things you can do to prevent a recurrence of acute back pain and to reduce symptoms from chronic back pain: Maintain a healthy weight. If you are overweight, losing weight will help most types of back pain. Exercise is an important part of recovery from most types of back pain. The muscles behind and in front of the spine support the back. This means strengthening both the back muscles and the abdominalmuscles will provide better support for your spine. Swimming and brisk walking are good overall exercises to improve your fitness level. Practice safe lifting methods (below). Practice good posture when sitting, standing and walking. Avoid prolonged sitting. This puts more stress on the lower back than standing or walking. Wear quality shoes with sufficient arch support. Foot and ankle alignment can affect back symptoms.Women should avoid wearing high heels. Therapeutic massage can help relax the back muscles without stretching them. During the first 24 to 72 hours after an acute injury or flare-up of chronic back pain, apply an ice pack to the painful area for 20 minutes and then remove it for 20 minutes, over a period of 60 to 90 minutes, or several times a day. As a safety precaution, do not use a heating pad at bedtime. Sleeping on a heating pad can lead to skin rodarte or tissue damage. You can alternate ice and heat therapies. Medicines Talk to your healthcare provider before using medicines, especially if you have other medical problems or are taking other medicines. You may use acetaminophen or ibuprofen to control pain, unless your healthcare provider prescribed other pain medicine. If you have chronic conditions like diabetes, liver or kidney disease, stomach ulcers, or gastrointestinal bleeding, or are taking blood thinners, talk with your healthcare provider before taking any medicines. Be careful if you are given prescription pain medicines, narcotics, or medicine for muscle spasm. They can cause drowsiness, affect your coordination, reflexes, and judgment. Do not drive or operate heavy machinery while taking these types of medicines. Take prescription pain medicine only as prescribed by your healthcare provider. Lumbar stretch Here is a simple stretching exercise that will help relax muscle spasm and keep your back more limber. If exercise makes your back pain worse, don t do it. Lie on your back with your knees bent and both feet on the ground. Slowly raise your left knee to your chest as you flatten your lower back against the floor. Hold for 5 seconds. Relax and repeat the exercise with your right knee. Do 10 of these exercises for each leg. Safe lifting method Don t bend over at the waist to lift an object off the floor. Instead, bend your knees and hips in a squat. Keep your back and head upright Hold the object close to your body, directly in front of you. Straighten your legs to lift the object. Lower the object to the floor in the reverse fashion. If you must slide something across the floor, push it. Posture tips Sitting Sit in chairs with straight backs or low-back support. Keep your knees lower than your hips, with your feet flat on the floor. When driving, sit up straight. Adjust the seat forward so you are not leaning toward the steering wheel. A small pillow or rolled towel behind your lower back may help if you are driving long distances. Standing When standing for long periods, shift most of your weight to one leg at a time. Alternate legs every few minutes. Sleeping The best way to sleep is on your side with your knees bent. Put a low pillow under your head to support your neck in a neutral spine position. Avoid thick pillows that bend your neck to one side. Puta pillow between your legs to further relax your lower back. If you sleep on your back, put pillowsunder your knees to support your legs in a slightly flexed position. Use a firm mattress. If your mattress sags, replace it, or use a 1/2-inch plywood board under the mattress to add support. Follow-up care Follow up with your healthcare provider, or as advised. If X-rays, a CT scan or an MRI scan were taken, they will be reviewed by a radiologist. You will benotified of any new findings that may affect your care. Call 911 Call 911 if any of the following occur: Trouble breathing Confusion Very drowsy Fainting or loss of consciousness Rapid or very slow heart rate Loss of bowel or bladder control When to seek medical advice Call your healthcare provider right away if any of the following occur: Pain becomes worse or spreads to your arms or legs Weakness or numbness in one or both arms or legs Numbness in the [facility] area [phone] [employer]. [address] [place] [address], [place] [address]. All rights reserved. This information is not intended as a substitute for professional medical care. Always follow yourhealthcare professional's instructions. Exercises to Strengthen Your Lower Back Strong lower back and abdominal muscles work together to support your spine. The exercises below will help strengthen the lower back. It is important that you begin exercising slowly and increase levels gradually. Always begin any exercise program with stretching. If you feel pain while doing any of these exercises, stop and talk to your doctor about a more specific exercise program that better suits your condition. Low back stretch The point of stretching is to make you more flexible and increase your range of motion. Stretch only as much as you are able. Stretch slowly. Do not push your stretch to the limit. If at any point you feel pain while stretching, this is your (temporary) limit. Lie on your back with your knees bent and both feet on the ground. Slowly raise your left knee to your chest as you flatten your lower back against the floor. Hold for 5 seconds. Relax and repeat the exercise with your right knee. Do 10 of these exercises for each leg. Repeat hugging both knees to your chest at the same time. Building lower back strength Start your exercise routine with 10 to 30 minutes a day, 1 to 3 times a day. Initial exercises Lying on your back: 1. Ankle pumps: Move your foot up and down, towards your head, and then away. Repeat 10 times with each foot. 2. Heel slides: Slowly bend your knee, drawing the heel of your foot towards you. Then slide your heel/foot from you, straightening your knee. Do not lift your foot off the floor (this is not a leg lift). 3. Abdominal contraction: Bend your knees and put your hands on your stomach. Tighten your stomach muscles. Hold for 5 seconds, then relax. Repeat 10 times. 4. Straight leg raise: Bend one leg at the knee and keep the other leg straight. Tighten your stomach muscles. Slowly lift your straight leg 6 to 12 inches off the floor and hold for up to 5 seconds.Repeat 10 times on each side. Standin. Wall squats: Stand with your back against the wall. Move your feet about 12 inches away from thewall. Tighten your stomach muscles, and slowly bend your knees until they are at about a 45 degree angle. Do not go down too far. Hold about 5 seconds. Then slowly return to your starting position. Repeat 10 times. 2. Heel raises: Stand facing the wall. Slowly raise the heels of your feet up and down, while keeping your toes on the floor. If you have trouble balancing, you can touch the wall with your hands. Repeat 10 times. More advanced exercises When you feel comfortable enough, try these exercises. 1. Kneeling lumbar extension: Begin on your hands and knees. At the same time, raise and straightenyour right arm and left leg until they are parallel to the ground. Hold for 2 seconds and come backslowly to a starting position. Repeat with left arm and right leg, alternating 10 times. 2. Prone lumbar extension: Lie face down, arms extended overhead, palms on the floor. At the same time, raise your right arm and left leg as high as comfortably possible. Hold for 10 seconds and slowly return to start. Repeat with left arm and right leg, alternating 10 times. Gradually build up to 20 times. (Advanced: Repeat this exercise raising both arms and both legs a few inches off the floorat the same time. Hold for 5 seconds and release.) 3. Pelvic tilt: Lie on the floor on your back with your knees bent at 90 degrees. Your feet should be flat on the floor. Inhale, exhale, then slowly contract your abdominal muscles bringing your navel toward your spine. Let your pelvis rock back until your lower back is flat on the floor. Hold for 10 seconds while breathing smoothly. 4. Abdominal crunch: Perform a pelvic tilt (above) flattening your lower back against the floor. Holding the tension in your abdominal muscles, take another breath and raise your shoulder blades off the ground (this is not a full sit- up). Keep your head in line with your body (don t bend your neck forward). Hold for 2 seconds, then slowly lower. [phone] [employer]. [address] [place] [address], [place] [address]. All rights reserved. This information is not intended as a substitute for professional medical care. Always follow yourhealthcare professional's instructions. Additional Information VACCINATE! IT SAVES LIVES! Members of the community who have not yet received the COVID-19 vaccine and would like to receive it can visit one of [facility] vaccine clinics. There are many vaccine clinic locations within the [facility]. For locations and available times, please visit [email or web address] It is important to note that some COVID mobile vaccine clinics are held outdoors and may be canceled in rainy or stormy conditions. To learn more about pediatric vaccinations (ages 5-11), we invite you to visit the [facility] webpage. [email or web address] learn more about the COVID-19 vaccine, we invite you to visit the CDC website for a list of frequently asked questions. https://www.cdc.gov/coronavirus/2019-ncov/vaccines/faq.html [facility] Patient Portal Access Instructions: Stay connected with your healthcare team and access your personal medical information anytime with the [facility] Patient Portal. If you would like a full copy of your medical records please contact the [facility] Medical Records Department Monday through Monday between 8a.m. and 4:30p.m. Please follow the directions below to access the portal: 1.Access the email account you provided upon registration to the hospital.2.Look for an invitation email from [facility].3.Open the email and access the invitation link: Accept Invitation to [facility].Fill in the required rodriguez to create your account. Sign into [email or web address] with your username and password that you created in the above steps to stay up to date. You can then view a summary of results, a summary of your visits, and the ability to download your summaries to your computer or send the information securely to a physician. Remember that your healthcare information is confidential, so carefully consider who you will allow to register on the [facility] Patient Portal for access to your information. You can also access the [facility] Patient Portal on the [employer] hever. Simply click on Health Records under [employer] and then click on the [facility] logo. HOW TO SAFELY DISPOSE OF PRESCRIPTION MEDICATIONS Please use one of the following methods to safely dispose of your unused medications. 1.Use a drug disposal kit: the drug disposal pouch allows you to safely discard your old and unuseddrugs. Ask your nurse to give you one when you are discharged.2.Visit a local take-back location: Many local pharmacies and police departments have programs that collect old and unwanted prescriptiondrugs. Call your local pharmacy or go to [email or web address] to find one close to you.3.Make use of household items: Use cat litter or old coffee grounds to dispose medications if other options arenot available. Mix your drugs with these household products, seal them in an airtight container andthrow it into the garbage. Call [facility]: [phone] to be sure your drugs can be disposed of in this way. Some medicines may require a different approach.4.Never flush your medications down the toilet. IF YOU HAVE BEEN PRESCRIBED AN OPIOIDS FOR PAIN If you have been prescribed an opioid (such as hydrocodone, oxycodone or morphine), it is critical to understand the possible side effects and risks of opioid pain medications. Even when taken as directed, opioids can have several side effects including: Tolerance, meaning you might need to take more of a medication for the same pain relief. Nausea, vomiting and/or constipation. Sleepiness, dizziness, dry mouth, confusion, depression or itching. Physical dependence, meaning you have withdrawal symptoms when a medication is stopped ? this can develop within a few days. KNOW YOUR RESPONSIBILITIES It is important to know exactly how much and how often to take the opioid pain medications you are prescribed. Never take opioids in higher amounts or more often than prescribed. Do not combine opioids with alcohol or other drugs that cause drowsiness, such as benzodiazepines, also known as benzos,including diazepam and alprazolam, muscle relaxants or sleep aids. Never sell or share prescriptionopioids. This is illegal. Store opioids in a secure place and out of reach of others (including children, family, friends and visitors). The last page(s) of this document has been signed and retained as a CHART COPY [employer]atures Patient Education Materials Sciatica Back Care Tips Back Exercises, Lumbar Medication Leaflets My discharge plan and instructions have been reviewed and explained to me and IRED NATASHA R understand my current condition and have read and understand these discharge instructions. I have received a written copy of the plan/instructions. If I have questions, I am aware that I should contactmy doctor. 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 This exam was performed according to our departmental dose optimization program, and includes the following measures where applicable: automated exposure control, adjustment of the mAs and/or kVp according to patient size and/or exam, and an iterative reconstruction algorithm. COMPARISON: None HISTORY: ORDERING SYSTEM PROVIDED HISTORY: Reason for Exam: Intermittent confusion FINDINGS: Parenchyma: No acute intracranial hemorrhage, midline shift, mass effect or acute ischemic infarct is demonstrated. The meza-white matter junctions are preserved. No space occupying intra-axial masses or extra-axial fluid collections are seen. Ventricles: No evidence of hydrocephalus or ventricular effacement. Vessels: No atherosclerotic calcifications. Orbits: Unremarkable. Calvarium: Unremarkable. Paranasal sinuses: Clear. Mastoid sinuses: Clear. IMPRESSION: Unremarkable examination. Interpreted by: Dimitry Michelle MD Preliminary Report By: Dimitry Michelle MD Electronically signed By Dimitry Michelle MD Dictated Date: 06/27/2023 2:04:56 PM Prelim Date: 06/27/2023 2:05:40 PM Sign Date: 06/27/2023 2:05:40 PM Ordering Provider: [facility]12-12-2022 Note. MICRO - Microbiology PROCEDURE: Blood Culture (bacterial) [*1] SOURCE: Blood BODY SITE: COLLECTED DATE/TIME: 10/26/2022 09:18 EST RECEIVED DATE/TIME: 10/26/2022 20:11 EST START DATE/TIME: 10/26/2022 20:11 EST FREE TEXT SOURCE: FINAL REPORTS Final Report [] Verified Date/Time/Personnel: 10/31/2022 20:59 EST Blood Culture: No Growth at 5 days. PRELIMINARY REPORTS Preliminary Report [] Verified Date/Time/Personnel: 10/26/2022 20:59 EST Culture has been received in lab and is no growth to date. Routine cultures are held for 5 days. Performing Locations *1: This test was performed at: [facility], [address] [place] [address], [id number] , [facility] ([place])11-19-2021 Hospital Discharge instructions Patient Education 11/19/2021 00:23:59 URI, Viral, No Abx (Adult) Viral Upper Respiratory Illness (Adult) You have a viral upper respiratory illness (URI), which is another term for the common cold. This illness is contagious during the first few days. It is spread through the air by coughing and sneezing. It may also be spread by direct contact (touching the sick person and then touching your own eyes, nose, or mouth). Frequent handwashing will decrease risk of spread. Most viral illnesses go away within 7 to 10 days with rest and simple home remedies. Sometimes the illness may last for several weeks. Antibiotics will not kill a virus, and they are generally not prescribed for this condition. Home care If symptoms are severe, rest at home for the first 2 to 3 days. When you resume activity, don't letyourself get too tired. Don't smoke. If you need help stopping, talk with your healthcare provider. Avoid being exposed to cigarette smoke (yours or others ). You may use acetaminophen or ibuprofen to control pain and fever, unless another medicine was prescribed. If you have chronic liver or kidney disease, have ever had a stomach ulcer or gastrointestinal bleeding, or are taking blood-thinning medicines, talk with your healthcare provider before using these medicines. Aspirin should never be given to anyone under 18 years of age who is ill with a viral infection or fever. It may cause severe liver or brain damage. Your appetite may be poor, so a light diet is fine. Stay well hydrated by drinking 6 to 8 glasses of fluids per day (water, soft drinks, juices, tea, or soup). Extra fluids will help loosen secretions in the nose and lungs. Iexf-yks-idosotv cold medicines will not shorten the length of time you re sick, but they may be helpful for the following symptoms: cough, sore throat, and nasal and sinus congestion. If you take prescription medicines, ask your healthcare provider or pharmacist which fpmy-mci-jyparey medicines are safe to use. (Note: Don't use decongestants if you have high blood pressure.) Follow-up care Follow up with your healthcare provider, or as advised. When to seek medical advice Call your healthcare provider right away if any of these occur: Cough with lots of colored sputum (mucus) Severe headache; face, neck, or ear pain Difficulty swallowing due to throat pain Fever of 100.4 F (38 C) or higher, or as directed by your healthcare provider Call 911 Call 911 if any of these occur: Chest pain, shortness of breath, wheezing, or difficulty breathing Coughing up blood Very severe pain with swallowing, especially if it goes along with a muffled voice [phone] [employer]. [address] [place] [address]. All rights reserved. This information is not intended as a substitute for professional medical care. Always follow yourhealthcare professional's instructions. Follow Up Care 11/18/2021 22:15:37 With:Go to emergency room if symptoms worsen Address:Unknown When:2-4 days With:Call Physician Referral Address:Unknown When:2-4 days [facility] Evaluation + Plan note No data available for this section [facility] Evaluation noteNo assessment information available [facility] Work Phone: Evaluation note* Diagnosis Obesity, Class II, BMI 35-39.9- Primary Obesity, unspecified Seizures (HCC) Other convulsions Gastroesophageal reflux disease, unspecified whether esophagitis present Hypertriglyceridemia Pure hyperglyceridemia Primary hypertension Unspecified essential hypertension documented in this encounter [facility] Summary Purpose Family History No Family History Records Found Relationship Condition Age at Onset Recorded Date/T minh Not Specified Coronary artery disease Unknown Cerebrovascular accident (CVA) Unknown Advance Directives No Advanced Directives Records Found Advance Directive Response Recorded Date/ Time Advance Directives No December 09, 2017 8:24pm Living Will No September 29, 022 11:24am Power of Market Specialist No September 29, 2022 11:24am Advance Directive Response Recorded Date/ Time Advance Directives No December 09, 2017 9:24pm Living Will No September 20 8:55pm Power of Market Specialist No September 20, 2023 8:55pm Chief Complaint and Reason for Visit Chief Complaint abd pain Chief Complaint CHEST PAIN Reason for Referral Specialty Diagnoses / Procedures Referred By Marah hester Referred To Contact Diagnoses Obesity, Class II, BMI 35-39.9 Primary hypertension Procedures CONSULT TO SLEEP MEDICINE - ADULT OFFICE/OUTPATIENT [facility] 60 MINUTES Angela Diaz, GALVANIZER ZINC.HUMAN RESOURCES CONSULTANT [address] [place] [address] Referral ID Status Reason Start Date Expiration Date Visits Requested Visits Authorized [id number] Authorized PCP Requested Referral 04/10/2024 04/10/2025 1 1 Additional Source Comments INFORMATION SOURCE (unrecogn ized section and content) DATE CREATED AUTHOR 05/21/2018 [facility] ([place]) DATE CREATED AUTHOR AUTHOR'S ORGANIZ ATION 06/28/2023 [facility] ([place] DATE CREATED AUTHOR AUTHOR'S ORGANIZ ATION 04/12/2024 [facility] DATE CREATED AUTHOR AUTHOR'S ORGANIZ ATION 04/13/2024 [facility] DATE CREATED AUTHOR AUTHOR'S ORGANIZ ATION 01/10/2025 [facility] DATE CREATED AUTHOR AUTHOR'S ORGANIZ ATION 01/19/2025 [facility] DATE CREATED AUTHOR AUTHOR'S ORGANIZ ATION 04/20/2025 [facility] Goals (unrecognized section and content) Goals may be documented in a n alternate section Patient Care team informatio n (unrecognized section and content) Team Status: Active Member Role Status Dates No Primary Care Physician Family Provider Active NP. Heather Adames SUPERVISOR [employer] Primary Care Provider Activ e Team Status: Inactive Member Role Status Dates Dr. Troy Banda , Emergency Provider Active NP. Heather Adames [employer]PER[employer] Primary Care Provider Activ e Salesperson [employer] Relationship Specialty Start Date End Date Heather Adames CNP [address] [place] [address] PCP - General Family Medicine 04/10/24 Salesperson [employer]ial [employer] Relationship Specialty Start Date End Date Heather Adames CNP [address] [place] [address] PCP - General Family Medicine 04/10/24 Source Comments (unrecognize d section and content) In the event this informatio n is protected by the Federal Confidentiality of Alcohol and Drug Abuse Patient Records regulations: The Federal rules restrict any use of the information to criminally investigate or prosecute any alcohol or drug abuse patient.[facility] the event this information is protected by the Federal Confidentiality of Alcohol and Drug Abuse Patient Records regulations: The Federal rules restrict any use of the information to criminally investigate or prosecute any alcohol or drug abuse patient.[facility] Reason for Visit (unrecogniz ed section and content) Reason Comments New Patient FOR RECORDS PERTAINING TO PATIENTS WHO ARE OR HAVE BEEN ENROLLED IN A CHEMICAL DEPENDENCY/SUBSTANCEABUSE PROGRAM, SOME INFORMATION MAY BE OMITTED. This clinical summary was aggregated from multiple sources. Caution should be exercised in using it in the provision of clinical care. This summary normalizes information from multiple sources, and as a consequence, information in this document may materially change the coding, format and clinical context of patient data. In addition, data may be omitted in some cases. CLINICAL DECISIONS SHOULD BE BASED ON THE PRIMARY CLINICAL RECORDS. [facility]. provides no warranty or guarantee of the accuracy or completeness of information in this document.
[2025-05-06 00:19] VITALS: BP 135/72; PULSE 68; RESP 16; O2SAT 97
[2025-05-06 00:19] LABS: Amphetamine Urine NEGATIVE (<1000 ng/mL); Barbiturate Urine NEGATIVE (< 200 ng/mL); Benzodiazepine Urine NEGATIVE (< 200 ng/mL); Buprenorphine Urine NEGATIVE (< 200 ng/mL); Cocaine Urine NEGATIVE (< 300 ng/mL); Fentanyl, Urine NEGATIVE; Methadone Urine NEGATIVE (< 300 ng/mL); Opiates Urine NEGATIVE (< 300 ng/mL); Oxycodone, Urine NEGATIVE (< 100 ng/mL); PCP Urine NEGATIVE (< 25 ng/mL); THC Urine NEGATIVE (< 50 ng/mL)
--- NOTE | 2025-05-06 03:11 | PCA ---
PT ACCEPTED [facility] [address] [phone]
--- NOTE | 2025-05-06 03:24 | EX.ED.DYSGE1 ---
HPI History of Present Illness Chief Complaint: Mental Health Informant: patient Narrative Narrative: Patient is a 34-year-old female with past medical history of auditory hallucinations as well as GERD. She states over the last 3 to 5 days she has been having increasing auditory hallucinations. She states that they are not telling her to harm herself or harm others and therefore she has no homicidal or suicidal ideations. She states however that they are not resolving and they are affecting her sleep and keeping her from functioning and with this she feels she may need placed for symptom improvement and therefore comes in for evaluation. Patient states that she has not been drinking alcohol or using illicit drugs prior to the onset of her hallucinations and she also states that she is taking her medications as directed [facility] Medical History (Updated 05/06/25 @ 04:[address] Christiano Ponce DO) History of hallucinations Smoker Seizure GERD (gastroesophageal reflux disease) Endometriosis determined by laparoscopy Home Medications ?Medication ?Instructions ?Recorded ?Last Taken ?Type sertraline 50 mg tablet 50 mg PO DAILY 05/05/25 Unknown History Allergy/AdvReac Type Severity Reaction Status Date / Time levetiracetam Allergy Rash Verified 05/05/25 22:19 Penicillins Allergy Shortness Verified 05/05/25 22:19 of breath tramadol HCl (From Ultram) Allergy Rash Verified 05/05/25 22:19 Family History Other CAD (coronary artery disease) CVA (cerebral vascular accident) Surgical History History of hysterectomy History of cholecystectomy Social History household members: family housing: house Smoking Status: Current every day smoker tobacco type: cigarettes ROS ROS ED Constitutional Constitutional ED: Denies chills or fever(s) Eyes Eyes: Denies change in vision ENT ENT ED: Denies sore throat Cardiovascular Cardiovascular: Denies chest pain Respiratory/Chest Respiratory/Chest: Denies cough or dyspnea Gastrointestinal Gastrointestinal: Denies abdominal pain, diarrhea, nausea or vomiting Genitourinary Genitourinary ED: Denies dysuria Musculoskeletal Musculoskeletal: Denies myalgias Integumentary Denies rash Neurologic Neurologic: Denies headache(s) Psychiatric Psychiatric: Reports other Details: Positive auditory hallucinations ; Denies suicidal ideation or suicidal thoughts Hematologic/Lymphatic Hematologic/Lymphatic: Denies easy bleeding or easy bruising EXAM Physical Exam Const Vital Signs: 05/05/25 22:19 05/06/25 00:19 05/06/25 05:26 Temperature 97.8 F 98.4 F Temperature Source Temporal Pulse Rate 78 68 83 Respiratory Rate 18 16 16 Blood Pressure 133/94 H 135/72 H 126/79 H Blood Pressure Mean 107 93 94 Pulse Ox 96 97 97 Oxygen Delivery Method Room Air Room Air 05/06/25 05:27 Temperature Temperature Source Pulse Rate 83 Respiratory Rate 16 Blood Pressure 126/79 H Blood Pressure Mean 94 Pulse Ox 97 Oxygen Delivery Method Room Air Positive well nourished and well developed General Appearance ED: well developed HEENT HEENT Narrative: Normocephalic atraumatic Eyes PERRL and EOMs intact bilaterally General Eye ED: Negative for scleral icterus Neck supple Neck Narrative: No nuchal rigidity or meningeal signs Resp normal respiratory effort and clear to auscultation bilaterally Cardio regular rate and regular rhythm GI normal to inspection, nondistended, normoactive bowel sounds, non-tender, non-distended and no masses Auscultation: normoactive bowel sounds Palpation: soft Extremity normal to inspection Neuro oriented x3, CN's II-XII intact bilaterally and no sensory deficits noted Sensorium / Orientation: alert Motor Exam: strength 5/5 throughout Psych Psych Narrative: Patient reports auditory hallucinations without homicidal or suicidal thoughts Skin no rashes or lesions noted MDM MDM MDM Narrative Medical decision making narrative: Patient arrived to the ER slightly hypertensive but otherwise with stable vitals. She reported auditory hallucinations but does have a past medical history of this. Secondary to her past history I do not feel the need for head CT to evaluate for potential brain mass as a cause. She denies any alcohol or illicit drug use but as this could stimulate hallucinations a talk screen and alcohol level will be obtained. Patient will also undergo basic testing for medical clearance as there is concern she may need placed based on her worsening hallucinations and past medical history of psychiatric disease. The patient's workup revealed no clinically significant findings and she was medically cleared. She was evaluated by crisis center. Even though the patient reports she has been taking her medication as directed crisis center has found out that the patient is a new and taking 1 medication not the entire prescribed regimen. Therefore there is a high likelihood this is the reason for her worsening hallucinations. However as the patient is unwilling to take the medication at home she will require inpatient therapy to ensure her new medication regiment and prevent worsening of her disease. Therefore the patient will be placed in a psychiatric center for further treatment The patient is hemodynamically stable and medically cleared for transfer/placement to a psychiatric center History & Record Review Discussion w/independent historian: Patient Lab Data Attestation: I reviewed the patient's lab results. Labs: Laboratory Results - last 24 hr 05/05/25 05/05/25 22:46 23:58 WBC 11.0 RBC 4.90 Hgb 15.2 H Hct 44.4 MCV 90.6 MCH 31.0 MCHC 34.2 RDW Std Deviation 38.7 RDW Coeff of Tiarra 11.7 Plt Count 231 MPV 11.1 Immature Gran % (Auto) 0.300 Neut % (Auto) 59.4 Lymph % (Auto) 32.6 [place] % (Auto) 4.0 Eos % (Auto) 2.8 Baso % (Auto) 0.9 Absolute Neuts (auto) 6.5 Absolute Lymphs (auto) 3.58 Nucleated RBC % 0 Sodium 140 Potassium 3.4 Chloride 103 Carbon Dioxide 26.1 Anion Gap 11 BUN 11 Creatinine 0.85 Estim Creat Clear Calc 83.95 Est GFR (MDRD) Non-Af 92 BUN/Creatinine Ratio 13.1 Glucose 133 H Calcium 9.3 Serum , Qual NEGATIVE Urine Opiates Screen NEGATIVE U Buprenorphine Qual NEGATIVE Ur Oxycodone Screen NEGATIVE Urine Methadone Screen NEGATIVE Urine Fentanyl Screen NEGATIVE Ur Barbiturates Screen NEGATIVE Ur Phencyclidine Scrn NEGATIVE Ur Amphetamines Screen NEGATIVE U Benzodiazepines Scrn NEGATIVE Urine Cocaine Screen NEGATIVE U Cannabinoids Screen NEGATIVE Ethyl Alcohol < 10.1 Management Discussion w/another healthcare provider: Behavioral health Discharge Plan Triage Chief Complaint: Mental Health ED Provider: Christiano Ponce Dx/Rx/DC Orders Clinical Impression: Auditory hallucinations, Noncompliance with medication regimen, GERD (gastroesophageal reflux disease) Prescriptions: No Action sertraline 50 mg tablet 50 mg PO DAILY Primary Care Provider: Heather Adamse Referrals: Heather Adames, PRODUCTION COST ESTIMATOR-C [Primary Care Provider] - Print Language: Slovak Disposition Disposition: Psychiatric Hospital or Unit Discharge Location[facility]
[2025-05-06 05:26] VITALS: BP 126/79; PULSE 83; RESP 16; TEMP 36.9; O2SAT 97
[2025-05-06 05:27] VITALS: BP 126/79; PULSE 83; RESP 16; O2SAT 97
== END 2025-05-06 07:49 ==
PROVIDERS: Emergency Provider Emergency Medicine; PCP Nurse Practitioner Family; Visit Provider Emergency Medicine
DX: R44.0 Auditory hallucinations (principal); K21.9 Gastro-esophageal reflux disease without esophagitis; F17.210 Nicotine dependence, cigarettes, uncomplicated; Z91.148 Patient's other noncompliance with medication regimen for other reason
CPT/HCPCS: 80048; 80307; 82077; 84703; 85025; 99283

== ENCOUNTER 2025-07-29 15:32 | Emergency (ER) | payer MEDICAID, SELFPAY ==
[2025-07-29 15:32] VITALS: BP 122/85; PULSE 112; RESP 16; TEMP 37.3; O2SAT 98; BMI 29.5
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
[2025-07-29 17:30] VITALS: BP 115/82; PULSE 83; RESP 20; O2SAT 100
[2025-07-29] MEDS: 0.9% Normal Saline (500mL Bag) 500 ML 1000 ML IV (17:32)
[2025-07-29 17:39] VITALS: BMI 30.4
--- NOTE | 2025-07-29 17:45 | CT_ITS ---
PROCEDURE: CT BRAIN/HEAD WITHOUT CONTRAST 07/29/2025 REASON FOR EXAM: NYSTAGMUS TECHNIQUE: Procedure Code: CTBR Modality: CT Procedure: BRAIN/HEAD WITHOUT CONTRAST Coronal and Sagittal reconstruction series were provided. One or more dose reduction techniques were used (e.g., Automated exposure control, adjustment of the mA and/or kV according to patient size, use of iterative reconstruction technique. RADIATION DOSE SUMMARY: CTDlvol: 44.99 mGy DLP: 779.24 mGycm COMPARISON: CT head 09/20/2023, brain MRI 02/01/2022. FINDINGS: No acute intracranial hemorrhage, extra-axial collection, mass effect or acute infarct. Ventricles and subarachnoid spaces are normal in size. Unremarkable orbits. Intact skull base and calvarium. Well-aerated paranasal sinuses and mastoid air cells. CT/Brain/Head without Contrast IMPRESSION: Unremarkable head CT. Reading Location: [facility]
[2025-07-29 17:55] LABS: Hematocrit 43.6 % (37-47); Hemoglobin 15.0 g/dL (12.0-15.0); Immature Granulocytes Count 0.050 X10^3/uL (0.0-0.0); Mean Corp Hgb Conc 34.4 g/dL (32-36); Mean Corpuscular Volume 89.7 fL (81-99); Mean Platelet Vol. 9.6 fl (6.2-12.0); NRBC Flagged by Analyzer 0 % (0-5); POSITIVE MORPHOLOGY YES; Platelet Count 308 K/mm3 (150-450); RBC Distribution Width CV 11.6 % (11.6-14.6); RBC Distribution Width SD 38.0 fl (35.1-43.9); Red Blood Count 4.86 M/mm3 (4.2-5.4); White Blood Count 10.4 K/mm3 (4.4-11.0)
[2025-07-29 18:49] LABS: AST(SGOT) 16 U/L (<=31); Alanine Aminotransfer ALT/SGPT 19 U/L (<=34); Albumin, Serum 4.3 g/dL (3.5-5.0); Alkaline Phosphatase 90 U/L (35-104); Anion Gap 11 (5-15); BUN 13 mg/dL (4-19); BUN/Creat Ratio 13.2 RATIO (10-20); Calcium,Total 9.4 mg/dL (7.6-11.0); Carbon Dioxide 22.9 mmol/L (21.0-32.0); Chloride 105 mmol/L (98-108); Estimated Creatinine Clearance 76.96 ml/min (50-250); Globulin 2.7 g/dL (2.2-4.2); Glucose 84 mg/dL (70-99); Potassium 3.7 mmol/L (3.3-5.1)
[2025-07-29 19:00] VITALS: BP 109/61; PULSE 82; RESP 20; O2SAT 99
[2025-07-29 19:30] LABS: Differential Indicated SCAN CRITERIA MET
[2025-07-29 19:45] LABS: Differential Comment SCANNED
[2025-07-29 20:59] VITALS: BP 111/71; PULSE 72; RESP 16; TEMP 36.4; O2SAT 99
== END 2025-07-29 21:00 | disposition home or self-care (01) ==
PROVIDERS: Emergency Provider Emergency Medicine; PCP Nurse Practitioner Family; Visit Provider Emergency Medicine
DX: R51.9 Headache, unspecified (principal); Z90.710 Acquired absence of both cervix and uterus; F17.210 Nicotine dependence, cigarettes, uncomplicated; Z90.49 Acquired absence of other specified parts of digestive tract
CPT/HCPCS: 70450; 80053; 85025; 93005; 96361; 96374; 99284; A4216